=== PATIENT | female | born 1940 | race African-American/Black ===

== ENCOUNTER 2018-03-10 12:41 | Inpatient (IN) | payer MEDICARE, MEDICAID ==
[~2018-03-10] VITALS: Ht 162.6 cm; Wt 131.7 kg
[2018-03-10] VITALS (25 sets, daily range): BP systolic 82–157; BP diastolic 50–119
[~2018-03-10 12:41] MED LIST: ACHD5005 PO; ALBU0.8322 IH; ALBU17AE23; ALBU8.5H2 IH; ALLO300T2 PO; ALLP100T PO; ALPR1T PO; ALPR1TAB72; ALPR1TAB72 PO; AMIT25TA9; AMLO10TA82 PO; AMLO5TAB2 PO; ASP325T PO; ASP81TEC PO; ASPI-983 PO; BACL20TA PO; BISO1TAB41; BUDE6HFA IH; CEPH500C PO; CITA10TA7 PO; CLN.2TD TD; CLN.2TD TOP; CLON1PAT34 TD; CLOP75TA28 PO; CYCL-97 PO; DEXL30CA2 PO; DICY10CA12 PO; DULO30CA PO; DULO60CA6 PO; FAMO20TA13 PO; FERR-57 PO; FLUO20CA25 PO; FRS325T PO; FRSM40T PO; FURO40TA4 PO; GABA-488 PO; HYDR-3583 PO; HYDR-3720 PO; HYDR1TAB86 PO; INDO25CA PO; KCL20TCR PO; LEVO1CAP PO; LEVO1CAP3 PO; LEVO75TA6 PO; LISI20TA PO; LISI40TA PO; LORA0.5T PO; LORA0.5T34 PO; LSNP20T PO; LVT.1T; LVT.1T PO; MAGIC MOUTHWASH PO; MELO7.5T46 PO; METO-387 PO; MTF500T PO; MTL2.5T; MTL2.5T PO; MULT-608 PO; NF-KET2% TOP; Non Medication Item TP; PANT40TA PO; PANT40TA3 PO; PNT40TEC PO; POLY17PO23 PO; POTA2TAB2 PO; PRAV40TA PO; PRAV40TA2 PO; PRD20T PO; RIVA1PAT TD; RIVA6CAP5 PO; SCR1T PO; SPIR25TA5 PO; SULF-222 PO; THYR60TA2 PO; TIOT18CA IH; TRAM50TA2 PO; TRM50T PO; ZIPR20CA24 PO; ZIPR20CA26 PO; [UNRECOGNIZED DRUG - CODE] PO; [UNRECOGNIZED DRUG - REMARK] PO
[2018-03-10] MEDS ORDERED: KETOROLAC 30 MG/ML VIAL IVP ONE (13:00)
[2018-03-10 13:25] LABS: BASOPHILS % (AUTO) 0 % (0-10); EOSINOPHILS # (AUTO) 0.2 10^3/uL (0.0-0.3); EOSINOPHILS % (AUTO) 1 % (0-10); HEMATOCRIT 34 % (35-52); HEMOGLOBIN 10.7 G/DL (11.5-16.0); LYMPHOCYTES # (AUTO) 3.9 X 10^3 (1.0-4.0); LYMPHOCYTES % (AUTO) 29 % (12-44); MEAN CORPUSCULAR HEMOGLOBIN 24 PG (25-34); MEAN CORPUSCULAR HGB CONC 31 G/DL (32-36); MEAN CORPUSCULAR VOLUME 76 FL (80-99); MEAN PLATELET VOLUME 10.1 FL (7.4-10.4); MONOCYTES # (AUTO) 1.1 X 10^3 (0.0-1.0); MONOCYTES % (AUTO) 8 % (0-12); NEUTROPHILS # (AUTO) 8.1 X 10^3 (1.8-7.8); NEUTROPHILS % (AUTO) 61 % (42-75); PLATELET COUNT 321 10^3/uL (130-400); RED BLOOD COUNT 4.49 10^6/uL (4.35-5.85); RED CELL DISTRIBUTION WIDTH 17.7 % (10.0-14.5); WHITE BLOOD COUNT 13.3 10^3/uL (4.3-11.0)
[2018-03-10 13:44] LABS: FIBRIN DEGRADATION PRODUCTS 1.48 UG/ML (0.00-0.49); PROTHROMBIN TIME PATIENT 13.4 SEC (12.2-14.7)
[2018-03-10] MEDS ORDERED: NS IV 1000 ML 1,000 ML IV SCH ×2 (13:44→14:51)
[2018-03-10] MEDS ORDERED: ASPIRIN 81 MG CHEW (CHILDREN'S ASA) PO ONE (13:45)
[2018-03-10] MEDS ORDERED: morphine INJ 10 MG/ML 1ML (SYR OR VIAL) IVP ONE ×2 (13:45→15:00)
[2018-03-10 13:47] LABS: ALANINE AMINOTRANSFERASE 14 U/L (0-55); ALKALINE PHOSPHATASE 89 U/L (40-136); BILIRUBIN,TOTAL 0.5 MG/DL (0.1-1.0); BUN/CREATININE RATIO 21; CALCIUM 10.3 MG/DL (8.5-10.1); CARBON DIOXIDE 25 MMOL/L (21-32); CHLORIDE 102 MMOL/L (98-107); CREATININE SERUM 1.63 MG/DL (0.60-1.30); GFR ESTIMATED 37; GLUCOSE 265 MG/DL (70-105); POTASSIUM 4.4 MMOL/L (3.6-5.0); SODIUM 136 MMOL/L (135-145); TOTAL PROTEIN 6.9 GM/DL (6.4-8.2)
--- NOTE | 2018-03-10 13:47 | Diagnostic Imaging Report ---
Indication: Syncope and slurred speech Portable upright AP view of the chest is obtained with comparison made to study of 09/26/2015. FINDINGS: Heart size and pulmonary vascularity are within normal limits, and the lungs are clear, bilaterally. IMPRESSION: Unremarkable chest. Dictated by: Dictated on workstation # [id number]
--- NOTE | 2018-03-10 13:49 | ED Neurological Problem ---
General Chief Complaint: Neurological Problems Stated Complaint: HAMILTON Nursing Triage Note: pt presents to ED via EMS from [facility]. Pt reports she was getting her hair done and when she was under the dryer she felt like she got too hot and started to feel faint. Staff present reports she started to slurr her words. Upon EMS arrival they reprots pt was fatigued but responding and verbalizing appropriately. Pt is alert and appriopriate upon arrival. PT states her speech is normal for her but still feels dizzy. Nursing Sepsis Screen: No Definite Risk Source: patient, EMS Exam Limitations: no limitations History of Present Illness Date Seen by Provider: Mar 10, 2018 Time Seen by Provider: 12:47 Initial Comments Patient presents to the ER by EMS with chief complaint that she's having a headache and some slurred speech witnessed by nursing staff as well as the patient endorses it for about 2-3 minutes. She says she was feeling okay today although she's had some weakness and tiredness for the past one month. She's not had the weakness or tiredness worked up. She does have a history of hypothyroidism. She was getting her hair done at the assisted living facility where she resides. She said they sat her under the hairdryer when she started to get hot develop a headache in her right frontal forehead that radiated to her left side. He is not having any chest pain nausea shortness of breath. She quit smoking in 2010. She does have a history of stroke without any residual deficits. EMS about time they got there her blood sugar was normal and she had no slurring of speech and a negative [place] stroke scale. Patient does have a history of diet-controlled diabetes. She also has a history of coronary disease managed by Dr. Lu at [place], [place]. She is not on any blood thinners. No falls or head trauma. Allergies and Home Medications Allergies Coded Allergies: carvedilol (Verified Allergy, Unknown, 03/10/18) Home Medications Allopurinol 300 Mg Tablet, 300 MG PO DAILY, (Reported) Aspirin 81 Mg Tablet., 81 MG PO DAILY Prescribed by: NAMRATA HAMILTON on 09/28/15 8364 Citalopram Hydrobromide 10 Mg Tablet, 10 MG PO DAILY, (Reported) Furosemide 40 Mg Tablet, 40 MG PO DAILY, (Reported) Hydrocodone Bit/Acetaminophen 1 Each Tablet, 1 TAB PO TID PRN for PAIN, ( Reported) Lorazepam 0.5 Mg Tablet, 0.5 MG PO HS, (Reported) Meloxicam 7.5 Mg Tablet, 7.5 MG PO DAILY, (Reported) Metoprolol Succinate 25 Mg Tab.er.24h, 25 MG PO DAILY Prescribed by: NAMRATA HAMILTON on 09/28/15 6729 Pantoprazole Sodium 40 Mg Tablet.dr, 40 MG PO DAILY, (Reported) Pravastatin Sodium 40 Mg Tablet, 40 MG PO HS, (Reported) Rivastigmine Tartrate 6 Mg Capsule, 6 MG PO BID, (Reported) Ziprasidone HCl 20 Mg Capsule, 20 MG PO BID, (Reported) Patient Home Medication List Home Medication List Reviewed: Yes Review of Systems Review of Systems Constitutional: No chills, No diaphoresis Eyes: Denies Blindness, Denies Blurred Vision Ears, Nose, Mouth, Throat: denies ear pain, denies ear discharge Respiratory: No cough, No short of breath Cardiovascular: No chest pain, No edema; Hx of Intervention; No palpitations, No syncope; vascular heart diseas Gastrointestinal: No abdominal pain, No constipation, No diarrhea, No nausea Genitourinary: No discharge, No dysuria Musculoskeletal: No back pain, No joint pain Past Xzpzizm-Awntez-Svdkzu Hx Patient Social History Alcohol Use: Rarely Uses Recreational Drug Use: No Smoking Status: Former Smoker Type Used: Cigarettes Former Smoker, Quit: Mar 25, 2011 Recent Foreign Travel: No Contact w/Someone Who Travel: No Recent Infectious Disease Expo: No Recent Hopitalizations: Yes Physical Abuse: No Sexual Abuse: No Mistreated: No Fear: No Immunizations Up To Date Tetanus Booster (TDap): Unknown PED Vaccines UTD: No Date of Pneumonia Vaccine: Jul 02, 2013 Date of Influenza Vaccine: May 21, 2012 Past Medical History Surgeries: Yes (, bilat hip replacements, r caratid, r/l feet, back, stentsx4, ) Coronary Stent, Hysterectomy Respiratory: Yes (COPD) Asthma, Sleep Apnea Currently Using CPAP: Yes Cardiac: Yes (STENTS X 3) Coronary Artery Disease, High Cholesterol, Hypertension Neurological: Yes Dementia Reproductive Disorders: No Sexually Transmitted Disease: No Genitourinary: Yes (chronic kidney disease) Gastrointestinal: Yes (DIVERTICULITIS/COLON POLYPSmultiple hernia surgeries) Gastroesophageal Reflux, Chronic Constipation, Diverticulosis, Ulcer Musculoskeletal: Yes (ARTHRITIS/FIBROMYLAGIA, BACK SURGERIES, NECK SURGERY, bilat total hip repla) Rheumatoid Arthritis, Gout Endocrine: Yes Diabetes, Insulin dep, Hypothyroidsim Cataract Cancer: No Psychosocial: Yes Anxiety, Depression Integumentary: No Blood Disorders: No Family Medical History Cancer 03 FATHER 03 MOTHER Family history: Cardiovascular disease 03 MOTHER Family history: Hypertension 03 FATHER No Pertinent Family Hx Physical Exam Vital Signs Vital Signs - First Documented 03/10/18 03/10/18 12:52 14:00 Temp 97.5 Pulse 64 Resp 14 B/P (MAP) 100/59 (73) Pulse Ox 100 O2 Delivery OxyMask O2 Flow Rate 8.00 Capillary Refill : Less Than 3 Seconds Height, Weight, BMI Height: 5'4.00" Weight: 282lbs. 14.4oz. [id number]; 49.77 BMI Method:Stated General Appearance: WD/WN, no apparent distress HEENT: PERRL/EOMI, pharynx normal Neck: non-tender, normal inspection Respiratory: chest non-tender, normal breath sounds, no respiratory distress, no accessory muscle use, wheezing (slight left-sided wheeze) Cardiovascular: normal peripheral pulses, regular rate, rhythm Gastrointestinal: normal bowel sounds, soft Neurologic/Psychiatric: alert, normal mood/affect, oriented x 3 [place] Nerves: normal hearing, normal speech Coordination/Gait: normal finger to nose Motor/Sensory: no motor deficit, no sensory deficit, no pronator drift Stroke NIH Stroke Scale Assessment Level of Consciousness: 0=Alert (0), Level of Consciousness-Questions: 0= Answers both month/age (0), LOC Commands: 0=Performs both tasks (0), Visual Quick: 0=No visual loss (0), Facial Movement (Facial Paresis): 0=Normal symmetrical mnt (0), Motor Function-Arms Right: 0=No drift (0), Motor Function- Arms Left: 0=No drift (0), Motor Function-Legs Right: 0=No drift (0), Motor Function-Legs Left: 0=No drift (0), Limb Ataxia: 0=Absent (0), Sensory: 0=Normal :no loss (0), Best Language: 0=No aphasia (0), Dysarthria: 0=Normal (0), Extinction & Inattention: 0=No abnormality (0), Total: 0 Stroke Thrombolytic Exclusion Age 18 or Over: Yes Acute intenal hemorrhage: No History of CVA: Yes Uncontrolled Coagulation Defec: No Intracranial Hemorrhage: No Severe Hypertension: No GI or Bleed: No Subarachnoid Hemorrhage: No Intracranial Neoplasm/Aneurysm: No Oral Anticoagulants: No Surgery or Trauma: No Puncture of Non-Compressible V: No Recent CPR: No Diabetic Hemorrhagic Retinopat: No Organ Biopsy: No Recent Obstetric Delivery: No Glucose: No (244) Significant Hepatic Dysfunctio: No NIH Stoke Scale >22: No Bacterial Endocarditis: No Pericarditis: No Improving Symptoms: No Platelets: No TPA Contraindication: No IV - TPa Received IV - TPa Procedure Performed?: No Progress/Results/Core Measures Results/Orders Lab Results Laboratory Tests Test 03/10/18 13:00 03/10/18 13:20 03/10/18 14:25 Range/Units Glucometer 244 H 70-110 MG/DL White Blood Count 13.3 H 4.3-11.0 10^3/uL Red Blood Count 4.49 4.35-5.85 10^6/uL Hemoglobin 10.7 L 11.5-16.0 G/DL Hematocrit 34 L 35-52 % Mean Corpuscular Volume 76 L 80-99 FL Mean Corpuscular Hemoglobin 24 L 25-34 PG Mean Corpuscular Hemoglobin Concent 31 L 32-36 G/DL Red Cell Distribution Width 17.7 H 10.0-14.5 % Platelet Count 321 130-400 10^3/uL Mean Platelet Volume 10.1 7.4-10.4 FL Neutrophils (%) (Auto) 61 42-75 % Lymphocytes (%) (Auto) 29 12-44 % Monocytes (%) (Auto) 8 0-12 % Eosinophils (%) (Auto) 1 0-10 % Basophils (%) (Auto) 0 0-10 % Neutrophils # (Auto) 8.1 H 1.8-7.8 X 10^3 Lymphocytes # (Auto) 3.9 1.0-4.0 X 10^3 Monocytes # (Auto) 1.1 H 0.0-1.0 X 10^3 Eosinophils # (Auto) 0.2 0.0-0.3 10^3/uL Basophils # (Auto) 0.0 0.0-0.1 10^3/uL Prothrombin Time 13.4 12.2-14.7 SEC INR Comment 1.0 0.8-1.4 Activated Partial Thromboplast Time 24 24-35 SEC D-Dimer 1.48 H 0.00-0.49 UG/ML Sodium Level 136 135-145 MMOL/L Potassium Level 4.4 3.6-5.0 MMOL/L Chloride Level 102 98-107 MMOL/L Carbon Dioxide Level 25 21-32 MMOL/L Anion Gap 9 5-14 MMOL/L Blood Urea Nitrogen 34 H 7-18 MG/DL Creatinine 1.63 H 0.60-1.30 MG/DL Estimat Glomerular Filtration Rate 37 BUN/Creatinine Ratio 21 Glucose Level 265 H 70-105 MG/DL Calcium Level 10.3 H 8.5-10.1 MG/DL Corrected Calcium 10.3 H 8.5-10.1 MG/DL Magnesium Level 1.8 1.8-2.4 MG/DL Total Bilirubin 0.5 0.1-1.0 MG/DL Aspartate Amino Transf (AST/SGOT) 18 5-34 U/L Alanine Aminotransferase (ALT/SGPT) 14 0-55 U/L Alkaline Phosphatase 89 40-136 U/L Myoglobin 40.4 10.0-92.0 NG/ML Troponin I < 0.30 <0.30 NG/ML Total Protein 6.9 6.4-8.2 GM/DL Albumin 4.0 3.2-4.5 GM/DL Urine Color YELLOW Urine Clarity CLEAR Urine pH 5 5-9 Urine Specific [place] 1.015 L 1.016-1.022 Urine Protein 2+ H NEGATIVE Urine Glucose (UA) NEGATIVE NEGATIVE Urine Ketones NEGATIVE NEGATIVE Urine Nitrite NEGATIVE NEGATIVE Urine Bilirubin NEGATIVE NEGATIVE Urine Urobilinogen 1 NORMAL MG/DL Urine Leukocyte Esterase 1+ H NEGATIVE Urine RBC (Auto) NEGATIVE NEGATIVE Urine RBC 0-2 /HPF Urine WBC NONE /HPF Urine Squamous Epithelial Cells 5-10 /HPF Urine Crystals NONE /LPF Urine Amorphous Sediment FEW JAZZ URATES H /LPF Urine Bacteria TRACE /HPF Urine Casts PRESENT /LPF Urine Hyaline Casts 10-25 H /LPF Urine Mucus NEGATIVE /LPF Urine Culture Indicated NO My Orders Orders - FATUMA OCAMPO Cbc With Automated Diff (03/10/18 12:58) Protime With Inr (03/10/18 12:58) Partial Thromboplastin Time (03/10/18 12:58) Comprehensive Metabolic Panel (03/10/18 12:58) Fibrin Degradation Products (03/10/18 12:58) Troponin I (03/10/18 12:58) Ua Culture If Indicated (03/10/18 12:58) Chest 1 View, Ap/Pa Only (03/10/18 12:58) Ekg Tracing (03/10/18 12:58) Accucheck Stat ONCE (03/10/18 12:58) Saline Lock/Iv-Start (03/10/18 12:58) Vital Signs Stroke Patient Q15M (03/10/18 12:58) O2 (03/10/18 12:58) Intake & Output 06,14,22 (03/10/18 12:58) Monitor-Rhythm Ecg Trace Only (03/10/18 12:58) Dysphagia Screening Tool (03/10/18 12:58) Ketorolac Injection (Toradol Injection) (03/10/18 13:00) Ekg Tracing (03/10/18 13:31) Ekg Tracing (03/10/18 13:44) Morphine Injection (Morphine Injection (03/10/18 13:45) Saline Lock/Iv-Start (03/10/18 13:44) Ns Iv 1000 Ml (Sodium Chloride 0.9%) (03/10/18 13:44) Aspirin Chewable Tablet (Baby Aspirin Ch (03/10/18 13:45) Magnesium (03/10/18 13:20) Myoglobin Serum (03/10/18 13:20) Midazolam Injection (Versed Injection) (03/10/18 14:08) Dopamine Drip (Dopamine Drip) (03/10/18 14:27) Echo W Doppler/Color Flow (03/10/18 14:38) Lidocaine 1% Inj 20 Ml (Xylocaine 1% Inj (03/10/18 14:43) Midazolam Injection (Versed Injection) (03/10/18 14:43) Fentanyl Injection (Sublimaze Injection (03/10/18 14:43) Diphenhydramine Injection (Benadryl Inje (03/10/18 14:43) Heparin (Bolus Per Protocol) (Heparin (B (03/10/18 14:43) Ns Iv 1000 Ml (Sodium Chloride 0.9%) (03/10/18 14:44) Medications Given in ED Current Medications Medications Dose Ordered Sig/Jonathan Route Start Time Stop Time Status Last Admin Dose Admin Aspirin 324 mg ONCE ONCE PO 03/10/18 13:45 03/10/18 13:46 DC 03/10/18 13:52 324 MG Dopamine HCl/ Dextrose 250 ml @ ud STK-MED ONCE IV 03/10/18 14:27 03/10/18 14:30 DC 03/10/18 14:33 23.8 MLS/HR Ketorolac Tromethamine 15 mg ONCE ONCE IVP 03/10/18 13:00 03/10/18 13:01 DC 03/10/18 13:35 15 MG Midazolam HCl 5 mg STK-MED ONCE .ROUTE 03/10/18 14:08 03/10/18 14:13 DC 03/10/18 14:12 5 MG Morphine Sulfate 4 mg ONCE ONCE IVP 03/10/18 13:45 03/10/18 13:46 DC 03/10/18 13:52 4 MG Vital Signs/I&O 03/10/18 03/10/18 03/10/18 12:52 14:00 14:33 Temp 97.5 97.6 Pulse 64 60 Resp 14 12 B/P (MAP) 100/59 (73) 120/68 Pulse Ox 100 98 100 O2 Delivery OxyMask O2 Flow Rate 8.00 Blood Pressure Mean: 73 FSBG Bedside Testing Finger Stick Blood Glucose: 244 Progress Progress Note : Time: 14:00 Progress Note Shortly after the patient here she had a bradycardic event getting down to below 32. We got another EKG patient does not have any pain or shortness breath at that time however about 10:15 minutes later she started having some left arm pain. The daughters were a dysarthria screening swallow study and gave her aspirin. Consults : Consulting Physician: Gonzalo LINK MD Consults Notes Dr. Link saw the patient and examined her alongside with me. He initiated dopamine. But family saw the patient blood pressure was about 105 systolic with a paced heart rate of 65. The chest pain seemed to be from the demand and EKGs did not demonstrate STEMI but nor her to continue the dopamine we needed a central line and the patient would also benefit from an internal pacemaker overnight so he elected to take the patient to the catheter lab to place an internal pacemaker due to the heart catheter that he needed to do to rule out a coronary blockage to the AV node. Same time to go ahead and leave the line in the femoral vein for dopamine use. He took the patient from the ER directly to the [facility] for that reason. Afterwards he reported the patient did well has an internal pacemaker placed and central line in the right femoral vein. He also recommended we get an echocardiogram in the ER possible if not, then on the hospital. Critical Care Note Critical Care Start Time: 13:15 Stop Time: 15:00 Total Time (minutes) 105 Progress Nursing notified me that the patient was having bradycardia in the 30s when interviewed the patient she was not having any chest pain at that time that she was feeling very faint and short of breath. The patient's heart rate was witnessed on the monitor to be 32 by the time we got a EKG within a minute he was started back up to 50. Patient's symptoms abated. We put the pacer paddles on her and started a second liter fluid as her blood pressure was around 100 and 105 systolic. Reexamined her ordered another EKG and some aspirin. Patient tolerated that okay. Then about 15 minutes later called back in the room when the patient was bradycardia down into the 30s again at this time her blood pressure was in the mid 60s systolic and she was having left shoulder pain. Patient does have a history of 4 stents. She does not have a pacemaker or AICD. We went ahead and initiated lipase mode overnight getting good capture so we repositioned the pacer paddles and then got good passive capture with 40 mA. Because of the discomfort of pacing we also gave her 6 mg of morphine and 3 mg of Versed. She was awake, alert and talking about the procedure and her pain was improving after the injections. Dr. Butler was notified again and he knew Dr. Link to be in house so he asked Dr. Link to come over and see the patient. Dr. Link examine the patient with us we get good capture we reduced the place down to 50 and the milliamps down to 16. We watched the patient's [place] pulse rate stayed around 50-55 and no lower. Her repeat blood pressure was 106 systolic so he ordered dopamine which we started peripherally. Dr. Link wanted a echocardiogram completed as well as he knew the patient would need a heart catheter to rule out an obstruction of the coronaries and went until we could get the metoprolol out of her system we could not justify placement of a permanent pacemaker. He also thought that it would be beneficial for her to have an internal pacer overnight as she was requiring a pacemaker. So he is elected to go ahead and take the patient to [facility] not because of Stemi but because we could then obtain central venous access for the dopamine, place a internal pacemaker and get rid of the external pacemaker which is causing some discomfort as well as complete the cardiac catheterization. He reported afterwards that the cardiac catheterization was clean and internal pacemaker was placed without problems. The patient also had a good central venous access and the dopamine was switched over to and the patient was admitted to the medical service with his consultation. Departure Communication (Admissions) Time/Spoke to Admitting Phy: 15:40 Discussed case lab imaging findings and plan to go to [facility] for internal pacemaker placement with Dr. Holman. She agrees and will see the patient. Time/Spoke to Consulting Phy: 13:10 Discussed the labs, EKG presentation and bradycardia with Dr. Butler. He asked Dr. Link who was in house to come see stabilize, evaluate and manage patient inpatient. Impression Primary Impression: Symptomatic sinus bradycardia Additional Impressions: Chest pain Qualified Codes: R07.9 - Chest pain, unspecified Near syncope Disposition: ADMITTED INPATIENT Condition: Critical Admissions Decision to Admit Reason: Admit from ER (General) Decision to Admit/Date: Mar 10, 2018 Time/Decision to Admit Time: 15:00 Departure-Patient Inst. Referrals: PETE FALCON MD (PCP) Primary Care Physician ELIEL SMITH APRN (Family) Primary Care Physician Copy Copies To 1: FER PALOMINO DO; SISI BUTLER MD, TITUS J Mar 10, 2018 13:49
[2018-03-10 13:59] LABS: MAGNESIUM 1.8 MG/DL (1.8-2.4)
[2018-03-10] MEDS ORDERED: MIDAZOLAM 5 MG/5 ML (VERSED) VIAL ONE ×2 (14:08→14:43)
[2018-03-10 14:12] LABS: MYOGLOBIN SERUM 40.4 NG/ML (10.0-92.0)
[2018-03-10] MEDS ORDERED: DOPamine DRIP 250 ML IV ONE (14:27)
[2018-03-10 14:34] LABS: BILIRUBIN,URINE NEGATIVE (NEGATIVE); CLARITY,URINE CLEAR; COLOR,URINE YELLOW; GLUCOSE, URINE (UA) NEGATIVE (NEGATIVE); KETONES,URINE NEGATIVE (NEGATIVE); LEUKOCYTE ESTERASE ,URINE 1+ (NEGATIVE); NITRITE,URINE NEGATIVE (NEGATIVE); PH,URINE 5 (5-9); PROTEIN,URINE 2+ (NEGATIVE); UROBILINOGEN,URINE 1 MG/DL (NORMAL)
[2018-03-10 14:43] LABS: AMORPHOUS SEDIMENT,UR FEW AMOR URATES /LPF; BACTERIA,URINE TRACE /HPF; RBC,URINE 0-2 /HPF
[2018-03-10] MEDS ORDERED: fentaNYL INJECTION 100 MCG/2 ML AMP ONE (14:43)
[2018-03-10] MEDS ORDERED: HEParin 1000 UNIT/ML (10ML VIAL) FOR BOLUS ONE (14:43)
[2018-03-10] MEDS ORDERED: LIDOCAINE 1% INJ 20 ML 20 ML VIAL ONE (14:43)
[2018-03-10] MEDS ORDERED: diphenhydrAMINE 50 MG/ML INJ (BENADRYL) ONE (14:43)
[2018-03-10] MEDS ORDERED: NS IV 1000 ML 3,000 ML ONE (14:44)
--- NOTE | 2018-03-10 14:54 | Consultation-Cardiology ---
HPI-Cardiology Cardiology Consultation: Date of Consultation 03/10/18 Date of Admission Attending Physician Gonzalo Link MD Admitting Physician Miguel Angel Mcclendon MD Consulting Physician Gonzalo LINK MD HPI: Time Seen by Provider: 14:20 Chief Complaint: Chest pain, bradycardia This is a 77-year-old lady who has history of significant CAD with 4 stents according to the patient by Dr. Anne in [place]. She presented with headache , slurred speech and near syncope. She also developed significant chest pain substernally which responded to 6 mg of IV morphine. She is not having any shortness of breath. In the ER her heart rate dropped in the 20s and 30s with a systolic blood pressure of 60 mmHg. A transcutaneous pacemaker was placed. In the ER her slurred speech improved. She was not having any further headache. When I saw her we reduced the pacing rate on the pacemaker. Her robinson heart rate was 55 bpm with sinus rhythm. Her systolic blood pressure was 106 mmHg. She had already received 2 L of IV bolus fluids. Her chest pain was much better. Review of Systems-Cardiology Review of Systems Constitutional: As described under HPI; No As described under HPI, No no symptoms reported, No chills, No fever; lightheadedness Eyes: No As described under HPI, No no symptoms reported, No blindness, No blurred vision, No contact lenses, No drainage, No decreased acuity, No foreign body sensation, No pain, No vision change Ears/Nose/Throat: No As described under HPI, No no symptoms reported, No chronic hearing loss, No ear discharge, No ear pain, No nasal drainage, No ulcerations Respiratory: No no symptoms reported; As described under HPI; No As described under HPI, No cough, No orthopnea, No shortness of breath, No SOB with excertion Cardiovascular: No no symptoms reported; As described under HPI; No As described under HPI; chest pain; No edema, No irregular heart rate, No lightheadedness, No palpitations; syncope Gastrointestinal: No no symptoms reported, No As described under HPI, No abdomen distended, No abdominal pain, No blood streaked bowels, No constipation , No diarrhea, No nausea, No vomiting, No stool coloration changes Genitourinary: No As described under HPI, No burning, No dysuria, No discharge , No frequency, No flank pain, No hematuria, No urgency : Yes : No Musculoskeletal: No no symptoms reported, No As describe under HPI, No back pain, No gout, No joint pain, No joint swelling, No muscle pain, No muscle stiffness, No neck pain, No other Skin: No no symptoms reported, No As described under HPI, No change in color, No change in hair/nails, No dryness, No lesions, No lumps, No rash, No other, No skin related problems, No ulcerations, No rash on exposed areas, No ulcerations on exposed areas Psychiatric/Neurological: No no symptoms reported, No As described under HPI, No anxiety, No depression, No emotional problems, No headache, No numbness, No pre-existing deficit, No seizure, No tingling, No tremors, No weakness, No other , No focal weakness, No syncope Hematologic: No no symptoms reported, No As described under HPI, No anemia, No blood clots, No easy bleeding, No easy bruising, No swollen glands, No other, No bleeding abnormalities BSF-Bufrrz-Mkpexc Hx Patient Social History Alcohol Use: Rarely Uses Recreational Drug Use: No Smoking Status: Former Smoker Former smoker/When Quit: Mar 24, 2011 Type Used: Cigarettes Recent Foreign Travel: No Recent Infectious Disease Expo: No Immunizations Up To Date Tetanus Booster (TDap): Unknown Date of Pneumonia Vaccine: Jul 02, 2013 Date of Influenza Vaccine: May 21, 2012 Past Medical History PMH As described under Assessment. Family Medical History Family History: Cancer 03 FATHER 03 MOTHER Family history: Cardiovascular disease 03 MOTHER Family history: Hypertension 03 FATHER Allergies and Home Medications Allergies Coded Allergies: No Known Drug Allergies (Verified , 07/04/07) Home Medications Allopurinol 300 Mg Tablet, 300 MG PO DAILY, (Reported) Aspirin 81 Mg Tablet.dr, 81 MG PO DAILY Prescribed by: NAMRATA HAMILTON on 09/28/15 1329 Citalopram Hydrobromide 10 Mg Tablet, 10 MG PO DAILY, (Reported) Furosemide 40 Mg Tablet, 40 MG PO DAILY, (Reported) Hydrocodone Bit/Acetaminophen 1 Each Tablet, 1 TAB PO TID PRN for PAIN, ( Reported) Lorazepam 0.5 Mg Tablet, 0.5 MG PO HS, (Reported) Meloxicam 7.5 Mg Tablet, 7.5 MG PO DAILY, (Reported) Metoprolol Succinate 25 Mg Tab.er.24h, 25 MG PO DAILY Prescribed by: NAMRATA HAMILTON on 09/28/15 9259 Pantoprazole Sodium 40 Mg Tablet.dr, 40 MG PO DAILY, (Reported) Pravastatin Sodium 40 Mg Tablet, 40 MG PO HS, (Reported) Rivastigmine Tartrate 6 Mg Capsule, 6 MG PO BID, (Reported) Ziprasidone HCl 20 Mg Capsule, 20 MG PO BID, (Reported) Patient Home Medication List Home Medication List Reviewed: Yes Physical Exam-Cardiology Physical Exam Vital Signs/I&O 03/10/18 03/10/18 12:52 14:33 Temp 97.5 97.6 Pulse 64 60 Resp 14 12 B/P (MAP) 100/59 (73) 120/68 Pulse Ox 100 100 Capillary Refill : Less Than 3 Seconds Constitutional: appears stated age, AAO x 3, apparent distress, well-developed , well-nourished HEENT: PERRL; No normal ENT inspection, No TMs normal, No pharynx normal, No scleral icterus (R), No scleral icterus (L), No pale conjunctivae (R), No pale conjunctivae (L), No photophobia, No TM abnormal (R), No TM abnormal (L), No pharyngeal erythema, No tonsillar exudate, No other, No discharge, No EOMI; hearing is well preserved; No hard of hearing; oral hygience is good; No ulceration, No xanthelasmas are seen Neck: No non-tender, No full range of motion, No supple, No normal inspection, No carotid bruit, No limited range of motion, No lymphadenopathy (R), No lymphadenopathy (L), No tender lateral, No tender midline, No thyromegaly, No other; carotid pulses are 2 + bilaterally; No with good upstrokes Respiratory: No accessory muscle use, No respiratory distress, No chest tender , No chest expansion is symmetric; chest is bilaterally symmetric; No lungs clear to percussion; lungs clear to auscultation; No crackles, No rhonchi, No rales, No stridor, No wheezing, No pleural rub, No other Cardiovascular: regular rate-rhythm; No irregularly irregular, No extra beats, No parasternal heave is noted, No JVD, No edema, No bradycardia, No tachycardia , No point of maximal impulse, No cardiac thrills are palpable; S1 and S2; No gallop/S3, No gallop/S4, No diastolic murmur, No systolic murmur, No friction rub, No click, No other Gastrointestinal: No tender, No soft, No round, No distended, No pulsatile mass , No organomegaly, No guarding, No rebound, No tenderness, No hernia, No mass, No audible bowel sounds, No abnormal bowel sounds, No abdominal bruits, No spleenomegaly, No other Rectal: deferred Extremities: No normal range of motion, No non-tender, No normal inspection, No pedal edema, No calf tenderness, No normal capillary refill, No pelvis stable , No calf tenderness, No inflammation, No pedal edema, No slow capillary refill , No swelling, No other, No abrasion, No clubbing, No cyanosis, No ecchymosis, No laceration, No no lower extremity edema bilateral, No significant edema, No tenderness, No wound Neurologic/Psychiatric: no motor/sensory deficits, alert, normal mood/affect, oriented x 3, power is 5/5 both on sides Skin: No normal color, No warm/dry, No cyanosis, No cool, No diaphoresis, No damp, No ecchymosis, No jaundice, No mottled, No pallor, No rash, No tattoos/ piercings, No ulcerations, No rash on exposed areas, No ulcerations on exposed areas, No other Data Review Labs Laboratory Tests 03/10/18 13:00: Glucometer 244H 03/10/18 13:20: White Blood Count 13.3H, Red Blood Count 4.49, Hemoglobin 10.7L, Hematocrit 34L , Mean Corpuscular Volume 76L, Mean Corpuscular Hemoglobin 24L, Mean Corpuscular Hemoglobin Concent 31L, Red Cell Distribution Width 17.7H, Platelet Count 321, Mean Platelet Volume 10.1, Neutrophils (%) (Auto) 61, Lymphocytes (% ) (Auto) 29, Monocytes (%) (Auto) 8, Eosinophils (%) (Auto) 1, Basophils (%) ( Auto) 0, Neutrophils # (Auto) 8.1H, Lymphocytes # (Auto) 3.9, Monocytes # (Auto ) 1.1H, Eosinophils # (Auto) 0.2, Basophils # (Auto) 0.0, Prothrombin Time 13.4 , INR Comment 1.0, Activated Partial Thromboplast Time 24, D-Dimer 1.48H, Sodium Level 136, Potassium Level 4.4, Chloride Level 102, Carbon Dioxide Level 25, Anion Gap 9, Blood Urea Nitrogen 34H, Creatinine 1.63H, Estimat Glomerular Filtration Rate 37, BUN/Creatinine Ratio 21, Glucose Level 265H, Calcium Level 10.3H, Corrected Calcium 10.3H, Magnesium Level 1.8, Total Bilirubin 0.5, Aspartate Amino Transf (AST/SGOT) 18, Alanine Aminotransferase (ALT/SGPT) 14, Alkaline Phosphatase 89, Myoglobin 40.4, Troponin I < 0.30, Total Protein 6.9, Albumin 4.0 03/10/18 14:25: Urine Color YELLOW, Urine Clarity CLEAR, Urine pH 5, Urine Specific [place] 1.015L, Urine Protein 2+H, Urine Glucose (UA) NEGATIVE, Urine Ketones NEGATIVE, Urine Nitrite NEGATIVE, Urine Bilirubin NEGATIVE, Urine Urobilinogen 1, Urine Leukocyte Esterase 1+H, Urine RBC (Auto) NEGATIVE, Urine RBC 0-2, Urine WBC NONE , Urine Squamous Epithelial Cells 5-10, Urine Crystals NONE, Urine Amorphous Sediment FEW JAZZ URATESH, Urine Bacteria TRACE, Urine Casts PRESENT, Urine Hyaline Casts 10-25H, Urine Mucus NEGATIVE, Urine Culture Indicated NO ECG Impression ECG Initial ECG Rhythm: Normal Sinus Comment EKG showed sinus rhythm with right bundle-branch block. QRS duration 120 ms. Telemetry in the ER shows severe bradycardia with heart rate between 20 and 30 BPM. No clear P waves were discernible. A/P-Cardiology Assessment/Admission Diagnosis Chest pain, previous history of significant CAD and PCI, Near syncope with severe bradycardia and hypotension, Acute kidney injury Plan Chest pain, previous history of significant CAD and PCI, first set of troponin is negative. EKG does not show any significant ST-T wave abnormalities. The patient is on aspirin, beta gail and statin. Since the patient had severe chest pain and symptomatic severe bradycardia, coronary angiography is recommended to rule out severe RCA stenosis. Near syncope with severe bradycardia and hypotension: transcutaneous pacemaker was placed anterior posterior and capture and pacing confirmed. set at backup pacing 50bpm. robinson artery rate sinus rhythm at 55 BPM. Systolic blood pressure now improved to 106 mm Hg after 2 L of IV fluids. The patient will need a temporary pacemaker through a central line. Patient was also started on low-dose dopamine at 5 g per KG per minute. Temporary pacemaker will be done under fluoroscopy in the catheter lab. Consent was taken both for coronary angiography and temporary pacemaker implantation. All the risks and complication were explained in detail including cardiac damage, vascular damage , bleeding, stroke, HI and even . Patient will be admitted to the ICU and heart rate will be monitored overnight off beta blockers. She may be a candidate for a pacemaker since she does require beta gail for CAD. However we need to first rule out significant CAD. Echocardiogram will be done to measure EF. Acute kidney injury, on IV fluids. Critical patient. 30-35 minutes were spent in taking care of this critical patient. Thank you for your consultation. Please call me if you have any questions. Blanca Link MD, FACP, FACC, FSCAI, FHRS, CCDS Interventional Cardiology Cardiac Electrophysiology Vascular Medicine and Endovascular Interventions Gonzalo LINK MD Mar 10, 2018 14:54
--- OUTSIDE RECORDS SUMMARY | 2018-03-10 15:36 | XMS REPORT | Clinical Summary ---
Author Author [facility] Organization [facility] Address Unknown Phone Unavailable Care Team Providers Care Coat Room Attendant Name Role Phone Lex Greene MD PCP Lex Souza MD Unavailable Unavailable Source Comments Some departments are not documenting in the electronic medical record. If you do not see the information that you expected, contact Release of Information in the Health Information Management department at [phone] for further assistance in locating additional records.[facility] Allergies No Known Allergies Current Medications Prescription Sig. Disp. Refills Start End Date Status Date lisinopril (PRINIVIL, Take 40 mg by mouth Active ZESTRIL) 40 mg tablet daily. metFORMIN (GLUCOPHAGE) Take 500 mg by mouth Active 500 mg tablet twice daily with meals. furosemide (LASIX) 40 mg Take 40 mg by mouth twice Active tablet daily. baclofen (LIORESAL) 20 mg Take 20 mg by mouth three Active tablet times daily. nitroglycerin (NITROSTAT) Place 0.3 mg under tongue Active 0.3 mg tablet every 5 minutes as needed. FLUoxetine (PROZAC) 20 mg Take 20 mg by mouth Active capsule daily. indomethacin (INDOCIN) 25 Take 25 mg by mouth three Active mg capsule times daily. docusate (COLACE) 100 mg Take 200 mg by mouth at Active capsule bedtime as needed. DULoxetine DR (CYMBALTA) Take 60 mg by mouth Active 60 mg capsule daily. budesonide/formoterol(+) Inhale 2 Puffs by mouth Active (SYMBICORT) 160/4.5 mcg twice daily. HFAA inhalation albuterol (VENTOLIN HFA, Inhale 2 Puffs by mouth Active PROAIR HFA) 90 every 6 hours as needed. mcg/Actuation inhaler thyroid (ARMOUR THYROID) Take 60 mg by mouth Active 60 mg tablet daily. aspirin EC (ECOTRIN LOW Take 81 mg by mouth Active STRENGTH) 81 mg tablet daily. Potassium Gluconate 595 Take 1 Tab by mouth Active (99) mg Tab daily. oxyCODONE (ROXICODONE) 5 Take 1-3 Tabs by mouth 60 Tab 0 05/19/20 Active mg tablet every 3 hours as needed 11 for Pain. polyethylene glycol 3350 Take 17 g by mouth daily. 1 Bottle 0 Active (GLYCOLAX; MIRALAX) 17 11 gram/dose powder Active Problems Not on file Immunizations Name Dates Previously Given Next Due FLU VACCINE >3YO 05/15/2011 (Preservative Free) Social History Tobacco Use Types Packs/Day Years Used Date Former Smoker Cigarettes 1 50 Quit: 03/25/2011 Sex Assigned at Date Recorded Not on file Last Filed Vital Signs Vital Sign Reading Time Taken Blood Pressure 124/67 05/19/2011 7:37 AM NEUROCRITICAL CARE PHYSICIAN Pulse 63 05/19/2011 7:37 AM NEUROCRITICAL CARE PHYSICIAN Temperature 36.9 C (98.4 F) 05/19/2011 7:37 AM NEUROCRITICAL CARE PHYSICIAN Respiratory Rate - - Oxygen Saturation 94% 05/19/2011 7:37 AM NEUROCRITICAL CARE PHYSICIAN Inhaled Oxygen - - Concentration Weight 120.7 kg (266 lb 1.5 oz) 05/15/2011 6:00 AM NEUROCRITICAL CARE PHYSICIAN Height 162.6 cm (5' 4") 05/04/2011 2:03 PM CDT Body Mass Index 45.68 05/15/2011 6:00 AM NEUROCRITICAL CARE PHYSICIAN Plan of Treatment Health Maintenance Due Date Last Done Comments PHYSICAL (COMPREHENSIVE) 1948 EXAM PERTUSSIS VACCINE 1952 TETANUS VACCINE 1958 SHINGLES RECOMBINANT 11/27/1991 VACCINE (1 of 2) OSTEOPOROSIS SCREENING 2006 PNEUMONIA (PCV13/PPSV23) 2006 VACCINES (1 of 2 - PCV13) INFLUENZA VACCINE 03/31/2018 05/15/2011 Results Not on filefrom Last 3 Months
--- OUTSIDE RECORDS SUMMARY | 2018-03-10 15:37 | XMS REPORT ---
Author Author ELIEL SMITH Organization [facility] Address [address] [place] [address] Care Team Providers Care Mule Developer Name Role Phone ELIEL SMITH Unavailable PROBLEMS Type Condition ICD9-CM Code OUC58-HE Code Onset Dates Condition Status SNOMED Code Problem Chronic pain G89.29 Active 32116851 Problem Depression F32.9 Active 509316742 Problem Constipation K59.00 Active 51820209 Problem Type 2 diabetes mellitus with diabetic chronic kidney disease E11.22 Active 55962925 Problem Anxiety F41.9 Active 65533832 Problem Chronic kidney disease, stage III (moderate) N18.3 Active 779368439 Problem Hepatitis C B19.20 Active 26911068 Problem History of solitary pulmonary nodule Z87.898 Active 143154374 Problem Chronic kidney disease (CKD) stage G3a/A1, moderately decreased glomerular filtration rate (GFR) between 45-59 mL/min/1.73 square meter and albuminuria creatinine ratio less than 30 mg/g N18.3 Active 245272739 Problem 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 94750100 Problem Chronic fatigue R53.82 Active 66389358 Problem Diverticulitis K57.92 Active 503579159 Problem History of alcoholism F10.21 Active 897313315 Problem History of TIA (transient ischemic attack) Z86.73 Active 439980686 Problem Vitamin D deficiency E55.9 Active 68373230 Problem Hyperlipidemia E78.5 Active 29671146 Problem Coronary artery disease I25.10 Active 67958998 Problem Hypertension I10 Active 68567404 Problem DJD (degenerative joint disease) M19.90 Active 192303631 Problem Cervical stenosis of spinal canal M48.02 Active 62314233 Problem Vascular dementia F01.50 Active 693027318 Problem Abnormal CBC R79.89 Active 247792848 Problem Arthritis M19.90 Active 3398241 Problem Morbid obesity with BMI of 45.0-49.9, adult Z68.42 Active 162431220 ALLERGIES No Information ENCOUNTERS Encounter Location Date Diagnosis [place] [id number] [place] [address] 92601- 5378 Mar, [place] [id number] [place] [address] 60253- 1995 Jan, [place] [address] [address]- 1449 Jan, Type 2 diabetes mellitus with diabetic chronic kidney disease E11.22 ; Chronic kidney disease, stage III (moderate) N18.3 ; Hypertension I10 ; DJD (degenerative joint disease) M19.90 and Anxiety F41.9 [place] [address] [address]- 7200 Dec, Anxiety F41.9 and Chronic pain G89.[address] [address]- 2984 Dec, [place] [address] 58753- 0501 Nov, Anxiety F41.9 and Chronic pain G89.29 [place] [address] 26938- 6849 October, Chronic pain G89.29 and Anxiety F41.[address] 56180- 5201 October, Type 2 diabetes mellitus without complications E11.9 ; Hypertension I10 ; Vascular dementia F01.50 ; Arthritis M19.90 ; Chronic pain G89.29 ; History of TIA (transient ischemic attack) Z86.73 ; Hyperlipidemia E78.5 ; Constipation K59.00 ; Depression F32.9 ; 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 ; Chronic kidney disease (CKD) stage G3a/A1, moderately decreased glomerular filtration rate (GFR) between 45- 59 mL/min/1.73 square meter and albuminuria creatinine ratio less than 30 mg/g N18.3 and Anxiety F41.9 [place] [id number] [place] [address] 37270- 8036 Sep, Chronic pain G89.29 and Anxiety F41.9 [place] [address] 59659- 6645 Aug, Anxiety F41.9 and Chronic pain G89.29 [place] [address] 49767- 3501 Aug, Anxiety F41.9 [place] [address] 37346- 9535 Aug, Chronic pain G89.29 and Anxiety F41.9 [place] [address] 02609- 8943 Aug, Chronic kidney disease (CKD) stage G3a/A1, moderately decreased glomerular filtration rate (GFR) between 45-59 mL/min/1.73 square meter and albuminuria creatinine ratio less than 30 mg/g N18.3 [place] [id number] [place] [address] 35050- 5641 Aug, [facility] [address] [id number] Jul, Dental examination Z01.[address] 94702- 6947 Jul, Chronic pain G89.29 and Anxiety F41.9 [place] [address] 04602- 2202 Jul, Other specified abnormal findings of blood chemistry R79.89 [place] [address] 99918- 6165 Jul, Type 2 diabetes mellitus without complications E11.9 ; Chronic kidney disease (CKD) stage G3a/A1, moderately decreased glomerular filtration rate (GFR) between 45-59 mL/min/1.73 square meter and albuminuria creatinine ratio less than 30 mg/g N18.3 ; BMI 45.0-49.9, adult Z68.42 ; Chronic fatigue R53.82 ; Hair loss L65.9 ; Generalized abdominal pain R10.84 and Diverticulitis K57.92 [facility] [id number] [place] [address] 75414- 5846 Jul, [facility] [id number] [place] [address] [id number] Jul, Dental examination Z01.20 [facility] [id number] [place] [address] 89529- 4526 Jul, Anxiety F41.9 [facility] [id number] [place] [address] 39904- 8540 Jul, Anxiety F41.9 [facility] [address] [id number] Jul, Chronic pain G89.29 [facility] [address] [id number] May, Chronic pain G89.29 [facility] [id number] [place] [address] 81749865- 9299 May, [facility] [id number] [place] [address] [id number] May, Dental examination Z01.20 [facility] [id number] [place] [address] 84309- 1788 May, Anxiety F41.9 [facility] [id number] [place] [address] [id number] May, Chronic pain G89.29 [facility] [address] [place] [address] 81649- 5843 Mar, Depression F32.9 [facility] [id number] [place] [address] [id number]- 6800 Mar, Anxiety F41.9 [facility] [id number] [place] [address] [id number] Mar, Chronic pain G89.29 [facility] [id number] [address]- 2314 19 Mar, 2017 Abnormal CBC R79.89 [facility] [id number] [place] [address] [id number] 18 Mar, 2017 Anxiety F41.9 [facility] [address] [place] [address] 98723- 4841 14 Mar, 2017 Hypertension I10 ; Routine health maintenance Z00.00 ; Type 2 diabetes mellitus without complications E11.9 and Hyperlipidemia E78.5 [facility] [id number] [place] [address] [id number] 13 Mar, 2017 Chronic pain G89.29 and Anxiety F41.9 [facility] [address] [place] [address] [id number] 13 Mar, 2017 Dental examination Z01.20 [facility] [address] [place] [address] 74625- 2317 06 Mar, 2017 Hypertension I10 ; Routine health maintenance Z00.00 ; Type 2 diabetes mellitus without complications E11.9 and Hyperlipidemia E78.5 [facility] [address] [place] [address] 65502- 7830 22 Jan, 2017 Type 2 diabetes mellitus without complications E11.9 ; Hypertension I10 ; Vascular dementia F01.50 ; Morbid obesity with BMI of 45.0- 49.9, adult Z68.42 ; Hyperlipidemia E78.5 ; Chronic pain G89.29 ; Anxiety F41.9 ; Depression F32.9 ; Coronary artery disease I25.10 ; 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 and Constipation K59.00 [facility] [address] [address]- 3502 16 Jan, 2017 Chronic pain G89.29 [facility] [address] [address]- 9057 Jan, [facility] [address] [place] [address] 42603- 8846 Dec, [place] [address] [place] [address] 56050- 6321 Dec, Chronic pain G89.29 [place] [id number] [place] [address] 61591- 9136 Nov, Chronic pain G89.29 [place] [id number] [place] [address] 73366- 7965 October, Chronic pain G89.29 [place] [id number] [place] [address] 19285- 7447 Sep, Chronic pain G89.29 [place] [address] 05043- 6934 Sep, Type 2 diabetes mellitus without complications E11.9 ; Chronic pain G89.29 ; Hypertension I10 ; Coronary artery disease I25.10 ; Morbid obesity with BMI of 45.0-49.9, adult Z68.42 ; Hyperlipidemia E78.5 ; 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 and Depression F32.9 [place] [id number] [place] [address] 57929- 8606 Aug, Chronic pain G89.29 [place] [id number] [place] [address] 76323- 1132 Aug, Chronic pain G89.29 and Constipation K59.00 [place] [id number] [place] [address] 24481- 6315 Aug, Abnormal lung sounds R09.89 [place] [id number] [place] [address] 46328- 2097 Aug, Depression F32.9 [place] [id number] [place] [address] 86664- 0097 Jul, Chronic pain G89.29 [place] [id number] [place] [address] 96816- 2347 May, Chronic pain G89.29 [facility] [address] [address]- 7513 May, Medicare annual wellness visit, subsequent Z00.00 [facility] [id number] [place] [address] 87250- 8300 May, [facility] [id number] [place] [address] 86054- 0664 May, Type 2 diabetes mellitus without complications E11.9 ; Chronic pain G89.29 ; Hypertension I10 ; Coronary artery disease I25.10 ; Vascular dementia F01.50 ; Morbid obesity with BMI of 45.0-49.9, adult Z68.42 ; Chronic renal disease, stage 3, moderately decreased glomerular filtration rate (GFR) between 30-59 mL/min/1.73 square meter N18.3 ; Hyperlipidemia E78.5 ; Anxiety F41.9 ; Constipation K59.00 ; Depression F32.9 and 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 [facility] [id number] [place] [address] 40871- 0474 May, [facility] [id number] [place] [address] 90906- 5939 Mar, [facility] [id number] [place] [address] 27111- 9737 Mar, [facility] [id number] [place] [address] 59331- 1640 Mar, [facility] [id number] [place] [address] 23631- 2576 Mar, [facility] [id number] [place] [address] 20083- 9411 Mar, [facility] [id number] [place] [address] 77972- 8457 Jan, [facility] [id number] [place] [address] 61081- 3566 Jan, [facility] [id number] [place] [address]- 3876 Dec, Type 2 diabetes mellitus without complications E11.9 ; Hypertension I10 ; Coronary artery disease I25.10 and Renal insufficiency N28.9 [facility] [address] [facility] [id number] [place] [address]- 6338 14 Dec, 2015 [facility] [id number] [place] [address]- 8271 Dec, [facility] [address] [facility] [id number] [place] [address]- 2328 Nov, [facility] [id number] [place] [address]- 1232 Nov, [facility] [id number] [place] [address]- 2568 Nov, [facility] [id number] [place] [address]- 7779 Nov, [facility] [id number] [place] [address]- 0993 Nov, [facility] [id number] [place] [address]- 6044 October, [facility] [id number] [address]- 8623 October, [facility] [id number] [address]- 7803 October, [facility] [id number] [address]- 2798 Sep, Type 2 diabetes mellitus without complications E11.9 and Constipation K59.00 [facility] [id number] [place] [address]- 5675 Sep, [facility] [id number] [place] [address]- 3100 Sep, Diabetes E11.9 [facility] [id number] [address]- 9644 Sep, [facility] [id number] [place] [address] 07977- 1916 Sep, Routine health maintenance Z00.00 ; Hypertension I10 ; Type 2 diabetes mellitus without complications E11.9 ; Morbid obesity with BMI of 45.0-49.9, adult Z68.42 ; Chronic pain G89.29 ; H/O carotid endarterectomy Z98.89 ; Vascular dementia F01.50 ; Arthritis M19.90 ; Coronary artery disease I25.10 ; Abnormal lung sounds R09.89 and Diabetes E11.9 [facility] [id number] [place] [address] 58369- 7804 Aug, Anxiety F41.9 [facility] [id number] [place] [address] 94529- 7811 Aug, Arthritis M19.90 [facility] [id number] [place] [address] 21530- 1093 Jul, Arthritis M19.90 [facility] [id number] [place] [address] 21797- 1726 Jul, [facility] [id number] [place] [address] 15369- 2727 May, [facility] [address] [place] [address] 82497- 2889 May, Arthritis M19.90 ; Hypertension I10 ; Depression F32.9 ; Vascular dementia F01.50 and Coronary artery disease I25.10 [facility] [address] [address]- 5729 May, [facility] [id number] [place] [address] 26130- 6070 May, [facility] [address] [place] [address] 76974- 8445 Mar, [facility] [id number] [place] [address] 24865- 6558 Mar, [facility] [address] [id number] [place] [address]- 3579 Mar, [facility] [address] [id number] [address]- 4706 Mar, [facility] [address] [id number] [place] [address]- 9830 Mar, Essential hypertension, benign 401.1 ; Unspecified arthropathy, site unspecified 716.90 and Other and unspecified hyperlipidemia 272.4 [facility] [address] [id number] [place] [address]- 4340 Mar, [facility] [address] [id number] [place] [address]- 6812 Jan, [facility] [address] [facility] [id number] [address]- 7718 Dec, [facility] [address] [id number] [place] [address]- 9049 Dec, [facility] [address] [id number] [place] [address]- 2621 Dec, [facility] [address] [id number] [place] [address]- 6426 Dec, [facility] [address] [id number] [address]- 4063 Dec, [facility] [place] [facility] [address] [id number] [address]- 4600 Dec, [facility] [place] [facility] [address] [id number] [place] [address]- 5129 Dec, [facility] [place] [facility] [address] [id number] [place] [address]- 3424 Dec, [facility] [place] [facility] [address] [id number] [place] [address]- 9045 Nov, [facility] [place] [facility] [address] [id number] [place] [address]- 2421 Nov, [facility] [place] [facility] [address] [id number] [place] [address]- 9441 Nov, [facility] [place] [facility] [address] [id number] [place] [address]- 7848 October, [facility] [place] [facility] [address] [id number] [place] [address]- 6953 October, [facility] [place] [facility] [address] [id number] [place] [address]- 0053 Sep, [facility] [place] [facility] [address] [id number] [place] [address]- 4606 Sep, [facility] [place] [facility] [address] [id number] [place] [address]- 6780 Sep, [facility] [place] [facility] [address] [id number] [place] [address]- 4181 Aug, [facility] [place] [facility] [address] [id number] [place] [address]- 7143 Aug, [facility] [place] [facility] [address] [id number] [place] [address]- 0320 Aug, [facility] [place] [facility] [address] [id number] [place] [address]- 0813 Aug, [facility] [place] [facility] [address] [id number] [place] [address]- 9652 Aug, [facility] [place] [facility] [address] [id number] [place] [address]- 4124 Aug, [facility] [place] [facility] [address] [id number] [place] [address]- 5673 Aug, [facility] [place] [facility] [address] [id number] [place] [address]- 9616 Aug, [facility] [place] [facility] [address] [id number] [place] [address]- 1782 Aug, [facility] [address] [id number] [place] [address]- 1349 May, [facility] [address] [id number] [place] [address]- 5833 May, [facility] [address] [id number] [place] [address]- 9025 May, [facility] [place] [facility] [address] [id number] [place] [address]- 3718 May, [facility] [address] [id number] [place] [address]- 8088 May, [facility] [address] [id number] [place] [address]- 2651 May, [facility] [address] [id number] [place] [address]- 8731 May, [facility] [place] [facility] [address] [id number] [place] [address]- 6714 May, [facility] [address] [id number] [address]- 1740 Mar, [facility] [place] [facility] [address] [facility] [id number] [address]- 5735 Mar, [address] [place] [id number] Mar, [facility] [place] [facility] [address] [id number] [address]- 3650 Mar, [facility] [place] [facility] [address] [id number] [address]- 4136 Mar, [facility] [place] [facility] [address] [id number] [address]- 2866 Mar, [facility] [place] [facility] [address] [id number] [address]- 8842 Mar, [facility] [place] [facility] [address] [id number] [address]- 7275 Mar, [facility] [address] [id number] [place] [address]- 2008 Mar, [facility] [place] [facility] [address] [id number] [place] [address]- 7679 Mar, [facility] [place] [facility] [address] [id number] [place] [address]- 5036 Mar, [facility] [place] [facility] [address] [id number] [place] [address]- 4972 Mar, [facility] [place] [facility] [address] [id number] [place] [address]- 6291 Mar, [facility] [place] [facility] [address] [id number] [place] [address]- 2537 Jan, [facility] [place] [facility] [address] [id number] [place] [address]- 6933 Jan, [facility] [place] [facility] [address] [id number] [place] [address]- 6450 Jan, [facility] [address] [id number] [place] [address]- 2684 Jan, [facility] [address] [place] [id number] Jan, [facility] [place] [facility] [address] [id number] [address]- 3292 Jan, [facility] [place] [facility] [address] [id number] [place] [address]- 5346 Jan, [facility] [place] [facility] [address] [id number] [place] [address]- 8329 Dec, [facility] [place] [facility] [address] [id number] [place] [address]- 0381 Dec, [facility] [place] [facility] [address] [id number] [place] [address]- 3882 Dec, [facility] [place] [facility] [address] [id number] [place] [address]- 8594 Dec, [facility] [address] [facility] [id number] [place] [address]- 9478 Dec, [facility] [address] [facility] [id number] [address]- 3925 Dec, [facility] [address] [facility] [id number] [address] Nov, [facility] [address] [facility] [id number] [address] Nov, IMMUNIZATIONS No Known Immunizations SOCIAL HISTORY Never Assessed REASON FOR VISIT Controlled Med Refill 01/20 PLAN OF CARE VITAL SIGNS MEDICATIONS Medication Instructions Dosage Frequency Start Date End Date Duration Status Hydrocodone-Acetaminophen 5-325 MG Orally 3 times a day-,Assisted living facility 1 tablet Dec, 28 days Active Ativan 0.5 Orally, each fill must last 28 days Once a day 1 tablet 24h 28 days Active RESULTS No Results PROCEDURES No Known procedures INSTRUCTIONS MEDICATIONS ADMINISTERED No Known Medications MEDICAL (GENERAL) HISTORY Type Description Date Medical History Anxiety Medical History Edema Medical History Hyperlipidemia Medical History Dementia Medical History Type 1 Diabetes Medical History Hypertension Medical History Arthritis Medical History Coronary Artery Disease Medical History H/O carotid endarterectomy Medical History H/O fibromyalgia Surgical History Bilateral total hip replacement Surgical History Total hysterectomy Surgical History Right carotid artery repair Surgical History multiple hernia repairs Surgical History Bilateral carpal tunnel release Surgical History Cervical spine surgery performed by Dr Jenni Bunch Surgical History Bilateral foot surgery Surgical History ovarian cyst removal Surgical History Heart Catheterizations- 3 stents- sees Dr. Tosha Bunch Hospitalization History Hyperkalemia, Dehydration, kidney concerns 08/2014 Hospitalization History past surgery
--- OUTSIDE RECORDS SUMMARY | 2018-03-10 15:37 | XMS REPORT ---
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 [employer] Name Role Phone ELIEL SMITH Unavailable PROBLEMS Type Condition ICD9-CM Code PRV07-UQ Code Onset Dates Condition Status SNOMED Code Problem Chronic pain G89.29 Active 56112754 Problem Depression F32.9 Active 876167949 Problem Constipation K59.00 Active 94179520 Problem Type 2 diabetes mellitus with diabetic chronic kidney disease E11.22 Active 78442368 Problem Anxiety F41.9 Active 38396612 Problem Chronic kidney disease, stage III (moderate) N18.3 Active 957020440 Problem Hepatitis C B19.20 Active 90100979 Problem History of solitary pulmonary nodule Z87.898 Active 493963592 Problem Chronic kidney disease (CKD) stage G3a/A1, moderately decreased glomerular filtration rate (GFR) between 45-59 mL/min/1.73 square meter and albuminuria creatinine ratio less than 30 mg/g N18.3 Active 620705208 Problem 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 82428717 Problem Chronic fatigue R53.82 Active 68615178 Problem Diverticulitis K57.92 Active 430107856 Problem History of alcoholism F10.21 Active 132469282 Problem History of TIA (transient ischemic attack) Z86.73 Active 271368781 Problem Vitamin D deficiency E55.9 Active 42693141 Problem Hyperlipidemia E78.5 Active 29063955 Problem Coronary artery disease I25.10 Active 47084723 Problem Hypertension I10 Active 32045889 Problem DJD (degenerative joint disease) M19.90 Active 210897851 Problem Cervical stenosis of spinal canal M48.02 Active 75036152 Problem Vascular dementia F01.50 Active 892619234 Problem Abnormal CBC R79.89 Active 565459661 Problem Arthritis M19.90 Active 5243478 Problem Morbid obesity with BMI of 45.0-49.9, adult Z68.42 Active 887859754 ALLERGIES No Information ENCOUNTERS Encounter Location Date Diagnosis [place] [id number] [place] [address] 23896- 2542 Mar, [place] [id number] [place] [address] 42915- 1875 Jan, [place] [address] [address]- [address]99 Jan, Type 2 diabetes mellitus with diabetic chronic kidney disease E11.22 ; Chronic kidney disease, stage III (moderate) N18.3 ; Hypertension I10 ; DJD (degenerative joint disease) M19.90 and Anxiety F41.9 [place] [address] 84081- 4759 Dec, Anxiety F41.9 and Chronic pain G89.[address] [address]- 6792 Dec, [place] [address] 81085- 9355 Nov, Anxiety F41.9 and Chronic pain G89.29 [place] [address] 90533- 8751 October, Chronic pain G89.29 and Anxiety F41.[address] 38368- 5545 October, Type 2 diabetes mellitus without complications [...] than 30 mg/g N18.3 and Anxiety F41.9 [place] [id number] [place] [address] 72462- 0387 Sep, Chronic pain G89.29 and Anxiety F41.9 [place] [address] 77768- 0546 Aug, Anxiety F41.9 and Chronic pain G89.29 [place] [address] 28798- 7689 Aug, Anxiety F41.9 [place] [address] 11605- 4057 Aug, Chronic pain G89.29 and Anxiety F41.9 [place] [address] 18596- 9811 Aug, Chronic kidney disease (CKD) stage G3a/A1, moderately decreased glomerular filtration rate (GFR) between 45-59 mL/min/1.73 square meter and albuminuria creatinine ratio less than 30 mg/g N18.3 [place] [id number] [place] [address] 76671- 5578 Aug, [facility] [address] [id number] Jul, Dental examination Z01.[address] 67702- 8626 Jul, Chronic pain G89.29 and Anxiety F41.9 [place] [address] 04429- 8381 Jul, Other specified abnormal findings of blood chemistry R79.89 [place] [address] 93467- 0045 Jul, Type 2 diabetes mellitus without complications E11.9 ; Chronic kidney disease (CKD) stage G3a/A1, moderately decreased glomerular filtration rate (GFR) between 45-59 mL/min/1.73 square meter and albuminuria creatinine ratio less than 30 mg/g N18.3 ; BMI 45.0-49.9, adult Z68.42 ; Chronic fatigue R53.82 ; Hair loss L65.9 ; Generalized abdominal pain R10.84 and Diverticulitis K57.92 [facility] [id number] [place] [address] 37864- 4206 Jul, [facility] [id number] [place] [address] [id number] Jul, Dental examination Z01.20 [facility] [id number] [place] [address] 73659- 8266 Jul, Anxiety F41.9 [facility] [id number] [place] [address] 25654- 1001 Jul, Anxiety F41.9 [facility] [address] [id number] Jul, Chronic pain G89.29 [facility] [address] [id number] May, Chronic pain G89.29 [facility] [id number] [place] [address] [phone]- 9930 May, [facility] [id number] [place] [address] [id number] May, Dental examination Z01.20 [facility] [id number] [place] [address] 36530- 4617 May, Anxiety F41.9 [facility] [id number] [place] [address] [id number] May, Chronic pain G89.29 [facility] [address] [place] [address] 63271- 6999 Mar, Depression F32.9 [facility] [id number] [place] [address] [phone]- 4574 Mar, Anxiety F41.9 [facility] [id number] [place] [address] [id number] Mar, Chronic pain G89.29 [facility] [address] [id number] [address] 0450 19 Mar, 2017 Abnormal CBC R79.89 [facility] [place] [id number] [place] [address] [id number] 18 Mar, 2017 Anxiety F41.9 [facility] [address] [place] [address] 42750- 0948 14 Mar, 2017 Hypertension I10 ; Routine health maintenance Z00.00 ; Type 2 diabetes mellitus without complications E11.9 and Hyperlipidemia E78.5 [facility] [place] [id number] [place] [address] [id number] 13 Mar, 2017 Chronic pain G89.29 and Anxiety F41.9 [facility] [address] [place] [address] [id number] 13 Mar, 2017 Dental examination Z01.20 [facility] [address] [place] [address] 42017- 5351 06 Mar, 2017 Hypertension I10 ; Routine health maintenance Z00.00 ; Type 2 diabetes mellitus without complications E11.9 and Hyperlipidemia E78.5 [facility] [address] [place] [address] 28091- 7159 22 Jan, 2017 Type 2 diabetes mellitus without complications E11.9 ; Hypertension I10 ; Vascular dementia F01.50 ; Morbid obesity with BMI of 45.0- 49.9, adult Z68.42 ; Hyperlipidemia E78.5 ; Chronic pain G89.29 ; Anxiety F41.9 ; Depression F32.9 ; Coronary artery disease I25.10 ; 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 and Constipation K59.00 [facility] [address], [place] [address]- 5836 16 Jan, 2017 Chronic pain G89.29 [facility] [address], [place] [address]- 8185 Jan, [facility] [address] [place] [address] 46617- 8966 Dec, [place] [address] [place] [address] 63233- 6600 Dec, Chronic pain G89.29 [place] [id number] [place] [address] 52185- 2092 Nov, Chronic pain G89.29 [place] [id number] [place] [address] 19371- 6198 October, Chronic pain G89.29 [place] [id number] [place] [address] 48056- 8223 Sep, Chronic pain G89.29 [place] [address] 41438- 3085 Sep, Type 2 diabetes mellitus without complications E11.9 ; Chronic pain G89.29 ; Hypertension I10 ; Coronary artery disease I25.10 ; Morbid obesity with BMI of 45.0-49.9, adult Z68.42 ; Hyperlipidemia E78.5 ; 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 and Depression F32.9 [place] [id number] [place] [address] 87425- 3624 Aug, Chronic pain G89.29 [place] [id number] [place] [address] 24545- 6020 Aug, Chronic pain G89.29 and Constipation K59.00 [place] [id number] [place] [address] 11634- 5760 Aug, Abnormal lung sounds R09.89 [place] [id number] [place] [address] 78124- 3186 Aug, Depression F32.9 [place] [id number] [place] [address] 96432- 9013 Jul, Chronic pain G89.29 [place] [id number] [place] [address] 46489- 4852 May, Chronic pain G89.29 [facility] [address], [place] [address]- 3699 May, Medicare annual wellness visit, subsequent Z00.00 [facility] [id number] [place] [address] 64864- 3889 May, [facility] [id number] [place] [address] 34675- 7832 May, Type 2 diabetes mellitus without complications [...] due to renal impairment without tophus M1A.3710 [facility] [id number] [place] [address] 81721- 9110 May, [facility] [id number] [place] [address] 89089- 0841 Mar, [facility] [id number] [place] [address] 49493- 0412 Mar, [facility] [id number] [place] [address] 29660- 9826 Mar, [facility] [id number] [place] [address] 58087- 2459 Mar, [facility] [id number] [place] [address] 12522- 7898 Mar, [facility] [id number] [place] [address] 80324- 7973 Jan, [facility] [id number] [place] [address] 90653- 2195 Jan, [facility] [address] [place] [address]- 0333 Dec, Type 2 diabetes mellitus without complications E11.9 ; Hypertension I10 ; Coronary artery disease I25.10 and Renal insufficiency N28.9 [facility] [address] [facility] [id number] [place] [address]- 5308 14 Dec, 2015 [facility] [address] [place] [address]- 8918 Dec, [facility] [address] [facility] [id number] [place] [address]- 8261 Nov, [facility] [address] [place] [address]- 2089 Nov, [facility] [address] [place] [address]- 6746 Nov, [facility] [address] [place] [address]- 4087 Nov, [facility] [address] [place] [address]- 5603 Nov, [facility] [address] [place] [address]- 8123 October, [facility] [address], [place] [address]- 7743 October, [facility] [address], [place] [address]- 7359 October, [facility] [id number], [place] [address]- 5252 Sep, Type 2 diabetes mellitus without complications E11.9 and Constipation K59.00 [facility] [address] [place] [address]- 4200 Sep, [facility] [address] [place] [address]- 9163 Sep, Diabetes E11.9 [facility] [address], [place] [address]- 8214 Sep, [facility] [id number] [place] [address] 84936- 1722 Sep, Routine health maintenance Z00.00 ; Hypertension I10 ; Type 2 diabetes mellitus without complications E11.9 ; Morbid obesity with BMI of 45.0-49.9, adult Z68.42 ; Chronic pain G89.29 ; H/O carotid endarterectomy Z98.89 ; Vascular dementia F01.50 ; Arthritis M19.90 ; Coronary artery disease I25.10 ; Abnormal lung sounds R09.89 and Diabetes E11.9 [facility] [id number] [place] [address] 41758- 6923 Aug, Anxiety F41.9 [facility] [id number] [place] [address] 20725- 6118 Aug, Arthritis M19.90 [facility] [id number] [place] [address] 12980- 4790 Jul, Arthritis M19.90 [facility] [id number] [place] [address] 79846- 7721 Jul, [facility] [id number] [place] [address] 05404- 0753 May, [facility] [address] [place] [address] 20139- 9112 May, Arthritis M19.90 ; Hypertension I10 ; Depression F32.9 ; Vascular dementia F01.50 and Coronary artery disease I25.10 [facility] [address], [place] [address]- 5376 May, [facility] [id number] [place] [address] 99070- 0096 May, [facility] [address] [place] [address] 39545- 4636 Mar, [facility] [id number] [place] [address] 28618- 1547 Mar, [facility] [address] [id number] [place] [address]- 0575 Mar, [facility] [address] [id number] [address]- 4860 Mar, [facility] [address] [id number] [place] [address]- 2578 Mar, Essential hypertension, benign 401.1 ; Unspecified arthropathy, site unspecified 716.90 and Other and unspecified hyperlipidemia 272.4 [facility] [address] [id number] [place] [address]- 3393 Mar, [facility] [address] [id number] [place] [address]- 8144 Jan, [facility] [address] [facility] [id number], [place] [address]- 5301 Dec, [facility] [address] [id number] [place] [address]- 4387 Dec, [facility] [address] [id number] [place] [address]- 9299 Dec, [facility] [address] [id number] [place] [address]- 4348 Dec, [facility] [address] [id number], [place] [address]- 2766 Dec, [facility] [place] [facility] [address] [id number], [place] [address]- 7226 Dec, [facility] [place] [facility] [address] [id number] [place] [address]- 2319 Dec, [facility] [place] [facility] [address] [id number] [place] [address]- 9147 Dec, [facility] [place] [facility] [address] [id number] [place] [address]- 2019 Nov, [facility] [place] [facility] [address] [id number] [place] [address]- 9860 Nov, [facility] [place] [facility] [address] [id number] [place] [address]- 4783 Nov, [facility] [place] [facility] [address] [id number] [place] [address]- 2568 October, [facility] [place] [facility] [address] [id number] [place] [address]- 1756 October, [facility] [place] [facility] [address] [id number] [place] [address]- 9038 Sep, [facility] [place] [facility] [address] [id number] [place] [address]- 7646 Sep, [facility] [place] [facility] [address] [id number] [place] [address]- 6356 Sep, [facility] [place] [facility] [address] [id number] [place] [address]- 5975 Aug, [facility] [place] [facility] [address] [id number] [place] [address]- 0176 Aug, [facility] [place] [facility] [address] [id number] [place] [address]- 1123 Aug, [facility] [place] [facility] [address] [id number] [place] [address]- 9935 Aug, [facility] [place] [facility] [address] [id number] [place] [address]- 0320 Aug, [facility] [place] [facility] [address] [id number] [place] [address]- 1908 Aug, [facility] [place] [facility] [address] [id number] [place] [address]- 4663 Aug, [facility] [place] [facility] [address] [id number] [place] [address]- 8106 Aug, [facility] [place] [facility] [address] [id number] [place] [address]- 2076 Aug, [facility] [address] [id number] [place] [address]- 6672 May, [facility] [address] [id number] [place] [address]- 4081 May, [facility] [address] [id number] [place] [address]- 7212 May, [facility] [place] [facility] [address] [id number] [place] [address]- 3174 May, [facility] [address] [id number] [place] [address]- 4098 May, [facility] [address] [id number] [place] [address]- 8721 May, [facility] [address] [id number] [place] [address]- 6142 May, [facility] [place] [facility] [address] [id number] [place] [address]- 3539 May, [facility] [address] [id number], [place] [address]- 2540 Mar, [facility] [place] [facility] [address] [facility] [id number], [place] [address]- 9030 Mar, [address] [address] [place] [address] Mar, [facility] [place] [facility] [address] [id number], [place] [address]- 7891 Mar, [facility] [place] [facility] [address] [id number], [place] [address]- 2505 Mar, [facility] [place] [facility] [address] [id number], [place] [address]- 8900 Mar, [facility] [place] [facility] [address] [id number], [place] [address]- 2196 Mar, [facility] [place] [facility] [address] [id number], [place] [address]- 2794 Mar, [facility] [address] [id number] [place] [address]- 7248 Mar, [facility] [place] [facility] [address] [id number] [place] [address]- 1317 Mar, [facility] [place] [facility] [address] [id number] [place] [address]- 7243 Mar, [facility] [place] [facility] [address] [id number] [place] [address]- 3804 Mar, [facility] [place] [facility] [address] [id number] [place] [address]- 4055 Mar, [facility] [place] [facility] [address] [id number] [place] [address]- 1512 Jan, [facility] [place] [facility] [address] [id number] [place] [address]- 8589 Jan, [facility] [place] [facility] [address] [id number] [place] [address]- 2718 Jan, [facility] [address] [id number] [place] [address]- 2187 Jan, [facility] [address] [place] [address] Jan, [facility] [place] [facility] [address] [id number], [place] [address]- 1803 Jan, [facility] [place] [facility] [address] [id number], [place] [address]- 0844 Jan, [facility] [place] [facility] [address] [id number] [place] [address]- 7405 Dec, [facility] [place] [facility] [address] [id number] [place] [address]- 9830 Dec, [facility] [place] [facility] [address] [id number] [place] [address]- 8490 Dec, [facility] [place] [facility] [address] [id number] [place] [address]- 2081 Dec, [facility] [address] [facility] [id number] [place] [address]- 4131 Dec, [facility] [address] [facility] [id number], [place] [address]- 4580 Dec, [facility] [address] [facility] [id number], [place] [address]- 3433 Nov, [facility] [address] [facility] [id number], [place] [address]- 1436 Nov, IMMUNIZATIONS No Known Immunizations SOCIAL HISTORY Never Assessed REASON FOR VISIT Controlled Med Refill PLAN OF CARE VITAL SIGNS MEDICATIONS Unknown Medications RESULTS No Results PROCEDURES No Known procedures [...]
--- OUTSIDE RECORDS SUMMARY | 2018-03-10 15:38 | XMS REPORT ---
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 Name Role Phone ELIEL SMITH Unavailable PROBLEMS Type Condition ICD9-CM Code UDJ23-WD Code Onset Dates Condition Status SNOMED Code Problem Chronic pain G89.29 Active 31063605 Problem Depression F32.9 Active 045419988 Problem Constipation K59.00 Active 69420745 Problem Type 2 diabetes mellitus with diabetic chronic kidney disease E11.22 Active 83017636 Problem Anxiety F41.9 Active 41037268 Problem Chronic kidney disease, stage III (moderate) N18.3 Active 300326096 Problem Hepatitis C B19.20 Active 63549367 Problem History of solitary pulmonary nodule Z87.898 Active 202105552 Problem Chronic kidney disease (CKD) stage G3a/A1, moderately decreased glomerular filtration rate (GFR) between 45-59 mL/min/1.73 square meter and albuminuria creatinine ratio less than 30 mg/g N18.3 Active 157188531 Problem 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 29795169 Problem Chronic fatigue R53.82 Active 36072386 Problem Diverticulitis K57.92 Active 688956816 Problem History of alcoholism F10.21 Active 588967593 Problem History of TIA (transient ischemic attack) Z86.73 Active 158531389 Problem Vitamin D deficiency E55.9 Active 90411030 Problem Hyperlipidemia E78.5 Active 82209753 Problem Coronary artery disease I25.10 Active 30718914 Problem Hypertension I10 Active 57357940 Problem DJD (degenerative joint disease) M19.90 Active 085388179 Problem Cervical stenosis of spinal canal M48.02 Active 44347149 Problem Vascular dementia F01.50 Active 346446589 Problem Abnormal CBC R79.89 Active 058195395 Problem Arthritis M19.90 Active 6857797 Problem Morbid obesity with BMI of 45.0-49.9, adult Z68.42 Active 926663262 ALLERGIES No Information ENCOUNTERS Encounter Location Date Diagnosis [address] [address] Jan, Type 2 diabetes mellitus with diabetic chronic kidney disease E11.22 ; Chronic kidney disease, stage III (moderate) N18.3 ; Hypertension I10 ; DJD (degenerative joint disease) M19.90 and Anxiety F41.[address] [address] Dec, Anxiety F41.9 and Chronic pain G89.[address] [address] Dec, [address] [address] Nov, Anxiety F41.9 and Chronic pain G89.[address] [address] October, Chronic pain G89.29 and Anxiety F41.[address] [address] October, Type 2 diabetes mellitus without complications [...] than 30 mg/g N18.3 and Anxiety F41.9 [place] [id number] [place] [address]- [address] Sep, Chronic pain G89.29 and Anxiety F41.[address] [address] Aug, Anxiety F41.9 and Chronic pain G89.29 [place] [address] [address] Aug, Anxiety F41.9 [place] [address] [address] Aug, Chronic pain G89.29 and Anxiety F41.9 [place] [address] [address] Aug, Chronic kidney disease (CKD) stage G3a/A1, moderately decreased glomerular filtration rate (GFR) between 45-59 mL/min/1.73 square meter and albuminuria creatinine ratio less than 30 mg/g N18.[address] [address] 09 Aug, 2017 [facility] [address] [id number] Jul, Dental examination Z01.[address] [address] Jul, Chronic pain G89.29 and Anxiety F41.9 [place] [id number] [place] [address]22- 7526 Jul, Other specified abnormal findings of blood chemistry R79.[address] [address] Jul, Type 2 diabetes mellitus without complications E11.9 ; Chronic kidney disease (CKD) stage G3a/A1, moderately decreased glomerular filtration rate (GFR) between 45-59 mL/min/1.73 square meter and albuminuria creatinine ratio less than 30 mg/g N18.3 ; BMI 45.0-49.9, adult Z68.42 ; Chronic fatigue R53.82 ; Hair loss L65.9 ; Generalized abdominal pain R10.84 and Diverticulitis K57.[address] [address] Jul, [facility] [address] [id number] Jul, Dental examination Z01.20 [facility] [address] [facility] [id number] [place] [address] 07288- 5016 Jul, Anxiety F41.9 [facility] [id number] [place] [address] 03383- 7996 Jul, Anxiety F41.9 [facility] [address] [place] [id number] [place] [address] [id number] Jul, Chronic pain G89.29 [facility] [address] [id number] May, Chronic pain G89.29 [facility] [address] [place] [id number] [place] [address] 99725- 9356 May, [facility] [address] [place] [id number] [place] [address] [id number] May, Dental examination Z01.20 [facility] [id number] [place] [address] 51311079- 6917 May, Anxiety F41.9 [facility] [address] [place] [address] [id number] [place] [address] [id number] May, Chronic pain G89.29 [facility] [id number] [place] [address] 71762- 2111 Mar, Depression F32.9 [facility] [id number] [place] [address] [id number]- 7601 Mar, Anxiety F41.9 [facility] [address] [place] [address] [id number] [place] [address] [id number] Mar, Chronic pain G89.29 [facility] [address], [place] [address] 19 Mar, [address] [facility] [address] [place] [address] [id number] [place] [address] [id number] 18 Mar, 2017 Anxiety F41.9 [facility] [address] [address] 14 Mar, 2017 Hypertension I10 ; Routine health maintenance Z00.00 ; Type 2 diabetes mellitus without complications E11.9 and Hyperlipidemia E78.5 [facility] [address] [place] [address] [id number] [place] [address] [id number] 13 Mar, 2017 Chronic pain G89.29 and Anxiety F41.9 [facility] [address] [id number] 13 Mar, 2017 Dental examination Z01.20 [place] [address] [place] [id number] [place] [address] 85771- 4150 06 Mar, 2017 Hypertension I10 ; Routine health maintenance Z00.00 ; Type 2 diabetes mellitus without complications E11.9 and Hyperlipidemia E78.5 [facility] [address] [place] [address] 27475- 7933 Jan, Type 2 diabetes mellitus without complications E11.9 ; Hypertension I10 ; Vascular dementia F01.50 ; Morbid obesity with BMI of 45.0- 49.9, adult Z68.42 ; Hyperlipidemia E78.5 ; Chronic pain G89.29 ; Anxiety F41.9 ; Depression F32.9 ; Coronary artery disease I25.10 ; 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 and Constipation K59.00 [facility] [address] [address] Jan, Chronic pain G89.29 [facility] [address], [place] [address] Jan, [facility] [address] [place] [id number] [place] [address] 04564- 5475 Dec, [facility] [address] [place] [address] 11047- 2448 Dec, Chronic pain G89.29 [facility] [address] [place] [id number] [place] [address] 93077- 8742 Nov, Chronic pain G89.29 [facility] [address] [place] [id number] [place] [address] 80318- 0863 October, Chronic pain G89.29 [facility] [address] [place] [id number] [place] [address] 50589- 0007 Sep, Chronic pain G89.29 [facility] [address] [address]- 7190 Sep, Type 2 diabetes mellitus without complications E11.9 ; Chronic pain G89.29 ; Hypertension I10 ; Coronary artery disease I25.10 ; Morbid obesity with BMI of 45.0-49.9, adult Z68.42 ; Hyperlipidemia E78.5 ; 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 and Depression F32.9 [place] [address] 40[address]- 2759 Aug, Chronic pain G89.29 [place] [address] [place] [id number] [place] [address] 46393- 7032 Aug, Chronic pain G89.29 and Constipation K59.00 [place] [address] [address]89- 4144 17 Aug, 2016 Abnormal lung sounds R09.89 [place] [address] [place] [id number] [place] [address] 64059- 8864 Aug, Depression F32.9 [place] [address] 93146- 4406 Jul, Chronic pain G89.29 [place] [address] [place] [id number] [place] [address] 90416- 5568 May, Chronic pain G89.29 [place] [address] [place] [id number] [place] [address] 71983- 0554 May, Medicare annual wellness visit, subsequent Z00.00 [place] [address] 28929- 4671 May, [facility] [address] [place] [id number] [place] [address] 809068- 9161 May, Type 2 diabetes mellitus without complications [...] due to renal impairment without tophus M1A.3710 [facility] [address] [place] [id number] [place] [address] 18379- 8207 May, [facility] [address] [place] [id number] [place] [address] 05104- 1596 Mar, [facility] [address] [place] [id number] [place] [address] 78912- 1126 Mar, [facility] [address] [place] [id number] [place] [address] 37873- 6620 Mar, [facility] [address] [place] [id number] [place] [address] 205133- 5111 Mar, [facility] [address] [place] [id number] [place] [address] 47121- 0184 Mar, [facility] [address] [place] [id number] [place] [address] [id number]- 1497 Jan, [facility] [address] [place] [id number] [place] [address] 789227- 7765 Jan, [facility] [address] [place] [id number] [place] [address] 371429- 9262 Dec, Type 2 diabetes mellitus without complications E11.9 ; Hypertension I10 ; Coronary artery disease I25.10 and Renal insufficiency N28.9 [facility] [address] [place] [address]- 2731 14 Dec, 2015 [facility] [address] [id number] [place] [address]- 5910 Dec, [facility] [address] [id number] [place] [address]- 8307 Nov, [facility] [address] [facility] [id number] [place] [address]- 0170 Nov, [facility] [address] [id number] [place] [address]- 4625 Nov, [facility] [address] [facility] [id number] [place] [address]- 6739 Nov, [facility] [address] [facility] [id number] [place] [address]- 4822 Nov, [facility] [address] [place] [address]- 3592 October, [facility] [address] [facility] [id number] [place] [address]- 7692 October, [facility] [address] [facility] [id number] [place] [address]- 3639 October, [facility] [address] [place] [id number] [address]- 0224 Sep, Type 2 diabetes mellitus without complications E11.9 and Constipation K59.00 [facility] [address] [facility] [id number] [address]- 4725 Sep, [facility] [address] [facility] [id number], [place] [address]- 3218 Sep, Diabetes E11.9 [facility] [address] [facility] [id number], [place] [address]- 7571 Sep, [facility] [address] [facility] [id number], [place] [address]- 5259 Sep, Routine health maintenance Z00.00 ; Hypertension I10 ; Type 2 diabetes mellitus without complications E11.9 ; Morbid obesity with BMI of 45.0-49.9, adult Z68.42 ; Chronic pain G89.29 ; H/O carotid endarterectomy Z98.89 ; Vascular dementia F01.50 ; Arthritis M19.90 ; Coronary artery disease I25.10 ; Abnormal lung sounds R09.89 and Diabetes E11.9 [facility] [address] [place] [id number] [place] [address] 98382- 4731 Aug, Anxiety F41.9 [facility] [address] 13671- 5147 Aug, Arthritis M19.90 [facility] [address] 40228- 7715 Jul, Arthritis M19.90 [facility] [address] [place] [id number] [place] [address] 67575- 1833 Jul, [facility] [address] 29937- 8831 May, [facility] [address] [place] [id number] [place] [address] 47902- 8617 May, Arthritis M19.90 ; Hypertension I10 ; Depression F32.9 ; Vascular dementia F01.50 and Coronary artery disease I25.10 [facility] [address] [place] [id number] [place] [address] 36784- 1952 May, [facility] [address] [place] [id number] [place] [address] 06084- 7805 May, [facility] [address] [place] [id number] [place] [address] 57975- 9541 Mar, [facility] [address] 27613- 4336 Mar, [facility] [address] [place] [id number] [place] [address] 72612- 4770 Mar, [facility] [address] 62857- 2310 Mar, [facility] [address] [id number] [place] [address]- 3751 Mar, Essential hypertension, benign 401.1 ; Unspecified arthropathy, site unspecified 716.90 and Other and unspecified hyperlipidemia 272.4 [facility] [address] [id number] [place] [address]- 0116 Mar, [facility] [address] [id number], [place] [address]- 0074 Jan, [facility] [address] [id number] [place] [address]- 6620 Dec, [facility] [address] [id number] [place] [address]- 9621 Dec, [facility] [address] [id number] [place] [address]- 3487 Dec, [facility] [address] [id number] [place] [address]- 0225 Dec, [facility] [address] [id number] [place] [address]231 Dec, [facility] [address] [id number] [place] [address]- 9022 Dec, [facility] [address] [id number] [place] [address]- 0255 Dec, [facility] [address] [id number] [place] [address]- 6971 Dec, [facility] [address] [id number] [place] [address]- 9443 Nov, [facility] [place] [facility] [address] [id number] [place] [address]- 3796 Nov, [facility] [place] [facility] [address] [id number] [place] [address]- 5246 Nov, [facility] [address] [id number] [place] [address]- 8814 October, [facility] [address] [id number] [place] [address]- 5066 October, [facility] [place] [facility] [address] [id number] [place] [address]- 9038 Sep, [facility] [place] [facility] [address] [id number] [place] [address]- 5212 Sep, [facility] [place] [facility] [address] [id number] [place] [address]- 1241 Sep, [facility] [place] [facility] [address] [id number] [place] [address]- 9740 Aug, [facility] [place] [facility] [address] [facility] [id number] [place] [address]- 6462 Aug, [facility] [place] [facility] [address] [id number] [place] [address]- 4175 Aug, [facility] [place] [facility] [address] [id number] [place] [address]- 3183 Aug, [facility] [place] [facility] [address] [id number] [place] [address]- 5346 Aug, [facility] [place] [facility] [address] [facility] [id number] [place] [address]- 5573 Aug, [facility] [place] [facility] [address] [id number] [place] [address]- 2788 Aug, [facility] [place] [facility] [address] [id number] [place] [address]- 2155 Aug, [facility] [place] [facility] [address] [id number] [place] [address]- 8685 Aug, [facility] [place] [facility] [address] [id number] [place] [address]- 4946 May, [facility] [place] [facility] [address] [id number] [place] [address]- 1331 May, [facility] [address] [id number] [place] [address]- 9323 May, [facility] [place] [facility] [address] [id number] [place]- 2712 May, [facility] [address] [id number] [place] [address]- 4312 May, [facility] [place] [facility] [address] [id number] [place] [address]- 8741 May, [facility] [place] [facility] [address] [id number] [place] 6554 May, [facility] [place] [facility] [address] [id number] [place] [address]- 0200 May, [facility] [place] [facility] [address] [id number], [place] [address]- 0044 Mar, [facility] [place] [facility] [address] [id number], [place] [address]- 7803 Mar, [facility] [address] [place] [id number] Mar, [facility] [place] [facility] [address] [id number], [place] [address]- 0609 Mar, [facility] [place] [facility] [address] [id number], [place] [address]- 0924 Mar, [facility] [place] [facility] [address] [id number], [place] [address]- 0833 Mar, [facility] [place] [facility] [address] [id number], [place] [address]- 7688 Mar, [facility] [place] [facility] [address] [id number], [place] [address]- 1093 Mar, [facility] [place] [facility] [address] [id number], [place] [address]- 5093 Mar, [facility] [place] [facility] [address] [id number], [place] [address]- 6205 Mar, [facility] [place] [facility] [address] [id number] [place] [address]- 3997 Mar, [facility] [place] [facility] [address] [id number] [place] [address]- 2126 Mar, [facility] [place] [facility] [address] [id number] [place] [address]- 6565 Mar, [facility] [place] [facility] [address] [id number] [place] [address]- 9133 Jan, [facility] [place] [facility] [address] [id number] [place] [address]- 8792 Jan, [facility] [place] [facility] [address] [id number] [place] [address]- 3170 Jan, [facility] [place] [facility] [address] [id number] [place] [address]- 7199 Jan, [facility] [address] [id number] Jan, [facility] [place] [facility] [address] [id number] [place] [address]- 2008 Jan, [facility] [place] [facility] [address] [id number] [place] [address]- 9902 Jan, [facility] [place] [facility] [address] [id number], [place] [address]- 5923 Dec, [facility] [place] [facility] [address] [id number] [place] [address]- 3319 Dec, [facility] [place] [facility] [address] [id number] [place] [address]- 3661 Dec, [facility] [place] [facility] [address] [id number] [place] [address]- 3256 Dec, [facility] [place] [facility] [address] [id number] [place] [address]- 4619 Dec, [facility] [place] [facility] [address] [id number] [place] [address]- 4738 Dec, [facility] [address] [facility] [id number] [place] [address]- 9592 Nov, [facility] [address] [facility] [id number] [place] [address]- 5653 Nov, IMMUNIZATIONS No Known Immunizations SOCIAL HISTORY Never Assessed REASON FOR VISIT Controlled Med Refill PLAN OF CARE VITAL SIGNS MEDICATIONS Medication Instructions Dosage Frequency Start Date End Date Duration Status Hydrocodone-Acetaminophen 5-325 MG Orally 3 times a day-,Assisted living facility 1 tablet October, Nov, 28 days Active Ativan 0.5 Orally, each [...]
--- OUTSIDE RECORDS SUMMARY | 2018-03-10 15:38 | XMS REPORT ---
Author Author ELIEL SMITH Organization [facility] Address [address] [place] [address] Care Team Providers Care Fitting Supervisor Name Role Phone ELIEL SMITH Unavailable PROBLEMS Type Condition ICD9-CM Code EUR92-YO Code Onset Dates Condition Status SNOMED Code Problem Chronic pain G89.29 Active 73008499 Problem Depression F32.9 Active 009704468 Problem Constipation K59.00 Active 76866836 Problem Type 2 diabetes mellitus with diabetic chronic kidney disease E11.22 Active 26793521 Problem Anxiety F41.9 Active 23134263 Problem Chronic kidney disease, stage III (moderate) N18.3 Active 076051946 Problem Hepatitis C B19.20 Active 61231804 Problem History of solitary pulmonary nodule Z87.898 Active 574233310 Problem Chronic kidney disease (CKD) stage G3a/A1, moderately decreased glomerular filtration rate (GFR) between 45-59 mL/min/1.73 square meter and albuminuria creatinine ratio less than 30 mg/g N18.3 Active 186438936 Problem 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 52065420 Problem Chronic fatigue R53.82 Active 19383703 Problem Diverticulitis K57.92 Active 416562779 Problem History of alcoholism F10.21 Active 976049379 Problem History of TIA (transient ischemic attack) Z86.73 Active 249825467 Problem Vitamin D deficiency E55.9 Active 00218470 Problem Hyperlipidemia E78.5 Active 11212485 Problem Coronary artery disease I25.10 Active 33158213 Problem Hypertension I10 Active 41833051 Problem DJD (degenerative joint disease) M19.90 Active 265338800 Problem Cervical stenosis of spinal canal M48.02 Active 88694039 Problem Vascular dementia F01.50 Active 672016714 Problem Abnormal CBC R79.89 Active 013018910 Problem Arthritis M19.90 Active 9871974 Problem Morbid obesity with BMI of 45.0-49.9, adult Z68.42 Active 921720464 ALLERGIES Substance Reaction Event Type Date Status Tradsamantha Unknown Drug Allergy October, Active ENCOUNTERS Encounter Location Date Diagnosis [address] [address] Jan, Type 2 diabetes mellitus with diabetic chronic kidney disease E11.22 ; Chronic kidney disease, stage III (moderate) N18.3 ; Hypertension I10 ; DJD (degenerative joint disease) M19.90 and Anxiety F41.[address] [address] Dec, Anxiety F41.9 and Chronic pain G89.[address] [address] Dec, [address] [address] Nov, Anxiety F41.9 and Chronic pain G89.[address] [address] October, Chronic pain G89.29 and Anxiety F41.[address] [address] October, Type 2 diabetes mellitus without complications [...] than 30 mg/g N18.3 and Anxiety F41.9 [place] [id number] [place] [address]- 8443 Sep, Chronic pain G89.29 and Anxiety F41.[id number] [place] [address] 52601- 5391 Aug, Anxiety F41.9 and Chronic pain G89.29 [place] [address] [address] Aug, Anxiety F41.9 [place] [address] [address]- [address] Aug, Chronic pain G89.29 and Anxiety F41.9 [place] [address] [address]- [address] Aug, Chronic kidney disease (CKD) stage G3a/A1, moderately decreased glomerular filtration rate (GFR) between 45-59 mL/min/1.73 square meter and albuminuria creatinine ratio less than 30 mg/g N18.3 [place] [address] [address] Aug, [facility] [address] [id number] Jul, Dental examination Z01.20 [place] [address] [address]- [address] Jul, Chronic pain G89.29 and Anxiety F41.9 [place] [address] [place] [id number] [place] [address] 65866- 2592 Jul, Other specified abnormal findings of blood chemistry R79.89 [place] [address] [address]- [address] Jul, Type 2 diabetes mellitus without complications E11.9 ; Chronic kidney disease (CKD) stage G3a/A1, moderately decreased glomerular filtration rate (GFR) between 45-59 mL/min/1.73 square meter and albuminuria creatinine ratio less than 30 mg/g N18.3 ; BMI 45.0-49.9, adult Z68.42 ; Chronic fatigue R53.82 ; Hair loss L65.9 ; Generalized abdominal pain R10.84 and Diverticulitis K57.92 [place] [address], [place] [address] Jul, [facility] [id number] [place] [address] [id number] Jul, Dental examination Z01.20 [facility] [address] [facility] [id number] [address] Jul, Anxiety F41.9 [facility] [address] [place] [id number] [place] [address] 08123- 6296 Jul, Anxiety F41.9 [facility] [address] [place] [id number] [place] [address] [id number] Jul, Chronic pain G89.29 [facility] [address] [id number] [place] [address] [id number] May, Chronic pain G89.29 [facility] [address] [place] [address] [id number] [place] [address] 05831- 7296 May, [facility] [address] [place] [id number] [place] [address] [id number] May, Dental examination Z01.20 [facility] [address] [place] [id number] [place] [address] 064554- 5586 May, Anxiety F41.9 [facility] [address] [place] [id number] [place] [address] [id number] May, Chronic pain G89.29 [facility] [id number] [place] [address] 21728- 7108 Mar, Depression F32.9 [facility] [address] [address] Mar, Anxiety F41.9 [facility] [address] [place] [address] [id number] [place] [address] [id number] Mar, Chronic pain G89.29 [facility] [address] [address] Mar, Abnormal CBC R79.89 [facility] [id number] [id number] 18 Mar, 2017 Anxiety F41.9 [facility] [id number] [place] [address] 05642- 7402 14 Mar, 2017 Hypertension I10 ; Routine health maintenance Z00.00 ; Type 2 diabetes mellitus without complications E11.9 and Hyperlipidemia E78.5 [facility] [address] [place] [id number] [place] [address] [id number] 13 Mar, 2017 Chronic pain G89.29 and Anxiety F41.9 [facility] [address] [place] [id number] [id number] 13 Mar, 2017 Dental examination Z01.20 [place] [id number] [place] [address] 94019- 2574 06 Mar, 2017 Hypertension I10 ; Routine health maintenance Z00.00 ; Type 2 diabetes mellitus without complications E11.9 and Hyperlipidemia E78.5 [place] [id number] [place] [address]99- 0274 Jan, Type 2 diabetes mellitus without complications E11.9 ; Hypertension I10 ; Vascular dementia F01.50 ; Morbid obesity with BMI of 45.0- 49.9, adult Z68.42 ; Hyperlipidemia E78.5 ; Chronic pain G89.29 ; Anxiety F41.9 ; Depression F32.9 ; Coronary artery disease I25.10 ; 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 and Constipation K59.00 [facility] [address], [place] [address] Jan, Chronic pain G89.29 [facility] [address], [place] [address] Jan, [facility] [id number] [place] [address] 46697- 0017 Dec, [facility] [id number] [place] [address] 07979- 7277 Dec, Chronic pain G89.29 [place] [address] [place] [id number] [place] [address] 63440- 3805 14 Nov, 2016 Chronic pain G89.29 [place] [address] [address]- [address] October, Chronic pain G89.29 [place] [address] [place] [id number] [place] [address] 71203- 2193 Sep, Chronic pain G89.29 [place] [address] [address]- 2446 Sep, Type 2 diabetes mellitus without complications E11.9 ; Chronic pain G89.29 ; Hypertension I10 ; Coronary artery disease I25.10 ; Morbid obesity with BMI of 45.0-49.9, adult Z68.42 ; Hyperlipidemia E78.5 ; 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 and Depression F32.9 [place] [address] [address]- 5[address] Aug, Chronic pain G89.29 [place] [address] [place] [id number] [place] [address] 29528- 1881 22 Aug, 2016 Chronic pain G89.29 and Constipation K59.00 [place] [address] [place] [id number] [place] [address] 85214- 4050 17 Aug, 2016 Abnormal lung sounds R09.89 [place] [address] [place] [id number] [place] [address] 54931- 3298 10 Aug, 2016 Depression F32.9 [place] [address] [place] [id number] [place] [address] 91773- 2792 Jul, Chronic pain G89.29 [place] [address] [place] [id number] [place] [address] 70827- 0925 May, Chronic pain G89.29 [place] [address] [place] [id number] [place] [address] 05306- 0320 May, Medicare annual wellness visit, subsequent Z00.00 [place] [address] [place] [id number] [place] [address] 56148- 0783 May, [facility] [address] [place] [id number] [place] [address] 573832- 3801 May, Type 2 diabetes mellitus without complications [...] due to renal impairment without tophus M1A.3710 [facility] [address] [place] [id number] [place] [address] 10459- 9141 May, [facility] [address] [place] [id number] [place] [address] 73957- 6173 Mar, [facility] [address] [place] [id number] [place] [address] 29098- 9904 Mar, [facility] [address] [place] [id number] [place] [address] 713472- 9420 Mar, [facility] [address] [place] [id number] [place] [address] 71841- 6096 Mar, [facility] [address] [place] [id number] [place] [address] 862779- 3548 Mar, [facility] [address] [place] [id number] [place] [address] 790457- 7341 Jan, [facility] [address] 77[address]- 6296 Jan, [facility] [address] [place] [id number] [place] [address] 25960- 7213 Dec, Type 2 diabetes mellitus without complications E11.9 ; Hypertension I10 ; Coronary artery disease I25.10 and Renal insufficiency N28.9 [facility] [address] [facility] [id number] [place] [address]- 2006 Dec, [facility] [address] [facility] [id number] [place] [address]- 2643 Dec, [facility] [address] [place] [id number] [address]- 1918 Nov, [facility] [address] [facility] [id number] [place] [address]- 4126 Nov, [facility] [address] [facility] [id number] [place] [address]- 7211 Nov, [facility] [address] [address]- 1751 Nov, [facility] [address] [address]- 1839 Nov, [facility] [address] [address]- 9772 October, [facility] [address] [address]- 2161 October, [facility] [address] [address]- 8795 October, [facility] [address], [place] [address]- 7772 Sep, Type 2 diabetes mellitus without complications E11.9 and Constipation K59.00 [facility] [address] [facility] [id number] [place] [address]- 7409 Sep, [facility] [address], [place] [address]- 3604 Sep, Diabetes E11.9 [facility] [address] [place] [id number] [address]- 3088 Sep, [facility] [address], [place] [address]- 8106 Sep, Routine health maintenance Z00.00 ; Hypertension I10 ; Type 2 diabetes mellitus without complications E11.9 ; Morbid obesity with BMI of 45.0-49.9, adult Z68.42 ; Chronic pain G89.29 ; H/O carotid endarterectomy Z98.89 ; Vascular dementia F01.50 ; Arthritis M19.90 ; Coronary artery disease I25.10 ; Abnormal lung sounds R09.89 and Diabetes E11.9 [facility] [address] [place] [id number] [place] [address] 94896- 2399 Aug, Anxiety F41.9 [facility] [address] 38[address]- 9866 Aug, Arthritis M19.90 [facility] [address] 46615- 9424 Jul, Arthritis M19.90 [place] [address] [place] [id number] [place] [address] 06342- 0709 Jul, [facility] [address] [place] [id number] [place] [address] 70148- 9097 May, [facility] [address] [place] [id number] [place] [address] 75029- 4231 May, Arthritis M19.90 ; Hypertension I10 ; Depression F32.9 ; Vascular dementia F01.50 and Coronary artery disease I25.10 [place] [address] [place] [id number] [place] [address] 52353- 0325 May, [facility] [address] [place] [id number] [place] [address] 10977- 3585 May, [facility] [address] [place] [id number] [place] [address] 53329- 6861 Mar, [facility] [address] [place] [id number] [place] [address] 60028250- 8522 Mar, [facility] [address] [place] [id number] [place] [address] 04017- 0182 Mar, [facility] [address] [id number] [place] [address]- 4373 Mar, [facility] [address] [facility] [id number] [place] [address]- 3950 Mar, Essential hypertension, benign 401.1 ; Unspecified arthropathy, site unspecified 716.90 and Other and unspecified hyperlipidemia 272.4 [facility] [address] [id number] [place] [address]- 6516 Mar, [facility] [address] [id number] [place] [address]- 7616 Jan, [facility] [address] [id number] [place] [address]- 1887 Dec, [facility] [address] [facility] [id number] [place] [address]- 8984 Dec, [facility] [address] [facility] [id number] [place] [address]- 7437 Dec, [facility] [address] [facility] [id number] [place] [address]- 4404 Dec, [facility] [address] [facility] [id number] [place] [address]- 6017 Dec, [facility] [address] [facility] [id number] [place] [address]- 5941 Dec, [facility] [address] [facility] [id number] [place] [address]- 6556 Dec, [facility] [address] [id number] [place] [address]- 2546 Dec, [facility] [address] [facility] [id number] [place] [address]- 7386 Nov, [facility] [address] [id number] [place] [address]- 2546 Nov, [facility] [address] [facility] [id number] [place] [address]- 4103 Nov, [facility] [place] [facility] [address] [id number] [place] [address]- 2357 October, [facility] [place] [facility] [address] [id number] [place] [address]- 4193 October, [facility] [place] [facility] [address] [id number] [place] [address]- 0056 Sep, [facility] [place] [facility] [address] [id number] [place] [address]- 1890 Sep, [facility] [place] [facility] [address] [id number] [place] [address]- 5712 Sep, [facility] [place] [facility] [address] [id number] [place] [address]- 5942 Aug, [facility] [place] [facility] [address] [id number] [place] [address]- 4097 Aug, [facility] [place] [facility] [address] [id number] [place] [address]- 2055 Aug, [facility] [place] [facility] [address] [id number] [place] [address]- 7999 Aug, [facility] [place] [facility] [address] [facility] [id number] [place] [address]- 6808 Aug, [facility] [place] [facility] [address] [id number] [place] [address]- 0918 Aug, [facility] [place] [facility] [address] [id number] [place] [address]- 9852 Aug, [facility] [place] [facility] [address] [id number] [place] [address]- 1049 Aug, [facility] [place] [facility] [address] [id number] [place] 9455 Aug, [facility] [place] [facility] [address] [id number] [place] [address]- 8876 May, [facility] [place] [facility] [address] [id number] [place] [address]- 8122 May, [facility] [address] [id number] [place] [address]- 6231 May, [facility] [address] [id number] [place] [address]- 1780 May, [facility] [address] [id number] [place] [address]- 4426 May, [facility] [address] [id number] [place] [address]- 0613 May, [facility] [address] [id number] [place] [address]- 0245 May, [facility] [address] [id number] [place] [address]- 2576 May, [facility] [address] [id number] [place] [address]- 0878 Mar, [facility] [address] [id number] [place] [address]- 8451 Mar, [facility] [address] [place] [id number] Mar, [facility] [address] [id number] [place] [address]- 5741 Mar, [facility] [address] [id number] [place] [address]- 9301 Mar, [facility] [address] [id number], [place] [address]- 9477 Mar, [facility] [address] [id number] [place] [address]- 2407 Mar, [facility] [address] [id number] [place] [address]- 9669 Mar, [facility] [place] [facility] [address] [id number], [place] [address]- 9797 24 Mar, 2014 [facility] [address] [id number] [place] [address]- 0235 Mar, [facility] [place] [facility] [address] [id number] [place] [address]- 2574 Mar, [facility] [place] [facility] [address] [id number] [place] [address]- 9636 Mar, [facility] [place] [facility] [address] [id number] [place] [address]- 3996 Mar, [facility] [place] [facility] [address] [id number] [place] [address]- 7951 Jan, [facility] [place] [facility] [address] [id number] [place] [address]- 9389 Jan, [facility] [address] [id number] [place] [address]- 3275 Jan, [facility] [address] [id number] [place] [address]- 6179 Jan, [facility] [address] [place] [id number] Jan, [facility] [place] [facility] [address] [id number] [place] [address]- 7373 Jan, [facility] [address] [id number] [place] [address]- 6297 Jan, [facility] [place] [facility] [address] [id number] [place] [address]- 9849 Dec, [facility] [place] [facility] [address] [id number] [place] [address]- 7483 Dec, [facility] [place] [facility] [address] [id number] [place] [address]- 0971 Dec, [facility] [place] [facility] [address] [id number] [place] [address]- 9481 Dec, [facility] [place] [facility] [address] [id number] [place] [address]- 9402 Dec, [facility] [address] [facility] [id number] [address]- 0042 Dec, [facility] [address] [facility] [id number], [place] [address]- 9085 Nov, [facility] [address] [facility] [id number], [place] [address]- 5851 Nov, IMMUNIZATIONS No Known Immunizations SOCIAL HISTORY Never Assessed REASON FOR VISIT Social Security f/u paperwork--[place]upp[place]RN, -Elevated blood sugars for past month PLAN OF CARE Activity Details Follow Up 3 Months, prn Reason:CHM/DM VITAL SIGNS Height 64 in 2017-10-31 Weight 283.0 lbs 2017-10-31 Temperature 98.2 degrees Fahrenheit 2017-10-31 Heart Rate 90 bpm 2017-10-31 Respiratory Rate 20 2017-10-31 BMI 48.57 kg/m2 2017-10-31 Blood pressure systolic 126 mmHg 2017-10-31 Blood pressure diastolic 80 mmHg 2017-10-31 MEDICATIONS Medication Instructions Dosage Frequency Start Date End Date Duration Status ProAir HFA 108 (90 Base) MCG/ACT Inhalation every 4 hrs 2 puffs as needed 4h Sep, Active Aspirin 81 MG Orally Once a day 1 tablet 24h Active Exelon 6 TAKE ONE CAPSULE BY MOUTH TWICE A DAY Active Geodon 20 TAKE ONE CAPSULE BY MOUTH TWICE A DAY WITH FOOD Active Allopurinol 300 TAKE ONE TABLET BY MOUTH DAILY Active MiraLax 17 Orally Once a day as needed MIX 17GMS (1 CAPFUL) IN 8OZ WATER AND DRINK DAILY Active Hydrocodone-Acetaminophen 5-325 MG Orally 3 times a day-,Assisted living facility 1 tablet Sep, Active Celexa 10 mg Orally every other day x 2 weeks, then 3x weekly x 2 weeks, then stop 1 tablets Active Furosemide 40 MG Orally Once a day 1 tablet 24h Active Pravastatin Sodium 40 MG Orally Once a day 1 tablet 24h Active Protonix 40 TAKE ONE TABLET BY MOUTH DAILY Active Metoprolol Tartrate 50 mg Orally Once a day 1 tablet with food 24h Active FreeStyle Lite Test 1 subcutaneously Once a day as directed 24h Sep, Active Ativan 0.5 Orally, each fill must last 28 days Once a day 1 tablet 24h Active Losartan Potassium 100 MG Orally Once a day 1 tablet 24h 21 Mar, 2016 Active Ferrous Sulfate 325 (65 Fe) MG Orally Once a day 1 tablet 24h Aug, 30 day(s) Active RESULTS Name Result Date Reference Range A1C (IN HOUSE) 2017-10-31 A1C IN HOUSE 9.2 4.3 - 5.6 % Previous A1c 7.4 Lot [id number] Exp date 08/2019 PROCEDURES Procedure Date Ordered Result Body Site GLYCATED HEMOGLOBIN TEST October 31, 2017 [facility] VISIT ESTABLISHED PATIENT October 31, 2017 INSTRUCTIONS MEDICATIONS ADMINISTERED No Known Medications MEDICAL [...]
--- OUTSIDE RECORDS SUMMARY | 2018-03-10 15:39 | XMS REPORT ---
Author Author ELIEL SMITH Organization [facility] Address [address] [place] [address] Care Team Providers Care Liability Analyst Name Role Phone ELIEL SMITH Unavailable PROBLEMS Type Condition ICD9-CM Code QGV26-ER Code Onset Dates Condition Status SNOMED Code Problem Routine health maintenance Z00.00 Active 978362643 Problem Chronic pain G89.29 Active 62249047 Problem Type 2 diabetes mellitus without complications E11.9 Active 579467025 Problem Diverticulitis K57.92 Active 942129863 Problem Anxiety F41.9 Active 50470810 Problem Chronic fatigue R53.82 Active 94538897 Problem Hepatitis C B19.20 Active 68951571 Problem History of solitary pulmonary nodule Z87.898 Active 190967102 Problem Depression F32.9 Active 672951837 Problem Constipation K59.00 Active 25401571 Problem Chronic kidney disease (CKD) stage G3a/A1, moderately decreased glomerular filtration rate (GFR) between 45-59 mL/min/1.73 square meter and albuminuria creatinine ratio less than 30 mg/g N18.3 Active 728766265 Problem 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 44799604 Problem History of alcoholism F10.21 Active 743341887 Problem History of TIA (transient ischemic attack) Z86.73 Active 765373414 Problem Vitamin D deficiency E55.9 Active 13205182 Problem Hyperlipidemia E78.5 Active 62785702 Problem Arthritis M19.90 Active 2881097 Problem Coronary artery disease I25.10 Active 20707691 Problem DJD (degenerative joint disease) M19.90 Active 961408492 Problem Cervical stenosis of spinal canal M48.02 Active 80562153 Problem Hypertension I10 Active 61444765 Problem Abnormal CBC R79.89 Active 057660384 Problem Vascular dementia F01.50 Active 730566600 Problem Morbid obesity with BMI of 45.0-49.9, adult Z68.42 Active 815778326 ALLERGIES No Information ENCOUNTERS Encounter Location Date Diagnosis [address] [id number] [place] [address] 34084- 4700 Jan, [id number] [place] [address] 13522- 6164 Dec, Anxiety F41.9 and Chronic pain G89.29 [address] [address] 35371- 4196 Dec, [facility] [facility] [address] 14272- 4072 Nov, Anxiety F41.9 and Chronic pain G89.29 [facility] [address] 64092- 4492 October, Chronic pain G89.29 and Anxiety F41.9 [facility] [id number] [place] [address] 90981- 5083 October, Type 2 diabetes mellitus without complications [...] than 30 mg/g N18.3 and Anxiety F41.9 [address] [id number] [place] [address] 02295- 2968 Sep, Chronic pain G89.29 and Anxiety F41.9 [facility] [id number] [place] [address] 56560- 8280 Aug, Anxiety F41.9 and Chronic pain G89.29 [facility] [id number] [place] [address] 16266- 5274 Aug, Anxiety F41.9 [facility] [id number] [place] [address] 11708- 7707 22 Aug, 2017 Chronic pain G89.29 and Anxiety F41.9 [facility] [id number] [place] [address] 53040- 1976 12 Aug, 2017 Chronic kidney disease (CKD) stage G3a/A1, moderately decreased glomerular filtration rate (GFR) between 45-59 mL/min/1.73 square meter and albuminuria creatinine ratio less than 30 mg/g N18.3 [address] [facility] [id number] [place] [address] 52732- 7112 09 Aug, 2017 [facility] [address] [id number] Jul, Dental examination Z01.20 [place] [address] 32961- 0177 Jul, Chronic pain G89.29 and Anxiety F41.9 [place] [id number] [place] [address] 53101- 8663 Jul, Other specified abnormal findings of blood chemistry R79.[address] 21055- 4013 Jul, Type 2 diabetes mellitus without complications E11.9 ; Chronic kidney disease (CKD) stage G3a/A1, moderately decreased glomerular filtration rate (GFR) between 45-59 mL/min/1.73 square meter and albuminuria creatinine ratio less than 30 mg/g N18.3 ; BMI 45.0-49.9, adult Z68.42 ; Chronic fatigue R53.82 ; Hair loss L65.9 ; Generalized abdominal pain R10.84 and Diverticulitis K57.92 [facility] [id number] [place] [address] 49931- 5260 Jul, [facility] [id number] [place] [address] [id number] Jul, Dental examination Z01.20 [facility] [address] [place] [address]- 6116 08 Jul, 2017 Anxiety F41.9 [facility] [id number] [place] [address] 731237- 0783 Jul, Anxiety F41.9 [facility] [id number] [place] [address] [id number] Jul, Chronic pain G89.29 [facility] [id number] [place] [address] [id number] May, Chronic pain G89.29 [facility] [id number] [place] [address] 07229- 3857 May, [facility] [address] [place] [address] [id number] May, Dental examination Z01.20 [facility] [id number] [place] [address] 65718- 5730 May, Anxiety F41.9 [facility] [id number] [place] [address] [id number] May, Chronic pain G89.29 [facility] [id number] [place] [address] 23502- 5414 Mar, Depression F32.9 [facility] [id number] [place] [address] 00909- 2921 Mar, Anxiety F41.9 [facility] [id number] [place] [address] [id number] Mar, Chronic pain G89.29 [facility] [address] [address]- 2473 19 Mar, 2017 Abnormal CBC R79.89 [facility] [id number] [place] [address] [id number] 18 Mar, 2017 Anxiety F41.9 [facility] [address] [address]- 0446 14 Mar, 2017 Hypertension I10 ; Routine health maintenance Z00.00 ; Type 2 diabetes mellitus without complications E11.9 and Hyperlipidemia E78.5 [facility] [id number] [id number] 13 Mar, 2017 Chronic pain G89.29 and Anxiety F41.9 [facility] [address] [facility] [id number] [id number] 13 Mar, 2017 Dental examination Z01.20 [facility] [id number] [place] [address] 15621- 2642 06 Mar, 2017 Hypertension I10 ; Routine health maintenance Z00.00 ; Type 2 diabetes mellitus without complications E11.9 and Hyperlipidemia E78.5 [facility] [id number] [place] [address] [id number]- 9918 22 Jan, 2017 Type 2 diabetes mellitus without complications E11.9 ; Hypertension I10 ; Vascular dementia F01.50 ; Morbid obesity with BMI of 45.0- 49.9, adult Z68.42 ; Hyperlipidemia E78.5 ; Chronic pain G89.29 ; Anxiety F41.9 ; Depression F32.9 ; Coronary artery disease I25.10 ; 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 and Constipation K59.00 [facility] [address] [place] [address] 66421- 1733 16 Jan, 2017 Chronic pain G89.29 [facility] [address] [address]- 1306 Jan, [facility] [id number] [place] [address] 90480- 1941 Dec, [facility] [address] [place] [address] 33799- 0115 Dec, Chronic pain G89.29 [facility] [address] [place] [address] 44884- 6864 Nov, Chronic pain G89.29 [facility] [address] [place] [address] 74154- 4868 October, Chronic pain G89.29 [facility] [id number] [place] [address] 23604- 4372 Sep, Chronic pain G89.29 [facility] [id number] [place] [address] 76223- 9097 Sep, Type 2 diabetes mellitus without complications E11.9 ; Chronic pain G89.29 ; Hypertension I10 ; Coronary artery disease I25.10 ; Morbid obesity with BMI of 45.0-49.9, adult Z68.42 ; Hyperlipidemia E78.5 ; 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 and Depression F32.9 [place] [id number] [place] [address] 28919- 2392 Aug, Chronic pain G89.29 [place] [id number] [place] [address] 47067- 9915 Aug, Chronic pain G89.29 and Constipation K59.00 [place] [id number] [place] [address] 43441- 1395 Aug, Abnormal lung sounds R09.89 [place] [id number] [place] [address] 06218- 8904 Aug, Depression F32.9 [place] [id number] [place] [address] 45298- 0236 Jul, Chronic pain G89.29 [place] [id number] [place] [address] 54174- 9999 May, Chronic pain G89.29 [place] [id number] [place] [address] 95538- 5597 May, Medicare annual wellness visit, subsequent Z00.00 [place] [id number] [place] [address] 87972- 4430 May, [place] [id number] [place] [address] 29832- 7533 May, Type 2 diabetes mellitus without complications [...] due to renal impairment without tophus M1A.3710 [facility] [id number] [place] [address] 23375- 4695 May, [facility] [id number] [place] [address] 64102- 9146 Mar, [facility] [id number] [place] [address] 18654- 8862 Mar, [facility] [id number] [place] [address] 15053- 3603 Mar, [facility] [id number] [place] [address] 33434- 8444 Mar, [facility] [id number] [place] [address] 66129- 1118 Mar, [facility] [id number] [place] [address] 00371- 4825 Jan, [facility] [id number] [place] [address] 81842- 5548 Jan, [facility] [id number] [address]- 9229 Dec, Type 2 diabetes mellitus without complications E11.9 ; Hypertension I10 ; Coronary artery disease I25.10 and Renal insufficiency N28.9 [facility] [id number] [address]- 9208 Dec, [facility] [id number] [place] [address] 28284- 5936 Dec, [facility] [address] [facility] [id number] [address]- 7934 Nov, [facility] [address] [address]- 1621 Nov, [facility] [address] [address]- 3020 Nov, [facility] [address] [address]- 2244 Nov, [facility] [address] [facility] [place] [id number] [place] [address]- 5216 Nov, [facility] [address] [place] [address]- 4368 October, [facility] [id number] [place] [address]- 9036 October, [facility] [address] [address]- 6885 October, [facility] [id number] [address]- 2199 Sep, Type 2 diabetes mellitus without complications E11.9 and Constipation K59.00 [facility] [id number] [address]- 0346 Sep, [facility] [id number] [address]- 0089 Sep, Diabetes E11.9 [facility] [id number] [address]- 0370 Sep, [facility] [id number] [address]- 3285 Sep, Routine health maintenance Z00.00 ; Hypertension I10 ; Type 2 diabetes mellitus without complications E11.9 ; Morbid obesity with BMI of 45.0-49.9, adult Z68.42 ; Chronic pain G89.29 ; H/O carotid endarterectomy Z98.89 ; Vascular dementia F01.50 ; Arthritis M19.90 ; Coronary artery disease I25.10 ; Abnormal lung sounds R09.89 and Diabetes E11.9 [facility] [id number] [place] [address] 33368- 3943 09 Aug, 2015 Anxiety F41.9 [facility] [id number] [place] [address] 33030- 4466 Aug, Arthritis M19.90 [facility] [id number] [place] [address] 77324- 9096 Jul, Arthritis M19.90 [facility] [id number] [place] [address] 45342- 7725 Jul, [facility] [id number] [place] [address] 44322- 5524 May, [facility] [id number] [place] [address] 77811- 4358 May, Arthritis M19.90 ; Hypertension I10 ; Depression F32.9 ; Vascular dementia F01.50 and Coronary artery disease I25.10 [facility] [id number] [place] [address] 25522- 0361 May, [facility] [id number] [place] [address] 51951- 4133 May, [facility] [id number] [place] [address] 43808- 0973 Mar, [facility] [id number] [place] [address] 38823- 2427 Mar, [facility] [id number] [place] [address] 29081- 9276 Mar, [facility] [id number] [place] [address] 47156- 7891 Mar, [facility] [id number] [place] [address] 75429- 9663 Mar, Essential hypertension, benign 401.1 ; Unspecified arthropathy, site unspecified 716.90 and Other and unspecified hyperlipidemia 272.4 [facility] [address] [id number] [place] [address]- 4942 Mar, [facility] [address] [id number] [place] [address]- 6656 Jan, [facility] [address] [id number] [place] [address]- 0906 Dec, [facility] [place] [facility] [address] [id number] [place] [address]- 5334 Dec, [facility] [address] [id number] [place] [address]- 5410 Dec, [facility] [address] [id number] [place] [address]- 2726 Dec, [facility] [address] [facility] [id number] [place] [address]- 7836 Dec, [facility] [address] [id number] [place] [address]- 6217 Dec, [facility] [address] [facility] [place] [id number] [place] [address]- 3695 Dec, [facility] [address] [facility] [id number] [place] [address]- 8878 Dec, [facility] [address] [facility] [id number] [place] [address]- 2232 Nov, [facility] [place] [facility] [address] [id number] [place] [address]- 2147 Nov, [facility] [place] [facility] [address] [id number] [place] [address]- 9879 Nov, [facility] [place] [facility] [address] [facility] [id number] [place] [address]- 1919 October, [facility] [address] [facility] [id number] [place] [address]- 6942 October, [facility] [place] [facility] [address] [id number] [place] [address]- 5955 28 Sep, 2014 [facility] [place] [facility] [address] [id number] [place] [address]- 1689 14 Sep, 2014 [facility] [place] [facility] [address] [id number] [place] [address]- 9563 Sep, [facility] [place] [facility] [address] [id number] [place] [address]- 8166 Aug, [facility] [place] [facility] [address] [id number] [place] [address]- 0310 Aug, [facility] [place] [facility] [address] [id number] [place] [address]- 4729 Aug, [facility] [place] [facility] [address] [id number] [place] [address]- 0534 Aug, [facility] [place] [facility] [address] [id number] [place] [address]- 4182 Aug, [facility] [place] [facility] [address] [id number] [place] [address]- 1453 Aug, [facility] [place] [facility] [address] [id number] [place] [address]- 6122 Aug, [facility] [place] [facility] [address] [id number] [place] [address]- 1428 Aug, [facility] [place] [facility] [address] [id number] [place] [address]- 4303 Aug, [facility] [place] [facility] [address] [id number] [place] 5131 May, [facility] [place] [facility] [address] [id number] [place] [address]- 0136 May, [facility] [place] [facility] [address] [id number] [place] [address]- 5076 May, [facility] [place] [facility] [address] [id number] [place] [address]- 7956 May, [facility] [place] [facility] [address] [id number] [place] [address]- 9543 May, [facility] [place] [facility] [address] [id number] [place] [address]- 0224 May, [facility] [place] [facility] [address] [id number] [place] 6244 May, [facility] [place] [facility] [address] [id number] [place] [address]- 5014 May, [facility] [place] [facility] [address] [id number] [place] [address]- 2210 Mar, [facility] [place] [facility] [address] [id number] [place] [address]- 1665 Mar, [address] [place] [id number] Mar, [facility] [place] [facility] [address] [id number] [address]- 0237 Mar, [facility] [place] [facility] [address] [id number] [address]- 0239 Mar, [facility] [place] [facility] [address] [id number] [place] [address]- 8934 Mar, [facility] [place] [facility] [address] [id number] [place] [address]- 0793 Mar, [facility] [place] [facility] [address] [id number] [place] [address]- 2487 Mar, [facility] [place] [facility] [address] [id number] [place] [address]- 2454 Mar, [facility] [place] [facility] [address] [id number] [place] [address]- 7793 Mar, [facility] [place] [facility] [address] [id number] [place] [address]- 6334 Mar, [facility] [place] [facility] [address] [id number] [place] [address]- 0733 Mar, [facility] [address] [id number] [place] [address]- 1222 Mar, [facility] [place] [facility] [address] [id number] [place] [address]- 4822 Jan, [facility] [address] [id number] [place] [address]- 5217 Jan, [facility] [place] [facility] [address] [id number] [place] [address]- 3887 Jan, [facility] [address] [id number] [place] [address]- 8561 Jan, [facility] [address] [place] [id number] Jan, [facility] [address] [id number] [place] [address]- 7307 Jan, [facility] [place] [facility] [address] [id number] [place] [address]- 7669 Jan, [facility] [place] [facility] [address] [id number] [place] [address]- 3186 Dec, [facility] [place] [facility] [address] [id number] [place] [address]- 7336 Dec, [facility] [place] [facility] [address] [id number] [place] [address]- 0457 Dec, [facility] [place] [facility] [address] [id number] [place] [address] Dec, [facility] [place] [facility] [address] [id number] [place] [address] Dec, [facility] [place] [facility] [address] [id number] [place] [address] Dec, [facility] [place] [facility] [address] [id number] [place] [address] Nov, [facility] [place] [facility] [address] [facility] [id number] [place] [id number] Nov, 2013 IMMUNIZATIONS No Known Immunizations SOCIAL HISTORY Never Assessed REASON FOR VISIT Controlled Med Refill PLAN OF CARE VITAL SIGNS MEDICATIONS Medication Instructions Dosage Frequency Start Date End Date Duration Status Ativan 0.5 Orally, each fill must last 28 days Once a day 1 tablet 24h 28 days Active Hydrocodone-Acetaminophen 5-325 MG Orally 3 times a day-,Assisted living facility 1 tablet Sep, 28 days Active RESULTS No Results PROCEDURES [...]
--- OUTSIDE RECORDS SUMMARY | 2018-03-10 15:39 | XMS REPORT ---
Author Author ELIEL SMITH Organization [facility] Address [address] [place] [address] Care Team Providers Care Bench Inspector Name Role Phone ELIEL SMITH Unavailable PROBLEMS Type Condition ICD9-CM Code EPD07-PI Code Onset Dates Condition Status SNOMED Code Problem Routine health maintenance Z00.00 Active 465670379 Problem Chronic pain G89.29 Active 90208477 Problem Type 2 diabetes mellitus without complications E11.9 Active 745672129 Problem Diverticulitis K57.92 Active 986383261 Problem Anxiety F41.9 Active 34096714 Problem Chronic fatigue R53.82 Active 44398258 Problem Hepatitis C B19.20 Active 40469413 Problem History of solitary pulmonary nodule Z87.898 Active 891939357 Problem Depression F32.9 Active 113876550 Problem Constipation K59.00 Active 68990462 Problem Chronic kidney disease (CKD) stage G3a/A1, moderately decreased glomerular filtration rate (GFR) between 45-59 mL/min/1.73 square meter and albuminuria creatinine ratio less than 30 mg/g N18.3 Active 569358369 Problem 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 05101974 Problem History of alcoholism F10.21 Active 937759913 Problem History of TIA (transient ischemic attack) Z86.73 Active 614615892 Problem Vitamin D deficiency E55.9 Active 04611546 Problem Hyperlipidemia E78.5 Active 63448588 Problem Arthritis M19.90 Active 8828398 Problem Coronary artery disease I25.10 Active 31692145 Problem DJD (degenerative joint disease) M19.90 Active 619963212 Problem Cervical stenosis of spinal canal M48.02 Active 63635244 Problem Hypertension I10 Active 21180585 Problem Abnormal CBC R79.89 Active 209582835 Problem Vascular dementia F01.50 Active 782956484 Problem Morbid obesity with BMI of 45.0-49.9, adult Z68.42 Active 496563854 ALLERGIES No Information ENCOUNTERS Encounter Location Date Diagnosis [facility] [id number] [place] [address] 73804- 0853 Jan, [facility] [id number] [place] [address] 95656- 4526 Dec, Anxiety F41.9 and Chronic pain G89.29 [facility] [address] 73091- 5019 Dec, [facility] [address] 64536- 7194 Nov, Anxiety F41.9 and Chronic pain G89.29 [facility] [address] 62020- 6797 October, Chronic pain G89.29 and Anxiety F41.9 [facility] [id number] [place] [address] 13040- 1753 October, Type 2 diabetes mellitus without complications [...] than 30 mg/g N18.3 and Anxiety F41.9 [facility] [id number] [place] [address] 00129- 8372 Sep, Chronic pain G89.29 and Anxiety F41.9 [facility] [id number] [place] [address] 49459- 1192 Aug, Anxiety F41.9 and Chronic pain G89.29 [facility] [id number] [place] [address] 48366- 5273 Aug, Anxiety F41.9 [facility] [id number] [place] [address] 41927- 0294 22 Aug, 2017 Chronic pain G89.29 and Anxiety F41.9 [facility] [id number] [place] [address] 05022- 5297 12 Aug, 2017 Chronic kidney disease (CKD) stage G3a/A1, moderately decreased glomerular filtration rate (GFR) between 45-59 mL/min/1.73 square meter and albuminuria creatinine ratio less than 30 mg/g N18.3 [facility] [id number] [place] [address] 45761- 5129 09 Aug, 2017 [facility] [address] [id number] Jul, Dental examination Z01.20 [facility] [facility] [address] 49280- 0220 Jul, Chronic pain G89.29 and Anxiety F41.9 [facility] [id number] [place] [address] 62143- 1913 Jul, Other specified abnormal findings of blood chemistry R79.[address] 37230- 4729 Jul, Type 2 diabetes mellitus without complications E11.9 ; Chronic kidney disease (CKD) stage G3a/A1, moderately decreased glomerular filtration rate (GFR) between 45-59 mL/min/1.73 square meter and albuminuria creatinine ratio less than 30 mg/g N18.3 ; BMI 45.0-49.9, adult Z68.42 ; Chronic fatigue R53.82 ; Hair loss L65.9 ; Generalized abdominal pain R10.84 and Diverticulitis K57.92 [facility] [id number] [place] [address] 79470- 4409 Jul, [facility] [id number] [place] [address] [id number] Jul, Dental examination Z01.20 [facility] [address] [place] [address]- 6916 08 Jul, 2017 Anxiety F41.9 [facility] [id number] [place] [address] 216810- 8113 Jul, Anxiety F41.9 [facility] [id number] [place] [address] [id number] Jul, Chronic pain G89.29 [facility] [id number] [place] [address] [id number] May, Chronic pain G89.29 [facility] [id number] [place] [address] 26047- 7577 May, [facility] [id number] [place] [address] [id number] May, Dental examination Z01.20 [facility] [id number] [place] [address] 77749- 5665 May, Anxiety F41.9 [facility] [id number] [place] [address] [id number] May, Chronic pain G89.29 [facility] [id number] [place] [address] 92472- 1278 Mar, Depression F32.9 [facility] [id number] [place] [address] 50805- 4541 Mar, Anxiety F41.9 [facility] [id number] [place] [address] [id number] Mar, Chronic pain G89.29 [facility] [address] [address]- 9544 19 Mar, 2017 Abnormal CBC R79.89 [facility] [id number] [place] [address] [id number] 18 Mar, 2017 Anxiety F41.9 [facility] [address] [address]- 9432 14 Mar, 2017 Hypertension I10 ; Routine health maintenance Z00.00 ; Type 2 diabetes mellitus without complications E11.[address] [facility] [id number] [place] [id number] 13 Mar, 2017 Chronic pain G89.29 and Anxiety F41.9 [facility] [address] [facility] [id number] [id number] 13 Mar, 2017 Dental examination Z01.20 [facility] [id number] [place] [address] 74096- 7082 06 Mar, 2017 Hypertension I10 ; Routine health maintenance Z00.00 ; Type 2 diabetes mellitus without complications E11.9 and Hyperlipidemia E78.5 [facility] [id number] [place] [address] 24538661- 8977 22 Jan, 2017 Type 2 diabetes mellitus without complications E11.9 ; Hypertension I10 ; Vascular dementia F01.50 ; Morbid obesity with BMI of 45.0- 49.9, adult Z68.42 ; Hyperlipidemia E78.5 ; Chronic pain G89.29 ; Anxiety F41.9 ; Depression F32.9 ; Coronary artery disease I25.10 ; 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 and Constipation K59.00 [facility] [address] [place] [address] 18918- 6016 16 Jan, 2017 Chronic pain G89.29 [facility] [address] [address]- 6052 Jan, [facility] [id number] [place] [address] 22309- 2453 Dec, [facility] [id number] [place] [address] 41090- 2402 Dec, Chronic pain G89.29 [facility] [address] [place] [address] 51534- 2150 Nov, Chronic pain G89.29 [facility] [address] [place] [address] 34854- 6079 October, Chronic pain G89.29 [facility] [id number] [place] [address] 32677- 8885 Sep, Chronic pain G89.29 [facility] [id number] [place] [address] 90156- 1310 Sep, Type 2 diabetes mellitus without complications E11.9 ; Chronic pain G89.29 ; Hypertension I10 ; Coronary artery disease I25.10 ; Morbid obesity with BMI of 45.0-49.9, adult Z68.42 ; Hyperlipidemia E78.5 ; 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 and Depression F32.9 [facility] [id number] [place] [address] 86908- 8345 Aug, Chronic pain G89.29 [facility] [id number] [place] [address] 71004- 5595 Aug, Chronic pain G89.29 and Constipation K59.00 [facility] [id number] [place] [address] 69977- 0759 Aug, Abnormal lung sounds R09.89 [facility] [id number] [place] [address] 89307- 1919 Aug, Depression F32.9 [facility] [id number] [place] [address] 42763- 3809 Jul, Chronic pain G89.29 [facility] [id number] [place] [address] 90914- 2424 May, Chronic pain G89.29 [facility] [id number] [place] [address] 56630- 0618 May, Medicare annual wellness visit, subsequent Z00.00 [facility] [facility] [id number] [place] [address] 95722- 4583 May, [facility] [id number] [place] [address] 16925- 9861 May, Type 2 diabetes mellitus without complications [...] due to renal impairment without tophus M1A.3710 [facility] [id number] [place] [address] 45604- 7455 May, [facility] [id number] [place] [address] 42019- 9442 Mar, [facility] [id number] [place] [address] 76708- 2387 Mar, [facility] [id number] [place] [address] 74693- 3639 Mar, [facility] [id number] [place] [address] 87588- 2946 Mar, [facility] [id number] [place] [address] 29633- 3907 Mar, [facility] [id number] [place] [address] 95542- 9626 Jan, [facility] [id number] [place] [address] 62849- 7380 Jan, [facility] [id number] [address]- 9789 Dec, Type 2 diabetes mellitus without complications E11.9 ; Hypertension I10 ; Coronary artery disease I25.10 and Renal insufficiency N28.9 [facility] [id number] [address]- 3099 Dec, [facility] [id number] [place] [address] 48009- 7750 Dec, [facility] [address] [facility] [id number] [address]- 9475 Nov, [facility] [address] [address]- 4000 Nov, [facility] [address] [address]- 5092 Nov, [facility] [address] [address]- 6878 Nov, [facility] [address] [facility] [id number] [place] [address]- 9595 Nov, [facility] [address] [place] [address]- 8105 October, [facility] [address] [place] [address]- 7298 October, [facility] [address] [address]- 0163 October, [facility] [id number] [address]- 8128 Sep, Type 2 diabetes mellitus without complications E11.9 and Constipation K59.00 [facility] [id number] [address]- 7858 Sep, [facility] [id number] [address]- 5848 Sep, Diabetes E11.9 [facility] [id number] [address]- 8889 Sep, [facility] [id number] [address]- 1313 Sep, Routine health maintenance Z00.00 ; Hypertension I10 ; Type 2 diabetes mellitus without complications E11.9 ; Morbid obesity with BMI of 45.0-49.9, adult Z68.42 ; Chronic pain G89.29 ; H/O carotid endarterectomy Z98.89 ; Vascular dementia F01.50 ; Arthritis M19.90 ; Coronary artery disease I25.10 ; Abnormal lung sounds R09.89 and Diabetes E11.9 [facility] [id number] [place] [address] 44782- 1533 09 Aug, 2015 Anxiety F41.9 [facility] [id number] [place] [address] 20024- 1818 Aug, Arthritis M19.90 [facility] [id number] [place] [address] 29340- 6697 Jul, Arthritis M19.90 [facility] [id number] [place] [address] 05856- 2898 Jul, [facility] [id number] [place] [address] 75384- 6179 May, [facility] [id number] [place] [address] 95899- 5071 May, Arthritis M19.90 ; Hypertension I10 ; Depression F32.9 ; Vascular dementia F01.50 and Coronary artery disease I25.10 [facility] [id number] [place] [address] 25066- 4618 May, [facility] [id number] [place] [address] 45561- 6707 May, [facility] [id number] [place] [address] 22992- 6909 Mar, [facility] [id number] [place] [address] 89472- 6225 Mar, [facility] [id number] [place] [address] 66782- 6861 Mar, [facility] [id number] [place] [address] 70068- 6441 Mar, [facility] [id number] [place] [address] 87929- 5938 Mar, Essential hypertension, benign 401.1 ; Unspecified arthropathy, site unspecified 716.90 and Other and unspecified hyperlipidemia 272.4 [facility] [address] [id number] [place] [address]- 0449 Mar, [facility] [address] [id number] [place] [address]- 4656 Jan, [facility] [address] [id number] [place] [address]- 4080 Dec, [facility] [place] [facility] [address] [id number] [place] [address]- 2601 Dec, [facility] [address] [id number] [place] [address]- 1890 Dec, [facility] [address] [id number] [place] [address]- 6759 Dec, [facility] [address] [facility] [id number] [place] [address]- 1335 Dec, [facility] [address] [id number] [place] [address]- 2673 Dec, [facility] [address] [facility] [id number] [place] [address]- 0567 Dec, [facility] [address] [facility] [id number] [place] [address]- 5172 Dec, [facility] [address] [facility] [id number] [place] [address]- 2069 Nov, [facility] [place] [facility] [address] [id number] [place] [address]- 1622 Nov, [facility] [place] [facility] [address] [id number] [place] [address]- 7248 Nov, [facility] [place] [facility] [address] [facility] [id number] [place] [address]- 7720 October, [facility] [address] [facility] [id number] [place] [address]- 8912 October, [facility] [place] [facility] [address] [id number] [place] [address]- 2111 28 Sep, 2014 [facility] [place] [facility] [address] [id number] [place] [address]- 6099 14 Sep, 2014 [facility] [place] [facility] [address] [id number] [place] [address]- 2040 Sep, [facility] [place] [facility] [address] [id number] [place] [address]- 7637 Aug, [facility] [place] [facility] [address] [id number] [place] [address]- 2291 Aug, [facility] [place] [facility] [address] [id number] [place] [address]- 1196 Aug, [facility] [place] [facility] [address] [id number] [place] [address]- 8234 Aug, [facility] [place] [facility] [address] [id number] [place] [address]- 3546 Aug, [facility] [place] [facility] [address] [id number] [place] [address]- 7671 Aug, [facility] [place] [facility] [address] [id number] [place] [address]- 1343 Aug, [facility] [place] [facility] [address] [id number] [place] [address]- 1214 Aug, [facility] [place] [facility] [address] [id number] [place] [address]- 3420 Aug, [facility] [place] [facility] [address] [id number] [place] 8168 May, [facility] [place] [facility] [address] [id number] [place] [address]- 2716 May, [facility] [place] [facility] [address] [id number] [place] [address]- 7096 May, [facility] [place] [facility] [address] [id number] [place] [address]- 2475 May, [facility] [place] [facility] [address] [id number] [place] [address]- 5396 May, [facility] [place] [facility] [address] [id number] [place] [address]- 6963 May, [facility] [place] [facility] [address] [id number] [place]- 2391 May, [facility] [place] [facility] [address] [id number] [place] [address]- 0058 May, [facility] [place] [facility] [address] [id number] [place] [address]- 0856 Mar, [facility] [place] [facility] [address] [id number] [place] [address]- 2975 Mar, [address] [place] [id number] Mar, [facility] [place] [facility] [address] [id number] [place] [address]- 7158 Mar, [facility] [place] [facility] [address] [id number] [place] [address]- 9690 Mar, [facility] [place] [facility] [address] [id number] [place] [address]- 3701 Mar, [facility] [place] [facility] [address] [id number] [place] [address]- 3998 Mar, [facility] [place] [facility] [address] [id number] [place] [address]- 8143 Mar, [facility] [place] [facility] [address] [id number] [place] [address]- 0129 Mar, [facility] [place] [facility] [address] [id number] [place] [address]- 4353 Mar, [facility] [place] [facility] [address] [id number] [place] [address]- 3191 Mar, [facility] [place] [facility] [address] [id number] [place] [address]- 5697 Mar, [facility] [address] [id number] [place] [address]- 8164 Mar, [facility] [place] [facility] [address] [id number] [place] [address]- 1834 Jan, [facility] [address] [id number] [place] [address]- 7192 Jan, [facility] [place] [facility] [address] [id number] [place] [address]- 4046 Jan, [facility] [address] [id number] [place] [address]- 3117 Jan, [facility] [address] [id number] Jan, [facility] [address] [id number] [place] [address]- 8088 Jan, [facility] [place] [facility] [address] [id number] [place] [address]- 5690 Jan, [facility] [place] [facility] [address] [id number] [place] [address]- 4983 Dec, [facility] [place] [facility] [address] [id number] [place] [address]- 8785 Dec, [facility] [place] [facility] [address] [id number] [place] [address]- 1705 Dec, [facility] [place] [facility] [address] [id number] [place] [address]- 6151 Dec, [facility] [place] [facility] [address] [id number] [place] [address]- 3039 Dec, [facility] [place] [facility] [address] [id number] [place] [address]- 6607 Dec, [facility] [place] [facility] [address] [id number] [place] [address]- 9038 Nov, [facility] [place] [facility] [address] [facility] [id number] [place] [address]- 8361 16 Nov, 2013 IMMUNIZATIONS No Known Immunizations SOCIAL HISTORY Never Assessed REASON FOR VISIT Controlled Med Refill PLAN OF CARE VITAL SIGNS MEDICATIONS Medication Instructions Dosage Frequency Start Date End Date Duration Status Hydrocodone-Acetaminophen 5-325 MG Orally 3 times a day-,Assisted living facility 1 tablet Aug, 28 days Active Ativan 0.5 Orally, each [...]
--- OUTSIDE RECORDS SUMMARY | 2018-03-10 15:40 | XMS REPORT ---
Author Author RHONA SCALES [facility] Address Unknown Care Team Providers Care Medical Front Desk Specialist Name Role Phone RHONA SCALES Unavailable PROBLEMS Type Condition ICD9-CM Code AOI20-IB Code Onset Dates Condition Status SNOMED Code Problem Routine health maintenance Z00.00 Active 149042203 Problem Chronic pain G89.29 Active 86887313 Problem Type 2 diabetes mellitus without complications E11.9 Active 568468078 Problem Diverticulitis K57.92 Active 987089940 Problem Anxiety F41.9 Active 72597412 Problem Chronic fatigue R53.82 Active 79893151 Problem Hepatitis C B19.20 Active 16827485 Problem History of solitary pulmonary nodule Z87.898 Active 607713250 Problem Depression F32.9 Active 724160304 Problem Constipation K59.00 Active 80711319 Problem Chronic kidney disease (CKD) stage G3a/A1, moderately decreased glomerular filtration rate (GFR) between 45-59 mL/min/1.73 square meter and albuminuria creatinine ratio less than 30 mg/g N18.3 Active 393207360 Problem 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 46493000 Problem History of alcoholism F10.21 Active 105561759 Problem History of TIA (transient ischemic attack) Z86.73 Active 098364542 Problem Vitamin D deficiency E55.9 Active 41339127 Problem Hyperlipidemia E78.5 Active 55909262 Problem Arthritis M19.90 Active 0097444 Problem Coronary artery disease I25.10 Active 91802510 Problem DJD (degenerative joint disease) M19.90 Active 031346416 Problem Cervical stenosis of spinal canal M48.02 Active 16600122 Problem Hypertension I10 Active 95021729 Problem Abnormal CBC R79.89 Active 653737979 Problem Vascular dementia F01.50 Active 667275805 Problem Morbid obesity with BMI of 45.0-49.9, adult Z68.42 Active 623424012 ALLERGIES No Information ENCOUNTERS Encounter Location Date Diagnosis [place] [id number] [place] [address] 84487- 7835 October, Chronic pain G89.29 and Anxiety F41.9 [place] [id number] [place] [address] 18316- 1396 October, Type 2 diabetes mellitus without complications [...] than 30 mg/g N18.3 and Anxiety F41.9 [place] [id number] [place] [address] 03840- 5516 Sep, Chronic pain G89.29 and Anxiety F41.9 [place] [id number] [place] [address] 28381- 1319 Aug, Anxiety F41.9 and Chronic pain G89.29 [place] [id number] [place] [address] 01481- 8215 Aug, Anxiety F41.9 [place] [id number] [place] [address] 33689- 9476 Aug, Chronic pain G89.29 and Anxiety F41.9 [place] [id number] [place] [address] 97494- 1038 12 Aug, 2017 Chronic kidney disease (CKD) stage G3a/A1, moderately decreased glomerular filtration rate (GFR) between 45-59 mL/min/1.73 square meter and albuminuria creatinine ratio less than 30 mg/g N18.3 [place] [id number] [place] [address] 93871- 9185 09 Aug, 2017 [facility] [address] [place] [address] [id number] Jul, Dental examination Z01.20 [facility] [address] 38722- 6061 Jul, Chronic pain G89.29 and Anxiety F41.9 [place] [id number] [place] [address] 32789- 8369 Jul, Other specified abnormal findings of blood chemistry R79.89 [place] [address] 63105- 8632 Jul, Type 2 diabetes mellitus without complications E11.9 ; Chronic kidney disease (CKD) stage G3a/A1, moderately decreased glomerular filtration rate (GFR) between 45-59 mL/min/1.73 square meter and albuminuria creatinine ratio less than 30 mg/g N18.3 ; BMI 45.0-49.9, adult Z68.42 ; Chronic fatigue R53.82 ; Hair loss L65.9 ; Generalized abdominal pain R10.84 and Diverticulitis K57.92 [place] [id number] [place] [address] 81456- 6808 Jul, [facility] [id number] [place] [address] [id number] Jul, Dental examination Z01.20 [place] [id number] [place] [address] 06160- 3852 Jul, Anxiety F41.9 [facility] [id number] [place] [address] 67137- 4157 Jul, Anxiety F41.9 [place] [address] [id number] Jul, Chronic pain G89.29 [place] [address] [id number] May, Chronic pain G89.29 [place] [id number] [place] [address] 19185- 8032 May, [facility] [id number] [id number] May, Dental examination Z01.20 [facility] [id number] [place] [address] 56620- 0167 May, Anxiety F41.9 [facility] [id number] [place] [address] [id number] May, 2017 Chronic pain G89.29 [facility] [id number] [place] [address] [phone]- 8937 Mar, Depression F32.9 [facility] [id number] [place] [address] 930872- 5439 Mar, Anxiety F41.9 [facility] [id number] [place] [address] [id number] Mar, Chronic pain G89.29 [facility] [id number] [place] [address] 12361- 1456 19 Mar, 2017 Abnormal CBC R79.89 [facility] [id number] [place] [address] [id number] Mar, 2017 Anxiety F41.9 [facility] [address] [place] [address] [id number]- 5080 14 Mar, 2017 Hypertension I10 ; Routine health maintenance Z00.00 ; Type 2 diabetes mellitus without complications E11.9 and Hyperlipidemia E78.5 [facility] [id number] [place] [address] [id number] 13 Mar, 2017 Chronic pain G89.29 and Anxiety F41.9 [facility] [id number] [id number] Mar, Dental examination Z01.20 [facility] [address] [place] [address] 02922- 4606 06 Mar, 2017 Hypertension I10 ; Routine health maintenance Z00.00 ; Type 2 diabetes mellitus without complications E11.9 and Hyperlipidemia E78.5 [facility] [id number] [address]- 6206 Jan, Type 2 diabetes mellitus without complications E11.9 ; Hypertension I10 ; Vascular dementia F01.50 ; Morbid obesity with BMI of 45.0- 49.9, adult Z68.42 ; Hyperlipidemia E78.5 ; Chronic pain G89.29 ; Anxiety F41.9 ; Depression F32.9 ; Coronary artery disease I25.10 ; 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 and Constipation K59.00 [place] [id number] [place] [address] 65074- 2861 Jan, Chronic pain G89.29 [place] [id number] [place] [address] 11148- 0029 Jan, [place] [id number] [place] [address] 31873- 7398 Dec, [place] [id number] [place] [address] 18282- 6552 Dec, Chronic pain G89.29 [place] [id number] [place] [address] 46178- 1748 Nov, Chronic pain G89.29 [place] [id number] [place] [address] 51680- 7207 October, Chronic pain G89.29 [place] [id number] [place] [address] 04229- 4869 Sep, Chronic pain G89.29 [place] [id number] [place] [address] 69761- 5711 Sep, Type 2 diabetes mellitus without complications E11.9 ; Chronic pain G89.29 ; Hypertension I10 ; Coronary artery disease I25.10 ; Morbid obesity with BMI of 45.0-49.9, adult Z68.42 ; Hyperlipidemia E78.5 ; 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 and Depression F32.9 [place] [id number] [place] [address] 96371- 5753 Aug, Chronic pain G89.29 [place] [id number] [place] [address] 31665- 7439 Aug, Chronic pain G89.29 and Constipation K59.00 [place] [address] 68901- 9875 17 Aug, 2016 Abnormal lung sounds R09.89 [place] [address] 69555- 0321 Aug, Depression F32.[address] 33408- 9729 Jul, Chronic pain G89.29 [place] [address] 00947- 6615 May, Chronic pain G89.[address] 24684- 6491 May, Medicare annual wellness visit, subsequent Z00.[address] 70876- 7484 May, [address] 46512- 6531 May, Type 2 diabetes mellitus without complications [...] due to renal impairment without tophus M1A.3710 [place] [id number] [place] [address] 15849- 9045 May, [address] [place] [address]- 1308 Mar, [facility] [address] [place] [address]- 7306 Mar, [facility] [address] [address]- 2867 Mar, [facility] [address] [address]- 1461 Mar, [facility] [address] [address]- 4159 Mar, [facility] [address] [place] [address] 86486- 0460 Jan, [facility] [id number] [address]- 5583 Jan, [facility] [address] [place] [address] 50275- 6315 Dec, Type 2 diabetes mellitus without complications E11.9 ; Hypertension I10 ; Coronary artery disease I25.10 and Renal insufficiency N28.9 [facility] [address] [address]- 7756 Dec, [facility] [address] [address]- 7058 Dec, [facility] [address] [address]- 0112 Nov, [facility] [address] [address]- 1552 Nov, [facility] [address] [address]- 1915 Nov, [facility] [address] [address]- 2705 Nov, [facility] [address] [address]- 3554 Nov, [facility] [address] [address]- 3097 October, [facility] [address] [address]- 5824 October, [facility] [address] [address]- 3285 October, [facility] [address] [place] [address] 61008- 8707 Sep, Type 2 diabetes mellitus without complications E11.9 and Constipation K59.00 [facility] [address] [place] [address] 42344- 8150 Sep, [facility] [id number] [place] [address] 15627- 4402 Sep, Diabetes E11.9 [facility] [id number] [place] [address] 83431- 4565 Sep, [facility] [address] [address]- 8116 Sep, Routine health maintenance Z00.00 ; Hypertension I10 ; Type 2 diabetes mellitus without complications E11.9 ; Morbid obesity with BMI of 45.0-49.9, adult Z68.42 ; Chronic pain G89.29 ; H/O carotid endarterectomy Z98.89 ; Vascular dementia F01.50 ; Arthritis M19.90 ; Coronary artery disease I25.10 ; Abnormal lung sounds R09.89 and Diabetes E11.9 [facility] [address] [address]- 2329 Aug, Anxiety F41.9 [facility] [address] [address]- 8829 Aug, Arthritis M19.90 [facility] [address] [address]- 4989 Jul, Arthritis M19.90 [facility] [address] [place] [address] 21600- 2315 Jul, [facility] [address] [address]- 1122 May, [facility] [id number] [place] [address] 35054- 1776 May, Arthritis M19.90 ; Hypertension I10 ; Depression F32.9 ; Vascular dementia F01.50 and Coronary artery disease I25.10 [facility] [id number] [place] [address] 38035- 9946 May, [facility] [id number] [place] [address] 78765- 1826 May, [facility] [id number] [place] [address] 51856- 6886 Mar, [facility] [id number] [place] [address] 39785- 6646 Mar, [facility] [id number] [place] [address] 64542- 1029 Mar, [facility] [address] [address]- 1244 Mar, [facility] [address] [place] [address] 79729- 8660 Mar, Essential hypertension, benign 401.1 ; Unspecified arthropathy, site unspecified 716.90 and Other and unspecified hyperlipidemia 272.4 [facility] [address] [address]- 7716 Mar, [facility] [address] [address]- 1956 Jan, [facility] [id number] [address]- 1626 Dec, [facility] [address] [address]- 3146 Dec, [facility] [id number] [place] [address] 32197- 1694 Dec, 2014 [facility] [place] [facility] [address] [id number] [place] [address]- 9453 Dec, 2014 [facility] [place] [facility] [address] [id number] [place] [address]- 3486 Dec, 2014 [facility] [place] [facility] [address] [id number] [place] [address]- 5731 Dec, [facility] [place] [facility] [address] [id number] [place] [address]- 7910 Dec, [facility] [place] [facility] [address] [id number] [place] [address]- 4904 Dec, [facility] [place] [facility] [address] [id number] [place] [address]- 1937 Nov, [facility] [place] [facility] [address] [id number] [place] [address]- 4504 Nov, [facility] [place] [facility] [address] [id number] [place] [address]- 4588 Nov, [facility] [place] [facility] [address] [id number] [place] [address]- 3092 October, [facility] [place] [facility] [address] [id number] [place] [address]- 4339 October, [facility] [place] [facility] [address] [id number] [place] [address]- 0906 Sep, [facility] [place] [facility] [address] [id number] [place] [address]- 7268 Sep, [facility] [place] [facility] [address] [id number] [place] [address]- 9458 Sep, [facility] [place] [facility] [address] [id number] [place] 2298 Aug, [facility] [place] [facility] [address] [id number] [place] [address]- 2936 Aug, [facility] [place] [facility] [address] [id number] [place] [address]- 9758 Aug, 2014 [facility] [place] [facility] [address] [id number] [place] [address]- 2904 Aug, 2014 [facility] [place] [facility] [address] [id number] [place] [address]- 5226 13 Aug, 2014 [facility] [place] [facility] [address] [id number] [place] [address]- 5306 13 Aug, 2014 [facility] [place] [facility] [address] [id number] [place] [address]- 1307 Aug, 2014 [facility] [place] [facility] [address] [id number] [place] [address]- 8648 Aug, 2014 [facility] [place] [facility] [address] [id number] [place] [address]- 0630 Aug, 2014 [facility] [place] [facility] [address] [id number] [place] [address]- 0453 May, [facility] [place] [facility] [address] [id number] [place] [address]- 4633 May, [facility] [place] [facility] [address] [id number] [place] [address]- 5878 May, [facility] [place] [facility] [address] [id number] [place] [address]- 3154 May, [facility] [place] [facility] [address] [id number] [place] [address]- 5405 May, [facility] [place] [facility] [address] [id number] [place] [address]- 7156 May, [facility] [place] [facility] [address] [id number] [place] [address]- 9838 May, [facility] [place] [facility] [address] [id number] [place] 9899 May, [facility] [place] [facility] [address] [id number] [place] [address]- 5536 Mar, [facility] [place] [facility] [address] [id number] [place] [address]- 9904 Mar, [facility] [address] [facility] [place] [address] Mar, [facility] [place] [facility] [address] [id number] [place] [address]- 0488 Mar, [facility] [place] [facility] [address] [id number] [place] [address]- 3829 Mar, [facility] [place] [facility] [address] [id number] [place] [address]- 0479 Mar, [facility] [place] [facility] [address] [id number] [place] [address]- 9845 Mar, [facility] [place] [facility] [address] [id number] [place] [address]- 7703 Mar, [facility] [place] [facility] [address] [id number] [place] [address]- 6467 Mar, [facility] [place] [facility] [address] [id number] [place] [address]- 1497 Mar, [facility] [place] [facility] [address] [id number] [place] [address]- 1616 Mar, [facility] [place] [facility] [address] [id number] [place] [address]- 8793 Mar, [facility] [place] [facility] [address] [id number] [place] [address]- 5303 Mar, [facility] [place] [facility] [address] [id number] [place] [address]- 2546 Jan, [facility] [place] [facility] [address] [id number] [place] [address]- 1296 Jan, [facility] [place] [facility] [address] [id number] [place] [address]- 7617 Jan, [facility] [place] [facility] [address] [id number] [address]- 3276 Jan, [facility] [address] [place] [id number] Jan, [facility] [address] [facility] [id number] [address]- 5061 Jan, [facility] [id number] [address]- 3936 Jan, [facility] [address] [facility] [id number] [place] [address]- 9894 Dec, [facility] [id number] [address]- 6559 Dec, [facility] [id number] [address]- 0438 Dec, [facility] [id number] [address]- 5293 Dec, [facility] [id number] [address]- 1033 Dec, [facility] [id number] [address]- 3826 Dec, [facility] [id number] [address]- 7877 Nov, [facility] [id number] [address]- 2498 Nov, IMMUNIZATIONS No Known Immunizations SOCIAL HISTORY Never Assessed REASON FOR VISIT Requests return call PLAN OF CARE VITAL SIGNS MEDICATIONS Unknown [...] History Cervical spine surgery performed by Dr Lu- [place] [facility] Surgical History Bilateral foot surgery Surgical History ovarian cyst removal Surgical History Heart Catheterizations- 3 stents- sees Dr. Tosha B[facility] Hospitalization History Hyperkalemia, Dehydration, kidney concerns 08/2014 Hospitalization History past surgery
--- OUTSIDE RECORDS SUMMARY | 2018-03-10 15:40 | XMS REPORT ---
Author Author [facility] Address Unknown Care Team Providers Care Mass Spectrometry Manager Name Role Phone RHONA SCALES Unavailable PROBLEMS Type Condition ICD9-CM Code XUL22-MB Code Onset Dates Condition Status SNOMED Code Problem Routine health maintenance Z00.00 Active 816386830 Problem Chronic pain G89.29 Active 63992641 Problem Type 2 diabetes mellitus without complications E11.9 Active 037933762 Problem Diverticulitis K57.92 Active 712200877 Problem Anxiety F41.9 Active 97269966 Problem Chronic fatigue R53.82 Active 55278253 Problem Hepatitis C B19.20 Active 05763743 Problem History of solitary pulmonary nodule Z87.898 Active 065097643 Problem Depression F32.9 Active 625905237 Problem Constipation K59.00 Active 72563089 Problem Chronic kidney disease (CKD) stage G3a/A1, moderately decreased glomerular filtration rate (GFR) between 45-59 mL/min/1.73 square meter and albuminuria creatinine ratio less than 30 mg/g N18.3 Active 960797895 Problem 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 38683032 Problem History of alcoholism F10.21 Active 737064570 Problem History of TIA (transient ischemic attack) Z86.73 Active 351714354 Problem Vitamin D deficiency E55.9 Active 90414161 Problem Hyperlipidemia E78.5 Active 71566516 Problem Arthritis M19.90 Active 6843064 Problem Coronary artery disease I25.10 Active 12806305 Problem DJD (degenerative joint disease) M19.90 Active 597959036 Problem Cervical stenosis of spinal canal M48.02 Active 30987541 Problem Hypertension I10 Active 27910631 Problem Abnormal CBC R79.89 Active 650084541 Problem Vascular dementia F01.50 Active 916879397 Problem Morbid obesity with BMI of 45.0-49.9, adult Z68.42 Active 501671877 ALLERGIES Substance Reaction Event Type Date Status Tradjenta Unknown Drug Allergy Jul, Active ENCOUNTERS Encounter Location Date Diagnosis [place] [id number] [place] [address] 20222- 2291 October, Chronic pain G89.29 and Anxiety F41.9 [place] [id number] [place] [address] 01122- 3316 October, Type 2 diabetes mellitus without complications [...] than 30 mg/g N18.3 and Anxiety F41.9 [place] [id number] [place] [address] 91968- 6858 Sep, Chronic pain G89.29 and Anxiety F41.9 [place] [address] [address]- [address] Aug, Anxiety F41.9 and Chronic pain G89.29 [place] [id number] [place] [address] 01864- 9999 Aug, Anxiety F41.9 [place] [id number] [place] [address] 08514- 4744 Aug, Chronic pain G89.29 and Anxiety F41.9 [place] [id number] [place] [address] 96181- 7033 Aug, Chronic kidney disease (CKD) stage G3a/A1, moderately decreased glomerular filtration rate (GFR) between 45-59 mL/min/1.73 square meter and albuminuria creatinine ratio less than 30 mg/g N18.3 [place] [address] [address]- [address]104 Aug, [facility] [id number] [place] [address] [id number] Jul, Dental examination Z01.20 [facility] [id number] [place] [address] 16345- 0427 Jul, Chronic pain G89.29 and Anxiety F41.9 [facility] [address] 64854- 6732 Jul, Other specified abnormal findings of blood chemistry R79.89 [facility] [id number] [place] [address] 58500- 4484 Jul, Type 2 diabetes mellitus without complications E11.9 ; Chronic kidney disease (CKD) stage G3a/A1, moderately decreased glomerular filtration rate (GFR) between 45-59 mL/min/1.73 square meter and albuminuria creatinine ratio less than 30 mg/g N18.3 ; BMI 45.0-49.9, adult Z68.42 ; Chronic fatigue R53.82 ; Hair loss L65.9 ; Generalized abdominal pain R10.84 and Diverticulitis K57.92 [facility] [id number] [place] [address] 77062- 2099 Jul, [facility] [id number] [place] [address] [id number] Jul, Dental examination Z01.20 [facility] [id number] [place] [address] 99412- 5182 Jul, Anxiety F41.9 [facility] [id number] [place] [address] 88387- 1272 Jul, Anxiety F41.9 [facility] [address] [id number] Jul, Chronic pain G89.29 [facility] [address] [id number] May, Chronic pain G89.29 [facility] [address] [place] [address]- 7136 May, [facility] [address] [place] [address] [id number] 30 May, 2017 Dental examination Z01.20 [facility] [id number] [place] [address] [id number]- 3333 13 May, 2017 Anxiety F41.9 [facility] [address] [id number] May, 2017 Chronic pain G89.29 [facility] [address] [place] [address] 09078- 8986 18 Mar, 2017 Depression F32.9 [facility] [id number] [place] [address] 18922- 2066 12 Mar, 2017 Anxiety F41.9 [facility] [id number] [place] [address] [id number] Mar, Chronic pain G89.29 [facility] [id number] [place] [address] 74363- 1471 19 Mar, 2017 Abnormal CBC R79.89 [facility] [address] [id number] 18 Mar, 2017 Anxiety F41.9 [facility] [address] [place] [address] [id number]- 2353 14 Mar, 2017 Hypertension I10 ; Routine health maintenance Z00.00 ; Type 2 diabetes mellitus without complications E11.9 and Hyperlipidemia E78.5 [facility] [id number] [place] [address] [id number] 13 Mar, 2017 Chronic pain G89.29 and Anxiety F41.9 [facility] [address] [place] [address] [id number] 13 Mar, 2017 Dental examination Z01.20 [facility] [address] [place] [address] 58794- 5624 06 Mar, 2017 Hypertension I10 ; Routine health maintenance Z00.00 ; Type 2 diabetes mellitus without complications E11.9 and Hyperlipidemia E78.5 [facility] [address], [place] [address]- 3[address] Jan, Type 2 diabetes mellitus without complications E11.9 ; Hypertension I10 ; Vascular dementia F01.50 ; Morbid obesity with BMI of 45.0- 49.9, adult Z68.42 ; Hyperlipidemia E78.5 ; Chronic pain G89.29 ; Anxiety F41.9 ; Depression F32.9 ; Coronary artery disease I25.10 ; 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 and Constipation K59.00 [place] [id number] [place] [address] 38098- 7525 Jan, Chronic pain G89.29 [place] [id number] [place] [address] 07608- 0765 Jan, [place] [id number] [place] [address] 71722- 4823 Dec, [facility] [id number] [place] [address] 60449- 5923 Dec, Chronic pain G89.29 [place] [id number] [place] [address] [id number]- 2187 Nov, Chronic pain G89.29 [place] [id number] [place] [address] 98030- 8677 October, Chronic pain G89.29 [place] [id number] [place] [address] 49863- 1826 Sep, Chronic pain G89.29 [facility] [address] [place] [address] 39746- 1025 Sep, Type 2 diabetes mellitus without complications E11.9 ; Chronic pain G89.29 ; Hypertension I10 ; Coronary artery disease I25.10 ; Morbid obesity with BMI of 45.0-49.9, adult Z68.42 ; Hyperlipidemia E78.5 ; 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 and Depression F32.9 [place] [id number] [place] [address] 38060- 2619 Aug, Chronic pain G89.29 [place] [address] 16957- 2398 Aug, Chronic pain G89.29 and Constipation K59.[address] 86611- 6230 Aug, Abnormal lung sounds R09.[address] 41920- 2950 Aug, Depression F32.[address] 70294- 7871 Jul, Chronic pain G89.[address] 44041- 0454 May, Chronic pain G89.[address] 40505- 7796 May, Medicare annual wellness visit, subsequent Z00.[address] 23774- 1080 May, [place] [id number] [place] [address] 45142- 6088 May, Type 2 diabetes mellitus without complications [...] due to renal impairment without tophus M1A.3710 [place] [id number] [place] [address] 03525- 9018 May, [facility] [address] [place] [address]- 4066 Mar, [facility] [id number] [place] [address], [place] [address]- 2544 Mar, [facility] [address] [place] [address]- 7670 Mar, [facility] [id number] [place] [address], [place] [address]- 3774 Mar, [facility] [address] [place] [address], [place] [address]- 9602 Mar, [facility] [id number] [place] [address], [place] [address]- 3367 Jan, [facility] [id number] [place] [address], [place] [address]- 4016 Jan, [facility] [address] [place] [address] 89289- 8252 Dec, Type 2 diabetes mellitus without complications E11.9 ; Hypertension I10 ; Coronary artery disease I25.10 and Renal insufficiency N28.9 [facility] [address], [place] [address]- 5756 Dec, [facility] [address], [place] [address]- 0656 Dec, [facility] [address], [place] [address]- 9942 Nov, [facility] [address], [place] [address]- 2836 Nov, [facility] [id number] [place] [address] 02180- 6975 Nov, [facility] [address], [place] [address]- 7384 Nov, [facility] [address] [place] [address] 03860- 5993 Nov, [facility] [address], [place] [address]- 9959 October, [facility] [address] [place] [address] 33638- 2837 October, [facility] [address] [place] [address] 05896- 8858 October, [facility] [id number] [place] [address] 44855- 5076 Sep, Type 2 diabetes mellitus without complications E11.9 and Constipation K59.00 [facility] [id number] [place] [address] 97760- 0423 Sep, [facility] [id number] [place] [address] 35922- 5857 Sep, Diabetes E11.9 [facility] [id number] [place] [address] 05433- 0241 Sep, [facility] [address] [place] [address] 56076- 0026 Sep, Routine health maintenance Z00.00 ; Hypertension I10 ; Type 2 diabetes mellitus without complications E11.9 ; Morbid obesity with BMI of 45.0-49.9, adult Z68.42 ; Chronic pain G89.29 ; H/O carotid endarterectomy Z98.89 ; Vascular dementia F01.50 ; Arthritis M19.90 ; Coronary artery disease I25.10 ; Abnormal lung sounds R09.89 and Diabetes E11.9 [facility] [address], [place] [address]- 3042 Aug, Anxiety F41.9 [facility] [id number] [place] [address] 27618- 8109 Aug, Arthritis M19.90 [facility] [address], [place] [address]- 1637 Jul, Arthritis M19.90 [facility] [address], [place] [address]- 3097 Jul, [facility] [address], [place] [address]- 5425 May, [facility] [address], [place] [address]- 3881 May, Arthritis M19.90 ; Hypertension I10 ; Depression F32.9 ; Vascular dementia F01.50 and Coronary artery disease I25.10 [facility] [address] [address]- 7598 May, [facility] [id number] [place] [address] 34002- 0632 May, [facility] [address] [address]- 2306 Mar, [facility] [id number] [place] [address] 34572- 1707 Mar, [facility] [address]- 3707 Mar, [facility] [address], [place] [address]- 5416 Mar, [facility] [address], [place] [address]- 8370 Mar, Essential hypertension, benign 401.1 ; Unspecified arthropathy, site unspecified 716.90 and Other and unspecified hyperlipidemia 272.4 [facility] [address], [place] [address]- 9961 Mar, [facility] [address], [place] [address]- 6696 Jan, [facility] [address], [place] [address]- 0122 Dec, [facility] [address], [place] [address]- 4867 Dec, [facility] [place] [facility] [address] [id number] [place] [address]- 7345 Dec, 2014 [facility] [place] [facility] [address] [id number] [place] [address]- 2422 Dec, 2014 [facility] [place] [facility] [address] [id number] [place] [address]- 1450 Dec, 2014 [facility] [place] [facility] [address] [id number] [place] [address]- 2885 Dec, [facility] [place] [facility] [address] [id number] [place] [address]- 6536 Dec, [facility] [place] [facility] [address] [id number] [place] [address]- 9669 Dec, [facility] [place] [facility] [address] [id number] [place] [address]- 7406 Nov, [facility] [place] [facility] [address] [id number] [place] [address]- 9986 Nov, [facility] [place] [facility] [address] [id number] [place] [address]- 2194 Nov, [facility] [place] [facility] [address] [id number] [place] [address]- 8711 October, [facility] [place] [facility] [address] [id number] [place] [address]- 3304 October, [facility] [place] [facility] [address] [id number] [place] [address]- 9481 Sep, [facility] [place] [facility] [address] [id number] [place] [address]- 6336 Sep, [facility] [place] [facility] [address] [id number] [place] [address]- 6561 Sep, [facility] [place] [facility] [address] [id number] [place] [address]- 9074 Aug, [facility] [place] [facility] [address] [id number] [place] [address]- 0862 Aug, [facility] [place] [facility] [address] [id number] [place] [address]- 7275 Aug, [facility] [place] [facility] [address] [id number] [place] [address]- 9255 Aug, [facility] [place] [facility] [address] [facility] [id number] [place] [address]- 2468 Aug, 2014 [facility] [place] [facility] [address] [id number] [place] [address]- 2397 Aug, 2014 [facility] [place] [facility] [address] [id number] [place] [address]- 7278 Aug, [facility] [place] [facility] [address] [facility] [id number] [place] [address]- 2462 Aug, [facility] [address] [facility] [id number] [place] [address]- 8832 Aug, [facility] [place] [facility] [address] [facility] [id number] [place] [address]- 7008 May, [facility] [place] [facility] [address] [facility] [id number] [place] [address]- 8267 May, [facility] [place] [facility] [address] [facility] [id number] [place] [address]- 4213 May, [facility] [place] [facility] [address] [facility] [id number] [place] [address]- 5018 May, [facility] [place] [facility] [address] [facility] [id number] [place] [address]- 2265 May, [facility] [place] [facility] [address] [id number] [place] [address]- 9423 May, [facility] [place] [facility] [address] [facility] [id number] [place] [address]- 6384 May, [facility] [place] [facility] [address] [facility] [id number] [place] [address]- 9293 May, [facility] [place] [facility] [address] [id number] [place] [address]- 9630 Mar, [facility] [place] [facility] [address] [id number] [place] [address]- 3455 Mar, [facility] [address] [facility] [id number] Mar, [facility] [place] [facility] [address] [id number] [place] [address]- 3299 Mar, [facility] [place] [facility] [address] [id number] [place] [address]- 9257 Mar, [facility] [place] [facility] [address] [id number] [place] [address]- 2228 Mar, [facility] [place] [facility] [address] [id number] [place] [address]- 4258 Mar, [facility] [place] [facility] [address] [id number] [place] [address]- 9116 Mar, [facility] [place] [facility] [address] [id number] [place] [address]- 9001 Mar, [facility] [place] [facility] [address] [id number] [place] [address]- 9079 Mar, [facility] [place] [facility] [address] [id number] [place] [address]- 2135 Mar, [facility] [place] [facility] [address] [id number] [place] [address]- 0931 Mar, [facility] [place] [facility] [address] [id number] [place] [address]- 2184 Mar, [facility] [place] [facility] [address] [id number] [place] [address]- 2844 Jan, [facility] [place] [facility] [address] [id number] [place] [address]- 7016 Jan, [facility] [place] [facility] [address] [id number] [place] [address]- 3595 Jan, [facility] [address] [facility] [id number], [place] [address]- 6497 Jan, [facility] [address] [id number] Jan, [facility] [address] [facility] [id number], [place] [address]- 4291 Jan, [facility] [address] [facility] [id number], [place] [address]- 4664 Jan, [facility] [address] [facility] [id number], [place] [address]- 4990 Dec, [facility] [address] [facility] [id number], [place] [address]- 8531 Dec, [facility] [address] [facility] [id number], [place] [address]- 2048 Dec, [facility] [address] [facility] [id number], [place] [address]- 4419 Dec, [facility] [address] [facility] [id number], [place] [address]- 9785 Dec, [facility] [address] [facility] [id number], [place] [address]- 1290 Dec, [facility] [id number] [address]- 0840 Nov, [facility] [id number], [place] [address]- 4819 Nov, IMMUNIZATIONS No Known Immunizations SOCIAL HISTORY Never Assessed REASON FOR VISIT CROWN PREP PLAN OF CARE Activity Details Follow Up 3 Weeks Reason:seat crown #10 VITAL SIGNS Blood pressure systolic 116 mmHg 2017-07-09 Blood pressure diastolic 53 mmHg 2017-07-09 MEDICATIONS Medication Instructions Dosage Frequency Start Date End Date Duration Status Metoprolol Tartrate 50 mg Orally Once a day 1 tablet with food 24h Active Aspirin 81 MG Orally Once a day 1 tablet 24h Active Exelon 6 TAKE ONE CAPSULE BY MOUTH TWICE A DAY Active Losartan Potassium 100 MG Orally Once a day 1 tablet 24h Mar, Active Furosemide 40 MG Orally Once a day 1 tablet 24h Active ProAir HFA 108 (90 Base) MCG/ACT Inhalation every 4 hrs 2 puffs as needed 4h Sep, 30 days Active Lasix 40 TAKE ONE TABLET BY MOUTH DAILY 30 Active Celexa 10 mg Orally every other day x 2 weeks, then 3x weekly x 2 weeks, then stop 1 tablets Active Pravastatin Sodium 40 MG Orally Once a day 1 tablet 24h Active MiraLax 17 Orally Once a day as needed MIX 17GMS (1 CAPFUL) IN 8OZ WATER AND DRINK DAILY Active Zyloprim 300 mg take 1 tablet (300 mg) by oral route once daily Mar Active Ativan 0.5 Orally, each fill must last 28 days Once a day 1 tablet 24h 28 days Active Allopurinol 300 TAKE ONE TABLET BY MOUTH DAILY 30 Active Geodon 20 TAKE ONE CAPSULE BY MOUTH TWICE A DAY WITH FOOD Active FreeStyle Lite Test 1 subcutaneously Once a day as directed 24h Sep, 90 days Active Protonix 40 TAKE ONE TABLET BY MOUTH DAILY 30 Active Hydrocodone-Acetaminophen 5-325 MG Orally 3 times a day-,Assisted living facility 1 tablet Jul, 28 days Active Furosemide 40 TAKE ONE TABLET BY MOUTH DAILY 30 Active RESULTS No Results PROCEDURES Procedure Date Ordered Result Body Site CROWN - PORCELAIN/CERAMIC SUBSTRATE Mar 13, 2017 Billing Notes on claim Jul 09, 2017 INSTRUCTIONS MEDICATIONS ADMINISTERED No Known Medications [...]
--- OUTSIDE RECORDS SUMMARY | 2018-03-10 15:41 | XMS REPORT ---
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
--- OUTSIDE RECORDS SUMMARY | 2018-03-10 15:41 | XMS REPORT ---
Author Author ELIEL SMITH Organization [facility] Address [address] [place] [address] Care Team Providers Care Income Tax Manager Name Role Phone ELIEL SMITH Unavailable PROBLEMS Type Condition ICD9-CM Code [id number] Code Onset Dates Condition Status SNOMED Code Problem Routine health maintenance Z00.00 Active 229079784 Problem Chronic pain G89.29 Active 39735944 Problem Type 2 diabetes mellitus without complications E11.9 Active 714550853 Problem Diverticulitis K57.92 Active 236964863 Problem Anxiety F41.9 Active 48708741 Problem Chronic fatigue R53.82 Active 67064353 Problem Hepatitis C B19.20 Active 72784396 Problem History of solitary pulmonary nodule Z87.898 Active 186325479 Problem Depression F32.9 Active 040677938 Problem Constipation K59.00 Active 75228354 Problem Chronic kidney disease (CKD) stage G3a/A1, moderately decreased glomerular filtration rate (GFR) between 45-59 mL/min/1.73 square meter and albuminuria creatinine ratio less than 30 mg/g N18.3 Active 570937877 Problem 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 31237781 Problem History of alcoholism F10.21 Active 127338940 Problem History of TIA (transient ischemic attack) Z86.73 Active 670311043 Problem Vitamin D deficiency E55.9 Active 78133251 Problem Hyperlipidemia E78.5 Active 99126804 Problem Arthritis M19.90 Active 1889988 Problem Coronary artery disease I25.10 Active 56872040 Problem DJD (degenerative joint disease) M19.90 Active 611614306 Problem Cervical stenosis of spinal canal M48.02 Active 60329123 Problem Hypertension I10 Active 20533914 Problem Abnormal CBC R79.89 Active 700465490 Problem Vascular dementia F01.50 Active 887123308 Problem Morbid obesity with BMI of 45.0-49.9, adult Z68.42 Active 790584688 ALLERGIES No Information ENCOUNTERS Encounter Location Date Diagnosis [place] [address] [address] October, Chronic pain G89.29 and Anxiety F41.9 [place] [address] [address] October, Type 2 diabetes mellitus without complications [...] than 30 mg/g N18.3 and Anxiety F41.9 [place] [address] [address]- [address]69 Sep, Chronic pain G89.29 and Anxiety F41.9 [place] [address] [address]- [address] Aug, Anxiety F41.9 and Chronic pain G89.29 [place] [address] [address]- 8[address] Aug, Anxiety F41.9 [place] [address] [address]- 7257 Aug, Chronic pain G89.29 and Anxiety F41.9 [place] [address] [address] Aug, Chronic kidney disease (CKD) stage G3a/A1, moderately decreased glomerular filtration rate (GFR) between 45-59 mL/min/1.73 square meter and albuminuria creatinine ratio less than 30 mg/g N18.3 [place] [address] [address] Aug, [facility] [address] [id number] Jul, Dental examination Z01.20 [facility] [address] [place] [id number] [place] [address]26- 9069 Jul, Chronic pain G89.29 and Anxiety F41.9 [facility] [address] [place] [id number] [place] [address] 68360- 4856 Jul, Other specified abnormal findings of blood chemistry R79.89 [facility] [address] [place] [id number] [place] [address] 52914- 5843 Jul, Type 2 diabetes mellitus without complications E11.9 ; Chronic kidney disease (CKD) stage G3a/A1, moderately decreased glomerular filtration rate (GFR) between 45-59 mL/min/1.73 square meter and albuminuria creatinine ratio less than 30 mg/g N18.3 ; BMI 45.0-49.9, adult Z68.42 ; Chronic fatigue R53.82 ; Hair loss L65.9 ; Generalized abdominal pain R10.84 and Diverticulitis K57.92 [facility] [address] [place] [address] 47797- [address] Jul, [facility] [address] [place] [id number] [place] [address] [id number] Jul, Dental examination Z01.20 [facility] [address] [place] [id number] [place] [address] 92850- 8625 Jul, Anxiety F41.9 [facility] [address] [place] [id number] [place] [address] 33937- 7368 Jul, Anxiety F41.9 [facility] [address] [id number] Jul, Chronic pain G89.29 [facility] [address] [place] [id number] [place] [address] [id number] May, Chronic pain G89.29 [facility] [address] [place] [id number] [place] [address] 52232- 5776 May, [facility] [address] [place] [address] [id number] May, Dental examination Z01.20 [facility] [address] [place] [address] 067903- 1614 May, Anxiety F41.9 [facility] [address] [place] [id number] [place] [address] [id number] 06 May, 2017 Chronic pain G89.29 [facility] [address] [place] [address] 34573- 1893 Mar, Depression F32.9 [facility] [address] 15339- 7882 12 Mar, [address] [facility] [address] [place] [id number] [place] [address] [id number] Mar, Chronic pain G89.29 [facility] [address] [place] [address] 59484- 0229 19 Mar, [address] [facility] [address] [id number] 18 Mar, 2017 Anxiety F41.9 [facility] [address] [place] [id number] [place] [address] 40885- 0978 14 Mar, 2017 Hypertension I10 ; Routine health maintenance Z00.00 ; Type 2 diabetes mellitus without complications E11.[address] [facility] [address] [place] [id number] [place] [address] [id number] 13 Mar, 2017 Chronic pain G89.29 and Anxiety F41.9 [facility] [address] [place] [address] [id number] 13 Mar, 2017 Dental examination Z01.20 [facility] [address] [place] [address] 73043- 3096 06 Mar, 2017 Hypertension I10 ; Routine health maintenance Z00.00 ; Type 2 diabetes mellitus without complications E11.9 and Hyperlipidemia E78.5 [place] [address] [address] Jan, Type 2 diabetes mellitus without complications E11.9 ; Hypertension I10 ; Vascular dementia F01.50 ; Morbid obesity with BMI of 45.0- 49.9, adult Z68.42 ; Hyperlipidemia E78.5 ; Chronic pain G89.29 ; Anxiety F41.9 ; Depression F32.9 ; Coronary artery disease I25.10 ; 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 and Constipation K59.00 [place] [address] [place] [id number] [place] [address] 20934- 3326 Jan, Chronic pain G89.29 [place] [address] [place] [id number] [place] [address] 46118- 3216 Jan, [place] [address] [place] [id number] [place] [address] 72377- 6668 Dec, [place] [address] [place] [id number] [place] [address] 94581- 5480 Dec, Chronic pain G89.29 [place] [address] [place] [id number] [place] [address] 73343- 4536 Nov, Chronic pain G89.29 [facility] [address] [place] [id number] [place] [address] 78156- 3934 October, Chronic pain G89.29 [place] [address] [place] [id number] [place] [address] 33053- 9491 Sep, Chronic pain G89.29 [facility] [address], [place] [address]- 4929 Sep, Type 2 diabetes mellitus without complications E11.9 ; Chronic pain G89.29 ; Hypertension I10 ; Coronary artery disease I25.10 ; Morbid obesity with BMI of 45.0-49.9, adult Z68.42 ; Hyperlipidemia E78.5 ; 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 and Depression F32.9 [place] [address] [place] [id number] [place] [address] 04114- 2448 Aug, Chronic pain G89.29 [place] [address] 86778- 7471 Aug, Chronic pain G89.29 and Constipation K59.[address] [address]- [address] Aug, Abnormal lung sounds R09.89 [place] [address] 30284- 3859 Aug, Depression F32.[address] [address]- 8375 Jul, Chronic pain G89.29 [place] [address] [address]- 1895 May, Chronic pain G89.29 [place] [address] 99936- 3826 May, Medicare annual wellness visit, subsequent Z00.[address] [address]- [address]20 May, [place] [id number] [place] [address] 21556- 5826 02 May, 2016 Type 2 diabetes mellitus without complications E11.9 [...] due to renal impairment without tophus M1A.3710 [place] [id number] [place] [address] 18917- 3127 May, [facility] [address] [id number] [place] [address]- 4699 Mar, [facility] [address] [place] [address]- 2567 Mar, [facility] [address] [facility] [id number] [place] [address]- 6345 Mar, [facility] [address] [place] [id number] [place] [address], [place] [address]- 3001 Mar, [facility] [address] [place] [address]- 5962 Mar, [facility] [address] [place] [id number] [place] [address], [place] [address]- 8907 Jan, [facility] [address] [place] [address]- 3093 Jan, [facility] [address] [place] [address]- 7602 Dec, Type 2 diabetes mellitus without complications E11.9 ; Hypertension I10 ; Coronary artery disease I25.10 and Renal insufficiency N28.9 [facility] [address] [place] [address]- 0784 Dec, [facility] [address] [address]- 5768 Dec, [facility] [address] [address]- 3019 Nov, [facility] [address] [address]- 9017 Nov, [facility] [address] [place] [address]- 4754 Nov, [facility] [address] [address]- 8886 Nov, [facility] [address] [address]- 0691 Nov, [facility] [address], [place] [address]- 5111 October, [facility] [address] [place] [id number] [place] [address] 76447- 5980 October, [facility] [address] [place] [id number] [place] [address] 02505- 9267 October, [facility] [address] [place] [id number] [place] [address] 16967- 5254 Sep, Type 2 diabetes mellitus without complications E11.9 and Constipation K59.00 [facility] [address] [place] [id number] [place] [address] 01179- 0272 Sep, [facility] [address] [place] [id number] [place] [address] 86684- 3412 Sep, Diabetes E11.9 [facility] [address] [place] [id number] [place] [address] 93242- 3705 Sep, [facility] [address] [place] [address] 59382- 2451 Sep, Routine health maintenance Z00.00 ; Hypertension I10 ; Type 2 diabetes mellitus without complications E11.9 ; Morbid obesity with BMI of 45.0-49.9, adult Z68.42 ; Chronic pain G89.29 ; H/O carotid endarterectomy Z98.89 ; Vascular dementia F01.50 ; Arthritis M19.90 ; Coronary artery disease I25.10 ; Abnormal lung sounds R09.89 and Diabetes E11.9 [facility] [address] [address]- 8652 Aug, Anxiety F41.9 [facility] [address] [place] [id number] [address]- 5958 Aug, Arthritis M19.90 [facility] [address], [place] [address]- 9914 Jul, Arthritis M19.90 [facility] [address] [place] [id number] [address]- 0494 Jul, [facility] [address], [place] [address]- 6519 May, [facility] [address], [place] [address]- 6568 May, Arthritis M19.90 ; Hypertension I10 ; Depression F32.9 ; Vascular dementia F01.50 and Coronary artery disease I25.10 [facility] [address] 6134 May, [facility] [address] [address]- 0364 May, [facility] [address] [address]- 9899 Mar, [facility] [address] [place] [address] [address]- 0629 Mar, [facility] [address], [place] [address]- 9505 Mar, [facility] [address], [place] [address]- 0027 Mar, [facility] [address] [place] [id number] [address]- 5401 Mar, Essential hypertension, benign 401.1 ; Unspecified arthropathy, site unspecified 716.90 and Other and unspecified hyperlipidemia 272.4 [facility] [address] [place] [id number] [address]- 4072 Mar, [facility] [address] [address]- 2403 Jan, [facility] [address] [address]- 6528 Dec, [facility] [address] [place] [id number] [address]- 8340 Dec, [facility] [place] [facility] [address] [id number] [place] [address]- 0217 Dec, 2014 [facility] [place] [facility] [address] [id number] [place] [address]- 4868 Dec, [facility] [place] [facility] [address] [id number] [place] [address]- 4016 Dec, 2014 [facility] [place] [facility] [address] [id number] [place] [address]- 7786 Dec, [facility] [place] [facility] [address] [id number] [place] [address]- 8180 Dec, [facility] [place] [facility] [address] [id number] [place] [address]- 0548 Dec, [facility] [place] [facility] [address] [id number] [place] [address]- 7917 Nov, [facility] [place] [facility] [address] [id number] [place] [address]- 8731 Nov, [facility] [place] [facility] [address] [id number] [place] [address]- 4117 Nov, [facility] [place] [facility] [address] [id number] [place] [address]- 2338 October, [facility] [place] [facility] [address] [id number] [place] [address]- 4527 October, [facility] [place] [facility] [address] [id number] [place] [address]- 0999 Sep, [facility] [place] [facility] [address] [id number] [place] [address]- 7825 Sep, [facility] [place] [facility] [address] [id number] [place] [address]- 3267 Sep, [facility] [place] [facility] [address] [id number] [place] [address]- 4470 Aug, [facility] [place] [facility] [address] [id number] [place] [address]- 5874 Aug, [facility] [place] [facility] [address] [id number] [place] [address]- 0866 Aug, [facility] [place] [facility] [address] [id number] [place] [address]- 0202 Aug, [facility] [place] [facility] [address] [id number] [place] [address]- 1175 Aug, [facility] [place] [facility] [address] [id number] [place] [address]- 7185 Aug, 2014 [facility] [place] [facility] [address] [id number] [place] [address]- 2973 Aug, [facility] [place] [facility] [address] [facility] [id number] [place] [address]- 2013 Aug, [facility] [place] [facility] [address] [id number] [place] [address]- 1076 Aug, [facility] [place] [facility] [address] [id number] [place] [address]- 9935 May, [facility] [place] [facility] [address] [id number] [place] [address]- 6618 May, [facility] [place] [facility] [address] [facility] [id number] [place] [address]- 1488 May, [facility] [place] [facility] [address] [id number] [place] [address]- 8084 May, [facility] [place] [facility] [address] [id number] [place] [address]- 7247 May, [facility] [place] [facility] [address] [id number] [place] [address]- 2084 May, [facility] [place] [facility] [address] [facility] [id number] [place] [address]- 1717 May, [facility] [place] [facility] [address] [facility] [id number] [place] [address]- 2267 May, [facility] [place] [facility] [address] [id number] [place] [address]- 9404 Mar, [facility] [address] [id number] [place] [address]- 5887 Mar, [facility] [address] [place] [id number] Mar, [facility] [address] [id number] [place] [address]- 4153 Mar, [facility] [place] [facility] [address] [id number] [place] [address]- 8955 Mar, [facility] [place] [facility] [address] [id number] [place] [address]- 4509 Mar, [facility] [place] [facility] [address] [id number] [place] [address]- 7854 Mar, [facility] [place] [facility] [address] [id number] [place] [address]- 9073 Mar, [facility] [place] [facility] [address] [id number] [place] [address]- 2813 Mar, [facility] [place] [facility] [address] [id number] [place] [address]- 5544 Mar, [facility] [place] [facility] [address] [id number] [place] [address]- 7241 Mar, [facility] [place] [facility] [address] [id number] [place] [address]- 6871 Mar, [facility] [place] [facility] [address] [id number] [place] [address]- 7982 Mar, [facility] [place] [facility] [address] [id number] [place] [address]- 3881 Jan, [facility] [place] [facility] [address] [id number] [place] [address]- 4218 Jan, [facility] [place] [facility] [address] [id number] [place] [address]- 2020 Jan, [facility] [address] [facility] [id number] [address]- 6826 Jan, [facility] [address] [place] [id number] Jan, [facility] [address] [facility] [id number], [place] [address]- 4195 Jan, [facility] [address] [facility] [id number], [place] [address]- 6585 Jan, [facility] [address] [facility] [id number] [address]- 7896 Dec, [facility] [address] [facility] [id number] [address]- 0864 Dec, [facility] [address] [facility] [id number] [address]- 5342 Dec, [facility] [address], [place] [address]- 7157 Dec, [facility] [address] [place] [id number] [address]- 3481 Dec, [facility] [id number] [address]- 3873 Dec, [facility] [id number] [address]- 9282 Nov, [facility] [id number], [place] [address]- 6498 Nov, IMMUNIZATIONS No Known Immunizations SOCIAL HISTORY Never Assessed REASON FOR VISIT Controlled Med Refill PLAN OF CARE VITAL SIGNS MEDICATIONS Medication Instructions Dosage Frequency Start Date End Date Duration Status Hydrocodone-Acetaminophen 5-325 MG Orally 3 times a day-,Assisted living facility 1 tablet Jul, 28 days Active RESULTS No Results PROCEDURES [...]
--- OUTSIDE RECORDS SUMMARY | 2018-03-10 15:42 | XMS REPORT ---
Author Author ELIEL SMITH Organization [facility] Address [address] [place] [address] Care Team Providers Care Oil Developer Name Role Phone ELIEL SMITH Unavailable PROBLEMS Type Condition ICD9-CM Code PAH05-SU Code Onset Dates Condition Status SNOMED Code Problem Routine health maintenance Z00.00 Active 042905418 Problem Chronic pain G89.29 Active 06779382 Problem Type 2 diabetes mellitus without complications E11.9 Active 353953162 Problem Diverticulitis K57.92 Active 637961043 Problem Anxiety F41.9 Active 49564369 Problem Chronic fatigue R53.82 Active 48205997 Problem Hepatitis C B19.20 Active 61326046 Problem History of solitary pulmonary nodule Z87.898 Active 423998028 Problem Depression F32.9 Active 865472902 Problem Constipation K59.00 Active 01793269 Problem Chronic kidney disease (CKD) stage G3a/A1, moderately decreased glomerular filtration rate (GFR) between 45-59 mL/min/1.73 square meter and albuminuria creatinine ratio less than 30 mg/g N18.3 Active 730372407 Problem 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 87808553 Problem History of alcoholism F10.21 Active 649700628 Problem History of TIA (transient ischemic attack) Z86.73 Active 865027645 Problem Vitamin D deficiency E55.9 Active 90712022 Problem Hyperlipidemia E78.5 Active 52507761 Problem Arthritis M19.90 Active 1982138 Problem Coronary artery disease I25.10 Active 11943301 Problem DJD (degenerative joint disease) M19.90 Active 153116584 Problem Cervical stenosis of spinal canal M48.02 Active 40842660 Problem Hypertension I10 Active 23010497 Problem Abnormal CBC R79.89 Active 836619070 Problem Vascular dementia F01.50 Active 211412237 Problem Morbid obesity with BMI of 45.0-49.9, adult Z68.42 Active 512612790 ALLERGIES No Information ENCOUNTERS Encounter Location Date Diagnosis [place] [address] [address] October, Chronic pain G89.29 and Anxiety F41.9 [place] [address] [address] October, Type 2 diabetes mellitus without complications [...] than 30 mg/g N18.3 and Anxiety F41.9 [place] [address] [address] Sep, Chronic pain G89.29 and Anxiety F41.9 [place] [address] [address] Aug, Anxiety F41.9 and Chronic pain G89.29 [place] [address] [address]- [address] Aug, Anxiety F41.9 [place] [address] [address] Aug, Chronic pain G89.29 and Anxiety F41.9 [place] [address] [address] Aug, Chronic kidney disease (CKD) stage G3a/A1, moderately decreased glomerular filtration rate (GFR) between 45-59 mL/min/1.73 square meter and albuminuria creatinine ratio less than 30 mg/g N18.3 [place] [address] [address] Aug, [facility] [address] [id number] Jul, Dental examination Z01.20 [facility] [address] [place] [id number] [place] [address]- 2918 Jul, Chronic pain G89.29 and Anxiety F41.9 [facility] [address] [place] [id number] [place] [address]45- 0868 Jul, Other specified abnormal findings of blood chemistry R79.89 [facility] [address] [place] [id number] [place] [address] 19769- 9818 Jul, Type 2 diabetes mellitus without complications E11.9 ; Chronic kidney disease (CKD) stage G3a/A1, moderately decreased glomerular filtration rate (GFR) between 45-59 mL/min/1.73 square meter and albuminuria creatinine ratio less than 30 mg/g N18.3 ; BMI 45.0-49.9, adult Z68.42 ; Chronic fatigue R53.82 ; Hair loss L65.9 ; Generalized abdominal pain R10.84 and Diverticulitis K57.92 [facility] [address] [place] [address]- 4498 Jul, [facility] [address] [place] [id number] [place] [address] [id number] Jul, Dental examination Z01.20 [facility] [address] [place] [id number] [place] [address] 29940- 1456 Jul, Anxiety F41.9 [facility] [address] [place] [id number] [place] [address] 36191- 1715 Jul, Anxiety F41.9 [facility] [address] [id number] Jul, Chronic pain G89.29 [facility] [address] [place] [id number] [place] [address] [id number] May, Chronic pain G89.29 [facility] [address] [place] [id number] [place] [address] 49856- 4096 May, [facility] [address] [place] [address] [id number] May, Dental examination Z01.20 [facility] [address] [place] [address] 903715- 0295 May, Anxiety F41.9 [facility] [address] [place] [id number] [place] [address] [id number] 06 May, 2017 Chronic pain G89.29 [facility] [address] [place] [address] 82516- 7051 Mar, Depression F32.9 [facility] [address] [address]- 0078 12 Mar, 2017 Anxiety F41.9 [facility] [address] [place] [id number] [place] [address] [id number] Mar, Chronic pain G89.29 [facility] [address] [place] [address] 26399- 7221 19 Mar, 2017 Abnormal CBC R79.89 [facility] [address] [id number] 18 Mar, 2017 Anxiety F41.9 [facility] [address] [place] [id number] [place] [address] 68027- 7333 14 Mar, 2017 Hypertension I10 ; Routine health maintenance Z00.00 ; Type 2 diabetes mellitus without complications E11.9 and Hyperlipidemia E78.5 [facility] [address] [place] [id number] [place] [address] [id number] 13 Mar, 2017 Chronic pain G89.29 and Anxiety F41.9 [facility] [address] [place] [address] [id number] 13 Mar, 2017 Dental examination Z01.20 [facility] [address] [place] [address] 66582- 5236 06 Mar, 2017 Hypertension I10 ; Routine health maintenance Z00.00 ; Type 2 diabetes mellitus without complications E11.9 and Hyperlipidemia E78.5 [place] [address] [address] Jan, Type 2 diabetes mellitus without complications E11.9 ; Hypertension I10 ; Vascular dementia F01.50 ; Morbid obesity with BMI of 45.0- 49.9, adult Z68.42 ; Hyperlipidemia E78.5 ; Chronic pain G89.29 ; Anxiety F41.9 ; Depression F32.9 ; Coronary artery disease I25.10 ; 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 and Constipation K59.00 [place] [address] [place] [id number] [place] [address] 57716- 8053 Jan, Chronic pain G89.29 [place] [address] [place] [id number] [place] [address] 90051- 7112 Jan, [place] [address] [place] [id number] [place] [address] 48549- 2850 Dec, [place] [address] [place] [id number] [place] [address] 40200- 6023 Dec, Chronic pain G89.29 [place] [address] [place] [id number] [place] [address] 09927- 6426 Nov, Chronic pain G89.29 [facility] [address] [place] [id number] [place] [address] 62011- 5114 October, Chronic pain G89.29 [place] [address] [place] [id number] [place] [address] 37168- 8677 Sep, Chronic pain G89.29 [facility] [address], [place] [address]- 8361 Sep, Type 2 diabetes mellitus without complications E11.9 ; Chronic pain G89.29 ; Hypertension I10 ; Coronary artery disease I25.10 ; Morbid obesity with BMI of 45.0-49.9, adult Z68.42 ; Hyperlipidemia E78.5 ; 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 and Depression F32.9 [place] [address] [place] [id number] [place] [address] 41219- 4286 Aug, Chronic pain G89.29 [place] [address] 0[address]- 9984 Aug, Chronic pain G89.29 and Constipation K59.[address] [address]- 4909 Aug, Abnormal lung sounds R09.89 [place] [address] 49674- 2648 Aug, Depression F32.[address] [address]- 8100 Jul, Chronic pain G89.29 [place] [address] 21983- 3565 May, Chronic pain G89.29 [place] [address] 29988- 9801 May, Medicare annual wellness visit, subsequent Z00.[address] [address]- 8[address] May, [place] [id number] [place] [address] 97204- 6688 02 May, 2016 Type 2 diabetes mellitus [...] due to renal impairment without tophus M1A.3710 [place] [id number] [place] [address] 09847- 3890 May, [facility] [address] [id number] [place] [address]- 5110 Mar, [facility] [address] [place] [address]- 2217 Mar, [facility] [address] [facility] [id number] [place] [address]- 0857 Mar, [facility] [address] [place] [id number] [place] [address], [place] [address]- 9321 Mar, [facility] [address] [place] [address]- 5262 Mar, [facility] [address] [place] [id number] [place] [address], [place] [address]- 0041 Jan, [facility] [address] [place] [address]- 4050 Jan, [facility] [address] [place] [address]- 6121 Dec, Type 2 diabetes mellitus without complications E11.9 ; Hypertension I10 ; Coronary artery disease I25.10 and Renal insufficiency N28.9 [facility] [address] [place] [address]- 3331 Dec, [facility] [address] [address]- 2399 Dec, [facility] [address], [place] [address]- 8618 Nov, [facility] [address], [place] [address]- 6620 Nov, [facility] [address] [place] [address]- 3495 Nov, [facility] [address] [address]- 3856 Nov, [facility] [address], [place] [address]- 9486 Nov, [facility] [address], [place] [address]- 0495 October, [facility] [address] [place] [id number] [place] [address] 85081- 6783 October, [facility] [address] [place] [id number] [place] [address] 55763- 5325 October, [facility] [address] [place] [id number] [place] [address] 10280- 1731 Sep, Type 2 diabetes mellitus without complications E11.9 and Constipation K59.00 [facility] [address] [place] [id number] [place] [address] 50018- 5094 Sep, [facility] [address] [place] [id number] [place] [address] 99153- 4010 Sep, Diabetes E11.9 [facility] [address] [place] [id number] [place] [address] 68455- 6048 Sep, [facility] [address] [place] [address] 11199- 0706 Sep, Routine health maintenance Z00.00 ; Hypertension I10 ; Type 2 diabetes mellitus without complications E11.9 ; Morbid obesity with BMI of 45.0-49.9, adult Z68.42 ; Chronic pain G89.29 ; H/O carotid endarterectomy Z98.89 ; Vascular dementia F01.50 ; Arthritis M19.90 ; Coronary artery disease I25.10 ; Abnormal lung sounds R09.89 and Diabetes E11.9 [facility] [address], [place] [address]- 9156 Aug, Anxiety F41.9 [facility] [address] [place] [address] [address]- 1167 Aug, Arthritis M19.90 [facility] [address], [place] [address]- 4538 Jul, Arthritis M19.90 [facility] [address] [place] [id number] [address]- 8975 Jul, [facility] [address], [place] [address]- 2821 May, [facility] [address], [place] [address]- 9263 May, Arthritis M19.90 ; Hypertension I10 ; Depression F32.9 ; Vascular dementia F01.50 and Coronary artery disease I25.10 [facility] [address] [address] May, [facility] [address], [place] [address]- 6082 May, [facility] [address], [place] [address]- 6886 Mar, [facility] [address] [place] [address] [address]- 3770 Mar, [facility] [address], [place] [address]- 6568 Mar, [facility] [address], [place] [address]- 6115 Mar, [facility] [address] [place] [id number] [address]- 3556 Mar, Essential hypertension, benign 401.1 ; Unspecified arthropathy, site unspecified 716.90 and Other and unspecified hyperlipidemia 272.4 [facility] [address] [place] [id number] [address]- 2727 Mar, [facility] [address], [place] [address]- 3953 Jan, [facility] [address], [place] [address]- 6078 Dec, [facility] [address] [place] [id number] [address]- 6309 Dec, [facility] [place] [facility] [address] [id number] [place] [address]- 6198 Dec, 2014 [facility] [place] [facility] [address] [id number] [place] [address]- 5241 Dec, [facility] [place] [facility] [address] [id number] [place] [address]- 3066 Dec, 2014 [facility] [place] [facility] [address] [id number] [place] [address]- 4589 Dec, [facility] [place] [facility] [address] [id number] [place] [address]- 5626 Dec, [facility] [place] [facility] [address] [id number] [place] [address]- 1187 Dec, [facility] [place] [facility] [address] [id number] [place] [address]- 7009 Nov, [facility] [place] [facility] [address] [id number] [place] [address]- 2355 Nov, [facility] [place] [facility] [address] [id number] [place] [address]- 2805 Nov, [facility] [place] [facility] [address] [id number] [place] [address]- 7593 October, [facility] [place] [facility] [address] [id number] [place] [address]- 1392 October, [facility] [place] [facility] [address] [id number] [place] [address]- 8129 Sep, [facility] [place] [facility] [address] [id number] [place] [address]- 8882 Sep, [facility] [place] [facility] [address] [id number] [place] [address]- 2388 Sep, [facility] [place] [facility] [address] [id number] [place] [address]- 4786 Aug, [facility] [place] [facility] [address] [id number] [place] [address]- 2415 Aug, [facility] [place] [facility] [address] [id number] [place] [address]- 2102 Aug, [facility] [place] [facility] [address] [id number] [place] [address]- 4256 Aug, [facility] [place] [facility] [address] [id number] [place] [address]- 5580 Aug, [facility] [place] [facility] [address] [id number] [place] [address]- 4261 Aug, 2014 [facility] [place] [facility] [address] [id number] [place] [address]- 7434 Aug, [facility] [place] [facility] [address] [facility] [id number] [place] [address]- 5282 Aug, [facility] [place] [facility] [address] [id number] [place] [address]- 9634 Aug, [facility] [place] [facility] [address] [id number] [place] [address]- 0665 May, [facility] [place] [facility] [address] [id number] [place] [address]- 6678 May, [facility] [place] [facility] [address] [facility] [id number] [place] [address]- 2864 May, [facility] [place] [facility] [address] [id number] [place] [address]- 7957 May, [facility] [place] [facility] [address] [id number] [place] [address]- 6926 May, [facility] [place] [facility] [address] [id number] [place] [address]- 9092 May, [facility] [place] [facility] [address] [facility] [id number] [place] [address]- 6838 May, [facility] [place] [facility] [address] [facility] [id number] [place] [address]- 0354 May, [facility] [place] [facility] [address] [id number] [place] [address]- 9950 Mar, [facility] [address] [id number] [place] [address]- 8765 Mar, [facility] [address] [place] [id number] Mar, [facility] [address] [id number] [place] [address]- 0041 Mar, [facility] [place] [facility] [address] [id number] [place] [address]- 4626 Mar, [facility] [place] [facility] [address] [id number] [place] [address]- 2805 Mar, [facility] [place] [facility] [address] [id number] [place] [address]- 3843 Mar, [facility] [place] [facility] [address] [id number] [place] [address]- 8490 Mar, [facility] [place] [facility] [address] [id number] [place] [address]- 6754 Mar, [facility] [place] [facility] [address] [id number] [place] [address]- 3157 Mar, [facility] [place] [facility] [address] [id number] [place] [address]- 8758 Mar, [facility] [place] [facility] [address] [id number] [place] [address]- 4505 Mar, [facility] [place] [facility] [address] [id number] [place] [address]- 4151 Mar, [facility] [place] [facility] [address] [id number] [place] [address]- 8546 Jan, [facility] [place] [facility] [address] [id number] [place] [address]- 0522 Jan, [facility] [place] [facility] [address] [id number] [place] [address]- 1278 Jan, [facility] [address] [facility] [id number], [place] [address]- 3543 Jan, [facility] [address] [place] [id number] Jan, [facility] [address] [facility] [id number], [place] [address]- 0625 Jan, [facility] [address] [facility] [id number], [place] [address]- 0083 Jan, [facility] [address] [facility] [id number], [place] [address]- 7340 Dec, [facility] [address] [facility] [id number], [place] [address]- 2971 Dec, [facility] [address] [facility] [id number], [place] [address]- 7325 Dec, [facility] [address], [place] [address]- 1155 Dec, [facility] [address] [id number] [address]- 8707 Dec, [facility] [id number], [place] [address]- 3885 Dec, [facility] [address] [id number], [place] [address]- 5570 Nov, [facility] [address] [address] [id number] [address]- 5483 Nov, IMMUNIZATIONS No Known Immunizations SOCIAL HISTORY [...]
--- OUTSIDE RECORDS SUMMARY | 2018-03-10 15:42 | XMS REPORT ---
Author Author [facility]ES [facility] Address Unknown Care Team Providers Care Product Development Worker Name Role Phone RHONA SCALES Unavailable PROBLEMS Type Condition ICD9-CM Code UNB19-SG Code Onset Dates Condition Status SNOMED Code Problem Routine health maintenance Z00.00 Active 038552894 Problem Chronic pain G89.29 Active 73791972 Problem Type 2 diabetes mellitus without complications E11.9 Active 118053473 Problem Diverticulitis K57.92 Active 293264603 Problem Anxiety F41.9 Active 70695024 Problem Chronic fatigue R53.82 Active 29185343 Problem Hepatitis C B19.20 Active 59792232 Problem History of solitary pulmonary nodule Z87.898 Active 329607712 Problem Depression F32.9 Active 417882650 Problem Constipation K59.00 Active 52605490 Problem Chronic kidney disease (CKD) stage G3a/A1, moderately decreased glomerular filtration rate (GFR) between 45-59 mL/min/1.73 square meter and albuminuria creatinine ratio less than 30 mg/g N18.3 Active 570920458 Problem 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 46190131 Problem History of alcoholism F10.21 Active 411737888 Problem History of TIA (transient ischemic attack) Z86.73 Active 895472757 Problem Vitamin D deficiency E55.9 Active 43264346 Problem Hyperlipidemia E78.5 Active 42935937 Problem Arthritis M19.90 Active 1178362 Problem Coronary artery disease I25.10 Active 45746607 Problem DJD (degenerative joint disease) M19.90 Active 837025262 Problem Cervical stenosis of spinal canal M48.02 Active 99298152 Problem Hypertension I10 Active 75182042 Problem Abnormal CBC R79.89 Active 465832843 Problem Vascular dementia F01.50 Active 984061109 Problem Morbid obesity with BMI of 45.0-49.9, adult Z68.42 Active 519289113 ALLERGIES Substance Reaction Event Type Date Status Tradjenta Unknown Drug Allergy May, Active ENCOUNTERS Encounter Location Date Diagnosis [place] [id number] [place] [address] 28927- 9068 October, Chronic pain G89.29 and Anxiety F41.9 [facility] [facility] [id number] [place] [address] 13652- 7455 October, Type 2 diabetes mellitus without complications [...] than 30 mg/g N18.3 and Anxiety F41.9 [facility] [id number] [place] [address] 04630- 0813 Sep, Chronic pain G89.29 and Anxiety F41.9 [place] [address] 617[address]- 6069 Aug, Anxiety F41.9 and Chronic pain G89.29 [place] [id number] [place] [address] 27448- 3477 Aug, Anxiety F41.9 [place] [id number] [place] [address] 80077- 3958 Aug, Chronic pain G89.29 and Anxiety F41.9 [place] [id number] [place] [address] 07912- 6212 Aug, Chronic kidney disease (CKD) stage G3a/A1, moderately decreased glomerular filtration rate (GFR) between 45-59 mL/min/1.73 square meter and albuminuria creatinine ratio less than 30 mg/g N18.3 [place] [address] 267[address]- 1741 Aug, [facility] [address] [place] [address] [id number] Jul, Dental examination Z01.20 [facility] [id number] [place] [address] 37672- 5078 Jul, Chronic pain G89.29 and Anxiety F41.9 [facility] [address] 16032- 0834 Jul, Other specified abnormal findings of blood chemistry R79.89 [facility] [id number] [place] [address] 40742- 6359 Jul, Type 2 diabetes mellitus without complications E11.9 ; Chronic kidney disease (CKD) stage G3a/A1, moderately decreased glomerular filtration rate (GFR) between 45-59 mL/min/1.73 square meter and albuminuria creatinine ratio less than 30 mg/g N18.3 ; BMI 45.0-49.9, adult Z68.42 ; Chronic fatigue R53.82 ; Hair loss L65.9 ; Generalized abdominal pain R10.84 and Diverticulitis K57.92 [facility] [id number] [place] [address] 23999- 6420 Jul, [facility] [id number] [place] [address] [id number] Jul, Dental examination Z01.20 [facility] [id number] [place] [address] 74796- 1811 Jul, Anxiety F41.9 [facility] [id number] [place] [address] 23470- 9692 Jul, Anxiety F41.9 [facility] [address] [id number] Jul, Chronic pain G89.29 [facility] [address] [id number] May, Chronic pain G89.29 [facility] [address] [place] [address]- 6186 May, [facility] [address] [place] [address] [id number] 30 May, 2017 Dental examination Z01.20 [facility] [id number] [place] [address] [id number]- 9095 13 May, 2017 Anxiety F41.9 [facility] [address] [id number] 06 May, 2017 Chronic pain G89.29 [facility] [address] [place] [address] 99296- 1792 18 Mar, 2017 Depression F32.9 [facility] [id number] [place] [address] 92598- 5422 12 Mar, 2017 Anxiety F41.9 [facility] [id number] [place] [address] [id number] Mar, Chronic pain G89.29 [facility] [id number] [place] [address] 39840- 0372 19 Mar, 2017 Abnormal CBC R79.89 [facility] [address] [id number] 18 Mar, 2017 Anxiety F41.9 [facility] [address] [place] [address] [id number]- 2522 14 Mar, 2017 Hypertension I10 ; Routine health maintenance Z00.00 ; Type 2 diabetes mellitus without complications E11.9 and Hyperlipidemia E78.5 [facility] [id number] [place] [address] [id number] 13 Mar, 2017 Chronic pain G89.29 and Anxiety F41.9 [facility] [address] [place] [address] [id number] 13 Mar, 2017 Dental examination Z01.20 [facility] [address] [place] [address] 96039- 3445 06 Mar, 2017 Hypertension I10 ; Routine health maintenance Z00.00 ; Type 2 diabetes mellitus without complications E11.9 and Hyperlipidemia E78.5 [facility] [address] [address]- 8[address] Jan, Type 2 diabetes mellitus without complications E11.9 ; Hypertension I10 ; Vascular dementia F01.50 ; Morbid obesity with BMI of 45.0- 49.9, adult Z68.42 ; Hyperlipidemia E78.5 ; Chronic pain G89.29 ; Anxiety F41.9 ; Depression F32.9 ; Coronary artery disease I25.10 ; 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 and Constipation K59.00 [place] [id number] [place] [address] 22474- 5069 Jan, Chronic pain G89.29 [place] [id number] [place] [address] 59048- 4079 Jan, [place] [id number] [place] [address] 74501- 0044 Dec, [facility] [id number] [place] [address] 32848- 1524 Dec, Chronic pain G89.29 [place] [id number] [place] [address] [id number]- 5653 Nov, Chronic pain G89.29 [place] [id number] [place] [address] 00796- 6658 October, Chronic pain G89.29 [place] [id number] [place] [address] 03715- 9301 Sep, Chronic pain G89.29 [facility] [address] [place] [address] 97413- 4175 Sep, Type 2 diabetes mellitus without complications E11.9 ; Chronic pain G89.29 ; Hypertension I10 ; Coronary artery disease I25.10 ; Morbid obesity with BMI of 45.0-49.9, adult Z68.42 ; Hyperlipidemia E78.5 ; 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 and Depression F32.9 [place] [id number] [place] [address] 15150- 9048 Aug, Chronic pain G89.29 [place] [address] 08561- 3089 Aug, Chronic pain G89.29 and Constipation K59.[address] 22707- 5894 Aug, Abnormal lung sounds R09.[address] 77300- 3983 Aug, Depression F32.[address] 53261- 9092 Jul, Chronic pain G89.[address] 49539- 2969 May, Chronic pain G89.[address] 93454- 4889 May, Medicare annual wellness visit, subsequent Z00.[address] 85882- 5220 May, [place] [id number] [place] [address] 33078- 0085 May, Type 2 diabetes mellitus without complications [...] due to renal impairment without tophus M1A.3710 [place] [id number] [place] [address] 61754- 5086 May, [facility] [address] [place] [address]- 6290 Mar, [facility] [id number] [place] [address], [place] [address]- 9050 Mar, [facility] [address] [place] [address]- 6308 Mar, [facility] [id number] [place] [address], [place] [address]- 1517 Mar, [facility] [address] [place] [address], [place] [address]- 5049 Mar, [facility] [id number] [place] [address], [place] [address]- 4444 Jan, [facility] [id number] [place] [address], [place] [address]- 5117 Jan, [facility] [address] [place] [address] 66737- 0340 Dec, Type 2 diabetes mellitus without complications E11.9 ; Hypertension I10 ; Coronary artery disease I25.10 and Renal insufficiency N28.9 [facility] [address], [place] [address]- 1445 Dec, [facility] [address], [place] [address]- 1554 Dec, [facility] [address], [place] [address]- 4274 Nov, [facility] [address], [place] [address]- 7218 Nov, [facility] [id number] [place] [address] 38973- 7016 Nov, [facility] [address], [place] [address]- 6561 Nov, [facility] [address] [place] [address] 67270- 6166 Nov, [facility] [address], [place] [address]- 6238 October, [facility] [address] [place] [address] 24881- 9373 October, [facility] [address] [place] [address] 11372- 6497 October, [facility] [id number] [place] [address] 32584- 9128 Sep, Type 2 diabetes mellitus without complications E11.9 and Constipation K59.00 [facility] [id number] [place] [address] 95480- 5924 Sep, [facility] [id number] [place] [address] 87964- 3437 Sep, Diabetes E11.9 [facility] [id number] [place] [address] 43928- 1037 Sep, [facility] [address] [place] [address] 72453- 0967 Sep, Routine health maintenance Z00.00 ; Hypertension I10 ; Type 2 diabetes mellitus without complications E11.9 ; Morbid obesity with BMI of 45.0-49.9, adult Z68.42 ; Chronic pain G89.29 ; H/O carotid endarterectomy Z98.89 ; Vascular dementia F01.50 ; Arthritis M19.90 ; Coronary artery disease I25.10 ; Abnormal lung sounds R09.89 and Diabetes E11.9 [facility] [address], [place] [address]- 3488 Aug, Anxiety F41.9 [facility] [id number] [place] [address] 08548- 1858 Aug, Arthritis M19.90 [facility] [address], [place] [address]- 9898 Jul, Arthritis M19.90 [facility] [address], [place] [address]- 2593 Jul, [facility] [address], [place] [address]- 9459 May, [facility] [address], [place] [address]- 3040 May, Arthritis M19.90 ; Hypertension I10 ; Depression F32.9 ; Vascular dementia F01.50 and Coronary artery disease I25.10 [facility] [address], [place] [address]- 8143 May, [facility] [id number] [place] [address] 15747- 8147 May, [facility] [id number] [address]- 9716 Mar, [facility] [id number] [place] [address] 60144- 2098 Mar, [facility] [address] 5969 Mar, [facility] [address], [place] [address]- 9490 Mar, [facility] [address], [place] [address]- 8171 Mar, Essential hypertension, benign 401.1 ; Unspecified arthropathy, site unspecified 716.90 and Other and unspecified hyperlipidemia 272.4 [facility] [address], [place] [address]- 5411 Mar, [facility] [address], [place] [address]- 4546 Jan, [facility] [address], [place] [address]- 4770 Dec, [facility] [address], [place] [address]- 9735 Dec, [facility] [place] [facility] [address] [id number] [place] [address]- 4199 Dec, 2014 [facility] [place] [facility] [address] [id number] [place] [address]- 5046 Dec, 2014 [facility] [place] [facility] [address] [id number] [place] [address]- 3807 Dec, 2014 [facility] [place] [facility] [address] [id number] [place] [address]- 3540 Dec, [facility] [place] [facility] [address] [id number] [place] [address]- 0762 Dec, [facility] [place] [facility] [address] [id number] [place] [address]- 8803 Dec, [facility] [place] [facility] [address] [id number] [place] [address]- 1322 Nov, [facility] [place] [facility] [address] [id number] [place] [address]- 3551 Nov, [facility] [place] [facility] [address] [id number] [place] [address]- 4292 Nov, [facility] [place] [facility] [address] [id number] [place] [address]- 2166 October, [facility] [place] [facility] [address] [id number] [place] [address]- 2655 October, [facility] [place] [facility] [address] [id number] [place] [address]- 3618 Sep, [facility] [place] [facility] [address] [id number] [place] [address]- 3661 Sep, [facility] [place] [facility] [address] [id number] [place] [address]- 5094 Sep, [facility] [place] [facility] [address] [id number] [place] [address]- 4484 Aug, [facility] [place] [facility] [address] [id number] [place] [address]- 7479 Aug, [facility] [place] [facility] [address] [id number] [place] [address]- 0794 Aug, [facility] [place] [facility] [address] [id number] [place] [address]- 6984 Aug, [facility] [place] [facility] [address] [facility] [id number] [place] [address]- 6487 Aug, 2014 [facility] [place] [facility] [address] [id number] [place] [address]- 3693 Aug, 2014 [facility] [place] [facility] [address] [id number] [place] [address]- 1115 Aug, [facility] [place] [facility] [address] [facility] [id number] [place] [address]- 7211 Aug, [facility] [address] [facility] [id number] [place] [address]- 6459 Aug, [facility] [place] [facility] [address] [facility] [id number] [place] [address]- 7480 May, [facility] [place] [facility] [address] [facility] [id number] [place] [address]- 3131 May, [facility] [place] [facility] [address] [facility] [id number] [place] [address]- 1056 May, [facility] [place] [facility] [address] [facility] [id number] [place] [address]- 9728 May, [facility] [place] [facility] [address] [facility] [id number] [place] [address]- 2113 May, [facility] [place] [facility] [address] [id number] [place] [address]- 1466 May, [facility] [place] [facility] [address] [facility] [id number] [place] [address]- 0967 May, [facility] [place] [facility] [address] [facility] [id number] [place] [address]- 7474 May, [facility] [place] [facility] [address] [id number] [place] [address]- 1984 Mar, [facility] [place] [facility] [address] [id number] [place] [address]- 0824 Mar, [facility] [address] [facility] [id number] Mar, [facility] [place] [facility] [address] [id number] [place] [address]- 7654 Mar, [facility] [place] [facility] [address] [id number] [place] [address]- 8002 Mar, [facility] [place] [facility] [address] [id number] [place] [address]- 0982 Mar, [facility] [place] [facility] [address] [id number] [place] [address]- 5150 Mar, [facility] [place] [facility] [address] [id number] [place] [address]- 2768 Mar, [facility] [place] [facility] [address] [id number] [place] [address]- 1251 Mar, [facility] [place] [facility] [address] [id number] [place] [address]- 8822 Mar, [facility] [place] [facility] [address] [id number] [place] [address]- 3697 Mar, [facility] [place] [facility] [address] [id number] [place] [address]- 5898 Mar, [facility] [place] [facility] [address] [id number] [place] [address]- 3441 Mar, [facility] [place] [facility] [address] [id number] [place] [address]- 2981 Jan, [facility] [place] [facility] [address] [id number] [place] [address]- 3585 Jan, [facility] [place] [facility] [address] [id number] [place] [address]- 7608 Jan, [facility] [address] [facility] [id number], [place] [address]- 0524 Jan, [facility] [address] [place] [address] Jan, [facility] [address] [facility] [id number], [place] [address]- 4788 Jan, [facility] [address] [facility] [id number], [place] [address]- 4459 Jan, [facility] [address] [facility] [id number], [place] [address]- 7363 Dec, [facility] [address] [facility] [id number], [place] [address]- 9749 Dec, [facility] [address] [facility] [id number], [place] [address]- 0320 Dec, [facility] [address] [facility] [id number], [place] [address]- 8265 Dec, [facility] [id number] [address]- 4748 Dec, [facility] [address] [facility] [id number], [place] [address]- 7359 Dec, [facility] [id number], [place] [address]- 4029 Nov, [facility] [id number] [address]- 3806 Nov, IMMUNIZATIONS No Known Immunizations SOCIAL HISTORY Never Assessed REASON FOR VISIT BU/CROWN PREP PLAN OF CARE VITAL SIGNS Blood pressure systolic 154 mmHg 2017-05-30 Blood pressure diastolic 101-wrist, 144 mmHg 2017-05-30 MEDICATIONS Medication Instructions Dosage Frequency Start Date End Date Duration Status Allopurinol 300 TAKE ONE TABLET BY MOUTH DAILY 30 Active Hydrocodone-Acetaminophen 5-325 MG Orally 3 times a day-,Assisted living facility 1 tablet May, 28 days Active Protonix 40 TAKE ONE TABLET BY MOUTH DAILY 30 Active Furosemide 40 TAKE ONE TABLET BY MOUTH DAILY 30 Active ProAir HFA 108 (90 Base) MCG/ACT Inhalation every 4 hrs 2 puffs as needed 4h Sep, 30 days Active Aspirin 81 MG Orally Once a day 1 tablet 24h Active Exelon 6 TAKE ONE CAPSULE BY MOUTH TWICE A DAY Active Geodon 20 TAKE ONE CAPSULE BY MOUTH TWICE A DAY WITH FOOD Active FreeStyle Lite Test 1 subcutaneously Once a day as directed 24h 11 Sep, 2016 90 days Active Lasix 40 TAKE ONE TABLET BY MOUTH DAILY 30 Active Ativan 0.5 Orally, each fill must last 28 days Once a day 1 tablet 24h 28 days Active Zyloprim 300 mg take 1 tablet (300 mg) by oral route once daily Mar Active Metoprolol Tartrate 50 mg Orally Once a day 1 tablet with food 24h Active Celexa 10 mg Orally every other day x 2 weeks, then 3x weekly x 2 weeks, then stop 1 tablets Active MiraLax 17 Orally Once a day as needed MIX 17GMS (1 CAPFUL) IN 8OZ WATER AND DRINK DAILY Active Pravastatin Sodium 40 MG Orally Once a day 1 tablet 24h Active Furosemide 40 MG Orally Once a day 1 tablet 24h Active Losartan Potassium 100 MG Orally Once a day 1 tablet 24h Mar, Active RESULTS No Results PROCEDURES Procedure Date Ordered Result Body Site PREFABR POST May 30, 2017 INSTRUCTIONS MEDICATIONS ADMINISTERED No Known Medications [...]
--- OUTSIDE RECORDS SUMMARY | 2018-03-10 15:42 | XMS REPORT ---
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 58477348 Problem Morbid obesity with BMI of 45.0-49.9, adult Z68.42 Active 292526692 Problem Chronic pain G89.29 Active 52659375 Problem Constipation K59.00 Active 85805484 Problem Routine health maintenance Z00.00 Active 900253675 Problem History of alcoholism F10.21 Active 750377466 Problem Hepatitis C B19.20 Active 66685075 Problem History of TIA (transient ischemic attack) Z86.73 Active 894650684 Problem Cervical stenosis of spinal canal M48.02 Active 64663148 Problem History of solitary pulmonary nodule Z87.898 Active 811906217 Problem Hyperlipidemia E78.5 Active 37739672 Problem Anxiety F41.9 Active 01426636 Problem Vascular dementia F01.50 Active 213942087 Problem DJD (degenerative joint disease) M19.90 Active 047396273 Problem Arthritis M19.90 Active 3982663 ALLERGIES Unknown Allergies SOCIAL HISTORY No smoking Hx information available PLAN OF CARE VITAL SIGNS MEDICATIONS Medication Instructions Dosage Frequency Start Date End Date Duration Status Ativan 0.5 Orally, each fill must last 28 days Once a day 1 tablet 24h 28 days Active Hydrocodone-Acetaminophen 5-325 MG Orally 3 times a day-,Assisted living facility 1 tablet Mar, 28 Active RESULTS No Results PROCEDURES No Known procedures IMMUNIZATIONS No Known Immunizations
--- OUTSIDE RECORDS SUMMARY | 2018-03-10 15:43 | XMS REPORT ---
Author Author ELIEL SMITH Organization [facility] Address [address] [place] [address] Care Team Providers Care Light Out Examiner Name Role Phone ELIEL SMITH Unavailable PROBLEMS Type Condition ICD9-CM Code [id number] Code Onset Dates Condition Status SNOMED Code Problem Routine health maintenance Z00.00 Active 553580181 Problem Chronic pain G89.29 Active 70946121 Problem Type 2 diabetes mellitus without complications E11.9 Active 950502101 Problem Diverticulitis K57.92 Active 170355832 Problem Anxiety F41.9 Active 26829152 Problem Chronic fatigue R53.82 Active 07467698 Problem Hepatitis C B19.20 Active 76859934 Problem History of solitary pulmonary nodule Z87.898 Active 356884912 Problem Depression F32.9 Active 208758370 Problem Constipation K59.00 Active 47785007 Problem Chronic kidney disease (CKD) stage G3a/A1, moderately decreased glomerular filtration rate (GFR) between 45-59 mL/min/1.73 square meter and albuminuria creatinine ratio less than 30 mg/g N18.3 Active 789060719 Problem 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 76643732 Problem History of alcoholism F10.21 Active 830647849 Problem History of TIA (transient ischemic attack) Z86.73 Active 876930128 Problem Vitamin D deficiency E55.9 Active 24535656 Problem Hyperlipidemia E78.5 Active 14935956 Problem Arthritis M19.90 Active 9485222 Problem Coronary artery disease I25.10 Active 66986969 Problem DJD (degenerative joint disease) M19.90 Active 389525569 Problem Cervical stenosis of spinal canal M48.02 Active 19396044 Problem Hypertension I10 Active 08737193 Problem Abnormal CBC R79.89 Active 171968096 Problem Vascular dementia F01.50 Active 247459024 Problem Morbid obesity with BMI of 45.0-49.9, adult Z68.42 Active 364104022 ALLERGIES No Information ENCOUNTERS Encounter Location Date Diagnosis [place] [id number] [place] [address] 26936- 6212 Jan, [place] [address] 24438- 2330 Nov, Anxiety F41.9 and Chronic pain G89.29 [place] [address] 18125- 9670 October, Chronic pain G89.29 and Anxiety F41.9 [place] [address] 22433- 5145 October, Type 2 diabetes mellitus without complications [...] than 30 mg/g N18.3 and Anxiety F41.9 [place] [id number] [place] [address] 89561- 4600 Sep, Chronic pain G89.29 and Anxiety F41.9 [place] [id number] [place] [address] 53450- 0339 Aug, Anxiety F41.9 and Chronic pain G89.29 [place] [id number] [place] [address] 55178- 8935 Aug, Anxiety F41.9 [place] [id number] [place] [address] 04032- 5867 Aug, Chronic pain G89.29 and Anxiety F41.9 [place] [address] 92724- 5885 Aug, Chronic kidney disease (CKD) stage G3a/A1, moderately decreased glomerular filtration rate (GFR) between 45-59 mL/min/1.73 square meter and albuminuria creatinine ratio less than 30 mg/g N18.3 [place] [id number] [place] [address] 48100- 8139 09 Aug, 2017 [facility] [address] [id number] Jul, Dental examination Z01.20 [place] [address] 54057- 6819 Jul, Chronic pain G89.29 and Anxiety F41.9 [place] [address] 46164- 1082 Jul, Other specified abnormal findings of blood chemistry R79.[address] 02490- 2737 Jul, Type 2 diabetes mellitus without complications E11.9 ; Chronic kidney disease (CKD) stage G3a/A1, moderately decreased glomerular filtration rate (GFR) between 45-59 mL/min/1.73 square meter and albuminuria creatinine ratio less than 30 mg/g N18.3 ; BMI 45.0-49.9, adult Z68.42 ; Chronic fatigue R53.82 ; Hair loss L65.9 ; Generalized abdominal pain R10.84 and Diverticulitis K57.92 [place] [id number] [place] [address] 01908- 0823 Jul, [facility] [id number] [place] [address] [id number] Jul, Dental examination Z01.20 [place] [address] 64284- 6741 Jul, Anxiety F41.9 [place] [address] 09204- 2797 Jul, Anxiety F41.9 [place] [address] [place] [id number] Jul, Chronic pain G89.29 [facility] [id number] [place] [address] [id number] May, Chronic pain G89.29 [facility] [id number] [place] [address] 77437- 2546 May, [facility] [id number] [place] [address] [id number] May, Dental examination Z01.20 [facility] [id number] [place] [address] [id number]- 3478 May, Anxiety F41.9 [facility] [address] [id number] May, Chronic pain G89.29 [facility] [id number] [place] [address] 69975- 4673 Mar, Depression F32.9 [facility] [id number] [place] [address] 56125- 9172 12 Mar, 2017 Anxiety F41.9 [facility] [id number] [place] [address] [id number] 11 Mar, 2017 Chronic pain G89.29 [facility] [id number] [place] [address] [id number]- 4921 19 Mar, 2017 Abnormal CBC R79.89 [facility] [id number] [place] [address] [id number] 18 Mar, 2017 Anxiety F41.9 [facility] [address] [place] [address] 53890- 2427 14 Mar, 2017 Hypertension I10 ; Routine health maintenance Z00.00 ; Type 2 diabetes mellitus without complications E11.9 and Hyperlipidemia E78.5 [facility] [id number] [place] [address] [id number] 13 Mar, 2017 Chronic pain G89.29 and Anxiety F41.9 [facility] [address] [place] [address] [id number] 13 Mar, 2017 Dental examination Z01.20 [facility] [address] [place] [address] 08528- 5466 06 Mar, 2017 Hypertension I10 ; Routine health maintenance Z00.00 ; Type 2 diabetes mellitus without complications E11.9 and Hyperlipidemia E78.5 [facility] [address] [address]- 7846 Jan, Type 2 diabetes mellitus without complications E11.9 ; Hypertension I10 ; Vascular dementia F01.50 ; Morbid obesity with BMI of 45.0- 49.9, adult Z68.42 ; Hyperlipidemia E78.5 ; Chronic pain G89.29 ; Anxiety F41.9 ; Depression F32.9 ; Coronary artery disease I25.10 ; 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 and Constipation K59.00 [place] [address] [place] [address] 22473- 2846 Jan, Chronic pain G89.29 [facility] [address] [place] [address] 78238- 6249 Jan, [facility] [id number] [place] [address] 87108- 7093 Dec, [facility] [address] [place] [address] 18814- 5932 Dec, Chronic pain G89.29 [facility] [id number] [place] [address] 65564- 9461 Nov, Chronic pain G89.29 [facility] [address] [address]- 9519 October, Chronic pain G89.29 [facility] [id number] [place] [address] [id number]- 9556 Sep, Chronic pain G89.29 [facility] [address] [address] 7596 Sep, Type 2 diabetes mellitus without complications E11.9 ; Chronic pain G89.29 ; Hypertension I10 ; Coronary artery disease I25.10 ; Morbid obesity with BMI of 45.0-49.9, adult Z68.42 ; Hyperlipidemia E78.5 ; 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 and Depression F32.9 [place] [id number] [place] [address] 74864- 5838 Aug, Chronic pain G89.29 [place] [id number] [place] [address] 46818- 1556 Aug, Chronic pain G89.29 and Constipation K59.00 [place] [address] 39600- 3326 Aug, Abnormal lung sounds R09.89 [place] [id number] [place] [address] 58595- 2720 Aug, Depression F32.9 [place] [id number] [place] [address] 70648- 8734 Jul, Chronic pain G89.29 [place] [id number] [place] [address] 50466- 6740 May, Chronic pain G89.29 [place] [id number] [place] [address] 16427- 9626 May, Medicare annual wellness visit, subsequent Z00.00 [place] [id number] [place] [address] 42082- 9506 May, [place] [id number] [place] [address] 54249- 5951 02 May, 2016 Type 2 diabetes mellitus [...] due to renal impairment without tophus M1A.3710 [facility] [id number] [place] [address] 46866- 7920 May, [facility] [id number] [place] [address] 74922- 9796 Mar, [facility] [id number] [place] [address] 18075- 3957 Mar, [facility] [id number] [place] [address] 85337- 0254 Mar, [facility] [id number] [place] [address] 19649- 5842 Mar, [facility] [id number] [place] [address] 37592- 6489 Mar, [facility] [id number] [place] [address] 63017- 5014 Jan, [facility] [id number] [place] [address] 92216- 7707 Jan, [facility] [id number] [place] [address] 15348- 9559 Dec, Type 2 diabetes mellitus without complications E11.9 ; Hypertension I10 ; Coronary artery disease I25.10 and Renal insufficiency N28.9 [facility] [address] [address]- 8371 Dec, [facility] [id number] [address]- 3228 Dec, [facility] [id number] [place] [address] 94945- 7098 Nov, [facility] [id number] [place] [address] 29433- 0321 Nov, [facility] [id number] [address]- 2101 Nov, [facility] [address] [address]- 3590 Nov, [facility] [address] [address]- 0780 Nov, [facility] [id number] [place] [address] 74600- 3405 October, [facility] [id number] [place] [address] 52093- 5481 October, [facility] [id number] [place] [address] 78339- 3595 October, [facility] [id number] [place] [address] 47448- 2403 Sep, Type 2 diabetes mellitus without complications E11.9 and Constipation K59.00 [facility] [id number] [place] [address] 30187- 3886 Sep, [facility] [id number] [place] [address] 47902- 7977 Sep, Diabetes E11.9 [facility] [address] [address]- 5343 Sep, [facility] [address] [address]- 0286 Sep, Routine health maintenance Z00.00 ; Hypertension I10 ; Type 2 diabetes mellitus without complications E11.9 ; Morbid obesity with BMI of 45.0-49.9, adult Z68.42 ; Chronic pain G89.29 ; H/O carotid endarterectomy Z98.89 ; Vascular dementia F01.50 ; Arthritis M19.90 ; Coronary artery disease I25.10 ; Abnormal lung sounds R09.89 and Diabetes E11.9 [facility] [address] [address]- 0310 Aug, Anxiety F41.9 [facility] [id number] [address]- 1616 Aug, Arthritis M19.90 [facility] [id number] [place] [address] 05531- 7946 Jul, Arthritis M19.90 [facility] [id number] [place] [address] 89995- 2376 Jul, [facility] [id number] [place] [address] 653462- 2970 May, [facility] [id number] [place] [address] 29167- 6734 May, Arthritis M19.90 ; Hypertension I10 ; Depression F32.9 ; Vascular dementia F01.50 and Coronary artery disease I25.10 [facility] [id number] [place] [address] 25332- 7446 May, [facility] [id number] [place] [address] 98246- 6186 May, [facility] [id number] [place] [address] 76371- 4619 Mar, [facility] [id number] [place] [address] 21771- 7156 Mar, [facility] [id number] [place] [address] 46283- 9706 Mar, [facility] [id number] [place] [address] 87988- 2236 Mar, [facility] [id number] [place] [address] 45313- 1444 Mar, Essential hypertension, benign 401.1 ; Unspecified arthropathy, site unspecified 716.90 and Other and unspecified hyperlipidemia 272.4 [facility] [address] [place] [address] 25890- 0866 08 Mar, 2015 [facility] [id number] [place] [address] 79744- 6923 Jan, [facility] [place] [facility] [address] [id number] [place] [address]- 1771 Dec, [facility] [place] [facility] [address] [id number] [place] [address]- 6227 Dec, [facility] [place] [facility] [address] [id number] [place] [address]- 9929 Dec, [facility] [place] [facility] [address] [id number] [place] [address]- 0478 Dec, [facility] [place] [facility] [address] [id number] [place] [address]- 6109 Dec, [facility] [place] [facility] [address] [id number] [place] [address]- 4460 Dec, [facility] [place] [facility] [address] [id number] [place] [address]- 2774 Dec, [facility] [place] [facility] [address] [id number] [place] [address]- 3437 Dec, [facility] [place] [facility] [address] [id number] [place] [address]- 4691 Nov, [facility] [place] [facility] [address] [id number] [place] [address]- 9597 Nov, [facility] [place] [facility] [address] [id number] [place] [address]- 6969 Nov, [facility] [place] [facility] [address] [id number] [place] [address]- 8320 October, [facility] [place] [facility] [address] [id number] [place] [address]- 2011 October, [facility] [place] [facility] [address] [id number] [place] [address]- 9483 Sep, [facility] [place] [facility] [address] [id number] [place] [address]- 3593 Sep, [facility] [place] [facility] [address] [id number] [place] [address]- 8234 13 Sep, 2014 [facility] [place] [facility] [address] [id number] [place] [address]- 3682 19 Aug, 2014 [facility] [place] [facility] [address] [id number] [place]- 0926 19 Aug, 2014 [facility] [place] [facility] [address] [id number] [place] [address]- 9295 12 Aug, 2014 [facility] [place] [facility] [address] [id number] [place] [address]- 2719 12 Aug, 2014 [facility] [place] [facility] [address] [id number] [place] [address]- 0053 13 Aug, 2014 [facility] [place] [facility] [address] [id number] [place] [address]- 5905 13 Aug, 2014 [facility] [place] [facility] [address] [facility] [id number] [place] [address]- 1652 11 Aug, 2014 [facility] [place] [facility] [address] [facility] [id number] [place] [address]- 6545 11 Aug, 2014 [facility] [place] [facility] [address] [facility] [id number] [place] [address]- 6282 10 Aug, 2014 [facility] [place] [facility] [address] [facility] [id number] [place] [address]- 3135 29 May, 2014 [facility] [place] [facility] [address] [id number] [place] [address]- 2542 29 May, 2014 [facility] [place] [facility] [address] [id number] [place] [address]- 2540 18 May, 2014 [facility] [place] [facility] [address] [id number] [place] 7485 18 May, 2014 [facility] [place] [facility] [address] [facility] [id number] [place] [address]- 2546 15 May, 2014 [facility] [place] [facility] [address] [facility] [id number] [place] 6827 May, [facility] [place] [facility] [address] [id number] [place] [address]- 2462 May, [facility] [place] [facility] [address] [id number] [place] [address]- 5454 May, [facility] [place] [facility] [address] [id number] [place] [address]- 4267 Mar, [facility] [place] [facility] [address] [id number] [place] [address]- 5449 Mar, [facility] [address] [facility] [place] [id number] Mar, [facility] [place] [facility] [address] [id number] [place] [address]- 7489 Mar, [facility] [place] [facility] [address] [id number] [place] [address]- 7796 Mar, [facility] [place] [facility] [address] [id number] [place] [address]- 9402 Mar, [facility] [place] [facility] [address] [id number] [place] [address]- 8162 Mar, [facility] [place] [facility] [address] [id number] [place] [address]- 3001 Mar, [facility] [place] [facility] [address] [id number] [place] [address]- 1557 Mar, [facility] [place] [facility] [address] [id number] [place] [address]- 3134 Mar, [facility] [place] [facility] [address] [id number] [place] [address]- 8484 Mar, [facility] [place] [facility] [address] [id number] [place] [address]- 7066 Mar, [facility] [place] [facility] [address] [id number] [place] [address]- 8788 Mar, [facility] [place] [facility] [address] [id number], [place] [address]- 2703 Jan, [facility] [address] [facility] [id number], [place] [address]- 7782 Jan, [facility] [address] [facility] [id number], [place] [address]- 5486 Jan, [facility] [address] [facility] [id number], [place] [address]- 8392 Jan, [facility] [address] [id number] Jan, [facility] [address] [facility] [id number], [place] [address]- 5574 Jan, [facility] [address] [facility] [id number], [place] [address]- 0559 Jan, [facility] [address] [facility] [id number], [place] [address]- 3335 Dec, [facility] [address] [facility] [id number], [place] [address]- 1473 Dec, [facility] [address] [facility] [id number], [place] [address]- 2763 Dec, [facility] [address] [facility] [id number] [address]- 0903 Dec, [facility] [address] [facility] [id number] [address]- 4512 Dec, [facility] [address] [facility] [id number], [place] [address]- 8832 Dec, [facility] [address] [facility] [id number], [place] [address]- 8987 Nov, [facility] [address] [facility] [id number], [place] [address]- 7961 Nov, IMMUNIZATIONS No Known Immunizations SOCIAL HISTORY [...]
--- OUTSIDE RECORDS SUMMARY | 2018-03-10 15:43 | XMS REPORT ---
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 Name Role Phone ELIEL SMITH Unavailable PROBLEMS Type Condition ICD9-CM Code CMT67-TL Code Onset Dates Condition Status SNOMED Code Problem Routine health maintenance Z00.00 Active 801593069 Problem Chronic pain G89.29 Active 45988828 Problem Type 2 diabetes mellitus without complications E11.9 Active 831505520 Problem Diverticulitis K57.92 Active 252440026 Problem Anxiety F41.9 Active 38311622 Problem Chronic fatigue R53.82 Active 34332469 Problem Hepatitis C B19.20 Active 10764461 Problem History of solitary pulmonary nodule Z87.898 Active 621248288 Problem Depression F32.9 Active 623807833 Problem Constipation K59.00 Active 56851671 Problem Chronic kidney disease (CKD) stage G3a/A1, moderately decreased glomerular filtration rate (GFR) between 45-59 mL/min/1.73 square meter and albuminuria creatinine ratio less than 30 mg/g N18.3 Active 327033348 Problem 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 88937846 Problem History of alcoholism F10.21 Active 759615399 Problem History of TIA (transient ischemic attack) Z86.73 Active 157134326 Problem Vitamin D deficiency E55.9 Active 96956547 Problem Hyperlipidemia E78.5 Active 30271312 Problem Arthritis M19.90 Active 6340475 Problem Coronary artery disease I25.10 Active 47403417 Problem DJD (degenerative joint disease) M19.90 Active 226667344 Problem Cervical stenosis of spinal canal M48.02 Active 45773180 Problem Hypertension I10 Active 94103287 Problem Abnormal CBC R79.89 Active 946321091 Problem Vascular dementia F01.50 Active 605663914 Problem Morbid obesity with BMI of 45.0-49.9, adult Z68.42 Active 869498705 ALLERGIES No Information ENCOUNTERS Encounter Location Date Diagnosis [place] [id number] [place] [address] 01006- 2197 Jan, [place] [address] [address]- 265[address] Nov, Anxiety F41.9 and Chronic pain G89.29 [place] [address] 00093- 5166 October, Chronic pain G89.29 and Anxiety F41.9 [place] [address] 02957- 0725 October, Type 2 diabetes mellitus without complications [...] than 30 mg/g N18.3 and Anxiety F41.9 [place] [id number] [place] [address] 26013- 6287 Sep, Chronic pain G89.29 and Anxiety F41.9 [place] [id number] [place] [address] 48147- 0705 Aug, Anxiety F41.9 and Chronic pain G89.29 [place] [id number] [place] [address] 69022- 0531 Aug, Anxiety F41.9 [place] [id number] [place] [address] 75855- 4257 Aug, Chronic pain G89.29 and Anxiety F41.9 [place] [address] 27061- 4653 Aug, Chronic kidney disease (CKD) stage G3a/A1, moderately decreased glomerular filtration rate (GFR) between 45-59 mL/min/1.73 square meter and albuminuria creatinine ratio less than 30 mg/g N18.3 [place] [id number] [place] [address] 78832- 1185 09 Aug, 2017 [facility] [address] [id number] Jul, Dental examination Z01.20 [place] [address] 02449- 7088 Jul, Chronic pain G89.29 and Anxiety F41.9 [place] [address] 78929- 4916 Jul, Other specified abnormal findings of blood chemistry R79.[address] [address]- 3903 Jul, Type 2 diabetes mellitus without complications E11.9 ; Chronic kidney disease (CKD) stage G3a/A1, moderately decreased glomerular filtration rate (GFR) between 45-59 mL/min/1.73 square meter and albuminuria creatinine ratio less than 30 mg/g N18.3 ; BMI 45.0-49.9, adult Z68.42 ; Chronic fatigue R53.82 ; Hair loss L65.9 ; Generalized abdominal pain R10.84 and Diverticulitis K57.92 [place] [id number] [place] [address] 69931- 2966 Jul, [facility] [id number] [place] [address] [id number] Jul, Dental examination Z01.20 [place] [address] 08644- 5648 Jul, Anxiety F41.9 [place] [address] 18645- 7188 Jul, Anxiety F41.9 [place] [address] [place] [id number] Jul, Chronic pain G89.29 [facility] [id number] [place] [address] [id number] May, Chronic pain G89.29 [facility] [id number] [place] [address] 58544- 2546 May, [facility] [address] [place] [address] [id number] May, Dental examination Z01.20 [facility] [id number] [place] [address] [id number]- 1549 May, Anxiety F41.9 [facility] [address] [id number] May, Chronic pain G89.29 [facility] [id number] [place] [address] 87410- 1858 Mar, Depression F32.9 [facility] [id number] [place] [address] 84898- 9234 12 Mar, 2017 Anxiety F41.9 [facility] [id number] [place] [address] [id number] 11 Mar, 2017 Chronic pain G89.29 [facility] [address] [place] [address] [id number]- 9566 19 Mar, 2017 Abnormal CBC R79.89 [facility] [id number] [place] [address] [id number] 18 Mar, 2017 Anxiety F41.9 [facility] [address] [place] [address] 33596- 9456 14 Mar, 2017 Hypertension I10 ; Routine health maintenance Z00.00 ; Type 2 diabetes mellitus without complications E11.9 and Hyperlipidemia E78.5 [facility] [id number] [place] [address] [id number] 13 Mar, 2017 Chronic pain G89.29 and Anxiety F41.9 [facility] [address] [place] [address] [id number] 13 Mar, 2017 Dental examination Z01.20 [facility] [address] [place] [address] 95628- 6506 06 Mar, 2017 Hypertension I10 ; Routine health maintenance Z00.00 ; Type 2 diabetes mellitus without complications E11.9 and Hyperlipidemia E78.5 [facility] [address] [address]- 9646 Jan, Type 2 diabetes mellitus without complications E11.9 ; Hypertension I10 ; Vascular dementia F01.50 ; Morbid obesity with BMI of 45.0- 49.9, adult Z68.42 ; Hyperlipidemia E78.5 ; Chronic pain G89.29 ; Anxiety F41.9 ; Depression F32.9 ; Coronary artery disease I25.10 ; 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 and Constipation K59.00 [place] [address] [place] [address] 27333- 4446 Jan, Chronic pain G89.29 [facility] [address] [place] [address] 54032- 6276 Jan, [facility] [id number] [place] [address] 67457- 8457 Dec, [facility] [address] [place] [address] 11880- 1505 Dec, Chronic pain G89.29 [facility] [id number] [place] [address] 73480- 3944 Nov, Chronic pain G89.29 [facility] [address] [address]- 8166 October, Chronic pain G89.29 [facility] [id number] [place] [address] [id number]- 9426 Sep, Chronic pain G89.29 [facility] [address] [address] 9336 Sep, Type 2 diabetes mellitus without complications E11.9 ; Chronic pain G89.29 ; Hypertension I10 ; Coronary artery disease I25.10 ; Morbid obesity with BMI of 45.0-49.9, adult Z68.42 ; Hyperlipidemia E78.5 ; 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 and Depression F32.9 [place] [id number] [place] [address] 03435- 0494 Aug, Chronic pain G89.29 [place] [id number] [place] [address] 35810- 7326 Aug, Chronic pain G89.29 and Constipation K59.00 [place] [address] 19212- 8936 Aug, Abnormal lung sounds R09.89 [place] [id number] [place] [address] 01270- 3140 Aug, Depression F32.9 [place] [id number] [place] [address] 44273- 0103 Jul, Chronic pain G89.29 [place] [id number] [place] [address] 39693- 0660 May, Chronic pain G89.29 [place] [id number] [place] [address] 34818- 1358 May, Medicare annual wellness visit, subsequent Z00.00 [place] [id number] [place] [address] 70490- 9062 May, [place] [id number] [place] [address] 12127- 1192 02 May, 2016 Type 2 diabetes mellitus [...] due to renal impairment without tophus M1A.3710 [facility] [id number] [place] [address] 38129- 1307 May, [facility] [id number] [place] [address] 23760- 7929 Mar, [facility] [id number] [place] [address] 28537- 9529 Mar, [facility] [id number] [place] [address] 27128- 7077 Mar, [facility] [id number] [place] [address] 65976- 1745 Mar, [facility] [id number] [place] [address] 46062- 8697 Mar, [facility] [id number] [place] [address] 61399- 2243 Jan, [facility] [id number] [place] [address] 87024- 0510 Jan, [facility] [id number] [place] [address] 98979- 7376 Dec, Type 2 diabetes mellitus without complications E11.9 ; Hypertension I10 ; Coronary artery disease I25.10 and Renal insufficiency N28.9 [facility] [address] [address]- 8907 Dec, [facility] [id number] [address]- 8076 Dec, [facility] [id number] [place] [address] 87311- 6241 Nov, [facility] [id number] [place] [address] 84497- 6898 Nov, [facility] [id number] [address]- 3220 Nov, [facility] [address] [address]- 6609 Nov, [facility] [address] [address]- 1299 Nov, [facility] [address] [place] [address] 93209- 2540 October, [facility] [id number] [place] [address] 70421- 4427 October, [facility] [id number] [place] [address] 36456- 5454 October, [facility] [id number] [place] [address] 34042- 4406 Sep, Type 2 diabetes mellitus without complications E11.9 and Constipation K59.00 [facility] [id number] [place] [address] 50572- 3814 Sep, [facility] [address] [place] [address] 23648- 8581 Sep, Diabetes E11.9 [facility] [address] [address]- 5473 Sep, [facility] [address] [address]- 0101 Sep, Routine health maintenance Z00.00 ; Hypertension I10 ; Type 2 diabetes mellitus without complications E11.9 ; Morbid obesity with BMI of 45.0-49.9, adult Z68.42 ; Chronic pain G89.29 ; H/O carotid endarterectomy Z98.89 ; Vascular dementia F01.50 ; Arthritis M19.90 ; Coronary artery disease I25.10 ; Abnormal lung sounds R09.89 and Diabetes E11.9 [facility] [address] [address]- 5488 Aug, Anxiety F41.9 [facility] [id number] [address]- 2576 Aug, Arthritis M19.90 [facility] [id number] [place] [address] 22252- 0256 Jul, Arthritis M19.90 [facility] [id number] [place] [address] 45223- 7746 Jul, [facility] [id number] [place] [address] 638823- 6656 May, [facility] [id number] [place] [address] 00411- 6852 May, Arthritis M19.90 ; Hypertension I10 ; Depression F32.9 ; Vascular dementia F01.50 and Coronary artery disease I25.10 [facility] [id number] [place] [address] 13604- 8266 May, [facility] [id number] [place] [address] 39203- 1236 May, [facility] [id number] [place] [address] 88716- 7743 Mar, [facility] [id number] [place] [address] 55902- 1846 Mar, [facility] [address] [place] [address] 36261- 5426 Mar, [facility] [address] [place] [address] 91092- 9076 Mar, [facility] [address] [place] [address] 03436- 2279 Mar, Essential hypertension, benign 401.1 ; Unspecified arthropathy, site unspecified 716.90 and Other and unspecified hyperlipidemia 272.4 [facility] [address] [place] [address] 78473- 0616 08 Mar, 2015 [facility] [id number] [place] [address] 31010- 8762 Jan, [facility] [place] [facility] [address] [id number] [place] [address]- 9114 Dec, [facility] [place] [facility] [address] [id number] [place] [address]- 7613 Dec, [facility] [place] [facility] [address] [id number] [place] [address]- 6040 Dec, [facility] [place] [facility] [address] [id number] [place] [address]- 1959 Dec, [facility] [place] [facility] [address] [id number] [place] [address]- 5955 Dec, [facility] [place] [facility] [address] [id number] [place] [address]- 1833 Dec, [facility] [place] [facility] [address] [id number] [place] [address]- 3978 Dec, [facility] [place] [facility] [address] [id number] [place] [address]- 0557 Dec, [facility] [place] [facility] [address] [id number] [place] [address]- 9444 Nov, [facility] [place] [facility] [address] [id number] [place] [address]- 6864 Nov, [facility] [place] [facility] [address] [id number] [place] [address]- 2500 Nov, [facility] [place] [facility] [address] [id number] [place] [address]- 5853 October, [facility] [place] [facility] [address] [id number] [place] [address]- 8657 October, [facility] [place] [facility] [address] [id number] [place] [address]- 8690 Sep, [facility] [place] [facility] [address] [id number] [place] [address]- 6752 Sep, [facility] [place] [facility] [address] [id number] [place] [address]- 4158 13 Sep, 2014 [facility] [place] [facility] [address] [id number] [place] [address]- 4022 19 Aug, 2014 [facility] [place] [facility] [address] [id number] [place] 8656 19 Aug, 2014 [facility] [place] [facility] [address] [id number] [place] [address]- 7558 12 Aug, 2014 [facility] [place] [facility] [address] [id number] [place] [address]- 1783 12 Aug, 2014 [facility] [place] [facility] [address] [id number] [place] [address]- 3098 13 Aug, 2014 [facility] [place] [facility] [address] [id number] [place] [address]- 2058 13 Aug, 2014 [facility] [place] [facility] [address] [facility] [id number] [place] [address]- 1469 11 Aug, 2014 [facility] [place] [facility] [address] [facility] [id number] [place] [address]- 8447 11 Aug, 2014 [facility] [place] [facility] [address] [facility] [id number] [place] [address]- 1310 10 Aug, 2014 [facility] [place] [facility] [address] [facility] [id number] [place] [address]- 4573 29 May, 2014 [facility] [place] [facility] [address] [id number] [place] [address]- 2541 29 May, 2014 [facility] [place] [facility] [address] [id number] [place] [address]- 2543 18 May, 2014 [facility] [place] [facility] [address] [id number] [place] 4500 18 May, 2014 [facility] [place] [facility] [address] [facility] [id number] [place] [address]- 2546 15 May, 2014 [facility] [place] [facility] [address] [facility] [id number] [place] 8956 May, [facility] [place] [facility] [address] [id number] [place] [address]- 2434 May, [facility] [place] [facility] [address] [id number] [place] [address]- 8581 May, [facility] [place] [facility] [address] [id number] [place] [address]- 3468 Mar, [facility] [place] [facility] [address] [id number] [place] [address]- 8929 Mar, [facility] [address] [facility] [place] [id number] Mar, [facility] [place] [facility] [address] [id number] [place] [address]- 1419 Mar, [facility] [place] [facility] [address] [id number] [place] [address]- 9477 Mar, [facility] [place] [facility] [address] [id number] [place] [address]- 0695 Mar, [facility] [place] [facility] [address] [id number] [place] [address]- 6399 Mar, [facility] [place] [facility] [address] [id number] [place] [address]- 2990 Mar, [facility] [place] [facility] [address] [id number] [place] [address]- 6157 Mar, [facility] [place] [facility] [address] [id number] [place] [address]- 8610 Mar, [facility] [place] [facility] [address] [id number] [place] [address]- 9002 Mar, [facility] [place] [facility] [address] [id number] [place] [address]- 3286 Mar, [facility] [place] [facility] [address] [id number] [place] [address]- 6859 Mar, [facility] [place] [facility] [address] [id number], [place] [address]- 6863 Jan, [facility] [address] [facility] [id number], [place] [address]- 2849 Jan, [facility] [address] [facility] [id number][place] [address]- 3473 Jan, [facility] [address] [facility] [id number], [place] [address]- 9374 Jan, [facility] [address] [place] [id number] Jan, [facility] [address] [facility] [id number], [place] [address]- 3793 Jan, [facility] [address] [facility] [id number], [place] [address]- 2752 Jan, [facility] [address] [facility] [id number], [place] [address]- 7316 Dec, [facility] [address] [facility] [id number], [place] [address]- 6024 Dec, [facility] [address] [facility] [id number], [place] [address]- 7872 Dec, [facility] [address] [facility] [id number][place] [address]- 6064 Dec, [facility] [address] [facility] [id number][place] [address]- 2052 Dec, [facility] [address] [facility] [id number], [place] [address]- 7211 Dec, [facility] [address] [facility] [id number], [place] [address]- 3963 Nov, [facility] [address] [facility] [id number], [place] [address]- 7996 Nov, IMMUNIZATIONS No Known Immunizations SOCIAL HISTORY [...]
--- OUTSIDE RECORDS SUMMARY | 2018-03-10 15:44 | XMS REPORT ---
Author Author RHONA SCALES [facility] Address Unknown Care Team Providers Care Delicatessen Manager Name Role Phone RHONA SCALES Unavailable PROBLEMS Type Condition ICD9-CM Code SNA97-QI Code Onset Dates Condition Status SNOMED Code Problem Routine health maintenance Z00.00 Active 947166895 Problem Chronic pain G89.29 Active 25871454 Problem Type 2 diabetes mellitus without complications E11.9 Active 774713050 Problem Diverticulitis K57.92 Active 335980404 Problem Anxiety F41.9 Active 14476335 Problem Chronic fatigue R53.82 Active 15636941 Problem Hepatitis C B19.20 Active 45604602 Problem History of solitary pulmonary nodule Z87.898 Active 917484777 Problem Depression F32.9 Active 671015753 Problem Constipation K59.00 Active 64781149 Problem Chronic kidney disease (CKD) stage G3a/A1, moderately decreased glomerular filtration rate (GFR) between 45-59 mL/min/1.73 square meter and albuminuria creatinine ratio less than 30 mg/g N18.3 Active 995373374 Problem 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 39412184 Problem History of alcoholism F10.21 Active 008538132 Problem History of TIA (transient ischemic attack) Z86.73 Active 077308192 Problem Vitamin D deficiency E55.9 Active 82196248 Problem Hyperlipidemia E78.5 Active 20885653 Problem Arthritis M19.90 Active 8089675 Problem Coronary artery disease I25.10 Active 50219915 Problem DJD (degenerative joint disease) M19.90 Active 798553898 Problem Cervical stenosis of spinal canal M48.02 Active 01695066 Problem Hypertension I10 Active 94988523 Problem Abnormal CBC R79.89 Active 016283554 Problem Vascular dementia F01.50 Active 797820889 Problem Morbid obesity with BMI of 45.0-49.9, adult Z68.42 Active 804800997 ALLERGIES Substance Reaction Event Type Date Status Tradjenta Unknown Drug Allergy Mar, Active ENCOUNTERS Encounter Location Date Diagnosis [place] [address] [address] October, [place] [address] [address] Sep, Chronic pain G89.29 and Anxiety F41.9 [place] [address] [address] Aug, Anxiety F41.9 and Chronic pain G89.29 [place] [address] [address]- [address] Aug, Anxiety F41.9 [place] [address] [address]13- 4991 Aug, Chronic pain G89.29 and Anxiety F41.9 [place] [address] [address]- [address] Aug, Chronic kidney disease (CKD) stage G3a/A1, moderately decreased glomerular filtration rate (GFR) between 45-59 mL/min/1.73 square meter and albuminuria creatinine ratio less than 30 mg/g N18.3 [place] [address] [place] [id number] [place] [address]28- 5494 Aug, [facility] [address] [id number] Jul, Dental examination Z01.20 [place] [address] [place] [id number] [place] [address] 75479- 3018 Jul, Chronic pain G89.29 and Anxiety F41.9 [place] [address] [address]- 4[address] Jul, Other specified abnormal findings of blood chemistry R79.89 [place] [address] [address]- 50[address] Jul, Type 2 diabetes mellitus without complications E11.9 ; Chronic kidney disease (CKD) stage G3a/A1, moderately decreased glomerular filtration rate (GFR) between 45-59 mL/min/1.73 square meter and albuminuria creatinine ratio less than 30 mg/g N18.3 ; BMI 45.0-49.9, adult Z68.42 ; Chronic fatigue R53.82 ; Hair loss L65.9 ; Generalized abdominal pain R10.84 and Diverticulitis K57.92 [facility] [address] [address]01- [address] Jul, [facility] [address] [id number] Jul, Dental examination Z01.20 [place] [address] [id number]- 5418 Jul, Anxiety F41.9 [facility] [address] [address]- [address] Jul, Anxiety F41.9 [facility] [address] [id number] Jul, Chronic pain G89.29 [facility] [address] [id number] May, Chronic pain G89.29 [facility] [address] 535021- 4666 May, [facility] [address] [id number] May, Dental examination Z01.20 [facility] [address] 42987- 44[address] May, Anxiety F41.9 [facility] [address] [id number] May, Chronic pain G89.29 [facility] [address] 518870- 0703 Mar, Depression F32.9 [facility] [address] [address]35- 3421 Mar, Anxiety F41.9 [facility] [id number] [place] [address] [id number] 11 Mar, 2017 Chronic pain G89.29 [facility] [address] [address] 19 Mar, 2017 Abnormal CBC R79.89 [facility] [address] [place] [id number] [place] [address] [id number] 18 Mar, 2017 Anxiety F41.9 [place] [address] [place] [address] 57582- 0806 14 Mar, 2017 Hypertension I10 ; Routine health maintenance Z00.00 ; Type 2 diabetes mellitus without complications E11.9 and Hyperlipidemia E78.5 [place] [id number] [place] [id number] 13 Mar, 2017 Chronic pain G89.29 and Anxiety F41.9 [facility] [address] [place] [address] [id number] 13 Mar, 2017 Dental examination Z01.20 [place] [address] [place] [id number] [place] [address] 03758- 2097 06 Mar, 2017 Hypertension I10 ; Routine health maintenance Z00.00 ; Type 2 diabetes mellitus without complications E11.9 and Hyperlipidemia E78.5 [place] [address] [place] [id number] [address]- 7[address] Jan, Type 2 diabetes mellitus without complications E11.9 ; Hypertension I10 ; Vascular dementia F01.50 ; Morbid obesity with BMI of 45.0- 49.9, adult Z68.42 ; Hyperlipidemia E78.5 ; Chronic pain G89.29 ; Anxiety F41.9 ; Depression F32.9 ; Coronary artery disease I25.10 ; 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 and Constipation K59.00 [facility] [address] [place] [id number] [address] 16 Jan, 2017 Chronic pain G89.29 [facility] [address] [place] [address] 07545- 2631 14 Jan, 2017 [facility] [address] [place] [id number] [place] [address] 38912- 9358 Dec, [facility] [address] [place] [id number] [place] [address] 82803- 4996 Dec, Chronic pain G89.29 [facility] [address] 93048- 0765 Nov, Chronic pain G89.29 [place] [address] [place] [id number] [place] [address] 30952- 0450 October, Chronic pain G89.29 [place] [address] [place] [id number] [place] [address] 28164- 9813 Sep, Chronic pain G89.29 [place] [address] [place] [id number] [place] [address] 97587- 9216 Sep, Type 2 diabetes mellitus without complications E11.9 ; Chronic pain G89.29 ; Hypertension I10 ; Coronary artery disease I25.10 ; Morbid obesity with BMI of 45.0-49.9, adult Z68.42 ; Hyperlipidemia E78.5 ; 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 and Depression F32.9 [place] [address] [place] [id number] [place] [address] 53910- 3730 Aug, Chronic pain G89.29 [place] [address] [place] [id number] [place] [address] 05648- 2620 Aug, Chronic pain G89.29 and Constipation K59.00 [place] [address] [place] [id number] [place] [address] 48741- 4366 Aug, Abnormal lung sounds R09.89 [place] [address] [place] [id number] [place] [address] 08465- 9921 10 Aug, 2016 Depression F32.9 [place] [address] 67473- 0961 Jul, Chronic pain G89.29 [facility] [address] [place] [address] 72796- 7133 May, Chronic pain G89.29 [facility] [address] [place] [id number] [place] [address] 58389- 0366 May, Medicare annual wellness visit, subsequent Z00.00 [facility] [address] [place] [id number] [place] [address] 85813- 3017 May, [facility] [address] [place] [id number] [place] [address] 41344- 5739 May, Type 2 diabetes mellitus without complications [...] due to renal impairment without tophus M1A.3710 [facility] [address] [place] [address] 42614- 3621 May, [facility] [address] [place] [id number] [place] [address] 39703- 1470 Mar, [facility] [address] [place] [id number] [place] [address] 95758- 1543 Mar, [facility] [address] [place] [id number] [place] [address] 75082- 7884 Mar, [facility] [address] [place] [id number] [place] [address] 56569- 4223 Mar, [facility] [address] [place] [address] 31138- 5279 Mar, [facility] [address] [place] [id number] [place] [address] 55151- 6585 Jan, [facility] [address] [address]- 0722 Jan, [facility] [address] [address]- 7886 Dec, Type 2 diabetes mellitus without complications E11.9 ; Hypertension I10 ; Coronary artery disease I25.10 and Renal insufficiency N28.9 [facility] [address] [address]- 8185 Dec, [facility] [address] [address]- 8233 Dec, [facility] [address] [address]- 4144 Nov, [facility] [address] [address]- 4761 Nov, [facility] [address] [address]- 5249 Nov, [facility] [address] [address]- 0301 Nov, [facility] [address] [address]- 1866 Nov, [facility] [address] [address]- 1255 October, [facility] [address] [address]- 5080 October, [facility] [address] [address]- 6364 October, [facility] [address] [address]- 2467 Sep, Type 2 diabetes mellitus without complications E11.9 and Constipation K59.00 [facility] [address] [address]- 9070 Sep, [facility] [address] [address]- 5679 Sep, Diabetes E11.9 [facility] [address] [place] [id number] [place] [address] 30966- 0250 Sep, [facility] [address] [place] [id number] [place] [address] 80463- 3740 Sep, Routine health maintenance Z00.00 ; Hypertension I10 ; Type 2 diabetes mellitus without complications E11.9 ; Morbid obesity with BMI of 45.0-49.9, adult Z68.42 ; Chronic pain G89.29 ; H/O carotid endarterectomy Z98.89 ; Vascular dementia F01.50 ; Arthritis M19.90 ; Coronary artery disease I25.10 ; Abnormal lung sounds R09.89 and Diabetes E11.9 [place] [address] [place] [id number] [place] [address] 90741- 4783 Aug, Anxiety F41.9 [place] [address] [place] [id number] [place] [address] 32363- 0554 Aug, Arthritis M19.90 [place] [address] [place] [id number] [place] [address] 29256- 9491 Jul, Arthritis M19.90 [facility] [address] [place] [id number] [place] [address] 26895- 0909 Jul, [place] [address] [place] [id number] [place] [address] 06973- 6507 May, [facility] [address] [place] [id number] [place] [address] 10857- 9687 May, Arthritis M19.90 ; Hypertension I10 ; Depression F32.9 ; Vascular dementia F01.50 and Coronary artery disease I25.10 [facility] [address] [place] [address] 15060- 6230 May, [facility] [address] [place] [id number] [place] [address] 27060- 6062 May, [facility] [address] [id number] [place] [address]- 5286 Mar, [facility] [address] [facility] [id number] [place] [address]- 2546 Mar, [facility] [address] [facility] [id number] [place] [address]- 2546 Mar, [facility] [address] [place] [id number] [place] [address], [place] [address]- 2546 Mar, [facility] [address] [place] [id number] [address]- 1426 Mar, Essential hypertension, benign 401.1 ; Unspecified arthropathy, site unspecified 716.90 and Other and unspecified hyperlipidemia 272.4 [facility] [address] [place] [address]- 2666 Mar, [facility] [address] [address]- 1076 Jan, [facility] [address] [place] [address]- 9233 Dec, [facility] [address] [place] [address]- 5946 Dec, [facility] [address] [place] [address]- 5391 Dec, [facility] [address] [place] [id number] [address]- 7436 Dec, [facility] [address] [place] [id number] [place] [address]- 2546 Dec, [facility] [address] [place] [id number] [place] [address]- 2546 Dec, [facility] [address] [facility] [id number] [place] [address]- 2546 Dec, [facility] [address] [address]- 8251 Dec, [facility] [place] [facility] [address] [id number] [place] [address]- 1033 Nov, [facility] [place] [facility] [address] [id number] [place] [address]- 6654 Nov, [facility] [place] [facility] [address] [id number] [place] [address]- 7888 Nov, [facility] [place] [facility] [address] [id number] [place] [address]- 8292 October, [facility] [place] [facility] [address] [id number] [place] [address]- 1067 October, [facility] [place] [facility] [address] [id number] [place] [address]- 7216 Sep, [facility] [place] [facility] [address] [id number] [place] [address]- 2342 Sep, [facility] [place] [facility] [address] [id number] [place] [address]- 7728 Sep, [facility] [place] [facility] [address] [id number] [place] [address]- 8342 Aug, [facility] [place] [facility] [address] [id number] [place] [address]- 0249 Aug, [facility] [place] [facility] [address] [id number] [place] [address]- 8693 Aug, [facility] [place] [facility] [address] [id number] [place] [address]- 4543 Aug, [facility] [place] [facility] [address] [id number] [place] [address]- 3482 Aug, [facility] [place] [facility] [address] [id number] [place] [address]- 7346 Aug, [facility] [place] [facility] [address] [id number] [place] [address]- 2639 Aug, [facility] [place] [facility] [address] [id number] [place] [address]- 1643 11 Aug, 2014 [facility] [address] [id number] [place] [address]- 6572 Aug, [facility] [address] [id number] [place] [address]- 2593 May, [facility] [address] [id number] [place] [address]- 7702 May, [facility] [address] [id number] [place] [address]- 7869 May, [facility] [address] [id number] [place] [address]- 2671 May, [facility] [address] [id number] [place] [address]- 6517 May, [facility] [address] [id number] [place] [address]- 0648 May, [facility] [address] [id number] [place] [address]- 3019 May, [facility] [address] [id number] [place] [address]- 0566 May, [facility] [address] [id number] [place] [address]- 6885 Mar, [facility] [address] [id number] [place] [address]- 3242 Mar, [facility] [address] [place] [id number] Mar, [facility] [address] [id number] [place] [address]- 2663 Mar, [facility] [place] [facility] [address] [id number] [place] [address]- 7893 Mar, [facility] [address] [id number] [place] [address]- 9974 Mar, [facility] [place] [facility] [address] [id number] [place] [address]- 1406 Mar, [facility] [place] [facility] [address] [id number] [place] [address]- 9504 Mar, [facility] [place] [facility] [address] [id number] [place] [address]- 8569 Mar, [facility] [place] [facility] [address] [id number] [place] [address]- 8572 Mar, [facility] [place] [facility] [address] [id number] [place] [address]- 2070 Mar, [facility] [place] [facility] [address] [id number] [place] [address]- 6720 Mar, [facility] [place] [facility] [address] [id number] [place] [address]- 0122 Mar, [facility] [place] [facility] [address] [id number] [place] [address]- 2518 Jan, [facility] [place] [facility] [address] [id number] [place] [address]- 6628 Jan, [facility] [place] [facility] [address] [id number] [place] [address]- 4743 Jan, [facility] [place] [facility] [address] [id number] [place] [address]- 6622 Jan, [facility] [address] [place] [id number] Jan, [facility] [place] [facility] [address] [id number] [place] [address]- 6614 Jan, [facility] [place] [facility] [address] [id number] [place] [address]- 8922 Jan, [facility] [place] [facility] [address] [id number] [place] [address]- 6506 Dec, [facility] [place] [facility] [address] [id number] [place] [address]- 3251 Dec, [facility] [address] [facility] [id number] [address]- 0269 Dec, [facility] [address] [place] [id number] [address]- 4991 Dec, [facility] [address] [place] [address] [id number] [address]- 0613 Dec, [facility] [address] [address]- 9170 Dec, [facility] [address] [facility] [id number] [place] [address]- 6888 Nov, [facility] [address] [address]- 5215 Nov, IMMUNIZATIONS No Known Immunizations SOCIAL HISTORY Never Assessed REASON FOR VISIT mariah PLAN OF CARE Activity Details Follow Up prn Reason:post/crown #10 VITAL SIGNS Blood pressure systolic 146 mmHg 2017-03-13 Blood pressure diastolic 77 mmHg 2017-03-13 MEDICATIONS Medication Instructions Dosage Frequency Start Date End Date Duration Status Geodon 20 TAKE ONE CAPSULE BY MOUTH TWICE A DAY WITH FOOD Active Furosemide 40 TAKE ONE TABLET BY MOUTH DAILY 30 Active Furosemide 40 MG Orally Once a day 1 tablet 24h Active Exelon 6 TAKE ONE CAPSULE BY MOUTH TWICE A DAY Active Aspirin 81 MG Orally Once a day 1 tablet 24h Active ProAir HFA 108 (90 Base) MCG/ACT Inhalation every 4 hrs 2 puffs as needed 4h Sep, 30 days Active Losartan Potassium 100 MG Orally Once a day 1 tablet 24h Mar, Active Zyloprim 300 mg take 1 tablet (300 mg) by oral route once daily Mar Active Celexa 10 mg Orally Once a day 1 tablets 24h Active MiraLax 17 Orally Once a day as needed MIX 17GMS (1 CAPFUL) IN 8OZ WATER AND DRINK DAILY Active Hydrocodone-Acetaminophen 5-325 MG Orally 3 times a day-,Assisted living facility 1 tablet Jan, Active Protonix 40 TAKE ONE TABLET BY MOUTH DAILY 30 Active Pravastatin Sodium 40 MG Orally Once a day 1 tablet 24h Active Ativan 0.5 Orally, each fill must last 28 days Once a day 1 tablet 24h Active FreeStyle Lite Test 1 subcutaneously Once a day as directed 24h Sep, 90 days Active Metoprolol Tartrate 50 mg Orally Once a day 1 tablet with food 24h Active Allopurinol 300 TAKE ONE TABLET BY MOUTH DAILY 30 Active RESULTS No Results PROCEDURES Procedure Date Ordered Result Body Site LTD ORAL EVALUATION - PROBLEM FOCUS Mar 13, 2017 INTRAORL-PERIAPICAL 1 FILM 55614 Mar 13, 2017 INSTRUCTIONS MEDICATIONS ADMINISTERED No Known Medications [...]
--- OUTSIDE RECORDS SUMMARY | 2018-03-10 15:44 | XMS REPORT ---
Author Author ELIEL SMITH Organization [facility] Address [address] [place] [address] Care Team Providers Care Motorcycle Service Technician Name Role Phone ELIEL SMITH Unavailable PROBLEMS Type Condition ICD9-CM Code WSY77-QL Code Onset Dates Condition Status SNOMED Code Problem Routine health maintenance Z00.00 Active 774781268 Problem Chronic pain G89.29 Active 21609787 Problem Type 2 diabetes mellitus without complications E11.9 Active 171002657 Problem Diverticulitis K57.92 Active 433231530 Problem Anxiety F41.9 Active 74510883 Problem Chronic fatigue R53.82 Active 92090099 Problem Hepatitis C B19.20 Active 58516983 Problem History of solitary pulmonary nodule Z87.898 Active 709057706 Problem Depression F32.9 Active 076307238 Problem Constipation K59.00 Active 69244691 Problem Chronic kidney disease (CKD) stage G3a/A1, moderately decreased glomerular filtration rate (GFR) between 45-59 mL/min/1.73 square meter and albuminuria creatinine ratio less than 30 mg/g N18.3 Active 827623923 Problem 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 33576570 Problem History of alcoholism F10.21 Active 494369578 Problem History of TIA (transient ischemic attack) Z86.73 Active 444497984 Problem Vitamin D deficiency E55.9 Active 83973285 Problem Hyperlipidemia E78.5 Active 99066423 Problem Arthritis M19.90 Active 2208015 Problem Coronary artery disease I25.10 Active 28957183 Problem DJD (degenerative joint disease) M19.90 Active 481918435 Problem Cervical stenosis of spinal canal M48.02 Active 27980870 Problem Hypertension I10 Active 26653848 Problem Abnormal CBC R79.89 Active 485854132 Problem Vascular dementia F01.50 Active 287649688 Problem Morbid obesity with BMI of 45.0-49.9, adult Z68.42 Active 091223594 ALLERGIES Substance Reaction Event Type Date Status Tradjenta Unknown Drug Allergy Jan, Active ENCOUNTERS Encounter Location Date Diagnosis [facility] [address] [address] October, [facility] [address] [address] Aug, Anxiety F41.9 and Chronic pain G89.29 [facility] [address] [address] Aug, Anxiety F41.9 [place] [address] [address] Aug, Chronic pain G89.29 and Anxiety F41.9 [place] [address] [address] Aug, Chronic kidney disease (CKD) stage G3a/A1, moderately decreased glomerular filtration rate (GFR) between 45-59 mL/min/1.73 square meter and albuminuria creatinine ratio less than 30 mg/g N18.3 [place] [address] [address] Aug, [facility] [address] [id number] Jul, Dental examination Z01.20 [place] [address] [address] Jul, Chronic pain G89.29 and Anxiety F41.9 [facility] [id number] [place] [address]368- 0832 Jul, Other specified abnormal findings of blood chemistry R79.89 [place] [address] [address] Jul, Type 2 diabetes mellitus without complications E11.9 ; Chronic kidney disease (CKD) stage G3a/A1, moderately decreased glomerular filtration rate (GFR) between 45-59 mL/min/1.73 square meter and albuminuria creatinine ratio less than 30 mg/g N18.3 ; BMI 45.0-49.9, adult Z68.42 ; Chronic fatigue R53.82 ; Hair loss L65.9 ; Generalized abdominal pain R10.84 and Diverticulitis K57.92 [facility] [id number] [place] [address] 92352- 9846 Jul, [facility] [id number] [place] [address] [id number] Jul, Dental examination Z01.20 [facility] [address] 2473[address]- [address] Jul, Anxiety F41.9 [facility] [address] [address]- [address] Jul, Anxiety F41.9 [facility] [id number] [place] [address] [id number] Jul, Chronic pain G89.29 [facility] [address] [id number] May, Chronic pain G89.29 [facility] [id number] [place] [address] 57712030- 2056 May, [facility] [id number] [place] [address] [id number] May, Dental examination Z01.20 [facility] [id number] [place] [address] 88968- 6586 May, Anxiety F41.9 [facility] [id number] [place] [address] [id number] May, Chronic pain G89.29 [facility] [id number] [place] [address] 19619- 1534 Mar, Depression F32.9 [facility] [id number] [place] [address] 719645- 5108 Mar, Anxiety F41.9 [facility] [address] [id number] Mar, Chronic pain G89.29 [facility] [id number] [place] [address] 29954- 3702 19 Mar, 2017 Abnormal CBC R79.89 [facility] [id number] [place] [address] [id number] 18 Mar, 2017 Anxiety F41.9 [facility] [id number] [place] [address] 72943- 5267 14 Mar, 2017 Hypertension I10 ; Routine health maintenance Z00.00 ; Type 2 diabetes mellitus without complications E11.9 and Hyperlipidemia E78.5 [place] [id number] [place] [address] [id number] 13 Mar, 2017 Chronic pain G89.29 and Anxiety F41.9 [facility] [address] [place] [address] [id number] 13 Mar, 2017 Dental examination Z01.20 [place] [address] [place] [address] 55760- 3288 06 Mar, 2017 Hypertension I10 ; Routine health maintenance Z00.00 ; Type 2 diabetes mellitus without complications E11.9 and Hyperlipidemia E78.5 [place] [id number] [place] [address] 83341- 0005 22 Jan, 2017 Type 2 diabetes mellitus without complications E11.9 ; Hypertension I10 ; Vascular dementia F01.50 ; Morbid obesity with BMI of 45.0- 49.9, adult Z68.42 ; Hyperlipidemia E78.5 ; Chronic pain G89.29 ; Anxiety F41.9 ; Depression F32.9 ; Coronary artery disease I25.10 ; 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 and Constipation K59.00 [facility] [address] [place] [address] 74168- 6508 16 Jan, 2017 Chronic pain G89.29 [facility] [id number] [place] [address] 48687- 6073 Jan, [facility] [id number] [place] [address] 93652- 7803 Dec, [facility] [id number] [place] [address] 72046- 2832 Dec, Chronic pain G89.29 [place] [id number] [place] [address] 96433- 6155 Nov, Chronic pain G89.29 [place] [address] [address]- [address] October, Chronic pain G89.29 [place] [id number] [place] [address] 29838- 4480 Sep, Chronic pain G89.29 [place] [id number] [place] [address] 17013- 0761 Sep, Type 2 diabetes mellitus without complications E11.9 ; Chronic pain G89.29 ; Hypertension I10 ; Coronary artery disease I25.10 ; Morbid obesity with BMI of 45.0-49.9, adult Z68.42 ; Hyperlipidemia E78.5 ; 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 and Depression F32.9 [place] [id number] [place] [address] 94553- 3515 Aug, Chronic pain G89.29 [place] [id number] [place] [address] 01416- 8783 Aug, Chronic pain G89.29 and Constipation K59.00 [place] [id number] [place] [address] 04086- 2118 Aug, Abnormal lung sounds R09.89 [place] [id number] [place] [address] 09736- 0265 Aug, Depression F32.9 [place] [id number] [place] [address] 92635- 0532 Jul, Chronic pain G89.29 [place] [address] [place] [address]- 12[address] May, Chronic pain G89.29 [facility] [id number] [place] [address] 56324- 2551 May, Medicare annual wellness visit, subsequent Z00.00 [facility] [id number] [place] [address] 33383- 6307 May, [facility] [id number] [place] [address] 52944- 7953 May, Type 2 diabetes mellitus without complications [...] due to renal impairment without tophus M1A.3710 [facility] [id number] [place] [address] 87124- 6542 May, [facility] [id number] [place] [address] 81223- 3820 Mar, [facility] [id number] [address]- [address] Mar, [facility] [id number] [place] [address] 11173- 2703 Mar, [facility] [id number] [place] [address] 09896- 9093 Mar, [facility] [id number] [place] [address] 94831- 7306 Mar, [facility] [id number] [place] [address] 79598- 0485 Jan, [facility] [id number] [place] [address] 22234- 9886 Jan, [facility] [address] [place] [address]- [address] Dec, Type 2 diabetes mellitus without complications E11.9 ; Hypertension I10 ; Coronary artery disease I25.10 and Renal insufficiency N28.9 [facility] [address] [facility] [id number] [place] [address]- 1636 Dec, [facility] [address] [facility] [id number], [place] [address]- 8182 Dec, [facility] [address] [facility] [id number] [place] [address]- 7190 Nov, [facility] [address] [place] [address]- 3999 Nov, [facility] [address] [place] [address]- 2233 Nov, [facility] [address] [place] [address]- 4025 Nov, [facility] [address] [place] [address]- 9044 Nov, [facility] [id number] [place] [address]- 2837 October, [facility] [id number] [address]- 0724 October, [facility] [id number], [place] [address]- 3148 October, [facility] [id number] [address]- 7128 Sep, Type 2 diabetes mellitus without complications E11.9 and Constipation K59.00 [facility] [id number] [place] [address]- 0756 Sep, [facility] [id number] [address]- 3656 Sep, Diabetes E11.9 [facility] [address] [address]- 978[address] Sep, [facility] [address] 47[address]- 3661 Sep, Routine health maintenance Z00.00 ; Hypertension I10 ; Type 2 diabetes mellitus without complications E11.9 ; Morbid obesity with BMI of 45.0-49.9, adult Z68.42 ; Chronic pain G89.29 ; H/O carotid endarterectomy Z98.89 ; Vascular dementia F01.50 ; Arthritis M19.90 ; Coronary artery disease I25.10 ; Abnormal lung sounds R09.89 and Diabetes E11.9 [facility] [address] [address]- 1831 Aug, Anxiety F41.9 [facility] [address] 25678- 9809 Aug, Arthritis M19.90 [facility] [address] 33062- 1006 Jul, Arthritis M19.90 [facility] [address] 49432- 5091 Jul, [facility] [address] 96284- 5198 May, [facility] [address] 72221- 6719 May, Arthritis M19.90 ; Hypertension I10 ; Depression F32.9 ; Vascular dementia F01.50 and Coronary artery disease I25.10 [facility] [address] 04221- 4594 May, [facility] [address] 83902- 1227 May, [facility] [address] 99815- 9790 Mar, [facility] [address] [id number] [place] [address]- 7684 Mar, [facility] [address] [place] [address]- 9676 Mar, [facility] [address] [facility] [id number] [place] [address]- 2177 Mar, [facility] [id number] [place] [address] 68398- 8612 Mar, Essential hypertension, benign 401.1 ; Unspecified arthropathy, site unspecified 716.90 and Other and unspecified hyperlipidemia 272.4 [facility] [address] [place] [address]- 6744 Mar, [facility] [address], [place] [address]- 3097 Jan, [facility] [address], [place] [address]- 2897 Dec, [facility] [id number] [place] [address]- 0050 Dec, [facility] [address], [place] [address]- 6243 Dec, [facility] [address], [place] [address]- 8474 Dec, [facility] [address] [id number], [place] [address]- 4153 Dec, [facility] [address] [facility] [id number] [place] [address]- 7938 Dec, [facility] [address] [facility] [id number] [place] [address]- 7451 Dec, [facility] [address] [facility] [id number], [place] [address]- 2546 Dec, [facility] [address], [place] [address]- 8946 Nov, [facility] [place] [facility] [address] [id number] [place] [address]- 0694 Nov, [facility] [place] [facility] [address] [id number] [place] [address]- 3590 Nov, [facility] [place] [facility] [address] [facility] [id number] [place] [address]- 1499 October, [facility] [place] [facility] [address] [id number] [place] [address]- 7735 October, [facility] [place] [facility] [address] [id number] [place] [address]- 1282 Sep, [facility] [place] [facility] [address] [facility] [id number] [place] [address]- 9273 Sep, [facility] [place] [facility] [address] [facility] [id number] [place] [address]- 4704 Sep, [facility] [place] [facility] [address] [id number] [place] [address]- 4856 Aug, [facility] [place] [facility] [address] [id number] [place] [address]- 1592 Aug, [facility] [place] [facility] [address] [facility] [id number] [place] [address]- 7753 Aug, [facility] [place] [facility] [address] [facility] [id number] [place] [address]- 4477 Aug, [facility] [place] [facility] [address] [id number] [place] [address]- 2350 Aug, [facility] [place] [facility] [address] [id number] [place] [address]- 1050 Aug, [facility] [place] [facility] [address] [id number] [place] 1773 Aug, [facility] [place] [facility] [address] [facility] [id number] [place] [address]- 4736 Aug, [facility] [place] [facility] [address] [id number] [place] [address]- 7820 Aug, [facility] [address] [id number] [place] [address]- 2136 May, [facility] [place] [facility] [address] [id number] [place] [address]- 9521 May, [facility] [place] [facility] [address] [id number] [place] [address]- 5680 May, [facility] [place] [facility] [address] [id number] [place] [address]- 8677 May, [facility] [place] [facility] [address] [id number] [place] [address]- 8838 May, [facility] [place] [facility] [address] [id number] [place] [address]- 5680 May, [facility] [place] [facility] [address] [id number] [place] [address]- 8795 May, [facility] [address] [id number] [place] [address]- 6937 May, [facility] [address] [id number] [place] [address]- 3451 Mar, [facility] [address] [id number] [place] [address]- 0418 Mar, [place] [address] [place] [id number] Mar, [facility] [place] [facility] [address] [id number] [place] [address]- 8328 Mar, [facility] [place] [facility] [address] [id number] [place] [address]- 5956 Mar, [facility] [place] [facility] [address] [id number] [place] [address]- 9372 Mar, [facility] [place] [facility] [address] [id number] [place] [address]- 1474 Mar, [facility] [place] [facility] [address] [id number] [place] [address]- 4214 Mar, [facility] [place] [facility] [address] [id number] [place] [address]- 9614 Mar, [facility] [place] [facility] [address] [id number] [place] [address]- 4801 Mar, [facility] [place] [facility] [address] [id number] [place] [address]- 5959 Mar, [facility] [place] [facility] [address] [id number] [place] [address]- 2497 Mar, [facility] [place] [facility] [address] [id number] [place] [address]- 8518 Mar, [facility] [place] [facility] [address] [id number] [place] [address]- 9295 Jan, [facility] [place] [facility] [address] [id number] [place] [address]- 2800 Jan, [facility] [place] [facility] [address] [id number] [place] [address]- 8181 Jan, [facility] [place] [facility] [address] [id number] [place] [address]- 3358 Jan, [facility] [address] [id number] Jan, [facility] [place] [facility] [address] [id number] [place] [address]- 1169 Jan, [facility] [place] [facility] [address] [id number] [place] [address]- 9867 Jan, [facility] [place] [facility] [address] [id number] [place] [address]- 0475 Dec, [facility] [place] [facility] [address] [id number] [place] [address]- 5459 Dec, [facility] [place] [facility] [address] [id number] [place] [address]- 8677 Dec, [facility] [address] [facility] [id number], [place] [address]- 3162 Dec, [facility] [address] [facility] [id number], [place] [address]- 3990 Dec, [facility] [address] [facility] [id number], [place] [address]- 4457 Dec, [facility] [address] [facility] [id number], [place] [address]- 9929 Nov, [facility] [address] [facility] [id number], [place] [address]- 4003 Nov, IMMUNIZATIONS No Known Immunizations SOCIAL HISTORY Never Assessed REASON FOR VISIT Pain management (chronic)---AdriannattQUANG PLAN OF CARE Activity Details Follow Up 3 Months Reason:CHM/DM/pain VITAL SIGNS Height 64 in 2017-02-19 Weight 280 lbs 2017-02-19 Temperature 98.6 degrees Fahrenheit 2017-02-19 Heart Rate 70 bpm 2017-02-19 Respiratory Rate 20 2017-02-19 BMI 48.06 kg/m2 2017-02-19 Blood pressure systolic 128 mmHg 2017-02-19 Blood pressure diastolic 70 mmHg 2017-02-19 MEDICATIONS Medication Instructions Dosage Frequency Start Date End Date Duration Status Metoprolol Tartrate 50 mg Orally Once a day 1 tablet with food 24h Active Geodon 20 TAKE ONE CAPSULE BY MOUTH TWICE A DAY WITH FOOD Active FreeStyle Lite Test 1 subcutaneously Once a day as directed 24h Sep, 90 days Active Losartan Potassium 100 MG Orally Once a day 1 tablet 24h Mar, Active Ativan 0.5 Orally, each fill must last 28 days Once a day 1 tablet 24h Active Aspirin 81 MG Orally Once a day 1 tablet 24h Active MiraLax 17 Orally Once a day as needed MIX 17GMS (1 CAPFUL) IN 8OZ WATER AND DRINK DAILY Active Protonix 40 TAKE ONE TABLET BY MOUTH DAILY 30 Active Pravastatin Sodium 40 MG Orally Once a day 1 tablet 24h Active Exelon 6 TAKE ONE CAPSULE BY MOUTH TWICE A DAY Active Furosemide 40 MG Orally Once a day 1 tablet 24h Active Hydrocodone-Acetaminophen 5-325 MG Orally 3 times a day-,Assisted living facility 1 tablet Jan, Active ProAir HFA 108 (90 Base) MCG/ACT Inhalation every 4 hrs 2 puffs as needed 4h Sep, 30 days Active Zyloprim 300 mg take 1 tablet (300 mg) by oral route once daily Mar Active Celexa 10 mg Orally Once a day 1 tablets 24h Active RESULTS Name Result Date Reference Range A1C (IN HOUSE) 2017-02-19 A1C IN HOUSE 7.4 4.3 - 5.6 % Previous A1c 7.3 Lot 0732 Exp date 11/16 PROCEDURES Procedure Date Ordered Result Body Site GLYCATED HEMOGLOBIN TEST Feb 19, 2017 [facility] VISIT ESTABLISHED PATIENT Feb 19, 2017 INSTRUCTIONS MEDICATIONS ADMINISTERED No Known Medications [...]
--- OUTSIDE RECORDS SUMMARY | 2018-03-10 15:45 | XMS REPORT ---
Author Author PETE FALCON Organization [employer] Address Unknown Phone Unavailable Care Team Providers Care Apple Thinner Name Role Phone PETE FALCON CP Unavailable Allergies No Known Allergies Problems Problem Type Condition Code Onset Dates Condition Status Problem Hypertension I10 Active Problem Depression F32.9 Active Problem Arthritis M19.90 Active Problem Coronary artery disease I25.10 Active Problem Dementia F03.90 Active Problem Vascular dementia F01.50 Active Medications No Known Medications Results No Known Results Summary Purpose [employer] Submission
--- OUTSIDE RECORDS SUMMARY | 2018-03-10 15:45 | XMS REPORT ---
Author Author PETE FALCON [facility] [employer] Address Unknown Phone Unavailable Care Team Providers Care [employer] Hemmer Name Role Phone PETE FALCON CP Unavailable [...] Date End Date Status Dosage Hydrocodone-Acetaminophen [facility] [place] 2] [address]-37 5-325 MG Orally 3 times a day-, Assisted living facility Mar 23, 2014 1 tablet as needed Ativan [facility] [place] 2] [id number] 0.5 Orally Once a day 1 tablet Results No Known Results Summary Purpose [employer] Submission
--- OUTSIDE RECORDS SUMMARY | 2018-03-10 15:45 | XMS REPORT ---
Author Author ELIEL SMITH Organization [employer] Address Unknown Phone Unavailable Care Team Providers Care Network Consultant Name Role Phone ELIEL SMITH CP Unavailable Allergies No Known Allergies Problems Problem Type Condition Code Onset Dates Condition Status Problem Hepatitis C B19.20 Active Problem Vascular dementia F01.50 Active Problem Coronary artery disease I25.10 Active Problem Type 2 diabetes mellitus without complications E11.9 Active Problem Morbid obesity with BMI of 45.0-49.9, adult Z68.42 Active Problem Routine health maintenance Z00.00 Active Problem Arthritis M19.90 Active Problem Hypertension I10 Active Problem Chronic pain G89.29 Active Problem H/O carotid endarterectomy Z98.89 Active Problem History of alcoholism F10.21 Active Problem Hyperlipidemia E78.5 Active Problem H/O fibromyalgia Z87.39 Active Problem Anxiety F41.9 Active Problem Chronic renal disease, stage 3, moderately decreased glomerular filtration rate (GFR) between 30-59 mL/min/1.73 square meter N18.3 Active Problem DJD (degenerative joint disease) M19.90 Active Problem Cervical stenosis of spinal canal M48.02 Active Problem History of TIA (transient ischemic attack) Z86.73 Active Problem H/O thyroid nodule Z86.39 Active Problem History of solitary pulmonary nodule Z87.898 Active Medications No Known Medications Results No Known Results Summary Purpose [employer] Submission
--- OUTSIDE RECORDS SUMMARY | 2018-03-10 15:45 | XMS REPORT ---
Author Author PETE FALCON [facility] [employer] Address Unknown Phone Unavailable Care Team Providers Care Livestock Nutritionist Name Role Phone PETE FALCON CP Unavailable Allergies No Known Allergies Problems Problem Type Condition Code Onset Dates Condition Status Assessment Vascular dementia F01.50 Active Assessment Hypertension I10 Active Assessment Depression F32.9 Active Assessment Coronary artery disease I25.10 Active Problem Hypertension I10 Active Problem Depression F32.9 Active Problem Arthritis M19.90 Active Problem Coronary artery disease I25.10 Active Assessment Arthritis M19.90 Active Problem Dementia F03.90 Active Problem Vascular dementia F01.50 Active Medications No Known Medications Procedures Procedure Coding System Code Date DOMICIL/R-HOME VISIT EST PAT CPT-4 15902 Jun 16, 2015 [facility] VISIT ESTABLISHED PATIENT CPT-4 G0467 Jun 16, 2015 Results No Known Results Summary Purpose [employer] Submission
--- OUTSIDE RECORDS SUMMARY | 2018-03-10 15:45 | XMS REPORT ---
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 82160250 Problem Chronic pain G89.29 Active 00024085 Problem Type 2 diabetes mellitus without complications E11.9 Active 163700281 Problem Constipation K59.00 Active 97841157 Problem Routine health maintenance Z00.00 Active 335855043 Problem Hepatitis C B19.20 Active 17834252 Problem Anxiety F41.9 Active 72578189 Problem Cervical stenosis of spinal canal M48.02 Active 69481317 Problem History of alcoholism F10.21 Active 185931671 Problem History of solitary pulmonary nodule Z87.898 Active 797784695 Problem Hyperlipidemia E78.5 Active 14276586 Problem DJD (degenerative joint disease) M19.90 Active 482247778 Problem Vascular dementia F01.50 Active 318589725 Problem Abnormal CBC R79.89 Active 981928266 Problem Arthritis M19.90 Active 2467573 ALLERGIES No Information SOCIAL HISTORY Never Assessed PLAN OF CARE VITAL SIGNS MEDICATIONS Medication Instructions Dosage Frequency Start Date End Date Duration Status Ativan 0.5 Orally, each fill must last 28 days Once a day 1 tablet 24h 28 days Active Hydrocodone-Acetaminophen 5-325 MG Orally 3 times a day-,Assisted living facility 1 tablet Mar, Active MiraLax 17 Orally Once a day as needed MIX 17GMS (1 CAPFUL) IN 8OZ WATER AND DRINK DAILY Active RESULTS No Results PROCEDURES No Known procedures IMMUNIZATIONS No Known Immunizations MEDICAL (GENERAL) HISTORY Type Description Date Medical [...]
--- OUTSIDE RECORDS SUMMARY | 2018-03-10 15:45 | XMS REPORT ---
Author Author ELIEL SMITH Organization [facility] Address [address] [place] [address] Care Team Providers Care Paint Laboratory Technician Name Role Phone ELIEL SMITH Unavailable PROBLEMS Type Condition ICD9-CM Code [id number] Code Onset Dates Condition Status SNOMED Code Problem Hypertension I10 Active 85971419 Problem Chronic pain G89.29 Active 43766334 Problem Arthritis M19.90 Active 9469280 Problem Constipation K59.00 Active 74594157 Problem Depression F32.9 Active 974871213 Problem Type 2 diabetes mellitus without complications E11.9 Active 486548702 Problem Morbid obesity with BMI of 45.0-49.9, adult Z68.42 Active 872193646 Problem 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 73302217 Problem Routine health maintenance Z00.00 Active 184916773 Problem Hyperlipidemia E78.5 Active 65580391 Problem Cervical stenosis of spinal canal M48.02 Active 54695483 Problem Anxiety F41.9 Active 61708729 Problem History of alcoholism F10.21 Active 362973559 Problem History of solitary pulmonary nodule Z87.898 Active 822413386 Problem Hepatitis C B19.20 Active 93593727 Problem DJD (degenerative joint disease) M19.90 Active 655764706 Problem Coronary artery disease I25.10 Active 91953812 Problem History of TIA (transient ischemic attack) Z86.73 Active 177201445 Problem Vascular dementia F01.50 Active 701461584 ALLERGIES Unknown Allergies SOCIAL HISTORY No smoking Hx information available PLAN OF CARE VITAL SIGNS MEDICATIONS Medication Instructions Dosage Frequency Start Date End Date Duration Status Hydrocodone-Acetaminophen 5-325 MG Orally 3 times a day-,Assisted living facility 1 tablet Mar, 28 Active RESULTS No Results PROCEDURES No Known procedures IMMUNIZATIONS No Known Immunizations
--- OUTSIDE RECORDS SUMMARY | 2018-03-10 15:45 | XMS REPORT ---
Author Author ELIEL SMITH Organization [facility] Address [address] [place] [address] Care Team Providers Care Pediatric Dentist Name Role Phone ELIEL SMITH Unavailable PROBLEMS Type Condition ICD9-CM Code VTJ28-UD Code Onset Dates Condition Status SNOMED Code Problem Routine health maintenance Z00.00 Active 941434048 Problem Chronic pain G89.29 Active 21213440 Problem Type 2 diabetes mellitus without complications E11.9 Active 447736167 Problem Diverticulitis K57.92 Active 662746228 Problem Anxiety F41.9 Active 62423125 Problem Chronic fatigue R53.82 Active 56299245 Problem Hepatitis C B19.20 Active 26601710 Problem History of solitary pulmonary nodule Z87.898 Active 990279972 Problem Depression F32.9 Active 044617849 Problem Constipation K59.00 Active 36018858 Problem Chronic kidney disease (CKD) stage G3a/A1, moderately decreased glomerular filtration rate (GFR) between 45-59 mL/min/1.73 square meter and albuminuria creatinine ratio less than 30 mg/g N18.3 Active 879617745 Problem 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 42715340 Problem History of alcoholism F10.21 Active 202418327 Problem History of TIA (transient ischemic attack) Z86.73 Active 779451981 Problem Vitamin D deficiency E55.9 Active 57154214 Problem Hyperlipidemia E78.5 Active 08589398 Problem Arthritis M19.90 Active 5940615 Problem Coronary artery disease I25.10 Active 52302314 Problem DJD (degenerative joint disease) M19.90 Active 402920869 Problem Cervical stenosis of spinal canal M48.02 Active 91375399 Problem Hypertension I10 Active 88119954 Problem Abnormal CBC R79.89 Active 795290087 Problem Vascular dementia F01.50 Active 015363681 Problem Morbid obesity with BMI of 45.0-49.9, adult Z68.42 Active 844556877 ALLERGIES No Information ENCOUNTERS Encounter Location Date Diagnosis [place] [id number] [place] [address] 07322- 6544 Nov, Anxiety F41.9 and Chronic pain G89.29 [place] [address] 58685- 1647 October, Chronic pain G89.29 and Anxiety F41.9 [place] [address] 55828- 5427 October, Type 2 diabetes mellitus without complications [...] mg/g N18.3 and Anxiety F41.9 [place] [id number] [place] [address] 99885- 1597 Sep, Chronic pain G89.29 and Anxiety F41.9 [place] [id number] [place] [address] 61635- 8618 Aug, Anxiety F41.9 and Chronic pain G89.29 [place] [id number] [place] [address] 49077- 5917 Aug, Anxiety F41.9 [place] [id number] [place] [address] 05992- 9897 Aug, Chronic pain G89.29 and Anxiety F41.9 [place] [id number] [place] [address] 50263- 0769 Aug, Chronic kidney disease (CKD) stage G3a/A1, moderately decreased glomerular filtration rate (GFR) between 45-59 mL/min/1.73 square meter and albuminuria creatinine ratio less than 30 mg/g N18.3 [facility] [id number] [place] [address] 78725- 9986 Aug, [facility] [id number] [place] [address] [id number] Jul, Dental examination Z01.20 [facility] [place] [id number] [place] [address] 05864- 6263 Jul, Chronic pain G89.29 and Anxiety F41.9 [place] [address] 56306- 5523 Jul, Other specified abnormal findings of blood chemistry R79.89 [place] [id number] [place] [address] 42861- 5634 Jul, Type 2 diabetes mellitus without complications E11.9 ; Chronic kidney disease (CKD) stage G3a/A1, moderately decreased glomerular filtration rate (GFR) between 45-59 mL/min/1.73 square meter and albuminuria creatinine ratio less than 30 mg/g N18.3 ; BMI 45.0-49.9, adult Z68.42 ; Chronic fatigue R53.82 ; Hair loss L65.9 ; Generalized abdominal pain R10.84 and Diverticulitis K57.92 [place] [id number] [place] [address] 17931- 5285 Jul, [facility] [id number] [place] [address] [id number] Jul, Dental examination Z01.20 [facility] [place] [id number] [place] [address] 70703- 7550 Jul, Anxiety F41.9 [place] [id number] [place] [address] 05818- 0786 Jul, Anxiety F41.9 [place] [id number] [place] [address] [id number] Jul, Chronic pain G89.29 [place] [address] [id number] [place] [id number] 07 May, 2017 Chronic pain G89.29 [facility] [place] [id number] [place] [address] 97806- 1916 May, [facility] [id number] [place] [address] [id number] 30 May, 2017 Dental examination Z01.20 [facility] [address] [id number]- 4460 13 May, 2017 Anxiety F41.9 [facility] [address] [id number] 06 May, 2017 Chronic pain G89.29 [facility] [id number] [place] [address] 614186- 7935 18 Mar, 2017 Depression F32.9 [facility] [place] [id number] [place] [address] 85142- 6552 12 Mar, 2017 Anxiety F41.9 [facility] [address] [id number] 11 Mar, 2017 Chronic pain G89.29 [facility] [place] [id number] [place] [address] [id number]- 4315 19 Mar, 2017 Abnormal CBC R79.89 [facility] [address] [id number] 18 Mar, 2017 Anxiety F41.9 [facility] [id number] [place] [address] [id number]- 4865 14 Mar, 2017 Hypertension I10 ; Routine health maintenance Z00.00 ; Type 2 diabetes mellitus without complications E11.9 and Hyperlipidemia E78.5 [facility] [address] [id number] 13 Mar, 2017 Chronic pain G89.29 and Anxiety F41.9 [facility] [address] [place] [address] [id number] 13 Mar, 2017 Dental examination Z01.20 [facility] [id number] [address]- 5626 Mar, Hypertension I10 ; Routine health maintenance Z00.00 ; Type 2 diabetes mellitus without complications E11.9 and Hyperlipidemia E78.5 [place] [id number] [place] [address] 91434- 1157 Jan, Type 2 diabetes mellitus without complications E11.9 ; Hypertension I10 ; Vascular dementia F01.50 ; Morbid obesity with BMI of 45.0- 49.9, adult Z68.42 ; Hyperlipidemia E78.5 ; Chronic pain G89.29 ; Anxiety F41.9 ; Depression F32.9 ; Coronary artery disease I25.10 ; 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 and Constipation K59.00 [place] [id number] [place] [address] 67498- 4804 Jan, Chronic pain G89.29 [place] [id number] [place] [address] 72869- 5500 Jan, [place] [id number] [place] [address] 17168- 3479 Dec, [place] [id number] [place] [address] 05777- 3661 Dec, Chronic pain G89.29 [place] [id number] [place] [address] 22239- 6431 Nov, Chronic pain G89.29 [place] [id number] [place] [address] 85625- 8830 October, Chronic pain G89.29 [place] [id number] [place] [address] 20755- 9941 Sep, Chronic pain G89.29 [place] [id number] [place] [address] 06104- 9501 Sep, Type 2 diabetes mellitus without complications E11.9 ; Chronic pain G89.29 ; Hypertension I10 ; Coronary artery disease I25.10 ; Morbid obesity with BMI of 45.0-49.9, adult Z68.42 ; Hyperlipidemia E78.5 ; 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 and Depression F32.9 [place] [id number] [place] [address] 66609- 6524 Aug, Chronic pain G89.29 [place] [id number] [place] [address] 90842- 7826 Aug, Chronic pain G89.29 and Constipation K59.00 [place] [address] 83102- 0526 Aug, Abnormal lung sounds R09.89 [place] [address] 80734- 1610 Aug, Depression F32.9 [place] [id number] [place] [address] 83491- 6392 Jul, Chronic pain G89.29 [place] [id number] [place] [address] 43887- 7824 May, Chronic pain G89.29 [place] [id number] [place] [address] 89908- 4080 May, Medicare annual wellness visit, subsequent Z00.00 [place] [id number] [place] [address] 11918- 5466 May, [place] [id number] [place] [address] 53064- 8664 May, Type 2 diabetes mellitus without complications [...] due to renal impairment without tophus M1A.3710 [facility] [id number] [place] [address]- 7756 May, [facility] [id number] [address]- 2553 Mar, [facility] [address], [place] [address]- 8498 Mar, [facility] [id number], [place] [address]- 2864 Mar, [facility] [id number] [place] [address]- 4079 Mar, [facility] [id number], [place] [address]- 2560 Mar, [facility] [address], [place] [address]- 2753 Jan, [facility] [place] [id number], [place] [address]- 3893 Jan, [facility] [place] [address], [place] [address]- 1959 Dec, Type 2 diabetes mellitus without complications E11.9 ; Hypertension I10 ; Coronary artery disease I25.10 and Renal insufficiency N28.9 [facility] [address], [place] [address]- 1206 Dec, [facility] [id number], [place] [address]- 5002 Dec, [facility] [id number], [place] [address]- 5589 Nov, [facility] [place] [id number], [place] [address]- 1866 Nov, [facility] [id number], [place] [address]- 6872 Nov, [facility] [place] [id number] [place] [address]- 9122 Nov, [facility] [address], [place] [address]- 9744 Nov, [facility] [address] [place] [address] 61690- 3762 October, [facility] [address] [place] [address] 16118- 6152 October, [facility] [id number] [place] [address] 83151- 7736 October, [facility] [id number] [place] [address] 36850- 4844 Sep, Type 2 diabetes mellitus without complications E11.9 and Constipation K59.00 [facility] [id number] [place] [address] 85801- 2837 Sep, [facility] [place] [id number] [place] [address] 97288- 9428 Sep, Diabetes E11.9 [facility] [address] [place] [address] 78170- 4724 Sep, [facility] [address] [place] [address] 86084- 2642 Sep, Routine health maintenance Z00.00 ; Hypertension I10 ; Type 2 diabetes mellitus without complications E11.9 ; Morbid obesity with BMI of 45.0-49.9, adult Z68.42 ; Chronic pain G89.29 ; H/O carotid endarterectomy Z98.89 ; Vascular dementia F01.50 ; Arthritis M19.90 ; Coronary artery disease I25.10 ; Abnormal lung sounds R09.89 and Diabetes E11.9 [facility] [address] [place] [address] 86162- 2755 Aug, Anxiety F41.9 [facility] [place] [address], [place] [address]- 0623 Aug, Arthritis M19.90 [place] [address], [place] [address]- 7764 Jul, Arthritis M19.90 [facility] [id number] [place] [address] 577439- 5346 Jul, [facility] [id number] 5156 May, [facility] [id number] [place] [address] 409722- 6256 May, Arthritis M19.90 ; Hypertension I10 ; Depression F32.9 ; Vascular dementia F01.50 and Coronary artery disease I25.10 [facility] [id number] [place] [address] 79051- 1846 May, [facility] [id number] [place] [address] 46969- 6899 May, [facility] [id number] [place] [address] 07610- 0030 Mar, [facility] [id number] [place] [address] 994666- 9135 Mar, [facility] [id number] [place] [address] 82269- 3717 Mar, [facility] [address] [place] [address] 72585- 0502 Mar, [facility] [address] [place] [address] 355789- 3826 Mar, Essential hypertension, benign 401.1 ; Unspecified arthropathy, site unspecified 716.90 and Other and unspecified hyperlipidemia 272.4 [facility] [id number] [place] [address] 94151- 4796 Mar, [facility] [address] [place] [address] 67722- 2266 Jan, [facility] [id number] [place] [address] 18560- 4096 Dec, [facility] [place] [facility] [address] [id number] [place] [address]- 6399 Dec, [facility] [place] [facility] [address] [id number] [place] [address]- 2024 Dec, [facility] [place] [facility] [address] [id number] [place] [address]- 1086 Dec, [facility] [place] [facility] [address] [id number] [place] [address]- 9333 Dec, [facility] [place] [facility] [address] [id number] [place] [address]- 6641 Dec, [facility] [place] [facility] [address] [id number] [place] [address]- 2716 Dec, [facility] [place] [facility] [address] [id number] [place] [address]- 2020 Dec, [facility] [place] [facility] [address] [id number] [place] [address]- 9594 Nov, [facility] [place] [facility] [address] [id number] [place] [address]- 4372 Nov, [facility] [place] [facility] [address] [id number] [place] [address]- 4306 Nov, [facility] [place] [facility] [address] [id number] [place] [address]- 3620 October, [facility] [place] [facility] [address] [id number] [place] [address]- 8761 October, [facility] [place] [facility] [address] [id number] [place] [address]- 2201 Sep, [facility] [place] [facility] [address] [id number] [place] [address]- 7374 Sep, [facility] [place] [facility] [address] [id number] [place] [address]- 5226 Sep, [facility] [place] [facility] [address] [id number] [place] [address]- 1571 19 Aug, 2014 [facility] [place] [facility] [address] [id number] [place] [address]- 6755 19 Aug, 2014 [facility] [place] [facility] [address] [id number] [place] [address]- 1365 12 Aug, 2014 [facility] [place] [facility] [address] [id number] [place] [address]- 5276 12 Aug, 2014 [facility] [place] [facility] [address] [id number] [place] [address]- 0400 13 Aug, 2014 [facility] [place] [facility] [address] [id number] [place] [address]- 6067 13 Aug, 2014 [facility] [place] [facility] [address] [facility] [id number] [place] [address]- 2890 11 Aug, 2014 [facility] [place] [facility] [address] [facility] [id number] [place] [address]- 1285 11 Aug, 2014 [facility] [place] [facility] [address] [id number] [place] [address]- 1316 10 Aug, 2014 [facility] [place] [facility] [address] [facility] [id number] [place] [address]- 3492 May, [facility] [place] [facility] [address] [facility] [id number] [place] [address]- 7971 29 May, 2014 [facility] [place] [facility] [address] [id number] [place] [address]- 8816 18 May, 2014 [facility] [place] [facility] [address] [id number] [place] [address]- 2547 18 May, 2014 [facility] [place] [facility] [address] [id number] [place] 2632 15 May, 2014 [facility] [place] [facility] [address] [id number] [place] 5224 15 May, 2014 [facility] [place] [facility] [address] [facility] [id number] [place] 1151 May, [facility] [place] [facility] [address] [id number] [place] [address]- 8105 May, [facility] [place] [facility] [address] [id number] [place] [address]- 0939 Mar, [facility] [place] [facility] [address] [id number] [place] [address]- 6703 Mar, [facility] [address] [facility] [place] [id number] Mar, [facility] [place] [facility] [address] [id number] [place] [address]- 3284 Mar, [facility] [place] [facility] [address] [id number] [place] [address]- 1028 Mar, [facility] [place] [facility] [address] [id number] [place] [address]- 9731 Mar, [facility] [place] [facility] [address] [id number] [place] [address]- 6392 Mar, [facility] [place] [facility] [address] [id number] [place] [address]- 3147 Mar, [facility] [place] [facility] [address] [id number] [place] [address]- 5676 Mar, [facility] [place] [facility] [address] [id number] [place] [address]- 2349 Mar, [facility] [place] [facility] [address] [id number] [place] [address]- 7906 Mar, [facility] [place] [facility] [address] [id number] [place] [address]- 7854 Mar, [facility] [place] [facility] [address] [id number] [place] [address]- 3806 Mar, [facility] [place] [facility] [address] [id number] [place] [address]- 0200 Jan, [facility] [place] [facility] [address] [id number], [place] [address]- 4762 Jan, [facility] [address] [facility] [id number], [place] [address]- 4652 Jan, [facility] [address] [facility] [id number], [place] [address]- 0981 Jan, [facility] [address] [place] [id number] Jan, [facility] [address] [facility] [id number], [place] [address]- 3118 Jan, [facility] [address] [facility] [id number], [place] [address]- 3981 Jan, [facility] [address] [facility] [id number], [place] [address]- 0476 Dec, [facility] [address] [facility] [id number], [place] [address]- 0426 Dec, [facility] [address] [facility] [id number], [place] [address]- 7050 Dec, [facility] [address] [facility] [id number], [place] [address]- 7834 Dec, [facility] [address] [facility] [id number], [place] [address]- 1189 Dec, [facility] [address] [facility] [id number], [place] [address] Dec, [facility] [place] [address] [facility] [id number], [place] [address] Nov, [facility] [place] [address] [facility] [id number], [place] [address] Nov, IMMUNIZATIONS No Known Immunizations SOCIAL HISTORY Never Assessed REASON FOR VISIT Referral PLAN OF CARE VITAL SIGNS MEDICATIONS Unknown [...]
--- OUTSIDE RECORDS SUMMARY | 2018-03-10 15:46 | XMS REPORT ---
Author Author ELIEL SMITH Organization [facility] Address [address] [place] [address] Care Team Providers Care President & Ceo Name Role Phone ELIEL SMITH Unavailable PROBLEMS Type Condition ICD9-CM Code EDK12-XM Code Onset Dates Condition Status SNOMED Code Problem Routine health maintenance Z00.00 Active 804136801 Problem Chronic pain G89.29 Active 49311909 Problem Type 2 diabetes mellitus without complications E11.9 Active 958917294 Problem Diverticulitis K57.92 Active 479628970 Problem Anxiety F41.9 Active 26529757 Problem Chronic fatigue R53.82 Active 01556269 Problem Hepatitis C B19.20 Active 56113896 Problem History of solitary pulmonary nodule Z87.898 Active 407582246 Problem Depression F32.9 Active 685336954 Problem Constipation K59.00 Active 62579687 Problem Chronic kidney disease (CKD) stage G3a/A1, moderately decreased glomerular filtration rate (GFR) between 45-59 mL/min/1.73 square meter and albuminuria creatinine ratio less than 30 mg/g N18.3 Active 353386602 Problem 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 86152097 Problem History of alcoholism F10.21 Active 148518202 Problem History of TIA (transient ischemic attack) Z86.73 Active 460067961 Problem Vitamin D deficiency E55.9 Active 12963111 Problem Hyperlipidemia E78.5 Active 96113305 Problem Arthritis M19.90 Active 3873286 Problem Coronary artery disease I25.10 Active 02315263 Problem DJD (degenerative joint disease) M19.90 Active 417581918 Problem Cervical stenosis of spinal canal M48.02 Active 78006124 Problem Hypertension I10 Active 35301949 Problem Abnormal CBC R79.89 Active 313596283 Problem Vascular dementia F01.50 Active 600812801 Problem Morbid obesity with BMI of 45.0-49.9, adult Z68.42 Active 259244697 ALLERGIES No Information ENCOUNTERS Encounter Location Date Diagnosis [place] [id number] [place] [address]51- 1394 October, [place] [address] [address]- [address] Aug, Anxiety F41.9 and Chronic pain G89.29 [place] [address] 24797- 8170 Aug, Anxiety F41.9 [place] [address] 04575- 0180 Aug, Chronic pain G89.29 and Anxiety F41.9 [place] [address] 58099- 4152 Aug, Chronic kidney disease (CKD) stage G3a/A1, moderately decreased glomerular filtration rate (GFR) between 45-59 mL/min/1.73 square meter and albuminuria creatinine ratio less than 30 mg/g N18.3 [place] [address] 28848- 8692 Aug, [facility] [address] [id number] Jul, Dental examination Z01.20 [place] [address] 42869- 3712 Jul, Chronic pain G89.29 and Anxiety F41.9 [place] [id number] [place] [address] 50101- 8472 Jul, Other specified abnormal findings of blood chemistry R79.89 [place] [address] 32214- 0865 Jul, Type 2 diabetes mellitus without complications E11.9 ; Chronic kidney disease (CKD) stage G3a/A1, moderately decreased glomerular filtration rate (GFR) between 45-59 mL/min/1.73 square meter and albuminuria creatinine ratio less than 30 mg/g N18.3 ; BMI 45.0-49.9, adult Z68.42 ; Chronic fatigue R53.82 ; Hair loss L65.9 ; Generalized abdominal pain R10.84 and Diverticulitis K57.92 [facility] [id number] [place] [address] 20795- 5286 Jul, [facility] [id number] [place] [address] [id number] Jul, Dental examination Z01.20 [facility] [address] 08642- 1876 Jul, Anxiety F41.9 [facility] [address] 91502- 3753 Jul, Anxiety F41.9 [facility] [address] [id number] Jul, Chronic pain G89.29 [facility] [address] [id number] May, Chronic pain G89.29 [facility] [id number] [place] [address] 95495- 1366 May, [facility] [id number] [place] [address] [id number] May, Dental examination Z01.20 [facility] [id number] [place] [address] 07475- 6266 May, [facility]xiety F41.9 [facility] [id number] [place] [address] [id number] May, Chronic pain G89.29 [facility] [id number] [place] [address] 04860- 3846 Mar, Depression F32.9 [facility] [id number] [place] [address] 77702- 0646 Mar, Anxiety F41.9 [facility] [id number] [place] [address] [id number] Mar, Chronic pain G89.29 [facility] [id number] [address] 6069 19 Mar, 2017 Abnormal CBC R79.89 [facility] [id number] [place] [address] [id number] 18 Mar, 2017 Anxiety F41.9 [facility] [id number] [place] [address] 39590- 7634 14 Mar, 2017 Hypertension I10 ; Routine health maintenance Z00.00 ; Type 2 diabetes mellitus without complications E11.9 and Hyperlipidemia E78.5 [facility] [id number] [place] [address] [id number] 13 Mar, 2017 Chronic pain G89.29 and Anxiety F41.9 [facility] [address] [place] [address] [id number] 13 Mar, 2017 Dental examination Z01.20 [facility] [address] [place] [address] 17166- 1021 06 Mar, 2017 Hypertension I10 ; Routine health maintenance Z00.00 ; Type 2 diabetes mellitus without complications E11.9 and Hyperlipidemia E78.5 [facility] [address] [place] [address] 68300- 9612 22 Jan, 2017 Type 2 diabetes mellitus without complications E11.9 ; Hypertension I10 ; Vascular dementia F01.50 ; Morbid obesity with BMI of 45.0- 49.9, adult Z68.42 ; Hyperlipidemia E78.5 ; Chronic pain G89.29 ; Anxiety F41.9 ; Depression F32.9 ; Coronary artery disease I25.10 ; 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 and Constipation K59.00 [facility] [id number] [place] [address] 73480- 3396 16 Jan, 2017 Chronic pain G89.29 [facility] [id number] [place] [address] 56139- 4515 Jan, [facility] [id number] [place] [address] 56387- 3748 Dec, [place] [id number] [place] [address] 50925- 1406 Dec, Chronic pain G89.29 [place] [id number] [place] [address] 79803- 0822 Nov, Chronic pain G89.29 [place] [id number] [place] [address] 17506- 2386 October, Chronic pain G89.29 [place] [address] 95229- 3622 Sep, Chronic pain G89.29 [place] [address] 36188- 5095 Sep, Type 2 diabetes mellitus without complications E11.9 ; Chronic pain G89.29 ; Hypertension I10 ; Coronary artery disease I25.10 ; Morbid obesity with BMI of 45.0-49.9, adult Z68.42 ; Hyperlipidemia E78.5 ; 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 and Depression F32.9 [place] [id number] [place] [address] 67000- 2232 Aug, Chronic pain G89.29 [place] [id number] [place] [address] 26263- 3721 Aug, Chronic pain G89.29 and Constipation K59.00 [place] [id number] [place] [address] 80734- 6896 Aug, Abnormal lung sounds R09.89 [place] [id number] [place] [address] 78747- 6205 Aug, Depression F32.9 [place] [id number] [place] [address] 06578- 2465 Jul, Chronic pain G89.29 [place] [id number] [place] [address] 74779- 7438 May, Chronic pain G89.29 [facility] [address] [address]- 4669 May, Medicare annual wellness visit, subsequent Z00.00 [facility] [id number] [place] [address] 44338- 1436 May, [facility] [id number] [place] [address] 17112- 2943 May, Type 2 diabetes mellitus without complications [...] renal impairment without tophus M1A.3710 [facility] [id number] [place] [address] 71272- 9516 May, [facility] [id number] [place] [address] 21294- 2317 Mar, [facility] [id number] [place] [address] 50680- 1607 Mar, [facility] [id number] [place] [address] 98277- 4622 Mar, [facility] [id number] [place] [address] 14499- 8764 Mar, [facility] [id number] [place] [address] 46357- 7920 Mar, [facility] [id number] [place] [address] 58339- 9426 Jan, [facility] [id number] [place] [address] 33302- 1231 Jan, [facility] [address] [facility] [id number] [place] [address]- 0830 Dec, Type 2 diabetes mellitus without complications E11.9 ; Hypertension I10 ; Coronary artery disease I25.10 and Renal insufficiency N28.9 [facility] [address] [facility] [id number] [place] [address]- 7019 Dec, [facility] [address] [facility] [id number] [place] [address]- 4861 Dec, [facility] [address] [facility] [id number] [place] [address]- 6244 Nov, [facility] [address] [facility] [id number] [place] [address]- 0217 Nov, [facility] [address] [address]- 2935 Nov, [facility] [address] [address]- 9664 Nov, [facility] [id number] [address]- 9643 Nov, [facility] [address] [address]- 5825 October, [facility] [address] [address]- 3713 October, [facility] [address] [address]- 1137 October, [facility] [id number] [address]- 4284 Sep, Type 2 diabetes mellitus without complications E11.9 and Constipation K59.00 [facility] [id number] [address]- 3197 Sep, [facility] [id number] [address]- 1526 Sep, Diabetes E11.9 [facility] [id number] [place] [address] 79552- 2563 Sep, [facility] [address] 09985- 5985 Sep, Routine health maintenance Z00.00 ; Hypertension I10 ; Type 2 diabetes mellitus without complications E11.9 ; Morbid obesity with BMI of 45.0-49.9, adult Z68.42 ; Chronic pain G89.29 ; H/O carotid endarterectomy Z98.89 ; Vascular dementia F01.50 ; Arthritis M19.90 ; Coronary artery disease I25.10 ; Abnormal lung sounds R09.89 and Diabetes E11.9 [facility] [address] 32945- 7750 Aug, Anxiety F41.9 [facility] [address] 21482- 0630 Aug, Arthritis M19.90 [facility] [address] 18365- 5118 Jul, Arthritis M19.90 [facility] [address] 86131- 2333 Jul, [facility] [id number] [place] [address] 40536- 4219 May, [facility] [id number] [place] [address] 66604- 2794 May, Arthritis M19.90 ; Hypertension I10 ; Depression F32.9 ; Vascular dementia F01.50 and Coronary artery disease I25.10 [facility] [id number] [place] [address] 47629- 0184 May, [facility] [address] 43181- 9904 May, [facility] [id number] [place] [address] 12727- 3085 Mar, [facility] [address] [place] [address]- 3128 Mar, [facility] [address] [facility] [id number] [place] [address]- 2034 Mar, [facility] [id number] [address]- 4907 Mar, [facility] [address] [address]- 1686 Mar, Essential hypertension, benign 401.1 ; Unspecified arthropathy, site unspecified 716.90 and Other and unspecified hyperlipidemia 272.4 [facility] [address] [address]- 1813 Mar, [facility] [id number] [address]- 1804 Jan, [facility] [address]65[address] [address]- 9954 Dec, [facility] [address]65[address] [address]- 2987 Dec, [facility] [address]65[address] [address]- 2779 Dec, [facility] [address] [address]- 0634 Dec, [facility] [address]65[address] [address]- 8321 Dec, [facility] [id number] [address]- 9242 Dec, [facility] [id number] [address]- 9464 Dec, [facility] [place] [facility] [address] [facility] [id number] [place] [address]- 9296 Dec, [facility] [id number] [address]- 7733 Nov, [facility] [place] [facility] [address] [id number] [place] [address]- 4630 Nov, [facility] [place] [facility] [address] [id number] [place] [address]- 0202 Nov, [facility] [place] [facility] [address] [id number] [place] [address]- 8919 October, [facility] [place] [facility] [address] [id number] [place] [address]- 5608 October, [facility] [place] [facility] [address] [id number] [place] [address]- 9296 Sep, [facility] [place] [facility] [address] [id number] [place] [address]- 0905 Sep, [facility] [place] [facility] [address] [id number] [place] [address]- 3880 Sep, [facility] [place] [facility] [address] [id number] [place] [address]- 2395 Aug, [facility] [place] [facility] [address] [id number] [place] [address]- 2665 Aug, [facility] [place] [facility] [address] [id number] [place] [address]- 1298 Aug, [facility] [place] [facility] [address] [facility] [id number] [place] [address]- 3048 Aug, [facility] [place] [facility] [address] [id number] [place] [address]- 5895 Aug, [facility] [place] [facility] [address] [id number] [place] [address]- 5049 Aug, [facility] [place] [facility] [address] [id number] [place] [address]- 0355 Aug, [facility] [place] [facility] [address] [id number] [place] [address]- 7632 Aug, [facility] [place] [facility] [address] [id number] [address]- 0129 Aug, [facility] [address] [id number] [place] [address]- 7130 May, [facility] [address] [id number] [place] [address]- 7227 May, [facility] [address] [id number] [place] [address]- 3456 May, [facility] [address] [id number] [place] [address]- 2512 May, [facility] [address] [id number] [place] [address]- 8904 May, [facility] [address] [id number] [place] [address]- 4284 May, [facility] [address] [id number] [place] [address]- 2042 May, [facility] [address] [id number] [place] [address]- 9869 May, [facility] [address] [id number] [address]- 0160 Mar, [facility] [address] [id number] [place] [address]- 5994 Mar, [facility] [address] [place] [id number] Mar, [facility] [address] [id number] [place] [address]- 3297 Mar, [facility] [place] [facility] [address] [id number] [place] [address]- 9627 Mar, [facility] [place] [facility] [address] [id number] [place] [address]- 9177 Mar, [facility] [place] [facility] [address] [id number] [address]- 7764 Mar, [facility] [place] [facility] [address] [id number] [place] [address]- 0220 24 Mar, 2014 [facility] [place] [facility] [address] [id number] [place] [address]- 9760 24 Mar, 2014 [facility] [place] [facility] [address] [id number] [place] [address]- 5291 Mar, [facility] [place] [facility] [address] [id number] [place] [address]- 8060 Mar, [facility] [place] [facility] [address] [id number] [place] [address]- 2622 Mar, [facility] [place] [facility] [address] [id number] [place] [address]- 9295 Mar, [facility] [place] [facility] [address] [id number] [place] [address]- 1643 Jan, [facility] [place] [facility] [address] [id number] [place] [address]- 0698 Jan, [facility] [place] [facility] [address] [id number] [place] [address]- 7820 Jan, [facility] [place] [facility] [address] [id number] [place] [address]- 2765 Jan, [facility] [address] [id number] Jan, [facility] [place] [facility] [address] [id number] [place] [address]- 3901 Jan, [facility] [place] [facility] [address] [id number] [place] [address]- 8110 Jan, [facility] [place] [facility] [address] [id number] [place] [address]- 7684 Dec, [facility] [place] [facility] [address] [id number] [place] [address]- 7408 Dec, [facility] [place] [facility] [address] [id number] [place] [address]- 1372 Dec, [facility] [place] [facility] [address] [id number] [place] [address]- 4066 Dec, [facility] [address] [facility] [id number] [place] [address]- 1529 Dec, [facility] [address] [facility] [id number] [place] [address]- 3260 Dec, [facility] [address] [facility] [id number] [place] [address]- 8359 Nov, [facility] [address] [facility] [id number] [place] [address]- 6324 Nov, IMMUNIZATIONS No Known Immunizations SOCIAL HISTORY [...]
--- OUTSIDE RECORDS SUMMARY | 2018-03-10 15:46 | XMS REPORT ---
Author Author ELIEL SMITH Organization [employer] Address Unknown Phone Unavailable Care Team Providers Care Automobile Body Worker Name Role Phone ELIEL SMITH CP Unavailable Allergies, Adverse Reactions, Alerts Substance Reaction Event Type N.K.D.A. Info Not Available Non Drug Allergy Problems Problem Type Condition Code Onset Dates Condition Status Problem Hepatitis C B19.20 Active Problem Vascular dementia F01.50 Active Problem Coronary artery disease I25.10 Active Problem Type 2 diabetes mellitus without complications E11.9 Active Assessment Type 2 diabetes mellitus without complications E11.9 Active Problem Morbid obesity with BMI of 45.0-49.9, adult Z68.42 Active Assessment Hypertension I10 Active Assessment Coronary artery disease I25.10 Active Problem Routine health maintenance Z00.00 Active [...] of TIA (transient ischemic attack) Z86.73 Active Assessment Renal insufficiency N28.9 Active Problem H/O thyroid nodule Z86.39 Active Problem History of solitary pulmonary nodule Z87.898 Active Medications Medication Code System Code Instructions Start Date End Date Status Dosage Exelon [facility] [address]-32 6 Orally 2 times a day 1 capsule Aspirin EC Low Dose [facility] 32998277860 81 TAKE ONE TABLET BY MOUTH DAILY Pravastatin Sodium [facility] [address]-66 40 MG Orally Once a day 1 tablet Ativan [facility] 43037779019 0.5 Orally, each fill must last 30 days Once a day 1 tablet Protonix [facility] 66317801083 40 TAKE ONE TABLET BY MOUTH DAILY Geodon [facility] 33937048372 20 TAKE ONE CAPSULE BY MOUTH TWICE A DAY WITH FOOD Metoprolol Succinate ER [facility] [address]-23 25 MG Orally Once a day 1 tablet Furosemide [facility] [address]-16 40 MG Orally Once a day 1 tablet Aspirin [facility] [address]-47 81 MG Orally Once a day 1 tablet MiraLax [facility] [id number] 17 Orally every other day MIX 17GMS (1 CAPFUL) IN 8OZ WATER AND DRINK DAILY Hydrocodone-Acetaminophen [facility] [address]-67 5-325 MG Orally 3 times a day-, Assisted living facility Mar 23, 2014 1 tablet ProAir HFA [facility] [address]-04 108 (90 Base) MCG/ACT Inhalation every 4 hrs October 04, 2015 2 puffs as needed Celexa [facility] [address]-34 10 mg Orally Once a day 1 tablets Zyloprim [facility] [address]-97 300 mg Mar 23, 2014 take 1 tablet ( 300 mg) by oral route once daily Procedures Procedure Coding System Code Date [facility] C[facility]-4 NOBLL January 24, 2016 [facility] VISIT ESTABLISHED PATIENT CPT-4 G0467 January 24, 2016 GLYCATED HEMOGLOBIN TEST CPT-4 95861 January 24, 2016 VENIPUNCT, ROUTINE* CPT-4 16372 January 24, 2016 Office Visit, Est Pt., Level 3 CPT-4 25463 January 24, 2016 Vital Signs Date/Time: January 24, 2016 Cardiac Monitoring Heart Rate 89 bpm Weight 284.9 lbs Height 64 in BMI 48.90 Index Blood Pressure Diastolic 82 mmHg Blood Pressure Systolic 162 mmHg Results No Known Results Summary Purpose [employer] Submission
--- OUTSIDE RECORDS SUMMARY | 2018-03-10 15:46 | XMS REPORT ---
Author PETE Kelly Organization [employer] Address Unknown Phone Unavailable Care Team Providers [employer] Sales Consultant Name Role Phone PETE FALCON CP Unavailable Allergies No Known Allergies Problems Problem Type Condition Code Onset Dates Condition Status Problem Hypertension I10 Active Problem Depression F32.9 Active Problem Arthritis M19.90 Active Problem Coronary artery disease I25.10 Active Problem Dementia F03.90 Active Problem Vascular dementia F01.50 Active Medications Medication Code System Code Instructions Start Date End Date Status Dosage Hydrocodone-Acetaminophen [facility] [address]-61 5-325 MG Orally 3 times a day-, Assisted living facility Mar 23, 2014 1 tablet as needed Results No Known Results Summary Purpose [employer] Submission
--- OUTSIDE RECORDS SUMMARY | 2018-03-10 15:46 | XMS REPORT ---
Author Author ELIEL SMITH Organization [employer] Address Unknown Phone Unavailable Care Team Providers Care Financial Service Professional Name Role Phone ELIEL SMITH CP Unavailable [...] BMI of 45.0-49.9, adult Z68.42 Active Assessment Constipation K59.00 Active Problem Routine health maintenance Z00.00 Active [...] Instructions Start Date End Date Status Dosage Zyloprim [facility] [address]-89 300 mg Mar 23, 2014 take 1 tablet ( 300 mg) by oral route once daily Pravastatin Sodium [facility] [address]-92 40 MG Orally Once a day 1 tablet Protonix [facility] 90973957399 40 TAKE ONE TABLET BY MOUTH DAILY Geodon [facility] 92262078590 20 TAKE ONE CAPSULE BY MOUTH TWICE A DAY WITH FOOD Celexa [facility] [address]-87 10 mg Orally Once a day 1 tablets Metoprolol Succinate ER [facility] [address]-93 25 MG Orally Once a day 1 tablet Ativan [facility] 57161966937 0.5 Orally, each fill must last 30 days Once a day 1 tablet Exelon [facility] [address]-54 6 Orally 2 times a day 1 capsule ProAir HFA [facility] [address]-24 108 (90 Base) MCG/ACT Inhalation every 4 hrs October 04, 2015 2 puffs as needed MiraLax [facility] 50611253572 17 Orally every other day MIX 17GMS (1 CAPFUL) IN 8OZ WATER AND DRINK DAILY Furosemide [facility] [address]-27 40 MG Orally Once a day 1 tablet Aspirin [facility] [address]-80 81 MG Orally Once a day 1 tablet Tradjenta [facility] [address]-38 5 MG Orally Once a day October 04, 2015 1 tablet Mobic [facility] 56196453614 7.5 TAKE ONE TABLET BY MOUTH DAILY Hydrocodone-Acetaminophen [facility] [address]-11 5-325 MG Orally 3 times a day-, Assisted living facility Mar 23, 2014 1 tablet Procedures Procedure Coding System Code Date Office Visit, Est Pt., Level 3 CPT-4 04676 October 18, 2015 LAB NOT BILLED BY [facility] CPT-4 NOBLL October 18, 2015 [facility] VISIT ESTABLISHED PATIENT CPT-4 G0467 October 18, 2015 VENIPUNCT, ROUTINE* CPT-4 93444 October 18, 2015 Vital Signs Date/Time: October 18, 2015 Temperature 97.3 F Weight 284.0 lbs Height 64 in BMI 48.74 Index Blood Pressure Diastolic 84 mmHg Blood Pressure Systolic 113 mmHg Cardiac Monitoring Heart Rate 71 bpm Results Name Result Date Reference Range Unit Abnormality Flag ROUTINE VENIPUNCTURE CMP ----Sodium, Serum 138 20151018 134-144 mmol/L ----BUN/Creatinine Ratio 20151018- ----Chloride, Serum 97 20151018 97-108 mmol/L ----Potassium, Serum 4.5 20151018 3.5-5.2 mmol/L ----Calcium, Serum 10.3 20151018 8.7-10.3 mg/dL ----Protein, Total, Serum 7.1 21486526 6.0-8.5 g/dL ----Carbon Dioxide, Total 22 20151018 18-29 mmol/L ----A/G Ratio 1.4 04536983 1.1-2.5 ----eGFR If NonAfricn Am 42 61992151 >59 mL/min/1.73 L ----Bilirubin, Total 0.2 00296989 0.0-1.2 mg/dL ----eGFR If Africn Am 48 65454190 >59 mL/min/1.73 L ----BUN 28 20151018 8-27 mg/dL H ----Albumin, Serum 4.2 32553082 3.5-4.8 g/dL ----Globulin, Total 2.9 42216093 1.5-4.5 g/dL ----Creatinine, Serum 1.27 32524975 0.57-1.00 mg/dL H ----ALT (SGPT) 12 20151018 0-32 IU/L ----Glucose, Serum 95 87488967 65-99 mg/dL ----Alkaline Phosphatase, S 87 18353383 39-117 IU/L ----AST (SGOT) 19 [id number] 0-40 IU/L Summary Purpose [employer] Submission
--- OUTSIDE RECORDS SUMMARY | 2018-03-10 15:47 | XMS REPORT ---
Author Author ELIEL SMITH Organization [facility] Address [address] [place] [address] Care Team Providers Care Bushel Girl Name Role Phone ELIEL SMITH Unavailable PROBLEMS Type Condition ICD9-CM Code KTN48-BR Code Onset Dates Condition Status SNOMED Code Problem Routine health maintenance Z00.00 Active 749175306 Problem Chronic pain G89.29 Active 82645717 Problem Type 2 diabetes mellitus without complications E11.9 Active 617835452 Problem Diverticulitis K57.92 Active 358549480 Problem Anxiety F41.9 Active 74421661 Problem Chronic fatigue R53.82 Active 81004072 Problem Hepatitis C B19.20 Active 80146459 Problem History of solitary pulmonary nodule Z87.898 Active 525854919 Problem Depression F32.9 Active 455425714 Problem Constipation K59.00 Active 20166091 Problem Chronic kidney disease (CKD) stage G3a/A1, moderately decreased glomerular filtration rate (GFR) between 45-59 mL/min/1.73 square meter and albuminuria creatinine ratio less than 30 mg/g N18.3 Active 446428815 Problem 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 34030455 Problem History of alcoholism F10.21 Active 588722787 Problem History of TIA (transient ischemic attack) Z86.73 Active 221026213 Problem Vitamin D deficiency E55.9 Active 83683584 Problem Hyperlipidemia E78.5 Active 16237692 Problem Arthritis M19.90 Active 9900457 Problem Coronary artery disease I25.10 Active 27080685 Problem DJD (degenerative joint disease) M19.90 Active 656645970 Problem Cervical stenosis of spinal canal M48.02 Active 16048493 Problem Hypertension I10 Active 90287234 Problem Abnormal CBC R79.89 Active 541734778 Problem Vascular dementia F01.50 Active 568918198 Problem Morbid obesity with BMI of 45.0-49.9, adult Z68.42 Active 190934773 ALLERGIES No Information ENCOUNTERS Encounter Location Date Diagnosis [place] [id number] [place] [address] 96622- 8864 Nov, Anxiety F41.9 and Chronic pain G89.29 [place] [address] [address]- [address] October, Chronic pain G89.29 and Anxiety F41.9 [place] [address] 47274- 3988 October, Type 2 diabetes mellitus without complications [...] than 30 mg/g N18.3 and Anxiety F41.9 [place] [id number] [place] [address] 80183- 8262 Sep, Chronic pain G89.29 and Anxiety F41.9 [facility] [id number] [place] [address] 80495- 0677 Aug, Anxiety F41.9 and Chronic pain G89.29 [place] [id number] [place] [address] 91290- 7738 Aug, Anxiety F41.9 [place] [id number] [place] [address] 98523- 3522 Aug, Chronic pain G89.29 and Anxiety F41.9 [place] [id number] [place] [address] 93981- 4582 Aug, Chronic kidney disease (CKD) stage G3a/A1, moderately decreased glomerular filtration rate (GFR) between 45-59 mL/min/1.73 square meter and albuminuria creatinine ratio less than 30 mg/g N18.3 [facility] [id number] [place] [address] 13996- 2974 Aug, [facility] [id number] [place] [address] [id number] Jul, Dental examination Z01.20 [facility] [id number] [place] [address] 47399- 0919 Jul, Chronic pain G89.29 and Anxiety F41.9 [place] [address] 78171- 6057 Jul, Other specified abnormal findings of blood chemistry R79.89 [place] [id number] [place] [address] 13716- 9378 Jul, Type 2 diabetes mellitus without complications E11.9 ; Chronic kidney disease (CKD) stage G3a/A1, moderately decreased glomerular filtration rate (GFR) between 45-59 mL/min/1.73 square meter and albuminuria creatinine ratio less than 30 mg/g N18.3 ; BMI 45.0-49.9, adult Z68.42 ; Chronic fatigue R53.82 ; Hair loss L65.9 ; Generalized abdominal pain R10.84 and Diverticulitis K57.92 [place] [id number] [place] [address] 02795- 7904 Jul, [facility] [id number] [place] [address] [id number] Jul, Dental examination Z01.20 [facility] [id number] [place] [address] 90978- 1036 Jul, Anxiety F41.9 [place] [id number] [place] [address] 51316- 5007 Jul, Anxiety F41.9 [place] [id number] [place] [address] [id number] Jul, Chronic pain G89.29 [place] [address] [place] [id number] [place] [id number] 07 May, [address] [facility] [id number] [place] [address] 27249- 7006 May, [facility] [id number] [place] [address] [id number] 30 May, [address] [facility] [address] [id number]- 3978 13 May, 2017 Anxiety F41.9 [facility] [address] [id number] 06 May, [address] [facility] [id number] [place] [address] 211054- 7650 18 Mar, [address] [facility] [id number] [place] [address] 24132- 8502 12 Mar, 2017 Anxiety F41.9 [facility] [address] [id number] 11 Mar, [address] [facility] [id number] [place] [address] [phone]- 7126 19 Mar, 2017 Abnormal CBC R79.89 [facility] [address] [id number] 18 Mar, [address] [facility] [id number] [place] [address] 55636745- 8812 14 Mar, 2017 Hypertension I10 ; Routine health maintenance Z00.00 ; Type 2 diabetes mellitus without complications E11.9 and Hyperlipidemia E78.5 [facility] [address] [id number] 13 Mar, 2017 Chronic pain G89.29 and Anxiety F41.9 [facility] [id number] [place] [address] [id number] 13 Mar, [address] 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 and Constipation K59.00 [place] [id number] [place] [address] 43212- 0032 Jan, Chronic pain G89.29 [place] [id number] [place] [address] 30161- 4028 Jan, [place] [id number] [place] [address] 82680- 6383 Dec, [place] [id number] [place] [address] 18822- 4985 Dec, Chronic pain G89.29 [place] [id number] [place] [address] 72561- 1017 Nov, Chronic pain G89.29 [place] [id number] [place] [address] 67328- 9586 October, Chronic pain G89.29 [place] [id number] [place] [address] 89992- 5219 Sep, Chronic pain G89.29 [place] [id number] [place] [address] 58171- 9268 Sep, Type 2 diabetes mellitus without complications E11.9 ; Chronic pain G89.29 ; Hypertension I10 ; Coronary artery disease I25.10 ; Morbid obesity with BMI of 45.0-49.9, adult Z68.42 ; Hyperlipidemia E78.5 ; 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 and Depression F32.9 [place] [id number] [place] [address] 52000- 6259 Aug, Chronic pain G89.29 [place] [id number] [place] [address] 03259- 0056 Aug, Chronic pain G89.29 and Constipation K59.00 [place] [address] 12449- 8706 Aug, Abnormal lung sounds R09.89 [place] [address] 45007- 9403 Aug, Depression F32.9 [place] [id number] [place] [address] 66557- 9395 Jul, Chronic pain G89.29 [place] [id number] [place] [address] 67402- 3081 May, Chronic pain G89.29 [place] [id number] [place] [address] 10359- 5172 May, Medicare annual wellness visit, subsequent Z00.00 [place] [id number] [place] [address] 40039- 3655 May, [place] [id number] [place] [address] 14359- 0170 May, Type 2 diabetes mellitus without complications [...] due to renal impairment without tophus M1A.3710 [facility] [id number] [place] [address]- 1660 May, [facility] [id number] [address]- 4734 Mar, [facility] [id number] [address]- 9067 Mar, [facility] [id number] [address]- 3247 Mar, [facility] [id number] [place] [address]- 4748 Mar, [facility] [id number] [address]- 8941 Mar, [facility] [id number] [address] 6367 Jan, [facility] [address], [place] [address]- 0316 Jan, [facility] [address] [address]- 0158 Dec, Type 2 diabetes mellitus without complications E11.9 ; Hypertension I10 ; Coronary artery disease I25.10 [address] insufficiency N28.9 [facility] [address] [address]- 0974 Dec, [facility] [id number] [address]- 3278 Dec, [facility] [id number] [address]- 4732 Nov, [facility] [id number] [address]- 2498 Nov, [facility] [address] [address]- 5856 Nov, [facility] [id number] [address]- 1807 Nov, [facility] [address] [address]- 4524 Nov, [facility] [id number] [place] [address] 93010- 5818 October, [facility] [id number] [place] [address] 50140- 4152 October, [facility] [id number] [place] [address] 91867- 7692 October, [facility] [id number] [place] [address] 50661- 9121 Sep, Type 2 diabetes mellitus without complications E11.[address] [facility] [id number] [place] [address] 37578- 2192 Sep, [facility] [id number] [place] [address] 47925- 5310 Sep, Diabetes E11.9 [facility] [id number] [place] [address] 15931- 0880 Sep, [facility] [address] [place] [address] 53057- 8049 Sep, Routine health maintenance Z00.00 ; Hypertension I10 ; Type 2 diabetes mellitus without complications E11.9 ; Morbid obesity with BMI of 45.0-49.9, adult Z68.42 ; Chronic pain G89.29 ; H/O carotid endarterectomy Z98.89 ; Vascular dementia F01.50 ; Arthritis M19.90 ; Coronary artery disease I25.10 ; Abnormal lung sounds R09.[address] [facility] [address] [place] [address] 45460- 5104 Aug, Anxiety F41.9 [facility] [id number] [address]- 2011 Aug, Arthritis M19.90 [place] [address] [address]- 0760 Jul, Arthritis M19.90 [facility] [id number] [place] [address] 933299- 3771 Jul, [facility] [id number]- 8199 May, [facility] [id number] [place] [address] 020230- 1445 May, Arthritis M19.90 ; Hypertension I10 ; Depression F32.9 ; Vascular dementia F01.50 and Coronary artery disease I25.10 [facility] [id number] [place] [address] 62545- 7106 May, [facility] [id number] [place] [address] 87878- 9198 May, [facility] [id number] [place] [address] 66217- 9780 Mar, [facility] [id number] [place] [address] 249392- 5053 Mar, [facility] [id number] [place] [address] 61290- 4272 Mar, [facility] [address] [place] [address] 63771- 0099 Mar, [facility] [address] [place] [address] 963968- 0827 Mar, Essential hypertension, benign 401.1 ; Unspecified arthropathy, site unspecified 716.90 and Other and unspecified hyperlipidemia 272.4 [facility] [id number] [place] [address] 26450- 3796 Mar, [facility] [address] [place] [address] 95856- 6936 Jan, [facility] [id number] [place] [address] 10836- 1927 Dec, [facility] [place] [facility] [address] [id number] [place] [address]- 2184 Dec, [facility] [place] [facility] [address] [id number] [place] [address]- 5559 Dec, [facility] [place] [facility] [address] [id number] [place] [address]- 9819 Dec, [facility] [place] [facility] [address] [id number] [place] [address]- 1920 Dec, [facility] [place] [facility] [address] [id number] [place] [address]- 3488 Dec, [facility] [place] [facility] [address] [id number] [place] [address]- 8871 Dec, [facility] [place] [facility] [address] [id number] [place] [address]- 7812 Dec, [facility] [place] [facility] [address] [id number] [place] [address]- 8825 Nov, [facility] [place] [facility] [address] [id number] [place] [address]- 9999 Nov, [facility] [place] [facility] [address] [id number] [place] [address]- 9280 Nov, [facility] [place] [facility] [address] [id number] [place] [address]- 5794 October, [facility] [place] [facility] [address] [id number] [place] [address]- 2254 October, [facility] [place] [facility] [address] [id number] [place] [address]- 8767 Sep, [facility] [place] [facility] [address] [id number] [place] [address]- 1940 Sep, [facility] [place] [facility] [address] [id number] [place] [address]- 1324 Sep, [facility] [place] [facility] [address] [id number] [place] [address]- 5266 19 Aug, 2014 [facility] [place] [facility] [address] [id number] [place] [address]- 9145 19 Aug, 2014 [facility] [place] [facility] [address] [id number] [place] [address]- 5704 12 Aug, 2014 [facility] [place] [facility] [address] [id number] [place] [address]- 9379 12 Aug, 2014 [facility] [place] [facility] [address] [id number] [place] [address]- 3916 13 Aug, 2014 [facility] [place] [facility] [address] [id number] [place] [address]- 4310 13 Aug, 2014 [facility] [place] [facility] [address] [facility] [id number] [place] [address]- 9926 11 Aug, 2014 [facility] [place] [facility] [address] [facility] [id number] [place] [address]- 6433 11 Aug, 2014 [facility] [place] [facility] [address] [id number] [place] [address]- 0593 10 Aug, 2014 [facility] [place] [facility] [address] [facility] [id number] [place] [address]- 2772 May, [facility] [place] [facility] [address] [facility] [id number] [place] [address]- 2017 29 May, 2014 [facility] [place] [facility] [address] [id number] [place] [address]- 5854 18 May, 2014 [facility] [place] [facility] [address] [id number] [place] [address]- 2543 18 May, 2014 [facility] [place] [facility] [address] [id number] [place]- 6763 15 May, 2014 [facility] [place] [facility] [address] [id number] [place]- 3046 15 May, 2014 [facility] [place] [facility] [address] [facility] [id number] [place]- 5140 May, [facility] [place] [facility] [address] [id number] [place] [address]- 1315 May, [facility] [place] [facility] [address] [id number] [place] [address]- 4407 Mar, [facility] [place] [facility] [address] [id number] [place] [address]- 5281 Mar, [facility] [address] [facility] [place] [id number] Mar, [facility] [place] [facility] [address] [id number] [place] [address]- 3910 Mar, [facility] [place] [facility] [address] [id number] [place] [address]- 5518 Mar, [facility] [place] [facility] [address] [id number] [place] [address]- 4616 Mar, [facility] [place] [facility] [address] [id number] [place] [address]- 8053 Mar, [facility] [place] [facility] [address] [id number] [place] [address] Mar, [facility] [place] [facility] [address] [id number] [place] [address] Mar, [facility] [place] [facility] [address] [id number] [place] [address] Mar, [facility] [place] [facility] [address] [id number] [place] [address] Mar, [facility] [place] [facility] [address] [id number] [place] [address] Mar, [facility] [place] [facility] [address] [id number] [place] [address] Mar, [facility] [place] [facility] [address] [id number] [place] [address] Jan, [facility] [place] [facility] [address] [id number], [place] [address] Jan, [facility] [address] [facility] [id number] [address] Jan, [facility] [address] [facility] [id number] [address] Jan, [facility] [address] [place] [id number] Jan, [facility] [address] [facility] [id number] [address] Jan, [facility] [address] [facility] [id number] [address] Jan, [facility] [address] [facility] [id number] [address] Dec, [facility] [id number] [address] Dec, [facility] [address] [id number] [address] Dec, [facility] [address] [facility] [id number] [address] Dec, [facility] [address] [id number] [address] Dec, [facility] [address] [id number] [address] Dec, [facility] [address] [id number], [place] [address] Nov, [facility] [address] [id number], [place] [address] Nov, IMMUNIZATIONS No Known Immunizations SOCIAL HISTORY Never Assessed REASON FOR VISIT Lab results PLAN OF CARE VITAL SIGNS MEDICATIONS Medication Instructions Dosage Frequency Start Date End Date Duration Status Ferrous Sulfate 325 (65 Fe) MG Orally Once a day 1 tablet 24h Aug, 30 day(s) Active RESULTS No Results PROCEDURES No Known [...]
--- OUTSIDE RECORDS SUMMARY | 2018-03-10 15:47 | XMS REPORT ---
Author Author ELIEL SMITH Organization [facility] Address [address] [place] [address] Care Team Providers [facility] Name Role Phone ELIEL SMITH Unavailable PROBLEMS Type Condition ICD9-CM Code EIK13-CG Code Onset Dates Condition Status SNOMED Code Problem Arthritis M19.90 Active 4308935 Problem Chronic pain G89.29 Active 38395913 Problem H/O carotid endarterectomy Z98.89 Active 367060627 Problem Constipation K59.00 Active 41377067 Problem Hyperlipidemia E78.5 Active 94090923 Problem Depression F32.9 Active 272717384 Problem History of alcoholism F10.21 Active 701176728 Problem Anxiety F41.9 Active 52342319 Problem Type 2 diabetes mellitus without complications E11.9 Active 537046759 Problem Morbid obesity with BMI of 45.0-49.9, adult Z68.42 Active 835820503 Problem 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 71727785 Problem Routine health maintenance Z00.00 Active 550764122 Problem Chronic renal disease, stage 3, moderately decreased glomerular filtration rate (GFR) between 30-59 mL/min/1.73 square meter N18.3 Active 653933528 Problem DJD (degenerative joint disease) M19.90 Active 013778247 Problem Cervical stenosis of spinal canal M48.02 Active 29008388 Problem H/O thyroid nodule Z86.39 Active 768865555 Problem Hepatitis C B19.20 Active 57432230 Problem Coronary artery disease I25.10 Active 22059551 Problem History of TIA (transient ischemic attack) Z86.73 Active 290040745 Problem Vascular dementia F01.50 Active 419566468 Problem H/O fibromyalgia Z87.39 Active 768058519 Problem History of solitary pulmonary nodule Z87.898 Active 951313362 Problem Hypertension I10 Active 38057731 ALLERGIES Unknown Allergies SOCIAL HISTORY No smoking Hx information available PLAN OF CARE VITAL SIGNS MEDICATIONS Medication Instructions Dosage Frequency Start Date End Date Duration Status Ativan 0.5 Orally, each fill must last 28 days Once a day 1 tablet 24h Active RESULTS No Results PROCEDURES No Known procedures IMMUNIZATIONS No Known Immunizations
--- OUTSIDE RECORDS SUMMARY | 2018-03-10 15:47 | XMS REPORT ---
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 Name Role Phone ELIEL SMITH Unavailable PROBLEMS Type Condition ICD9-CM Code IAO13-SC Code Onset Dates Condition Status SNOMED Code Problem Routine health maintenance Z00.00 Active 370908208 Problem Chronic pain G89.29 Active 21542007 Problem Type 2 diabetes mellitus without complications E11.9 Active 391877977 Problem Diverticulitis K57.92 Active 582664033 Problem Anxiety F41.9 Active 80716275 Problem Chronic fatigue R53.82 Active 31963768 Problem Hepatitis C B19.20 Active 04504102 Problem History of solitary pulmonary nodule Z87.898 Active 029041946 Problem Depression F32.9 Active 488836905 Problem Constipation K59.00 Active 87215254 Problem Chronic kidney disease (CKD) stage G3a/A1, moderately decreased glomerular filtration rate (GFR) between 45-59 mL/min/1.73 square meter and albuminuria creatinine ratio less than 30 mg/g N18.3 Active 527793573 Problem 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 43247767 Problem History of alcoholism F10.21 Active 245999692 Problem History of TIA (transient ischemic attack) Z86.73 Active 523603536 Problem Vitamin D deficiency E55.9 Active 57358947 Problem Hyperlipidemia E78.5 Active 20085664 Problem Arthritis M19.90 Active 0527671 Problem Coronary artery disease I25.10 Active 46475634 Problem DJD (degenerative joint disease) M19.90 Active 611871150 Problem Cervical stenosis of spinal canal M48.02 Active 28666085 Problem Hypertension I10 Active 87170224 Problem Abnormal CBC R79.89 Active 245372321 Problem Vascular dementia F01.50 Active 865508244 Problem Morbid obesity with BMI of 45.0-49.9, adult Z68.42 Active 232042697 ALLERGIES No Information ENCOUNTERS Encounter Location Date Diagnosis [place] [address] [address] October, Chronic pain G89.29 and Anxiety F41.9 [place] [address] [address] October, Type 2 diabetes mellitus without complications [...] than 30 mg/g N18.3 and Anxiety F41.9 [place] [address] [address] Sep, Chronic pain G89.29 and Anxiety F41.9 [place] [address] [address] Aug, Anxiety F41.9 and Chronic pain G89.29 [place] [address] [address]- [address] Aug, Anxiety F41.9 [place] [address] [address]- 8380 Aug, Chronic pain G89.29 and Anxiety F41.9 [place] [address] [address] Aug, Chronic kidney disease (CKD) stage G3a/A1, moderately decreased glomerular filtration rate (GFR) between 45-59 mL/min/1.73 square meter and albuminuria creatinine ratio less than 30 mg/g N18.3 [place] [address] [address] Aug, [facility] [address] [id number] Jul, Dental examination Z01.20 [facility] [address] [place] [id number] [place] [address]63- 4257 Jul, Chronic pain G89.29 and Anxiety F41.9 [facility] [address] [place] [address] [id number] [place] [address]998- 9370 Jul, Other specified abnormal findings of blood chemistry R79.89 [facility] [address] [place] [id number] [place] [address] 112[address]- 5964 Jul, Type 2 diabetes mellitus without complications E11.9 ; Chronic kidney disease (CKD) stage G3a/A1, moderately decreased glomerular filtration rate (GFR) between 45-59 mL/min/1.73 square meter and albuminuria creatinine ratio less than 30 mg/g N18.3 ; BMI 45.0-49.9, adult Z68.42 ; Chronic fatigue R53.82 ; Hair loss L65.9 ; Generalized abdominal pain R10.84 and Diverticulitis K57.92 [facility] [id number] [place] [address]99- 8936 Jul, [facility] [address] [place] [id number] [place] [address] [id number] Jul, Dental examination Z01.20 [facility] [place] [address] [place] [id number] [place] [address] 03829- 2383 Jul, Anxiety F41.9 [facility] [place] [address] [place] [id number] [place] [address] 77680- 2652 Jul, Anxiety F41.9 [facility] [address] [id number] Jul, Chronic pain G89.29 [facility] [address] [place] [id number] [place] [address] [id number] May, Chronic pain G89.29 [facility] [address] [place] [id number] [place] [address] 13984- 9376 May, [facility] [id number] [place] [address] [id number] May, Dental examination Z01.20 [facility] [id number] [place] [address] 366081- 3319 May, Anxiety F41.9 [facility] [address] [place] [id number] [place] [address] [id number] 06 May, 2017 Chronic pain G89.29 [facility] [id number] [place] [address] 91859- 0841 Mar, Depression F32.9 [facility] [address] [address]- [address] 12 Mar, 2017 Anxiety F41.9 [facility] [address] [place] [id number] [place] [address] [id number] Mar, Chronic pain G89.29 [facility] [place] [address] [place] [address] 34861- 3485 19 Mar, 2017 Abnormal CBC R79.89 [facility] [address] [id number] 18 Mar, 2017 Anxiety F41.9 [facility] [address] [place] [id number] [place] [address] 37867- 3775 14 Mar, 2017 Hypertension I10 ; Routine health maintenance Z00.00 ; Type 2 diabetes mellitus without complications E11.9 and Hyperlipidemia E78.5 [facility] [address] [place] [id number] [place] [address] [id number] 13 Mar, 2017 Chronic pain G89.29 and Anxiety F41.9 [facility] [address] [place] [address] [id number] 13 Mar, 2017 Dental examination Z01.20 [facility] [address] [place] [address] 48613- 8306 06 Mar, 2017 Hypertension I10 ; Routine health maintenance Z00.00 ; Type 2 diabetes mellitus without complications E11.9 and Hyperlipidemia E78.5 [place] [address] [address] Jan, Type 2 diabetes mellitus without complications E11.9 ; Hypertension I10 ; Vascular dementia F01.50 ; Morbid obesity with BMI of 45.0- 49.9, adult Z68.42 ; Hyperlipidemia E78.5 ; Chronic pain G89.29 ; Anxiety F41.9 ; Depression F32.9 ; Coronary artery disease I25.10 ; 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 and Constipation K59.00 [place] [address] [place] [id number] [place] [address] 41782- 0052 Jan, Chronic pain G89.29 [place] [address] [place] [id number] [place] [address] 99950- 5559 Jan, [place] [address] [place] [id number] [place] [address] 90413- 2261 Dec, [place] [address] [place] [id number] [place] [address] 28614- 2034 Dec, Chronic pain G89.29 [place] [address] [place] [id number] [place] [address] 91986- 4493 Nov, Chronic pain G89.29 [facility] [address] [place] [id number] [place] [address] 03024- 6311 October, Chronic pain G89.29 [place] [address] [place] [id number] [place] [address] 99185- 9467 Sep, Chronic pain G89.29 [facility] [address] [address]- 95[address] Sep, Type 2 diabetes mellitus without complications E11.9 ; Chronic pain G89.29 ; Hypertension I10 ; Coronary artery disease I25.10 ; Morbid obesity with BMI of 45.0-49.9, adult Z68.42 ; Hyperlipidemia E78.5 ; 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 and Depression F32.9 [place] [address] [place] [id number] [place] [address] 82309- 7032 Aug, Chronic pain G89.29 [place] [address] [address]- [address]10 Aug, Chronic pain G89.29 and Constipation K59.[address] [address]- [address] Aug, Abnormal lung sounds R09.89 [place] [address] 08344- 3898 Aug, Depression F32.[address] 8[address]- 1108 Jul, Chronic pain G89.29 [place] [address] 30570- 2531 May, Chronic pain G89.29 [place] [address] 63303- 0026 May, Medicare annual wellness visit, subsequent Z00.[address] 0[address]- 6446 May, [place] [id number] [place] [address] 15633- 0503 02 May, 2016 Type 2 diabetes mellitus [...] due to renal impairment without tophus M1A.3710 [place] [id number] [place] [address] 93588- 2844 May, [facility] [address] [id number] [place] [address]- 1867 Mar, [facility] [address] [place] [address]- 7044 Mar, [facility] [address] [facility] [id number] [place] [address]- 8342 Mar, [facility] [place] [address] [place] [id number] [place] [address], [place] [address]- 2560 Mar, [facility] [place] [id number] [place] [address]- 9795 Mar, [facility] [address] [place] [id number] [place] [address], [place] [address]- 7659 Jan, [facility] [place] [id number] [place] [address]- 9111 Jan, [facility] [address] [place] [address]- 8769 Dec, Type 2 diabetes mellitus without complications E11.9 ; Hypertension I10 ; Coronary artery disease I25.10 and Renal insufficiency N28.9 [facility] [id number] [place] [address]- 5093 Dec, [facility] [address] [address]- 9600 Dec, [facility] [address] [address]- 6209 Nov, [facility] [address] [address]- 4162 Nov, [facility] [id number] [place] [address]- 6722 Nov, [facility] [address] [address]- 5486 Nov, [facility] [address] [address]- 2404 Nov, [facility] [address] [address]- 7811 October, [facility] [address] [place] [id number] [place] [address] 12456- 6482 October, [facility] [address] [place] [id number] [place] [address] 29387- 7352 October, [facility] [address] [place] [id number] [place] [address] 12103- 4122 Sep, Type 2 diabetes mellitus without complications E11.9 and Constipation K59.00 [facility] [address] [place] [id number] [place] [address] 56871- 8053 Sep, [facility] [place] [address] [place] [id number] [place] [address] 50589- 6649 Sep, Diabetes E11.9 [facility] [place] [address] [place] [id number] [place] [address] 03502- 5656 Sep, [facility] [id number] [place] [address] 94180- 3001 Sep, Routine health maintenance Z00.00 ; Hypertension I10 ; Type 2 diabetes mellitus without complications E11.9 ; Morbid obesity with BMI of 45.0-49.9, adult Z68.42 ; Chronic pain G89.29 ; H/O carotid endarterectomy Z98.89 ; Vascular dementia F01.50 ; Arthritis M19.90 ; Coronary artery disease I25.10 ; Abnormal lung sounds R09.89 and Diabetes E11.9 [facility] [address] [address]- 8667 Aug, Anxiety F41.9 [facility] [address] [place] [id number] [address]- 0664 Aug, Arthritis M19.90 [facility] [place] [address] [address]- 0140 Jul, Arthritis M19.90 [facility] [place] [address] [place] [address] [id number] [address]- 5929 Jul, [facility] [address] [address]- 5856 May, [facility] [address] [address]- 0622 May, Arthritis M19.90 ; Hypertension I10 ; Depression F32.9 ; Vascular dementia F01.50 and Coronary artery disease I25.10 [facility] [address] [address] May, [facility] [place] [address], [place] [address]- 3222 May, [facility] [address] [address]- 5259 Mar, [facility] [address] [place] [id number] [address]- 1429 Mar, [facility] [address], [place] [address]- 5243 Mar, [facility] [address], [place] [address]- 5441 Mar, [facility] [address] [place] [id number] [address]- 1491 Mar, Essential hypertension, benign 401.1 ; Unspecified arthropathy, site unspecified 716.90 and Other and unspecified hyperlipidemia 272.4 [facility] [address] [place] [id number] [address]- 3761 Mar, [facility] [place] [address], [place] [address]- 0171 Jan, [facility] [address], [place] [address]- 8481 Dec, [facility] [address] [place] [id number], [place] [address]- 4001 Dec, [facility] [place] [facility] [address] [id number] [place] [address]- 9374 Dec, 2014 [facility] [place] [facility] [address] [id number] [place] [address]- 9567 Dec, [facility] [place] [facility] [address] [id number] [place] [address]- 6846 Dec, 2014 [facility] [place] [facility] [address] [id number] [place] [address]- 5898 Dec, [facility] [place] [facility] [address] [id number] [place] [address]- 3034 Dec, [facility] [place] [facility] [address] [id number] [place] [address]- 0766 Dec, [facility] [place] [facility] [address] [id number] [place] [address]- 0280 Nov, [facility] [place] [facility] [address] [id number] [place] [address]- 9019 Nov, [facility] [place] [facility] [address] [id number] [place] [address]- 6678 Nov, [facility] [place] [facility] [address] [id number] [place] [address]- 3736 October, [facility] [place] [facility] [address] [id number] [place] [address]- 0922 October, [facility] [place] [facility] [address] [id number] [place] [address]- 2522 Sep, [facility] [place] [facility] [address] [id number] [place] [address]- 7501 Sep, [facility] [place] [facility] [address] [id number] [place] [address]- 9045 Sep, [facility] [place] [facility] [address] [id number] [place] [address]- 0606 Aug, [facility] [place] [facility] [address] [id number] [place] [address]- 7666 Aug, [facility] [place] [facility] [address] [id number] [place] [address]- 3488 Aug, [facility] [place] [facility] [address] [id number] [place] [address]- 7623 Aug, [facility] [place] [facility] [address] [id number] [place] [address]- 1610 Aug, [facility] [place] [facility] [address] [id number] [place] [address]- 2656 Aug, 2014 [facility] [place] [facility] [address] [id number] [place] [address]- 1018 Aug, [facility] [place] [facility] [address] [facility] [id number] [place] [address]- 3648 Aug, [facility] [place] [facility] [address] [id number] [place] [address]- 5479 Aug, [facility] [place] [facility] [address] [id number] [place] [address]- 9333 May, [facility] [place] [facility] [address] [id number] [place] [address]- 9374 May, [facility] [place] [facility] [address] [facility] [id number] [place] [address]- 6221 May, [facility] [place] [facility] [address] [id number] [place] [address]- 2293 May, [facility] [place] [facility] [address] [id number] [place] [address]- 8117 May, [facility] [place] [facility] [address] [id number] [place] [address]- 7195 May, [facility] [place] [facility] [address] [facility] [id number] [place] [address]- 5509 May, [facility] [place] [facility] [address] [facility] [id number] [place] [address]- 0230 May, [facility] [place] [facility] [address] [id number] [place] [address]- 2557 Mar, [facility] [address] [id number] [place] [address]- 7766 Mar, [facility] [address] [place] [id number] Mar, [facility] [address] [id number] [place] [address]- 6393 Mar, [facility] [place] [facility] [address] [id number] [place] [address]- 2410 Mar, [facility] [place] [facility] [address] [id number] [place] [address]- 7225 Mar, [facility] [place] [facility] [address] [id number] [place] [address]- 4299 Mar, [facility] [place] [facility] [address] [id number] [place] [address]- 8802 Mar, [facility] [place] [facility] [address] [id number] [place] [address]- 0229 Mar, [facility] [place] [facility] [address] [id number] [place] [address]- 2822 Mar, [facility] [place] [facility] [address] [id number] [place] [address]- 1142 Mar, [facility] [place] [facility] [address] [id number] [place] [address]- 5979 Mar, [facility] [place] [facility] [address] [id number] [place] [address]- 7544 Mar, [facility] [place] [facility] [address] [id number] [place] [address]- 6013 Jan, [facility] [place] [facility] [address] [id number] [place] [address]- 4343 Jan, [facility] [place] [facility] [address] [id number] [place] [address]- 7811 Jan, [facility] [address] [facility] [id number] [address]- 7139 Jan, [facility] [address] [place] [id number] Jan, [facility] [address] [facility] [id number], [place] [address] Jan, [facility] [place] [address] [facility] [id number], [place] [address] Jan, [facility] [place] [address] [facility] [id number] [address] Dec, [facility] [place] [address] [facility] [id number][place] [address] Dec, [facility], [place] [address] [facility] [id number], [place] [address] Dec, [facility] [place] [address] [facility] [id number][place] [address] Dec, [facility] [place] [address] [facility] [id number], [place] [address] Dec, [facility] [place] [address] [id number], [place] [address] Dec, [facility] [place] [address] [id number], [place] [address] Nov, [facility] [place] [address] [id number], [place] [address] Nov, IMMUNIZATIONS No Known Immunizations SOCIAL HISTORY Never Assessed REASON FOR VISIT triage - CBowmanRN PLAN OF CARE VITAL SIGNS MEDICATIONS Unknown [...]
--- OUTSIDE RECORDS SUMMARY | 2018-03-10 15:48 | XMS REPORT ---
Author Author ELIEL SMITH Organization [facility] Address [address] [place] [address] Care Team Providers Care Horticultural Technical Officer Name Role Phone ELIEL SMITH Unavailable PROBLEMS Type Condition ICD9-CM Code LVZ29-OP Code Onset Dates Condition Status SNOMED Code Problem Routine health maintenance Z00.00 Active 588460968 Problem Chronic pain G89.29 Active 59885870 Problem Type 2 diabetes mellitus without complications E11.9 Active 349038851 Problem Diverticulitis K57.92 Active 033953574 Problem Anxiety F41.9 Active 94106568 Problem Chronic fatigue R53.82 Active 36078119 Problem Hepatitis C B19.20 Active 30035244 Problem History of solitary pulmonary nodule Z87.898 Active 982111600 Problem Depression F32.9 Active 409967728 Problem Constipation K59.00 Active 35845866 Problem Chronic kidney disease (CKD) stage G3a/A1, moderately decreased glomerular filtration rate (GFR) between 45-59 mL/min/1.73 square meter and albuminuria creatinine ratio less than 30 mg/g N18.3 Active 344721666 Problem 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 40759235 Problem History of alcoholism F10.21 Active 305855916 Problem History of TIA (transient ischemic attack) Z86.73 Active 938934476 Problem Vitamin D deficiency E55.9 Active 12533399 Problem Hyperlipidemia E78.5 Active 57098632 Problem Arthritis M19.90 Active 6370335 Problem Coronary artery disease I25.10 Active 84986104 Problem DJD (degenerative joint disease) M19.90 Active 729612535 Problem Cervical stenosis of spinal canal M48.02 Active 55211501 Problem Hypertension I10 Active 24787725 Problem Abnormal CBC R79.89 Active 728484315 Problem Vascular dementia F01.50 Active 657925556 Problem Morbid obesity with BMI of 45.0-49.9, adult Z68.42 Active 709564836 ALLERGIES No Information ENCOUNTERS Encounter Location Date Diagnosis [place] [id number] [place] [address] 83206- 1535 October, [place] [address] [address]- [address] Aug, Anxiety F41.9 and Chronic pain G89.29 [place] [address] 31957- 6703 Aug, Anxiety F41.9 [place] [address] 20599- 2843 Aug, Chronic pain G89.29 and Anxiety F41.9 [place] [address] 34972- 2468 Aug, Chronic kidney disease (CKD) stage G3a/A1, moderately decreased glomerular filtration rate (GFR) between 45-59 mL/min/1.73 square meter and albuminuria creatinine ratio less than 30 mg/g N18.3 [place] [address] 18027- 3426 Aug, [facility] [address] [id number] Jul, Dental examination Z01.20 [place] [address] 27897- 3960 Jul, Chronic pain G89.29 and Anxiety F41.9 [place] [id number] [place] [address] 98959- 6712 Jul, Other specified abnormal findings of blood chemistry R79.89 [place] [address] 38750- 5921 Jul, Type 2 diabetes mellitus without complications E11.9 ; Chronic kidney disease (CKD) stage G3a/A1, moderately decreased glomerular filtration rate (GFR) between 45-59 mL/min/1.73 square meter and albuminuria creatinine ratio less than 30 mg/g N18.3 ; BMI 45.0-49.9, adult Z68.42 ; Chronic fatigue R53.82 ; Hair loss L65.9 ; Generalized abdominal pain R10.[address] [facility] [id number] [place] [address] 24671- 9826 Jul, [facility] [address] [place] [address] [id number] Jul, Dental examination Z01.20 [facility] [address] 52794- 1676 Jul, Anxiety F41.9 [facility] [address] 83122- 7482 Jul, Anxiety F41.9 [facility] [address] [id number] Jul, Chronic pain G89.29 [facility] [address] [id number] May, Chronic pain G89.29 [facility] [id number] [place] [address] 15993- 8336 May, [facility] [id number] [place] [address] [id number] May, Dental examination Z01.20 [facility] [id number] [place] [address] 06969- 2406 May, Anxiety F41.9 [facility] [id number] [place] [address] [id number] May, Chronic pain G89.29 [facility] [id number] [place] [address] 45200- 5546 Mar, Depression F32.9 [facility] [id number] [place] [address] 43282- 9856 Mar, Anxiety F41.9 [facility] [id number] [place] [address] [id number] Mar, Chronic pain G89.29 [facility] [id number] [address] 19 Mar, 2017 Abnormal CBC R79.89 [facility] [place] [facility] [id number] [place] [address] [id number] 18 Mar, [address] [facility] [id number] [place] [address] 20248- 1845 14 Mar, 2017 Hypertension I10 ; Routine health maintenance Z00.00 ; Type 2 diabetes mellitus without complications E11.9 and Hyperlipidemia E78.5 [facility] [place] [facility] [id number] [place] [address] [id number] 13 Mar, 2017 Chronic pain G89.29 and Anxiety F41.9 [facility] [address] [place] [address] [id number] 13 Mar, [address] [facility] [address] [place] [address] 23181- 3865 06 Mar, 2017 Hypertension I10 ; Routine health maintenance Z00.00 ; Type 2 diabetes mellitus without complications E11.[address] 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 [address] [place] [address] 34032- 4704 16 Jan, [address] [facility] [address] [place] [address] 66263- 1211 Jan, [facility] [address] [place] [address] 24304- 5646 Dec, [place] [id number] [place] [address] 53425- 3944 Dec, Chronic pain G89.29 [place] [id number] [place] [address] 30854- 7384 Nov, Chronic pain G89.29 [place] [id number] [place] [address] 99208- 6460 October, Chronic pain G89.29 [place] [address] 66299- 7752 Sep, Chronic pain G89.29 [place] [address] 63841- 9801 Sep, Type 2 diabetes mellitus without complications E11.9 ; Chronic pain G89.29 ; Hypertension I10 ; Coronary artery disease I25.10 ; Morbid obesity with BMI of 45.0-49.9, adult Z68.42 ; Hyperlipidemia E78.5 ; 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 and Depression F32.9 [place] [id number] [place] [address] 28034- 3336 Aug, Chronic pain G89.29 [place] [id number] [place] [address] 61338- 9176 Aug, Chronic pain G89.29 and Constipation K59.00 [place] [id number] [place] [address] 64646- 9414 Aug, Abnormal lung sounds R09.89 [place] [id number] [place] [address] 24368- 4758 Aug, Depression F32.9 [place] [id number] [place] [address] 92587- 0748 Jul, Chronic pain G89.29 [place] [id number] [place] [address] 82659- 8242 May, Chronic pain G89.29 [facility] [address] [address]- 8[address] May, Medicare annual wellness visit, subsequent Z00.00 [facility] [id number] [place] [address] 01731- 3384 May, [facility] [id number] [place] [address] 93324- 0015 May, Type 2 diabetes mellitus without complications [...] due to renal impairment without tophus M1A.3710 [facility] [id number] [place] [address] 29867- 9666 May, [facility] [id number] [place] [address] 43475- 0098 Mar, [facility] [id number] [place] [address] 68809- 2659 Mar, [facility] [id number] [place] [address] 89215- 2706 Mar, [facility] [id number] [place] [address] 31212- 5894 Mar, [facility] [id number] [place] [address] 48688- 7547 Mar, [facility] [id number] [place] [address] 56211- 8639 Jan, [facility] [id number] [place] [address] 22254- 0371 Jan, [facility] [address] [facility] [id number] [place] [address]- 0600 Dec, Type 2 diabetes mellitus without complications E11.9 ; Hypertension I10 ; Coronary artery disease I25.[address] [facility] [address] [facility] [place] [id number] [place] [address]- 4361 Dec, [facility] [address] [facility] [place] [id number] [place] [address]- 1518 Dec, [facility] [address] [facility] [id number] [place] [address]- 8514 Nov, [facility] [address] [facility] [id number] [place] [address]- 1078 Nov, [facility] [address] [place] [address]- 9174 Nov, [facility] [address] [address]- 4645 Nov, [facility] [id number] [address]- 0535 Nov, [facility] [address] [address]- 3696 October, [facility] [address] [address]- 7245 October, [facility] [address] [address]- 5862 October, [facility] [id number] [address]- 9666 Sep, Type 2 diabetes mellitus without complications E11.[address] [facility] [id number] [address]- 3421 Sep, [facility] [id number] [address]- 2664 Sep, Diabetes E11.9 [facility] [id number] [place] [address] 34216- 1453 Sep, [facility] [address] 19594- 0866 Sep, Routine health maintenance Z00.00 ; Hypertension I10 ; Type 2 diabetes mellitus without complications E11.9 ; Morbid obesity with BMI of 45.0-49.9, adult Z68.42 ; Chronic pain G89.29 ; H/O carotid endarterectomy Z98.89 ; Vascular dementia F01.50 ; Arthritis M19.90 ; Coronary artery disease I25.10 ; Abnormal lung sounds R09.[address] [facility] [address] 79627- 5766 Aug, Anxiety F41.9 [facility] [address] 12891- 6864 Aug, Arthritis M19.90 [facility] [address] 47785- 0905 Jul, Arthritis M19.90 [facility] [address] 78106- 2638 Jul, [facility] [id number] [place] [address] 45267- 2769 May, [facility] [id number] [place] [address] 68884- 6011 May, Arthritis M19.90 ; Hypertension I10 ; Depression F32.9 ; Vascular dementia F01.50 and Coronary artery disease I25.10 [facility] [id number] [place] [address] 75787- 3312 May, [facility] [address] 70103- 2840 May, [facility] [id number] [place] [address] 92827- 3448 Mar, [facility] [address] [place] [address]- 3546 Mar, [facility] [address] [facility] [id number] [place] [address]- 6811 Mar, [facility] [id number] [address]- 6572 Mar, [facility] [address] [address]- 7745 Mar, Essential hypertension, benign 401.1 ; Unspecified arthropathy, site unspecified 716.90 and Other and unspecified hyperlipidemia 272.4 [facility] [address] [place] [address]- 0262 Mar, [facility] [id number] [address]- 3292 Jan, [facility] [address], [place] [address]- 5299 Dec, [facility] [address], [place] [address]- 7135 Dec, [facility] [address] [address]- 5109 Dec, [facility] [address] [place] [address]- 3636 Dec, [facility] [address], [place] [address]- 0609 Dec, [facility] [id number] [address]- 3969 Dec, [facility] [id number] [address]- 4976 Dec, [facility] [place] [facility] [address] [facility] [id number] [place] [address]- 8756 Dec, [facility] [id number] [address]- 1319 Nov, [facility] [place] [facility] [address] [id number] [place] [address]- 5214 Nov, [facility] [place] [facility] [address] [id number] [place] [address]- 3619 Nov, [facility] [place] [facility] [address] [id number] [place] [address]- 7776 October, [facility] [place] [facility] [address] [id number] [place] [address]- 6056 October, [facility] [place] [facility] [address] [id number] [place] [address]- 2476 Sep, [facility] [place] [facility] [address] [id number] [place] [address]- 4953 Sep, [facility] [place] [facility] [address] [id number] [place] [address]- 9863 Sep, [facility] [place] [facility] [address] [id number] [place] [address]- 5539 Aug, [facility] [place] [facility] [address] [id number] [place] [address]- 0178 Aug, [facility] [place] [facility] [address] [id number] [place] [address]- 8214 Aug, [facility] [place] [facility] [address] [facility] [id number] [place] [address]- 2712 Aug, [facility] [place] [facility] [address] [id number] [place] [address]- 0999 Aug, [facility] [place] [facility] [address] [id number] [place] [address]- 9159 Aug, [facility] [place] [facility] [address] [id number] [place] [address]- 6775 Aug, [facility] [place] [facility] [address] [id number] [place] [address]- 5102 Aug, [facility] [place] [facility] [address] [id number] [address]- 1834 Aug, [facility] [address] [id number] [place] [address]- 4106 May, [facility] [address] [id number] [place] [address]- 0011 May, [facility] [address] [id number] [place] [address]- 9360 May, [facility] [address] [id number] [place] [address]- 4257 May, [facility] [address] [id number] [place] [address]- 7069 May, [facility] [address] [id number] [place] [address]- 8847 May, [facility] [address] [id number] [place] [address]- 5176 May, [facility] [address] [id number] [place] [address]- 3097 May, [facility] [address] [id number] [address]- 2166 Mar, [facility] [address] [id number], [place] [address]- 8855 Mar, [facility] [address] [place] [id number] Mar, [facility] [address] [id number] [address]- 1693 Mar, [facility] [place] [facility] [address] [id number] [place] [address]- 2936 Mar, [facility] [place] [facility] [address] [id number], [place] [address]- 4785 Mar, [facility] [place] [facility] [address] [id number][place] [address]- 8901 Mar, [facility] [place] [facility] [address] [id number] [place] [address]- 3650 24 Mar, 2014 [facility] [place] [facility] [address] [id number] [place] [address]- 3255 24 Mar, 2014 [facility] [place] [facility] [address] [id number] [place] [address]- 5463 Mar, [facility] [place] [facility] [address] [id number] [place] [address]- 6076 Mar, [facility] [place] [facility] [address] [id number] [place] [address]- 0506 Mar, [facility] [place] [facility] [address] [id number] [place] [address]- 2732 Mar, [facility] [place] [facility] [address] [id number] [place] [address]- 4245 Jan, [facility] [place] [facility] [address] [id number] [place] [address]- 6405 Jan, [facility] [place] [facility] [address] [id number] [place] [address]- 0426 Jan, [facility] [place] [facility] [address] [id number] [place] [address]- 5097 Jan, [facility] [address] [place] [id number] Jan, [facility] [place] [facility] [address] [id number] [place] [address]- 4093 Jan, [facility] [place] [facility] [address] [id number] [place] [address]- 4985 Jan, [facility] [place] [facility] [address] [id number] [place] [address]- 3879 Dec, [facility] [place] [facility] [address] [id number] [place] [address]- 9784 Dec, [facility] [place] [facility] [address] [id number] [place] [address]- 0124 Dec, [facility] [place] [facility] [address] [id number] [place] [address]- 0297 Dec, [facility] [address] [facility] [place] [id number] [place] [address]- 8545 Dec, [facility] [address] [facility] [place] [id number] [place] [address]- 8722 Dec, [facility] [address] [facility] [place] [id number] [address]- 3911 Nov, [facility] [address] [facility] [id number] [place] [address]- 0953 Nov, IMMUNIZATIONS No Known Immunizations SOCIAL HISTORY Never Assessed REASON FOR VISIT Refill request PLAN OF CARE VITAL SIGNS MEDICATIONS Medication Instructions Dosage Frequency Start Date End Date Duration Status Hydrocodone-Acetaminophen 5-325 MG Orally 3 times a day-,Assisted living facility 1 tablet Dec, 28 Active RESULTS No Results PROCEDURES No [...]
--- OUTSIDE RECORDS SUMMARY | 2018-03-10 15:49 | XMS REPORT ---
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 05596794 Problem Chronic pain G89.29 Active 67328307 Problem Type 2 diabetes mellitus without complications E11.9 Active 139278468 Problem Constipation K59.00 Active 07723052 Problem Routine health maintenance Z00.00 Active 452615447 Problem Hepatitis C B19.20 Active 64988287 Problem Anxiety F41.9 Active 73506188 Problem Cervical stenosis of spinal canal M48.02 Active 45379957 Problem History of alcoholism F10.21 Active 894402281 Problem History of solitary pulmonary nodule Z87.898 Active 829289244 Problem Hyperlipidemia E78.5 Active 31804904 Problem DJD (degenerative joint disease) M19.90 Active 589969021 Problem Vascular dementia F01.50 Active 134927137 Problem Abnormal CBC R79.89 Active 901541746 Problem Arthritis M19.90 Active 4463061 ALLERGIES No Information SOCIAL HISTORY Never Assessed PLAN OF CARE VITAL SIGNS MEDICATIONS Medication Instructions Dosage Frequency Start Date End Date Duration Status Celexa 10 mg Orally Once a day 1 tablets 24h 30 days Active RESULTS No Results PROCEDURES No [...]
--- OUTSIDE RECORDS SUMMARY | 2018-03-10 15:49 | XMS REPORT ---
Author Author ELIEL SMITH Organization [facility] Address [address] [place] [address] Care Team Providers Care Corrective Therapy Aide Teacher Name Role Phone ELIEL SMITH Unavailable PROBLEMS Type Condition ICD9-CM Code WTS69-OJ Code Onset Dates Condition Status SNOMED Code Problem Routine health maintenance Z00.00 Active 022374685 Problem Chronic pain G89.29 Active 42883957 Problem Type 2 diabetes mellitus without complications E11.9 Active 161253378 Problem Diverticulitis K57.92 Active 912747649 Problem Anxiety F41.9 Active 79286955 Problem Chronic fatigue R53.82 Active 97634754 Problem Hepatitis C B19.20 Active 90740800 Problem History of solitary pulmonary nodule Z87.898 Active 431422360 Problem Depression F32.9 Active 947870640 Problem Constipation K59.00 Active 96149649 Problem Chronic kidney disease (CKD) stage G3a/A1, moderately decreased glomerular filtration rate (GFR) between 45-59 mL/min/1.73 square meter and albuminuria creatinine ratio less than 30 mg/g N18.3 Active 044352932 Problem 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 74030553 Problem History of alcoholism F10.21 Active 160096556 Problem History of TIA (transient ischemic attack) Z86.73 Active 568359079 Problem Vitamin D deficiency E55.9 Active 02291304 Problem Hyperlipidemia E78.5 Active 36693549 Problem Arthritis M19.90 Active 2532748 Problem Coronary artery disease I25.10 Active 90997661 Problem DJD (degenerative joint disease) M19.90 Active 073238836 Problem Cervical stenosis of spinal canal M48.02 Active 63138418 Problem Hypertension I10 Active 98894167 Problem Abnormal CBC R79.89 Active 920585184 Problem Vascular dementia F01.50 Active 178541696 Problem Morbid obesity with BMI of 45.0-49.9, adult Z68.42 Active 685720736 ALLERGIES Substance Reaction Event Type Date Status Tradjenta Unknown Drug Allergy Jul, Active ENCOUNTERS Encounter Location Date Diagnosis [place] [address] [address] Nov, Anxiety F41.9 and Chronic pain G89.29 [place] [address] [address] October, Chronic pain G89.29 and Anxiety F41.9 [place] [address] [address] October, Type 2 diabetes mellitus without complications [...] than 30 mg/g N18.3 and Anxiety F41.9 [place] [address] [place] [id number] [place] [address] 37517- 9778 Sep, Chronic pain G89.29 and Anxiety F41.9 [place] [address] [place] [id number] [place] [address] 62830- 7530 Aug, Anxiety F41.9 and Chronic pain G89.29 [place] [address] [place] [id number] [place] [address] 98738- 7690 Aug, Anxiety F41.9 [place] [address] [address]- [address] Aug, Chronic pain G89.29 and Anxiety F41.9 [place] [address] [place] [id number] [place] [address] 26382- 5445 Aug, Chronic kidney disease (CKD) stage G3a/A1, moderately decreased glomerular filtration rate (GFR) between 45-59 mL/min/1.73 square meter and albuminuria creatinine ratio less than 30 mg/g N18.3 [place] [address] [address] 09 Aug, 2017 [facility] [id number] [place] [address] [id number] Jul, Dental examination Z01.20 [place] [address] 336[address]- [address] Jul, Chronic pain G89.29 and Anxiety F41.9 [place] [address] [address]- 3[address] Jul, Other specified abnormal findings of blood chemistry R79.89 [place] [address] [address]- [address] Jul, Type 2 diabetes mellitus without complications E11.9 ; Chronic kidney disease (CKD) stage G3a/A1, moderately decreased glomerular filtration rate (GFR) between 45-59 mL/min/1.73 square meter and albuminuria creatinine ratio less than 30 mg/g N18.3 ; BMI 45.0-49.9, adult Z68.42 ; Chronic fatigue R53.82 ; Hair loss L65.9 ; Generalized abdominal pain R10.84 and Diverticulitis K57.92 [place] [address] [id number] [place] [address] 98545- 0722 Jul, [facility] [id number] [place] [address] [id number] Jul, Dental examination Z01.20 [place] [address] [place] [id number] [place] [address] 50781- 6592 Jul, Anxiety F41.9 [place] [address] [address]- 44[address] Jul, Anxiety F41.9 [place] [address] [id number] Jul, Chronic pain G89.29 [facility] [id number] [place] [address] [id number] May, Chronic pain G89.29 [facility] [address] [place] [id number] [place] [address] 18534 2546 May, [facility] [address] [place] [address] [id number] May, Dental examination Z01.20 [facility] [address] [place] [id number] [place] [address] 47501- 1436 May, Anxiety F41.9 [facility] [address] [id number] 06 May, 2017 Chronic pain G89.29 [facility] [address] [id number] [place] [address] 177322- 5644 Mar, Depression F32.9 [facility] [address] 74832652- 3450 12 Mar, 2017 Anxiety F41.9 [facility] [address] [id number] [place] [address] [id number] 11 Mar, 2017 Chronic pain G89.29 [facility] [address] [place] [address] 65457- 6010 19 Mar, 2017 Abnormal CBC R79.89 [facility] [address] [place] [id number] [place] [address] [id number] 18 Mar, 2017 Anxiety F41.9 [facility] [address] [place] [id number] [place] [address] [id number]- 2313 14 Mar, 2017 Hypertension I10 ; Routine health maintenance Z00.00 ; Type 2 diabetes mellitus without complications E11.9 and Hyperlipidemia E78.5 [facility] [address] [place] [id number] [place] [address] [id number] 13 Mar, 2017 Chronic pain G89.29 and Anxiety F41.9 [facility] [address] [place] [address] [id number] 13 Sep, 2017 Dental examination Z01.20 [facility] [address] [address] 06 Mar, 2017 Hypertension I10 ; Routine health maintenance Z00.00 ; Type 2 diabetes mellitus without complications E11.9 and Hyperlipidemia E78.5 [facility] [address] [address]- 0[address] 22 Jan, 2017 Type 2 diabetes mellitus without complications E11.9 ; Hypertension I10 ; Vascular dementia F01.50 ; Morbid obesity with BMI of 45.0- 49.9, adult Z68.42 ; Hyperlipidemia E78.5 ; Chronic pain G89.29 ; Anxiety F41.9 ; Depression F32.9 ; Coronary artery disease I25.10 ; 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 and Constipation K59.00 [facility] [address] [place] [id number] [address]- 0[address] Jan, Chronic pain G89.29 [place] [address] [place] [id number] [place] [address] 20304- 5874 Jan, [facility] [address] [place] [id number] [place] [address] 92024- 9362 Dec, [facility] [address] [place] [id number] [place] [address] 29323- 5224 Dec, Chronic pain G89.29 [facility] [address] [place] [address] 59190- 0527 Nov, Chronic pain G89.29 [facility] [address] [place] [id number] [place] [address] 66655- 2270 October, Chronic pain G89.29 [facility] [address] [place] [id number] [place] [address] 15903- 9990 Sep, Chronic pain G89.29 [facility] [address] [place] [address] 61836- 2015 Sep, Type 2 diabetes mellitus without complications E11.9 ; Chronic pain G89.29 ; Hypertension I10 ; Coronary artery disease I25.10 ; Morbid obesity with BMI of 45.0-49.9, adult Z68.42 ; Hyperlipidemia E78.5 ; 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 and Depression F32.9 [place] [address] [place] [id number] [place] [address] 53984- 5095 Aug, Chronic pain G89.29 [place] [address] [place] [id number] [place] [address] 16254- 2787 Aug, Chronic pain G89.29 and Constipation K59.[address] [address]- 6794 Aug, Abnormal lung sounds R09.89 [place] [address] [place] [id number] [place] [address] 18535- 8725 Aug, Depression F32.9 [place] [address] [place] [id number] [place] [address] 54681- 6625 Jul, Chronic pain G89.29 [place] [address] [place] [id number] [place] [address] 91931- 8781 May, Chronic pain G89.29 [place] [address] [place] [id number] [place] [address] 43270- 2422 May, Medicare annual wellness visit, subsequent Z00.00 [place] [id number] [place] [address] 71511- 2159 May, [place] [id number] [place] [address] 00319- 6605 02 May, 2016 Type 2 diabetes mellitus [...] due to renal impairment without tophus M1A.3710 [facility] [address] [id number] [address]- 39[address] May, [facility] [address] [place] [id number] [place] [address]- 0376 Mar, [facility] [address] [place] [id number] [place] [address] 32602- 2656 Mar, [facility] [address] [place] [id number] [place] [address] 78825- 0989 Mar, [facility] [address] [place] [id number] [place] [address], [place] [address]- 8595 Mar, [facility] [address] [place] [id number] [place] [address] 01509- 7618 Mar, [facility] [address] [place] [id number] [place] [address] 92503- 8172 Jan, [facility] [address] [place] [id number] [place] [address] 81428- 8966 Jan, [facility] [address] [place] [id number] [place] [address] 37826- 0892 Dec, Type 2 diabetes mellitus without complications E11.9 ; Hypertension I10 ; Coronary artery disease I25.10 and Renal insufficiency N28.9 [facility] [address] [address]- 2141 Dec, [facility] [address] [address]- 7104 Dec, [facility] [address] [place] [id number] [place] [address] 77098- 3646 Nov, [facility] [address] [id number] [address]- 2189 Nov, [facility] [address] [place] [id number] [place] [address] 56645- 7663 Nov, [facility] [address] [address]- 7157 Nov, [facility] [address] [address]- 5362 Nov, [facility] [address] [address]- 1352 October, [facility] [address] [place] [id number] [place] [address] 54519- 6674 October, [facility] [address] [place] [address] 51700- 8000 October, [facility] [address] [place] [id number] [place] [address] 22985- 4607 Sep, Type 2 diabetes mellitus without complications E11.9 and Constipation K59.00 [facility] [address] [place] [id number] [place] [address] 15683- 7177 Sep, [facility] [address] [address]- 6674 Sep, Diabetes E11.9 [facility] [address] [place] [address] 07177- 3149 Sep, [facility] [address] [address]- 1318 Sep, Routine health maintenance Z00.00 ; Hypertension I10 ; Type 2 diabetes mellitus without complications E11.9 ; Morbid obesity with BMI of 45.0-49.9, adult Z68.42 ; Chronic pain G89.29 ; H/O carotid endarterectomy Z98.89 ; Vascular dementia F01.50 ; Arthritis M19.90 ; Coronary artery disease I25.10 ; Abnormal lung sounds R09.89 and Diabetes E11.9 [facility] [address] [address]- 3184 Aug, Anxiety F41.9 [facility] [address] [address]- 5277 Aug, Arthritis M19.90 [facility] [address] [address]- 5826 Jul, Arthritis M19.90 [facility] [address] [place] [address] 188475- 2409 Jul, [facility] [address] [place] [id number] [place] [address] 56567- 0724 May, [facility] [address] [place] [id number] [place] [address] 332163- 3320 May, Arthritis M19.90 ; Hypertension I10 ; Depression F32.9 ; Vascular dementia F01.50 and Coronary artery disease I25.10 [facility] [address] [place] [id number] [address]- 0091 May, [facility] [address] [place] [id number] [place] [address] 23661- 3791 May, [facility] [address] [place] [id number] [place] [address] 42261- 0639 Mar, [facility] [address] [place] [id number] [place] [address] 982866- 4551 Mar, [facility] [address] [place] [address] 14189- 4633 Mar, [facility] [address] [place] [address] 74017- 9477 Mar, [facility] [address] [place] [address] 21936- 8914 Mar, Essential hypertension, benign 401.1 ; Unspecified arthropathy, site unspecified 716.90 and Other and unspecified hyperlipidemia 272.4 [facility] [address] [address]- 4449 Mar, [facility] [address] [place] [address] 071448- 1697 Jan, [facility] [place] [facility] [address] [id number] [place] [address]- 5799 Dec, [facility] [place] [facility] [address] [id number] [place] [address]- 1289 Dec, 2014 [facility] [place] [facility] [address] [id number] [place] [address]- 6887 Dec, 2014 [facility] [place] [facility] [address] [id number] [place] [address]- 5324 Dec, 2014 [facility] [place] [facility] [address] [id number] [place] [address]- 6466 Dec, 2014 [facility] [place] [facility] [address] [id number] [place] [address]- 9926 Dec, [facility] [place] [facility] [address] [id number] [place] [address]- 4911 Dec, [facility] [place] [facility] [address] [id number] [place] [address]- 1747 Dec, [facility] [place] [facility] [address] [id number] [place] [address]- 8469 Nov, [facility] [place] [facility] [address] [id number] [place] [address]- 5298 Nov, [facility] [place] [facility] [address] [id number] [place] [address]- 8893 Nov, [facility] [place] [facility] [address] [id number] [place] [address]- 4152 October, [facility] [place] [facility] [address] [id number] [place] [address]- 5811 October, [facility] [place] [facility] [address] [id number] [place] [address]- 9591 Sep, [facility] [place] [facility] [address] [id number] [place] [address]- 9467 Sep, [facility] [place] [facility] [address] [id number] [place] [address]- 7230 Sep, [facility] [place] [facility] [address] [id number] [place] [address]- 7366 Aug, [facility] [place] [facility] [address] [id number] [place] [address]- 7806 19 Aug, 2014 [facility] [place] [facility] [address] [id number] [place] [address]- 7824 Aug, [facility] [place] [facility] [address] [id number] [place] [address]- 7461 Aug, [facility] [place] [facility] [address] [id number] [place] [address]- 1811 Aug, [facility] [place] [facility] [address] [id number] [place] [address]- 5506 Aug, [facility] [place] [facility] [address] [id number] [place] [address]- 5521 Aug, [facility] [place] [facility] [address] [id number] [place] [address]- 3852 Aug, [facility] [place] [facility] [address] [id number] [place] [address]- 0313 10 Aug, 2014 [facility] [place] [facility] [address] [id number] [place] [address]- 8646 29 May, 2014 [facility] [place] [facility] [address] [id number] [place] [address]- 5731 29 May, 2014 [facility] [place] [facility] [address] [id number] [place] [address]- 6742 18 May, 2014 [facility] [place] [facility] [address] [id number] [place] [address]- 0128 18 May, 2014 [facility] [place] [facility] [address] [id number] [place] 0469 15 May, 2014 [facility] [place] [facility] [address] [id number] [place] [address]- 0364 15 May, 2014 [facility] [place] [facility] [address] [id number] [place] [address]- 5166 May, [facility] [place] [facility] [address] [id number] [place] [address]- 1283 May, [facility] [place] [facility] [address] [id number] [place] [address]- 9069 Mar, [facility] [place] [facility] [address] [id number] [place] [address]- 2444 Mar, [facility] [address] [place] [id number] Mar, [facility] [place] [facility] [address] [id number] [place] [address]- 8160 Mar, [facility] [place] [facility] [address] [id number] [place] [address]- 3448 Mar, [facility] [place] [facility] [address] [id number] [place] [address]- 3756 Mar, [facility] [place] [facility] [address] [id number] [place] [address]- 9203 Mar, [facility] [place] [facility] [address] [id number] [place] [address]- 2738 Mar, [facility] [place] [facility] [address] [id number] [place] [address]- 6869 Mar, [facility] [place] [facility] [address] [id number] [place] [address]- 0714 Mar, [facility] [place] [facility] [address] [id number] [place] [address]- 8840 Mar, [facility] [place] [facility] [address] [id number] [place] [address]- 0499 Mar, [facility] [place] [facility] [address] [id number] [place] [address]- 5041 Mar, [facility] [place] [facility] [address] [id number] [place] [address]- 8444 Jan, [facility] [place] [facility] [address] [facility] [id number] [address]- 9556 Jan, [facility] [address] [facility] [id number] [address]- 2577 Jan, [facility] [address] [id number] [address]- 4893 Jan, [facility] [address] [id number] Jan, [facility] [address] [facility] [id number] [place] [address]- 5793 Jan, [facility] [address] [facility] [id number] [place] [address]- 3049 Jan, [facility] [id number] [address]- 2928 Dec, [facility] [address] [address]- 7735 Dec, [facility] [id number] [address]- 7666 Dec, [facility] [id number] [address]- 0965 Dec, [facility] [id number] [address]- 9193 Dec, [facility] [address] [address]- 8718 Dec, [facility] [id number] [address]- 9753 Nov, [facility] [id number] [address]- 6636 Nov, IMMUNIZATIONS No Known Immunizations SOCIAL HISTORY Never Assessed REASON FOR VISIT Pain management (chronic) and DM II follow up jarett lobato, States is not sleeping well due to increased back pain, would like to discuss something to help sleep PLAN OF CARE Activity Details Follow Up 4 Weeks/, 3 Months Reason:abd pain/ CHM/DM VITAL SIGNS Height 64 in 2017-07-25 Weight 275 lbs 2017-07-25 Temperature 97.9 degrees Fahrenheit 2017-07-25 Heart Rate 84 bpm 2017-07-25 Respiratory Rate 22 2017-07-25 BMI 47.20 kg/m2 2017-07-25 Blood pressure systolic 118 mmHg 2017-07-25 Blood pressure diastolic 68 mmHg 2017-07-25 MEDICATIONS Medication Instructions Dosage Frequency Start Date End Date Duration Status Geopablo 20 TAKE ONE CAPSULE BY MOUTH TWICE A DAY WITH FOOD Active ProAir HFA 108 (90 Base) MCG/ACT Inhalation every 4 hrs 2 puffs as needed 4h Sep, 30 days Active Furosemide 40 TAKE ONE TABLET BY MOUTH DAILY 30 Active Furosemide 40 MG Orally Once a day 1 tablet 24h Active Pravastatin Sodium 40 MG Orally Once a day 1 tablet 24h Active MiraLax 17 Orally Once a day as needed MIX 17GMS (1 CAPFUL) IN 8OZ WATER AND DRINK DAILY Active FreeStyle Lite Test 1 subcutaneously Once a day as directed 24h Sep, 90 days Active Ativan 0.5 Orally, each fill must last 28 days Once a day 1 tablet 24h 28 days Active Lasix 40 TAKE ONE TABLET BY MOUTH DAILY 30 Active Zyloprim 300 mg take 1 tablet (300 mg) by oral route once daily Mar Active Celexa 10 mg Orally every other day x 2 weeks, then 3x weekly x 2 weeks, then stop 1 tablets Active Allopurinol 300 TAKE ONE TABLET BY MOUTH DAILY 30 Active Losartan Potassium 100 MG Orally Once a day 1 tablet 24h Mar, Active Augmentin 875-125 MG Orally every 12 hrs 1 tablet 12h 25 Jul, 2017 Aug, 07 days Active Aspirin 81 MG Orally Once a day 1 tablet 24h Active Exelon 6 TAKE ONE CAPSULE BY MOUTH TWICE A DAY Active Hydrocodone-Acetaminophen 5-325 MG Orally 3 times a day-,Assisted living facility 1 tablet Jul, 28 days Active Metoprolol Tartrate 50 mg Orally Once a day 1 tablet with food 24h Active Protonix 40 TAKE ONE TABLET BY MOUTH DAILY 30 Active RESULTS No Results PROCEDURES Procedure Date Ordered Result Body Site GLYCATED HEMOGLOBIN TEST Jul 25, 2017 LAB NOT BILLED BY [facility] Jul 25, 2017 [facility] VISIT ESTABLISHED PATIENT Jul 25, 2017 URINALYSIS, AUTO, W/O SCOPE Jul 25, 2017 X-RAY EXAM ABDOMEN 2 VIEWS Jul 25, 2017 VENIPUNCT, ROUTINE* Jul 25, 2017 MICROALBUMIN, SEMIQUANT Jul 25, 2017 INSTRUCTIONS MEDICATIONS ADMINISTERED No Known Medications [...]
--- OUTSIDE RECORDS SUMMARY | 2018-03-10 15:49 | XMS REPORT ---
Author Author PETE FALCON [facility] [employer] Address Unknown Phone Unavailable Care Team Providers Care Manager Nc Name Role Phone PETE FALCON CP Unavailable [...] Start Date End Date Status Dosage Hydrocodone-Acetaminophen [facility] [address]-45 5-325 MG Orally 3 times a day-, Assisted living facility Mar 23, 2014 1 tablet as needed Ativan [facility] [id number] 0.5 Orally Once a day 1 tablet Results No Known Results Summary Purpose [employer] Submission
--- OUTSIDE RECORDS SUMMARY | 2018-03-10 15:49 | XMS REPORT ---
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 Name Role Phone ELIEL SMITH Unavailable PROBLEMS Type Condition ICD9-CM Code [id number] Code Onset Dates Condition Status SNOMED Code Problem Routine health maintenance Z00.00 Active 015386844 Problem Chronic pain G89.29 Active 52800965 Problem Type 2 diabetes mellitus without complications E11.9 Active 062989537 Problem Diverticulitis K57.92 Active 951245544 Problem Anxiety F41.9 Active 18399685 Problem Chronic fatigue R53.82 Active 73934357 Problem Hepatitis C B19.20 Active 01736006 Problem History of solitary pulmonary nodule Z87.898 Active 368612367 Problem Depression F32.9 Active 845644836 Problem Constipation K59.00 Active 03305465 Problem Chronic kidney disease (CKD) stage G3a/A1, moderately decreased glomerular filtration rate (GFR) between 45-59 mL/min/1.73 square meter and albuminuria creatinine ratio less than 30 mg/g N18.3 Active 498816776 Problem 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 86559131 Problem History of alcoholism F10.21 Active 015951485 Problem History of TIA (transient ischemic attack) Z86.73 Active 878620939 Problem Vitamin D deficiency E55.9 Active 88605720 Problem Hyperlipidemia E78.5 Active 24717492 Problem Arthritis M19.90 Active 5818229 Problem Coronary artery disease I25.10 Active 91629509 Problem DJD (degenerative joint disease) M19.90 Active 601248251 Problem Cervical stenosis of spinal canal M48.02 Active 07988217 Problem Hypertension I10 Active 68303803 Problem Abnormal CBC R79.89 Active 808045175 Problem Vascular dementia F01.50 Active 760046470 Problem Morbid obesity with BMI of 45.0-49.9, adult Z68.42 Active 820826229 ALLERGIES No Information ENCOUNTERS Encounter Location Date Diagnosis [place] [id number] [place] [id number] [place] [address] 33183- 8618 October, [place] [address] [address]- [address] Sep, Chronic pain G89.29 and Anxiety F41.9 [place] [address] 59454- 9949 Aug, Anxiety F41.9 and Chronic pain G89.29 [place] [address] 50804- 5583 Aug, Anxiety F41.9 [place] [address] 96041- 0147 Aug, Chronic pain G89.29 and Anxiety F41.9 [place] [address] 89716- 9509 Aug, Chronic kidney disease (CKD) stage G3a/A1, moderately decreased glomerular filtration rate (GFR) between 45-59 mL/min/1.73 square meter and albuminuria creatinine ratio less than 30 mg/g N18.3 [place] [address] [place] [id number] [place] [address] 73817- 7251 09 Aug, 2017 [facility] [address] [id number] Jul, Dental examination Z01.20 [place] [address] [place] [id number] [place] [address] 32880- 2246 Jul, Chronic pain G89.29 and Anxiety F41.9 [place] [address] 54066- 9425 Jul, Other specified abnormal findings of blood chemistry R79.89 [place] [address] [place] [id number] [place] [address] 29639- 9567 Jul, Type 2 diabetes mellitus without complications E11.9 ; Chronic kidney disease (CKD) stage G3a/A1, moderately decreased glomerular filtration rate (GFR) between 45-59 mL/min/1.73 square meter and albuminuria creatinine ratio less than 30 mg/g N18.3 ; BMI 45.0-49.9, adult Z68.42 ; Chronic fatigue R53.82 ; Hair loss L65.9 ; Generalized abdominal pain R10.84 and Diverticulitis K57.92 [facility] [place] [address] 92628- 0817 Jul, [facility] [address] [id number] Jul, Dental examination Z01.20 [facility] [place] [address] [id number]- 5316 Jul, Anxiety F41.9 [facility] [place] [address] 97830- 7516 Jul, Anxiety F41.9 [facility] [address] [id number] Jul, Chronic pain G89.29 [facility] [address] [id number] May, Chronic pain G89.29 [facility] [place] [address] [id number]- 0706 May, [facility] [address] [place] [id number] [place] [address] [id number] May, Dental examination Z01.20 [facility] [place] [address] 37351- 1663 May, Anxiety F41.9 [facility] [address] [id number] May, Chronic pain G89.29 [facility] [place] [address] 56153- 3164 Mar, Depression F32.9 [facility] [place] [address] 75529- 2675 Mar, Anxiety F41.9 [facility] [id number] [id number] 11 Mar, 2017 Chronic pain G89.29 [facility] [place] [address] [address] 19 Mar, 2017 Abnormal CBC R79.89 [place] [address] [place] [id number] [place] [address] [id number] 18 Mar, 2017 Anxiety F41.9 [place] [id number] [place] [address] 77005- 8820 14 Mar, 2017 Hypertension I10 ; Routine health maintenance Z00.00 ; Type 2 diabetes mellitus without complications E11.9 and Hyperlipidemia E78.5 [place] [address] [place] [id number] [place] [address] [id number] 13 Mar, 2017 Chronic pain G89.29 and Anxiety F41.9 [facility] [id number] [place] [address] [id number] 13 Mar, 2017 Dental examination Z01.20 [place] [id number] [place] [address] 73218- 0061 06 Mar, 2017 Hypertension I10 ; Routine health maintenance Z00.00 ; Type 2 diabetes mellitus without complications E11.9 and Hyperlipidemia E78.5 [place] [address] [place] [id number] [address] 22 Jan, 2017 Type 2 diabetes mellitus without complications E11.9 ; Hypertension I10 ; Vascular dementia F01.50 ; Morbid obesity with BMI of 45.0- 49.9, adult Z68.42 ; Hyperlipidemia E78.5 ; Chronic pain G89.29 ; Anxiety F41.9 ; Depression F32.9 ; Coronary artery disease I25.10 ; 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 and Constipation K59.00 [facility] [place] [address] [place] [id number] [address] 16 Jan, 2017 Chronic pain G89.29 [place] [address] [place] [id number] [place] [address] 48334- 1580 14 Jan, 2017 [facility] [place] [address] [place] [id number] [place] [address] 98950- 0533 Dec, [facility] [place] [address] [place] [id number] [place] [address] 36999- 6824 Dec, Chronic pain G89.29 [facility] [place] [address] [place] [id number] [place] [address] 26777- 8986 Nov, Chronic pain G89.29 [place] [address] 49442- 3290 October, Chronic pain G89.29 [place] [address] 48044- 7949 Sep, Chronic pain G89.29 [place] [address] [place] [id number] [place] [address] 76127- 0236 Sep, Type 2 diabetes mellitus without complications E11.9 ; Chronic pain G89.29 ; Hypertension I10 ; Coronary artery disease I25.10 ; Morbid obesity with BMI of 45.0-49.9, adult Z68.42 ; Hyperlipidemia E78.5 ; 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 and Depression F32.9 [place] [address] [place] [id number] [place] [address] 06374- 1814 Aug, Chronic pain G89.29 [place] [address] [place] [id number] [place] [address] 69477- 0468 Aug, Chronic pain G89.29 and Constipation K59.00 [place] [address] [place] [id number] [place] [address] 69115- 0058 Aug, Abnormal lung sounds R09.89 [facility] [place] [address] [place] [id number] [place] [address] 33051- 0541 Aug, Depression F32.9 [place] [address] [place] [id number] [place] [address] 42257- 8331 Jul, Chronic pain G89.29 [facility] [place] [address] [place] [id number] [place] [address] 26058- 8784 May, Chronic pain G89.29 [facility] [place] [address] [place] [id number] [place] [address] 93312- 2992 May, Medicare annual wellness visit, subsequent Z00.00 [facility] [place] [address] 99764- 3123 May, [facility] [place] [address] [place] [id number] [place] [address] 67622- 7363 May, Type 2 diabetes mellitus without complications [...] due to renal impairment without tophus M1A.3710 [facility] [place] [address] [place] [id number] [place] [address] 98559- 1405 May, [facility] [place] [address] [place] [id number] [place] [address] 50146- 9790 Mar, [facility] [place] [address] [place] [id number] [place] [address] 57387- 0255 Mar, [facility] [place] [address] [place] [id number] [place] [address] 42509- 9081 Mar, [facility] [place] [address] [place] [id number] [place] [address] 69550- 6714 Mar, [facility] [place] [address] [place] [id number] [place] [address] 85949- 6692 Mar, [facility] [place] [address] [place] [id number] [place] [address] 99782- 1855 Jan, [facility] [place] [address] [address]- 1998 Jan, [facility] [place] [address] [place] [id number] [place] [address] 63115- 7083 Dec, Type 2 diabetes mellitus without complications E11.9 ; Hypertension I10 ; Coronary artery disease I25.10 and Renal insufficiency N28.9 [facility] [place] [address] [place] [id number] [place] [address] 03333- 1775 Dec, [facility] [place] [address] [place] [id number] [place] [address] 73052- 4077 Dec, [facility] [place] [address] [place] [id number] [place] [address] 68846- 4396 Nov, [facility] [place] [address] [place] [id number] [place] [address] 94519- 8587 Nov, [facility] [place] [address] [place] [id number] [place] [address] 70851- 8322 Nov, [facility] [place] [id number] [place] [address] 73193- 8478 Nov, [facility] [place] [address] [place] [id number] [place] [address] 45435- 0228 Nov, [facility] [place] [id number] [place] [address] 36216- 6549 October, [facility] [place] [id number] [place] [address] 45365- 6906 October, [facility] [place] [address], [place] [address]- 7732 October, [facility] [place] [address] [place] [id number] [place] [address] 07796- 9038 Sep, Type 2 diabetes mellitus without complications E11.9 and Constipation K59.00 [facility] [place] [address], [place] [address]- 1901 Sep, [facility] [place] [id number] [place] [address] 77702- 2607 Sep, Diabetes E11.9 [facility] [place] [address] [place] [id number] [place] [address] 86102- 3697 Sep, [facility] [place] [address] [place] [id number] [place] [address] 88961- 6337 Sep, Routine health maintenance Z00.00 ; Hypertension I10 ; Type 2 diabetes mellitus without complications E11.9 ; Morbid obesity with BMI of 45.0-49.9, adult Z68.42 ; Chronic pain G89.29 ; H/O carotid endarterectomy Z98.89 ; Vascular dementia F01.50 ; Arthritis M19.90 ; Coronary artery disease I25.10 ; Abnormal lung sounds R09.89 and Diabetes E11.9 [facility] [place] [address] [id number] [place] [address] 60099- 7681 Aug, Anxiety F41.9 [facility] [place] [address] [place] [address] [id number] [place] [address] 95379- 5405 Aug, Arthritis M19.90 [facility] [place] [address] [id number] [place] [address] 95006- 7545 Jul, Arthritis M19.90 [facility] [place] [address] [place] [address] [id number] [place] [address] 29274- 5248 Jul, [facility] [place] [address] [place] [id number] [place] [address] 70034- 7280 May, [facility] [place] [address] [place] [id number] [place] [address] 28385- 3680 May, Arthritis M19.90 ; Hypertension I10 ; Depression F32.9 ; Vascular dementia F01.50 and Coronary artery disease I25.10 [facility] [place] [address] [place] [address] 84046- 9122 May, [facility] [place] [address] [place] [id number] [place] [address] 63671- 4502 May, [place] [address] [facility] [id number] [place] [address]- 2546 Mar, [facility] [address] [facility] [id number] [place] [address]- 2546 Mar, [facility] [address] [facility] [id number] [place] [address]- 2546 Mar, [facility] [address] [facility] [id number] [place] [address]- 2546 Mar, [facility] [address] [facility] [id number] [place] [address]- 2546 Mar, Essential hypertension, benign 401.1 ; Unspecified arthropathy, site unspecified 716.90 and Other and unspecified hyperlipidemia 272.4 [facility] [place] [address] [place] [id number] [place] [address]- 2546 Mar, [facility] [address] [place] [id number] [place] [address]- 4496 Jan, [facility] [address] [place] [id number] [place] [address]- 4146 Dec, [facility] [address] [place] [id number] [place] [address]- 8366 Dec, [facility] [address] [place] [id number] [place] [address]- 2546 Dec, [facility] [address] [place] [id number] [place] [address]- 2546 Dec, [facility] [address] [facility] [id number] [place] [address]- 2546 Dec, [facility] [address] [place] [id number] [place] [address]- 2546 Dec, [facility] [address] [facility] [id number] [place] [address]- 2546 Dec, [facility] [address] [place] [id number] [place] [address]- 7842 Dec, [facility] [place] [facility] [address] [id number] [place] [address]- 9052 Nov, [facility] [place] [facility] [address] [id number] [place] [address]- 1167 Nov, [facility] [place] [facility] [address] [id number] [place] [address]- 7124 Nov, [facility] [place] [facility] [address] [id number] [place] [address]- 1230 October, [facility] [place] [facility] [address] [id number] [place] [address]- 4655 October, [facility] [place] [facility] [address] [id number] [place] [address]- 9992 Sep, [facility] [place] [facility] [address] [id number] [place] [address]- 6823 Sep, [facility] [place] [facility] [address] [id number] [place] [address]- 9052 Sep, [facility] [place] [facility] [address] [id number] [place] [address]- 5611 Aug, [facility] [place] [facility] [address] [id number] [place] [address]- 9302 Aug, [facility] [place] [facility] [address] [id number] [place] [address]- 1879 Aug, [facility] [place] [facility] [address] [id number], [place] [address]- 1236 Aug, [facility] [place] [facility] [address] [id number] [place] [address]- 9865 Aug, [facility] [place] [facility] [address] [id number] [place] [address]- 1385 Aug, [facility] [place] [facility] [address] [id number] [place] [address]- 7147 Aug, [facility] [place] [facility] [address] [id number] [place] [address]- 9742 11 Aug, 2014 [facility] [address] [id number] [place] [address]- 4998 Aug, [facility] [address] [id number] [place] [address]- 6814 May, [facility] [address] [id number] [place] [address]- 8207 May, [facility] [address] [id number] [place] [address]- 9032 May, [facility] [address] [id number] [place] [address]- 2721 May, [facility] [address] [id number] [place] [address]- 2687 May, [facility] [address] [id number] [place] [address]- 8510 May, [facility] [address] [id number] [place] [address]- 3792 May, [facility] [address] [id number] [place] [address]- 2889 May, [facility] [address] [id number] [place] [address]- 2298 Mar, [facility] [address] [id number] [place] [address]- 9174 Mar, [facility] [address] [id number] Mar, [facility] [address] [id number] [place] [address]- 4447 Mar, [facility] [address] [id number] [place] [address]- 5118 Mar, [facility] [address] [id number] [place] [address]- 0789 Mar, [facility] [address] [id number] [place] [address]- 7791 Mar, [facility] [place] [facility] [address] [id number] [place] [address]- 0647 Mar, [facility] [place] [facility] [address] [id number] [place] [address]- 4766 Mar, [facility] [place] [facility] [address] [id number] [place] [address]- 7387 Mar, [facility] [place] [facility] [address] [id number] [place] [address]- 2338 Mar, [facility] [place] [facility] [address] [id number] [place] [address]- 6564 Mar, [facility] [place] [facility] [address] [id number] [place] [address]- 7593 Mar, [facility] [place] [facility] [address] [id number] [place] [address] Jan, [facility] [place] [facility] [address] [id number] [place] [address] Jan, [facility] [place] [facility] [address] [id number] [place] [address] Jan, [facility] [place] [facility] [address] [id number] [place] [address] Jan, [facility] [id number] [id number] Jan, [facility] [place] [facility] [address] [id number] [place] [address] Jan, [facility] [place] [facility] [address] [id number] [place] [address] Jan, [facility] [place] [facility] [address] [id number] [place] [address] Dec, [facility] [place] [facility] [address] [id number] [place] [address] Dec, [facility] [place] [address] [facility] [id number], [place] [address] Dec, [facility] [place] [address] [facility] [id number], [place] [address] Dec, [facility] [place] [address] [facility] [id number], [place] [address] Dec, [facility] [place] [address] [id number], [place] [address] Dec, [facility] [place] [address] [facility] [id number], [place] [address] Nov, [facility] [place] [address] [facility] [id number], [place] [address] Nov, IMMUNIZATIONS No Known Immunizations SOCIAL HISTORY Never Assessed REASON FOR VISIT Deferred Lab--ADaviedRN PLAN OF CARE VITAL SIGNS MEDICATIONS Unknown [...]
--- OUTSIDE RECORDS SUMMARY | 2018-03-10 15:50 | XMS REPORT ---
Author Author ELIEL SMITH Organization [facility] Address [address] [place] [address] Care Team Providers Care Corporate Health Consultant Name Role Phone ELIEL SMITH Unavailable PROBLEMS Type Condition ICD9-CM Code FGB01-JA Code Onset Dates Condition Status SNOMED Code Problem Routine health maintenance Z00.00 Active 174758835 Problem Chronic pain G89.29 Active 45465871 Problem Type 2 diabetes mellitus without complications E11.9 Active 863941733 Problem Diverticulitis K57.92 Active 737515758 Problem Anxiety F41.9 Active 61487699 Problem Chronic fatigue R53.82 Active 74666449 Problem Hepatitis C B19.20 Active 40279258 Problem History of solitary pulmonary nodule Z87.898 Active 380062219 Problem Depression F32.9 Active 962005623 Problem Constipation K59.00 Active 43635919 Problem Chronic kidney disease (CKD) stage G3a/A1, moderately decreased glomerular filtration rate (GFR) between 45-59 mL/min/1.73 square meter and albuminuria creatinine ratio less than 30 mg/g N18.3 Active 187680628 Problem 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 64514993 Problem History of alcoholism F10.21 Active 908250104 Problem History of TIA (transient ischemic attack) Z86.73 Active 907675004 Problem Vitamin D deficiency E55.9 Active 80287172 Problem Hyperlipidemia E78.5 Active 98799698 Problem Arthritis M19.90 Active 5657237 Problem Coronary artery disease I25.10 Active 23988298 Problem DJD (degenerative joint disease) M19.90 Active 018345366 Problem Cervical stenosis of spinal canal M48.02 Active 06414314 Problem Hypertension I10 Active 62381756 Problem Abnormal CBC R79.89 Active 682528829 Problem Vascular dementia F01.50 Active 240476736 Problem Morbid obesity with BMI of 45.0-49.9, adult Z68.42 Active 158575892 ALLERGIES No Information ENCOUNTERS Encounter Location Date Diagnosis [place] [id number] [place] [address] 22627- 4385 Nov, Anxiety F41.9 and Chronic pain G89.29 [place] [address] [address]- 4484 October, Chronic pain G89.29 and Anxiety F41.9 [place] [address] 66650- 5194 October, Type 2 diabetes mellitus without complications [...] mg/g N18.3 and Anxiety F41.9 [place] [id number] [place] [address] 16181- 3020 Sep, Chronic pain G89.29 and Anxiety F41.9 [place] [id number] [place] [address] 58165- 2456 Aug, Anxiety F41.9 and Chronic pain G89.29 [place] [id number] [place] [address] 02616- 3459 Aug, Anxiety F41.9 [place] [id number] [place] [address] 67795- 0087 Aug, Chronic pain G89.29 and Anxiety F41.9 [place] [id number] [place] [address] 17378- 4294 Aug, Chronic kidney disease (CKD) stage G3a/A1, moderately decreased glomerular filtration rate (GFR) between 45-59 mL/min/1.73 square meter and albuminuria creatinine ratio less than 30 mg/g N18.3 [facility] [id number] [place] [address] 46496- 7379 Aug, [facility] [id number] [place] [address] [id number] Jul, Dental examination Z01.20 [facility] [id number] [place] [address] 78301- 1481 Jul, Chronic pain G89.29 and Anxiety F41.9 [place] [address] 31907- 3955 Jul, Other specified abnormal findings of blood chemistry R79.89 [place] [id number] [place] [address] 76360- 4975 Jul, Type 2 diabetes mellitus without complications E11.9 ; Chronic kidney disease (CKD) stage G3a/A1, moderately decreased glomerular filtration rate (GFR) between 45-59 mL/min/1.73 square meter and albuminuria creatinine ratio less than 30 mg/g N18.3 ; BMI 45.0-49.9, adult Z68.42 ; Chronic fatigue R53.82 ; Hair loss L65.9 ; Generalized abdominal pain R10.84 and Diverticulitis K57.92 [place] [id number] [place] [address] 52858- 9219 Jul, [facility] [id number] [place] [address] [id number] Jul, Dental examination Z01.20 [facility] [id number] [place] [address] 98721- 8183 Jul, Anxiety F41.9 [place] [id number] [place] [address] 44082- 2705 Jul, Anxiety F41.9 [place] [id number] [place] [address] [id number] Jul, Chronic pain G89.29 [place] [id number] [place] [id number] 07 May, 2017 Chronic pain G89.29 [facility] [id number] [place] [address] 99635- 0416 May, [facility] [id number] [place] [address] [id number] 30 May, 2017 Dental examination Z01.20 [facility] [address] [id number]- 3294 13 May, 2017 Anxiety F41.9 [facility] [address] [id number] 06 May, 2017 Chronic pain G89.29 [facility] [id number] [place] [address] 558704- 7943 18 Mar, 2017 Depression F32.9 [facility] [id number] [place] [address] 57126- 9336 12 Mar, 2017 Anxiety F41.9 [facility] [address] [id number] 11 Mar, 2017 Chronic pain G89.29 [facility] [id number] [place] [address] [id number]- 6247 19 Mar, 2017 Abnormal CBC R79.89 [facility] [address] [id number] 18 Mar, 2017 Anxiety F41.9 [facility] [id number] [place] [address] 91145211- 2579 14 Mar, 2017 Hypertension I10 ; Routine health maintenance Z00.00 ; Type 2 diabetes mellitus without complications E11.9 and Hyperlipidemia E78.5 [facility] [address] [id number] 13 Mar, 2017 Chronic pain G89.29 and Anxiety F41.9 [facility] [address] [place] [address] [id number] 13 Mar, 2017 Dental examination Z01.20 [facility] [id number] [address]- 2649 Mar, Hypertension I10 ; Routine health maintenance Z00.00 ; Type 2 diabetes mellitus without complications E11.9 and Hyperlipidemia E78.5 [place] [id number] [place] [address] 37259- 6472 Jan, Type 2 diabetes mellitus without complications E11.9 ; Hypertension I10 ; Vascular dementia F01.50 ; Morbid obesity with BMI of 45.0- 49.9, adult Z68.42 ; Hyperlipidemia E78.5 ; Chronic pain G89.29 ; Anxiety F41.9 ; Depression F32.9 ; Coronary artery disease I25.10 ; 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 and Constipation K59.00 [place] [id number] [place] [address] 95723- 0383 Jan, Chronic pain G89.29 [place] [id number] [place] [address] 72375- 6317 Jan, [place] [id number] [place] [address] 73643- 4906 Dec, [place] [id number] [place] [address] 90598- 5408 Dec, Chronic pain G89.29 [place] [id number] [place] [address] 35824- 7155 Nov, Chronic pain G89.29 [place] [id number] [place] [address] 59532- 3375 October, Chronic pain G89.29 [place] [id number] [place] [address] 24467- 3216 Sep, Chronic pain G89.29 [place] [id number] [place] [address] 63413- 9447 Sep, Type 2 diabetes mellitus without complications E11.9 ; Chronic pain G89.29 ; Hypertension I10 ; Coronary artery disease I25.10 ; Morbid obesity with BMI of 45.0-49.9, adult Z68.42 ; Hyperlipidemia E78.5 ; 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 and Depression F32.9 [place] [id number] [place] [address] 05506- 3891 Aug, Chronic pain G89.29 [place] [id number] [place] [address] 32802- 4036 Aug, Chronic pain G89.29 and Constipation K59.00 [place] [address] 54016- 6806 Aug, Abnormal lung sounds R09.89 [place] [address] 84571- 0650 Aug, Depression F32.9 [place] [id number] [place] [address] 19299- 3180 Jul, Chronic pain G89.29 [place] [id number] [place] [address] 77352- 2449 May, Chronic pain G89.29 [place] [id number] [place] [address] 23691- 4701 May, Medicare annual wellness visit, subsequent Z00.00 [place] [id number] [place] [address] 40584- 3043 May, [place] [id number] [place] [address] 34228- 3288 May, Type 2 diabetes mellitus without complications [...] due to renal impairment without tophus M1A.3710 [facility] [id number] [place] [address]- 5085 May, [facility] [id number] [address]- 7443 Mar, [facility] [address] [address]- 1455 Mar, [facility] [id number] [address]- 1291 Mar, [facility] [id number] [place] [address]- 5133 Mar, [facility] [address] [address]- 5422 Mar, [facility] [address] [address]- 4688 Jan, [facility] [address] [address]- 6853 Jan, [facility] [address] [address]- 5652 Dec, Type 2 diabetes mellitus without complications E11.9 ; Hypertension I10 ; Coronary artery disease I25.10 and Renal insufficiency N28.9 [facility] [address] [address]- 7578 Dec, [facility] [address] [address]- 6224 Dec, [facility] [id number] [address]- 9217 Nov, [facility] [address] [address]- 6148 Nov, [facility] [address] [address]- 8063 Nov, [facility] [id number] [address]- 8376 Nov, [facility] [address] [address]- 5813 Nov, [facility] [address] [place] [address] 46961- 9070 October, [facility] [address] [place] [address] 38158- 3789 October, [facility] [id number] [place] [address] 52389- 2703 October, [facility] [id number] [place] [address] 27409- 5794 Sep, Type 2 diabetes mellitus without complications E11.9 and Constipation K59.00 [facility] [id number] [place] [address] 12029- 9347 Sep, [facility] [id number] [place] [address] 12603- 8527 Sep, Diabetes E11.9 [facility] [address] [place] [address] 21042- 7901 Sep, [facility] [address] [place] [address] 89367- 1843 Sep, Routine health maintenance Z00.00 ; Hypertension I10 ; Type 2 diabetes mellitus without complications E11.9 ; Morbid obesity with BMI of 45.0-49.9, adult Z68.42 ; Chronic pain G89.29 ; H/O carotid endarterectomy Z98.89 ; Vascular dementia F01.50 ; Arthritis M19.90 ; Coronary artery disease I25.10 ; Abnormal lung sounds R09.89 and Diabetes E11.9 [facility] [address] [place] [address] 45392- 4607 Aug, Anxiety F41.9 [facility] [address] [address]- 8201 Aug, Arthritis M19.90 [place] [address] [address]- 8856 Jul, Arthritis M19.90 [facility] [id number] [place] [address] 407813- 5177 Jul, [facility] [id number] 8472 May, [facility] [id number] [place] [address] 551555- 8620 May, Arthritis M19.90 ; Hypertension I10 ; Depression F32.9 ; Vascular dementia F01.50 and Coronary artery disease I25.10 [facility] [id number] [place] [address] 26152- 5966 May, [facility] [id number] [place] [address] 92450- 1876 May, [facility] [id number] [place] [address] 28002- 1636 Mar, [facility] [id number] [place] [address] 808762- 0030 Mar, [facility] [id number] [place] [address] 45167- 3252 Mar, [facility] [address] [place] [address] 58963- 4430 Mar, [facility] [address] [place] [address] 048668- 7232 Mar, Essential hypertension, benign 401.1 ; Unspecified arthropathy, site unspecified 716.90 and Other and unspecified hyperlipidemia 272.4 [facility] [id number] [place] [address] 87028- 4276 Mar, [facility] [address] [place] [address] 69565- 9216 Jan, [facility] [id number] [place] [address] 16144- 1876 Dec, [facility] [place] [facility] [address] [id number] [place] [address]- 5131 Dec, [facility] [place] [facility] [address] [id number] [place] [address]- 5246 Dec, [facility] [place] [facility] [address] [id number] [place] [address]- 5418 Dec, [facility] [place] [facility] [address] [id number] [place] [address]- 4665 Dec, [facility] [place] [facility] [address] [id number] [place] [address]- 8004 Dec, [facility] [place] [facility] [address] [id number] [place] [address]- 9190 Dec, [facility] [place] [facility] [address] [id number] [place] [address]- 3534 Dec, [facility] [place] [facility] [address] [id number] [place] [address]- 9832 Nov, [facility] [place] [facility] [address] [id number] [place] [address]- 5707 Nov, [facility] [place] [facility] [address] [id number] [place] [address]- 9962 Nov, [facility] [place] [facility] [address] [id number] [place] [address]- 9518 October, [facility] [place] [facility] [address] [id number] [place] [address]- 6258 October, [facility] [place] [facility] [address] [id number] [place] [address]- 8903 Sep, [facility] [place] [facility] [address] [id number] [place] [address]- 4913 Sep, [facility] [place] [facility] [address] [id number] [place] [address]- 5152 Sep, [facility] [place] [facility] [address] [id number] [place] [address]- 8231 19 Aug, 2014 [facility] [place] [facility] [address] [id number] [place] [address]- 5884 19 Aug, 2014 [facility] [place] [facility] [address] [id number] [place] [address]- 8720 12 Aug, 2014 [facility] [place] [facility] [address] [id number] [place] [address]- 3924 12 Aug, 2014 [facility] [place] [facility] [address] [id number] [place] [address]- 8870 13 Aug, 2014 [facility] [place] [facility] [address] [id number] [place] [address]- 1342 13 Aug, 2014 [facility] [place] [facility] [address] [facility] [id number] [place] [address]- 9877 11 Aug, 2014 [facility] [place] [facility] [address] [facility] [id number] [place] [address]- 0113 11 Aug, 2014 [facility] [place] [facility] [address] [id number] [place] [address]- 6126 10 Aug, 2014 [facility] [place] [facility] [address] [facility] [id number] [place] [address]- 6041 May, [facility] [place] [facility] [address] [facility] [id number] [place] [address]- 0658 29 May, 2014 [facility] [place] [facility] [address] [id number] [place] [address]- 3153 18 May, 2014 [facility] [place] [facility] [address] [id number] [place] [address]- 2541 18 May, 2014 [facility] [place] [facility] [address] [id number] [place] 3252 15 May, 2014 [facility] [place] [facility] [address] [id number] [place] 1135 15 May, 2014 [facility] [place] [facility] [address] [facility] [id number] [place] 4160 May, [facility] [place] [facility] [address] [id number] [place] [address]- 5586 May, [facility] [place] [facility] [address] [id number] [place] [address]- 4013 Mar, [facility] [place] [facility] [address] [id number] [place] [address]- 9633 Mar, [facility] [address] [facility] [id number] Mar, [facility] [place] [facility] [address] [id number] [place] [address]- 2488 Mar, [facility] [place] [facility] [address] [id number] [place] [address]- 3467 Mar, [facility] [place] [facility] [address] [id number] [place] [address]- 5186 Mar, [facility] [place] [facility] [address] [id number] [place] [address]- 4792 Mar, [facility] [place] [facility] [address] [id number] [place] [address]- 1555 Mar, [facility] [place] [facility] [address] [id number] [place] [address]- 8564 Mar, [facility] [place] [facility] [address] [id number] [place] [address]- 3688 Mar, [facility] [place] [facility] [address] [id number] [place] [address]- 1880 Mar, [facility] [place] [facility] [address] [id number] [place] [address]- 2033 Mar, [facility] [place] [facility] [address] [id number] [place] [address]- 1112 Mar, [facility] [place] [facility] [address] [id number] [place] [address]- 9084 Jan, [facility] [place] [facility] [address] [id number] [address]- 5762 Jan, [facility] [address] [facility] [id number] [address]- 3793 Jan, [facility] [address] [facility] [id number] [address]- 6316 Jan, [facility] [address] [place] [id number] Jan, [facility] [address] [facility] [id number] [address]- 1510 Jan, [facility] [address] [facility] [id number] [address]- 9728 Jan, [facility] [address] [facility] [id number] [address]- 9937 Dec, [facility] [address] [facility] [id number] [address]- 0221 Dec, [facility] [address] [facility] [id number] [address]- 6814 Dec, [facility] [address] [facility] [id number] [place] [address]- 2545 Dec, [facility] [address] [facility] [id number] [place] [address]- 3495 Dec, [facility] [address] [facility] [id number] [place] [address]- 5415 Dec, [facility] [address] [facility] [id number] [address]- 6923 Nov, [facility] [address] [facility] [id number] [address]- 0335 Nov, IMMUNIZATIONS No Known Immunizations SOCIAL HISTORY Never Assessed REASON FOR VISIT Controlled Med Refill PLAN OF CARE VITAL SIGNS MEDICATIONS Medication Instructions Dosage Frequency Start Date End Date Duration Status Hydrocodone-Acetaminophen 5-325 MG Orally 3 times a day-,Assisted living facility 1 tablet Jul, 28 days Active Ativan 0.5 Orally, each fill must last 28 days Once a day 1 tablet 24h 21 days Active RESULTS No Results PROCEDURES No [...]
--- OUTSIDE RECORDS SUMMARY | 2018-03-10 15:50 | XMS REPORT ---
Author Author ELIEL SMITH Organization [facility] Address [address] [place] [address] Care Team Providers Care Death Claim Clerk Name Role Phone ELIEL SMITH Unavailable PROBLEMS Type Condition ICD9-CM Code JGP46-DT Code Onset Dates Condition Status SNOMED Code Problem Routine health maintenance Z00.00 Active 172409880 Problem Chronic pain G89.29 Active 31071550 Problem Type 2 diabetes mellitus without complications E11.9 Active 540870086 Problem Diverticulitis K57.92 Active 856382539 Problem Anxiety F41.9 Active 83059956 Problem Chronic fatigue R53.82 Active 10530636 Problem Hepatitis C B19.20 Active 12571575 Problem History of solitary pulmonary nodule Z87.898 Active 982599224 Problem Depression F32.9 Active 702221402 Problem Constipation K59.00 Active 88912643 Problem Chronic kidney disease (CKD) stage G3a/A1, moderately decreased glomerular filtration rate (GFR) between 45-59 mL/min/1.73 square meter and albuminuria creatinine ratio less than 30 mg/g N18.3 Active 009956425 Problem 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 35524196 Problem History of alcoholism F10.21 Active 347894107 Problem History of TIA (transient ischemic attack) Z86.73 Active 052755219 Problem Vitamin D deficiency E55.9 Active 24254623 Problem Hyperlipidemia E78.5 Active 97771224 Problem Arthritis M19.90 Active 5295675 Problem Coronary artery disease I25.10 Active 23450537 Problem DJD (degenerative joint disease) M19.90 Active 095724581 Problem Cervical stenosis of spinal canal M48.02 Active 85614498 Problem Hypertension I10 Active 18587660 Problem Abnormal CBC R79.89 Active 668362320 Problem Vascular dementia F01.50 Active 479585328 Problem Morbid obesity with BMI of 45.0-49.9, adult Z68.42 Active 877095744 ALLERGIES No Information ENCOUNTERS Encounter Location Date Diagnosis [place] [id number] [place] [address] 96532- 7616 Nov, Anxiety F41.9 and Chronic pain G89.29 [place] [address] [address]- [address] October, Chronic pain G89.29 and Anxiety F41.9 [place] [address] 7[address]60- 3139 October, Type 2 diabetes mellitus without complications [...] than 30 mg/g N18.3 and Anxiety F41.9 [place] [id number] [place] [address] 62131- 9639 Sep, Chronic pain G89.29 and Anxiety F41.9 [place] [address] [place] [address] 83543- 5900 Aug, Anxiety F41.9 and Chronic pain G89.29 [place] [address] [place] [address] 67736- 8477 Aug, Anxiety F41.9 [place] [address] [place] [address] 45851- 2158 Aug, Chronic pain G89.29 and Anxiety F41.9 [place] [address] [place] [address] 34257- 1106 Aug, Chronic kidney disease (CKD) stage G3a/A1, moderately decreased glomerular filtration rate (GFR) between 45-59 mL/min/1.73 square meter and albuminuria creatinine ratio less than 30 mg/g N18.3 [facility] [id number] [place] [address] 60680- 2016 Aug, [facility] [id number] [place] [address] [id number] Jul, Dental examination Z01.20 [facility] [address] [place] [address] 00743- 6985 Jul, Chronic pain G89.29 and Anxiety F41.9 [place] [address] 08321- 5493 Jul, Other specified abnormal findings of blood chemistry R79.89 [place] [address] [place] [address] 49322- 2296 Jul, Type 2 diabetes mellitus without complications E11.9 ; Chronic kidney disease (CKD) stage G3a/A1, moderately decreased glomerular filtration rate (GFR) between 45-59 mL/min/1.73 square meter and albuminuria creatinine ratio less than 30 mg/g N18.3 ; BMI 45.0-49.9, adult Z68.42 ; Chronic fatigue R53.82 ; Hair loss L65.9 ; Generalized abdominal pain R10.84 and Diverticulitis K57.92 [place] [address] [place] [address] 67766- 2118 Jul, [facility] [id number] [place] [address] [id number] Jul, Dental examination Z01.20 [facility] [id number] [place] [address] 61980- 0984 Jul, Anxiety F41.9 [place] [address] [place] [address] 73265- 8049 Jul, Anxiety F41.9 [place] [id number] [place] [address] [id number] Jul, Chronic pain G89.29 [place] [id number] [place] [id number] 07 May, 2017 Chronic pain G89.29 [facility] [id number] [place] [address] 96764- 3906 May, [facility] [id number] [place] [address] [id number] 30 May, 2017 Dental examination Z01.20 [facility] [address] 26095869- 7980 13 May, 2017 Anxiety F41.9 [facility] [address] [id number] 06 May, 2017 Chronic pain G89.29 [facility] [address] [place] [address] 471146- 7087 18 Mar, 2017 Depression F32.9 [facility] [address] [place] [address] 24107- 7228 12 Mar, 2017 Anxiety F41.9 [facility] [address] [id number] 11 Mar, 2017 Chronic pain G89.29 [facility] [address] [place] [address] 44826415- 6924 19 Mar, 2017 Abnormal CBC R79.89 [facility] [address] [id number] 18 Mar, 2017 Anxiety F41.9 [facility] [address] [place] [address] 12005832- 3286 14 Mar, 2017 Hypertension I10 ; Routine health maintenance Z00.00 ; Type 2 diabetes mellitus without complications E11.9 and Hyperlipidemia E78.5 [facility] [address] [id number] 13 Mar, 2017 Chronic pain G89.29 and Anxiety F41.9 [facility] [address] [place] [address] [id number] 13 Mar, 2017 Dental examination Z01.20 [facility] [address] [address] Mar, Hypertension I10 ; Routine health maintenance Z00.00 ; Type 2 diabetes mellitus without complications E11.9 and Hyperlipidemia E78.5 [place] [address] [place] [address] 66136- 1462 Jan, Type 2 diabetes mellitus without complications E11.9 ; Hypertension I10 ; Vascular dementia F01.50 ; Morbid obesity with BMI of 45.0- 49.9, adult Z68.42 ; Hyperlipidemia E78.5 ; Chronic pain G89.29 ; Anxiety F41.9 ; Depression F32.9 ; Coronary artery disease I25.10 ; 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 and Constipation K59.00 [place] [address] [place] [address] 53992- 8224 Jan, Chronic pain G89.29 [place] [address] [place] [address] 23306- 0526 Jan, [place] [address] [place] [address] 56167- 5289 Dec, [place] [address] [place] [address] 69944- 3754 Dec, Chronic pain G89.29 [place] [address] [place] [address] 40277- 7665 Nov, Chronic pain G89.29 [place] [address] [place] [address] 92033- 2228 October, Chronic pain G89.29 [place] [address] [place] [address] 28658- 6793 Sep, Chronic pain G89.29 [place] [address] [place] [address] 96522- 2758 Sep, Type 2 diabetes mellitus without complications E11.9 ; Chronic pain G89.29 ; Hypertension I10 ; Coronary artery disease I25.10 ; Morbid obesity with BMI of 45.0-49.9, adult Z68.42 ; Hyperlipidemia E78.5 ; 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 and Depression F32.9 [place] [address] [place] [address] 41769- 7426 Aug, Chronic pain G89.29 [place] [address] [place] [address] 71691- 1056 Aug, Chronic pain G89.29 and Constipation K59.00 [place] [address] 63306- 0087 Aug, Abnormal lung sounds R09.89 [place] [address] 02762- 2553 Aug, Depression F32.9 [place] [address] [place] [address] 78181- 5021 Jul, Chronic pain G89.29 [place] [address] [place] [address] 28452- 2641 May, Chronic pain G89.29 [place] [address] [place] [address] 81751- 7251 May, Medicare annual wellness visit, subsequent Z00.00 [place] [address] [place] [address] 93985- 4635 May, [place] [address] [place] [address] 23756- 2761 May, Type 2 diabetes mellitus without complications [...] to renal impairment without tophus M1A.3710 [facility] [id number] [place] [address]- 7837 May, [facility] [id number] [address]- 6467 Mar, [facility] [address] [place] [address]- 4760 Mar, [facility] [id number] [address]- 9213 Mar, [facility] [id number] [place] [address]- 1192 Mar, [facility] [address], [place] [address]- 9810 Mar, [facility] [address], [place] [address]- 5352 Jan, [facility] [address], [place] [address]- 9936 Jan, [facility] [address], [place] [address]- 5585 Dec, Type 2 diabetes mellitus without complications E11.9 ; Hypertension I10 ; Coronary artery disease I25.10 and Renal insufficiency N28.9 [facility] [address], [place] [address]- 2744 Dec, [facility] [address], [place] [address]- 1430 Dec, [facility] [id number] [address]- 2434 Nov, [facility] [address], [place] [address]- 9347 Nov, [facility] [address], [place] [address]- 4369 Nov, [facility] [address] [address]- 0542 Nov, [facility] [address], [place] [address]- 7420 Nov, [facility] [address] [place] [address] 05363- 0249 October, [facility] [address] [place] [address] 16751- 7697 October, [facility] [address] [place] [address] 02466- 7372 October, [facility] [address] [place] [address] 28040- 1781 Sep, Type 2 diabetes mellitus without complications E11.9 and Constipation K59.00 [facility] [address] [place] [address] 23744- 8020 Sep, [facility] [address] [place] [address] 18773- 5549 Sep, Diabetes E11.9 [facility] [address] [place] [address] 98944- 0624 Sep, [facility] [address] [place] [address] 85666- 3928 Sep, Routine health maintenance Z00.00 ; Hypertension I10 ; Type 2 diabetes mellitus without complications E11.9 ; Morbid obesity with BMI of 45.0-49.9, adult Z68.42 ; Chronic pain G89.29 ; H/O carotid endarterectomy Z98.89 ; Vascular dementia F01.50 ; Arthritis M19.90 ; Coronary artery disease I25.10 ; Abnormal lung sounds R09.89 and Diabetes E11.9 [facility] [address] [place] [address] 12642- 3073 Aug, Anxiety F41.9 [facility] [address], [place] [address]- 3068 Aug, Arthritis M19.90 [place] [address], [place] [address]- 9406 Jul, Arthritis M19.90 [facility] [address] [place] [address] 349338- 5954 Jul, [facility] [address] 3367 May, [facility] [address] [place] [address] 484569- 1371 May, Arthritis M19.90 ; Hypertension I10 ; Depression F32.9 ; Vascular dementia F01.50 and Coronary artery disease I25.10 [facility] [address] [place] [address] 55208- 7366 May, [facility] [address] [place] [address] 50766- 9284 May, [facility] [id number] [place] [address] 86399- 7893 Mar, [facility] [address] [place] [address] 363699- 4822 Mar, [facility] [address] [place] [address] 66899- 3889 Mar, [facility] [address] [place] [address] 29506- 0283 Mar, [facility] [address] [place] [address] 881533- 9075 Mar, Essential hypertension, benign 401.1 ; Unspecified arthropathy, site unspecified 716.90 and Other and unspecified hyperlipidemia 272.4 [facility] [address] [place] [address] 54939- 9676 Mar, [facility] [address] [place] [address] 74774- 8456 Jan, [facility] [address] [place] [address] 90547- 0588 Dec, [facility] [place] [facility] [address] [id number] [place] [address]- 3528 Dec, [facility] [place] [facility] [address] [id number] [place] [address]- 1069 Dec, [facility] [place] [facility] [address] [id number] [place] [address]- 9308 Dec, [facility] [place] [facility] [address] [id number] [place] [address]- 1175 Dec, [facility] [place] [facility] [address] [id number] [place] [address]- 1133 Dec, [facility] [place] [facility] [address] [id number] [place] [address]- 0202 Dec, [facility] [place] [facility] [address] [id number] [place] [address]- 1207 Dec, [facility] [place] [facility] [address] [id number] [place] [address]- 1337 Nov, [facility] [place] [facility] [address] [id number] [place] [address]- 9320 Nov, [facility] [place] [facility] [address] [id number] [place] [address]- 7784 Nov, [facility] [place] [facility] [address] [id number] [place] [address]- 1446 October, [facility] [place] [facility] [address] [id number] [place] [address]- 7367 October, [facility] [place] [facility] [address] [id number] [place] [address]- 1625 Sep, [facility] [place] [facility] [address] [id number] [place] [address]- 3658 Sep, [facility] [place] [facility] [address] [id number] [place] [address]- 5408 Sep, [facility] [place] [facility] [address] [id number] [place] [address]- 8996 19 Aug, 2014 [facility] [place] [facility] [address] [id number] [place] [address]- 6692 19 Aug, 2014 [facility] [place] [facility] [address] [id number] [place] [address]- 2802 12 Aug, 2014 [facility] [place] [facility] [address] [id number] [place] [address]- 7525 12 Aug, 2014 [facility] [place] [facility] [address] [id number] [place] [address]- 8743 13 Aug, 2014 [facility] [place] [facility] [address] [id number] [place] [address]- 0955 13 Aug, 2014 [facility] [place] [facility] [address] [facility] [id number] [place] [address]- 1369 11 Aug, 2014 [facility] [place] [facility] [address] [facility] [id number] [place] [address]- 9094 11 Aug, 2014 [facility] [place] [facility] [address] [id number] [place] [address]- 8701 10 Aug, 2014 [facility] [place] [facility] [address] [facility] [id number] [place] [address]- 7869 May, [facility] [place] [facility] [address] [facility] [id number] [place] [address]- 1214 29 May, 2014 [facility] [place] [facility] [address] [id number] [place] [address]- 4362 18 May, 2014 [facility] [place] [facility] [address] [id number] [place] [address]- 2544 18 May, 2014 [facility] [place] [facility] [address] [id number] [place]- 1344 15 May, 2014 [facility] [place] [facility] [address] [id number] [place] 2483 15 May, 2014 [facility] [place] [facility] [address] [facility] [id number] [place] 4714 May, [facility] [place] [facility] [address] [id number] [place] [address]- 1001 May, [facility] [place] [facility] [address] [id number] [place] [address]- 7253 Mar, [facility] [place] [facility] [address] [id number] [place] [address]- 4244 Mar, [facility] [address] [facility] [place] [id number] Mar, [facility] [place] [facility] [address] [id number] [place] [address]- 5365 Mar, [facility] [place] [facility] [address] [id number] [place] [address]- 3537 Mar, [facility] [place] [facility] [address] [id number] [place] [address]- 2614 Mar, [facility] [place] [facility] [address] [id number] [place] [address]- 9740 Mar, [facility] [place] [facility] [address] [id number] [place] [address]- 9726 Mar, [facility] [place] [facility] [address] [id number] [place] [address]- 3504 Mar, [facility] [place] [facility] [address] [id number] [place] [address]- 1222 Mar, [facility] [place] [facility] [address] [id number] [place] [address]- 2226 Mar, [facility] [place] [facility] [address] [id number] [place] [address]- 5632 Mar, [facility] [place] [facility] [address] [id number] [place] [address]- 8617 Mar, [facility] [place] [facility] [address] [id number] [place] [address]- 1074 Jan, [facility] [place] [facility] [address] [id number], [place] [address]- 8029 Jan, [facility] [address] [facility] [id number], [place] [address]- 9841 Jan, [facility] [address] [facility] [id number], [place] [address]- 7363 Jan, [facility] [address] [place] [address] Jan, [facility] [address] [facility] [id number], [place] [address]- 3751 Jan, [facility] [address] [facility] [id number], [place] [address]- 6545 Jan, [facility] [address] [facility] [id number], [place] [address]- 6734 Dec, [facility] [address] [facility] [id number], [place] [address]- 3830 Dec, [facility] [address] [facility] [id number], [place] [address]- 7247 Dec, [facility] [address] [facility] [id number], [place] [address]- 3613 Dec, [facility] [address] [facility] [id number], [place] [address]- 3953 Dec, [facility] [address] [facility] [id number], [place] [address]- 2633 Dec, [facility] [id number], [place] [address]- 5353 Nov, [facility] [address] [facility] [id number], [place] [address]- 4621 Nov, IMMUNIZATIONS No Known Immunizations SOCIAL HISTORY Never Assessed REASON FOR VISIT PLAN OF CARE VITAL SIGNS MEDICATIONS Medication Instructions Dosage Frequency Start Date End Date Duration Status Ergocalciferol 2000 UNIT Orally Once a day 1 tablet 24h Jul, Aug, 30 day(s) Active Carafate 1 GM Orally 4 times a day 1 tablet at bedtime on an empty stomach before meals 6h Jul, Aug, 14 days Active Ergocalciferol 19042 UNIT Orally once weekly 1 capsule Jul, Aug, 12 Weeks Active RESULTS No Results PROCEDURES No Known [...]
--- OUTSIDE RECORDS SUMMARY | 2018-03-10 15:50 | XMS REPORT ---
Author Author PETE FALCON Organization [employer] Address Unknown Phone Unavailable Care Team Providers Care Control Chemist Name Role Phone PETE FALCON CP Unavailable [...] Problem Essential hypertension, benign 401.1 Active Medications No Known Medications Results No Known Results Summary Purpose [employer] Submission
--- OUTSIDE RECORDS SUMMARY | 2018-03-10 15:50 | XMS REPORT ---
Author Author ELIEL SMITH Organization [employer] Address Unknown Phone Unavailable Care Team Providers Care Draw Hand Name Role Phone ELIEL SMITH CP Unavailable [...] Start Date End Date Status Dosage Hydrocodone-Acetaminophen [facility] [address]-40 5-325 MG Orally 3 times a day-, Assisted living facility Mar 23, 2014 1 tablet Results No Known Results Summary Purpose [employer] Submission
--- OUTSIDE RECORDS SUMMARY | 2018-03-10 15:51 | XMS REPORT ---
Author Author ELIEL SMITH Organization [facility] Address [address] [place] [address] Care Team Providers Care Remote Control Assembler Name Role Phone ELIEL SMITH Unavailable PROBLEMS Type Condition ICD9-CM Code MEW83-HQ Code Onset Dates Condition Status SNOMED Code Problem Routine health maintenance Z00.00 Active 291892080 Problem Chronic pain G89.29 Active 77413219 Problem Type 2 diabetes mellitus without complications E11.9 Active 522441905 Problem Diverticulitis K57.92 Active 784735218 Problem Anxiety F41.9 Active 73112498 Problem Chronic fatigue R53.82 Active 63015348 Problem Hepatitis C B19.20 Active 30596051 Problem History of solitary pulmonary nodule Z87.898 Active 964893758 Problem Depression F32.9 Active 185171911 Problem Constipation K59.00 Active 51924623 Problem Chronic kidney disease (CKD) stage G3a/A1, moderately decreased glomerular filtration rate (GFR) between 45-59 mL/min/1.73 square meter and albuminuria creatinine ratio less than 30 mg/g N18.3 Active 929317828 Problem 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 07473820 Problem History of alcoholism F10.21 Active 054633590 Problem History of TIA (transient ischemic attack) Z86.73 Active 082034576 Problem Vitamin D deficiency E55.9 Active 59575923 Problem Hyperlipidemia E78.5 Active 53195699 Problem Arthritis M19.90 Active 6094935 Problem Coronary artery disease I25.10 Active 05998208 Problem DJD (degenerative joint disease) M19.90 Active 532654715 Problem Cervical stenosis of spinal canal M48.02 Active 35648023 Problem Hypertension I10 Active 78202989 Problem Abnormal CBC R79.89 Active 728278049 Problem Vascular dementia F01.50 Active 948962875 Problem Morbid obesity with BMI of 45.0-49.9, adult Z68.42 Active 825066487 ALLERGIES No Information ENCOUNTERS Encounter Location Date Diagnosis [place] [address] [address] October, Chronic pain G89.29 and Anxiety F41.9 [place] [address] [address] October, Type 2 diabetes mellitus without complications [...] than 30 mg/g N18.3 and Anxiety F41.9 [place] [address] [address] Sep, Chronic pain G89.29 and Anxiety F41.9 [place] [address] [address] Aug, Anxiety F41.9 and Chronic pain G89.29 [place] [address] [address] Aug, Anxiety F41.9 [place] [address] [address]- [address] Aug, Chronic pain G89.29 and Anxiety F41.9 [place] [address] [address] Aug, Chronic kidney disease (CKD) stage G3a/A1, moderately decreased glomerular filtration rate (GFR) between 45-59 mL/min/1.73 square meter and albuminuria creatinine ratio less than 30 mg/g N18.3 [place] [address] [address] Aug, [facility] [address] [id number] Jul, Dental examination Z01.20 [facility] [address] [place] [id number] [place] [address]- 0875 Jul, Chronic pain G89.29 and Anxiety F41.9 [facility] [address] [place] [id number] [place] [address]36- 0259 Jul, Other specified abnormal findings of blood chemistry R79.89 [facility] [address] [place] [id number] [place] [address] 9[address]- 1059 Jul, Type 2 diabetes mellitus without complications E11.9 ; Chronic kidney disease (CKD) stage G3a/A1, moderately decreased glomerular filtration rate (GFR) between 45-59 mL/min/1.73 square meter and albuminuria creatinine ratio less than 30 mg/g N18.3 ; BMI 45.0-49.9, adult Z68.42 ; Chronic fatigue R53.82 ; Hair loss L65.9 ; Generalized abdominal pain R10.84 and Diverticulitis K57.92 [facility] [address] [place] [address] 7[address]11- 7249 Jul, [facility] [address] [place] [id number] [place] [id number] Jul, Dental examination Z01.20 [facility] [address] [place] [id number] [place] [address] 03367- 1162 Jul, Anxiety F41.9 [facility] [address] [place] [id number] [place] [address]56- 6833 Jul, Anxiety F41.9 [facility] [address] [id number] Jul, Chronic pain G89.29 [facility] [address] [place] [id number] [place] [id number] May, Chronic pain G89.29 [facility] [address] [place] [id number] [place] [address] 13163- 4216 May, [facility] [address] [place] [address] [phone] May, Dental examination Z01.20 [facility] [address] [place] [address] 284061- 5645 May, Anxiety F41.9 [facility] [address] [place] [id number] [place] [address] [phone] May, 2017 Chronic pain G89.29 [facility] [address] [place] [address] 86341- 8545 Mar, Depression F32.9 [facility] [address] [address]- [address] 12 Mar, 2017 Anxiety F41.9 [facility] [address] [place] [id number] [place] [address] [phone] Mar, Chronic pain G89.29 [facility] [address] [place] [address] 12754- 4956 19 Mar, 2017 Abnormal CBC R79.89 [facility] [address] [id number] 18 Mar, 2017 Anxiety F41.9 [facility] [address] [place] [id number] [place] [address] 65337- 0849 14 Mar, 2017 Hypertension I10 ; Routine health maintenance Z00.00 ; Type 2 diabetes mellitus without complications E11.9 and Hyperlipidemia E78.5 [facility] [address] [place] [id number] [place] [address] [id number] 13 Mar, 2017 Chronic pain G89.29 and Anxiety F41.9 [facility] [address] [place] [address] [id number] 13 Mar, 2017 Dental examination Z01.20 [facility] [address] [place] [address] 82262- 6166 06 Mar, 2017 Hypertension I10 ; Routine health maintenance Z00.00 ; Type 2 diabetes mellitus without complications E11.9 and Hyperlipidemia E78.5 [place] [address] [address] Jan, Type 2 diabetes mellitus without complications E11.9 ; Hypertension I10 ; Vascular dementia F01.50 ; Morbid obesity with BMI of 45.0- 49.9, adult Z68.42 ; Hyperlipidemia E78.5 ; Chronic pain G89.29 ; Anxiety F41.9 ; Depression F32.9 ; Coronary artery disease I25.10 ; 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 and Constipation K59.00 [place] [address] [place] [id number] [place] [address] 85946- 3012 Jan, Chronic pain G89.29 [place] [address] [place] [id number] [place] [address] 36845- 8661 Jan, [place] [address] [place] [id number] [place] [address] 54656- 8492 Dec, [place] [address] [place] [id number] [place] [address] 48723- 3253 Dec, Chronic pain G89.29 [place] [address] [place] [id number] [place] [address] 82423- 7005 Nov, Chronic pain G89.29 [facility] [address] [place] [id number] [place] [address] 06239- 6102 October, Chronic pain G89.29 [place] [address] [place] [id number] [place] [address] 31046- 3814 Sep, Chronic pain G89.29 [facility] [address] [address] Sep, Type 2 diabetes mellitus without complications E11.9 ; Chronic pain G89.29 ; Hypertension I10 ; Coronary artery disease I25.10 ; Morbid obesity with BMI of 45.0-49.9, adult Z68.42 ; Hyperlipidemia E78.5 ; 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 and Depression F32.9 [place] [address] [place] [id number] [place] [address] 48714- 8210 Aug, Chronic pain G89.29 [place] [address] [address]- 6[address] Aug, Chronic pain G89.29 and Constipation K59.[address] [address]- [address] Aug, Abnormal lung sounds R09.89 [place] [address] [address]13- [address] Aug, Depression F32.[address] [address]- [address] Jul, Chronic pain G89.29 [place] [address] 606[address]- 5273 May, Chronic pain G89.29 [place] [address] 28567- 7[address] May, Medicare annual wellness visit, subsequent Z00.[address] [address]- [address] May, [place] [id number] [place] [address]95- [address]66 02 May, 2016 Type 2 diabetes mellitus [...] due to renal impairment without tophus M1A.3710 [place] [id number] [place] [address] 30766- 0588 May, [facility] [address] [id number] [place] [address]- 7812 Mar, [facility] [address] [address]- 8[address] Mar, [facility] [address] [facility] [id number] [place] [address]- 1348 Mar, [facility] [address] [place] [id number] [place] [address], [place] [address]- 9011 Mar, [facility] [address] [address]- 0249 Mar, [facility] [address] [place] [id number] [place] [address], [place] [address]- 9590 Jan, [facility] [address] [address]- 0049 Jan, [facility] [address] [address]- 5108 Dec, Type 2 diabetes mellitus without complications E11.9 ; Hypertension I10 ; Coronary artery disease I25.10 and Renal insufficiency N28.9 [facility] [address] [address]- 4217 Dec, [facility] [address] [address]- 2583 Dec, [facility] [address] [address]- 4[address] Nov, [facility] [address] [address]- 8795 Nov, [facility] [address] [address]- 1595 Nov, [facility] [address] [address]- 9596 Nov, [facility] [address] [address]- 9769 Nov, [facility] [address] [address]- 9545 October, [facility] [address] [place] [id number] [place] [address] 76147- 3483 October, [facility] [address] [place] [id number] [place] [address] 57413- 2664 October, [facility] [address] [place] [id number] [place] [address] 14613- 7367 Sep, Type 2 diabetes mellitus without complications E11.9 and Constipation K59.00 [facility] [address] [place] [id number] [place] [address] 53275- 0844 Sep, [facility] [address] [place] [id number] [place] [address] 06206- 7184 Sep, Diabetes E11.9 [facility] [address] [place] [id number] [place] [address] 17653- 6209 Sep, [facility] [address] [place] [address] 18466- 6442 Sep, Routine health maintenance Z00.00 ; Hypertension I10 ; Type 2 diabetes mellitus without complications E11.9 ; Morbid obesity with BMI of 45.0-49.9, adult Z68.42 ; Chronic pain G89.29 ; H/O carotid endarterectomy Z98.89 ; Vascular dementia F01.50 ; Arthritis M19.90 ; Coronary artery disease I25.10 ; Abnormal lung sounds R09.89 and Diabetes E11.9 [facility] [address] [address]- 7753 Aug, Anxiety F41.9 [facility] [address] [place] [address] [address]- 2968 Aug, Arthritis M19.90 [facility] [address] [address]- 6798 Jul, Arthritis M19.90 [facility] [address] [place] [address] [address]- 6136 Jul, [facility] [address] [address]- 6851 May, [facility] [address] [address]- 7676 May, Arthritis M19.90 ; Hypertension I10 ; Depression F32.9 ; Vascular dementia F01.50 and Coronary artery disease I25.10 [facility] [address] [address] May, [facility] [address] [address]- 9864 May, [facility] [address] [address]- 1412 Mar, [facility] [address] [place] [address] [address]- 2981 Mar, [facility] [address] [address]- 8515 Mar, [facility] [address] [address]- 0348 Mar, [facility] [address] [place] [id number] [address]- 3101 Mar, Essential hypertension, benign 401.1 ; Unspecified arthropathy, site unspecified 716.90 and Other and unspecified hyperlipidemia 272.4 [facility] [address] [place] [id number] [address]- 5124 Mar, [facility] [address] [address]- 9906 Jan, [facility] [address] [address]- 9850 Dec, [facility] [address] [place] [id number] [address]- 1647 Dec, [facility] [place] [facility] [address] [id number] [place] [address]- 4562 Dec, 2014 [facility] [place] [facility] [address] [id number] [place] [address]- 4745 Dec, [facility] [place] [facility] [address] [id number] [place] [address]- 7646 Dec, 2014 [facility] [place] [facility] [address] [id number] [place] [address]- 6761 Dec, [facility] [place] [facility] [address] [id number] [place] [address]- 8057 Dec, [facility] [place] [facility] [address] [id number] [place] [address]- 6129 Dec, [facility] [place] [facility] [address] [id number] [place] [address]- 5951 Nov, [facility] [place] [facility] [address] [id number] [place] [address]- 2333 Nov, [facility] [place] [facility] [address] [id number] [place] [address]- 6612 Nov, [facility] [place] [facility] [address] [id number] [place] [address]- 8696 October, [facility] [place] [facility] [address] [id number] [place] [address]- 1644 October, [facility] [place] [facility] [address] [id number] [place] [address]- 5704 Sep, [facility] [place] [facility] [address] [id number] [place] [address]- 2396 Sep, [facility] [place] [facility] [address] [id number] [place] [address]- 0311 Sep, [facility] [place] [facility] [address] [id number] [place] [address]- 2607 Aug, [facility] [place] [facility] [address] [id number] [place] [address]- 2482 Aug, [facility] [place] [facility] [address] [id number] [place] [address]- 3923 Aug, [facility] [place] [facility] [address] [id number] [place] [address]- 7504 Aug, [facility] [place] [facility] [address] [id number] [place] [address]- 1199 Aug, [facility] [place] [facility] [address] [id number] [place] [address]- 5694 Aug, 2014 [facility] [place] [facility] [address] [id number] [place] [address]- 1142 Aug, [facility] [place] [facility] [address] [facility] [id number] [place] [address]- 7480 Aug, [facility] [place] [facility] [address] [id number] [place] [address]- 5187 Aug, [facility] [place] [facility] [address] [id number] [place] [address]- 6408 May, [facility] [place] [facility] [address] [id number] [place] [address]- 6758 May, [facility] [place] [facility] [address] [facility] [id number] [place] [address]- 1738 May, [facility] [place] [facility] [address] [id number] [place] [address]- 2714 May, [facility] [place] [facility] [address] [id number] [place] [address]- 7645 May, [facility] [place] [facility] [address] [id number] [place] [address]- 0395 May, [facility] [place] [facility] [address] [facility] [id number] [place] [address]- 2810 May, [facility] [place] [facility] [address] [facility] [id number] [place] [address]- 0759 May, [facility] [place] [facility] [address] [id number] [place] [address]- 2229 Mar, [facility] [facility] [address] [id number] [place] [address]- 4873 Mar, [facility] [address] [place] [address] Mar, [facility] [address] [id number] [place] [address]- 3187 Mar, [facility] [place] [facility] [address] [id number] [place] [address]- 5243 Mar, [facility] [place] [facility] [address] [id number] [place] [address]- 7944 Mar, [facility] [place] [facility] [address] [id number] [place] [address]- 0386 Mar, [facility] [place] [facility] [address] [id number] [place] [address]- 3239 Mar, [facility] [place] [facility] [address] [id number] [place] [address]- 5744 Mar, [facility] [place] [facility] [address] [id number] [place] [address]- 2545 Mar, [facility] [place] [facility] [address] [id number] [place] [address]- 8083 Mar, [facility] [place] [facility] [address] [id number] [place] [address]- 5140 Mar, [facility] [place] [facility] [address] [id number] [place] [address]- 4245 Mar, [facility] [place] [facility] [address] [id number] [place] [address]- 3511 Jan, [facility] [place] [facility] [address] [id number] [place] [address]- 9825 Jan, [facility] [place] [facility] [address] [id number] [place] [address]- 6647 Jan, [facility] [address] [facility] [id number] [address]- 5603 Jan, [facility] [address] [place] [id number] Jan, [facility] [address] [facility] [id number] [address]- 7260 Jan, [facility] [address] [facility] [id number] [address]- 3540 Jan, [facility] [address] [facility] [id number] [address]- 9250 Dec, [facility] [address] [facility] [id number] [place] [address]- 9971 Dec, [facility] [address] [facility] [id number] [address]- 7872 Dec, [facility] [address] [address]- 0345 Dec, [facility] [address] [place] [id number] [address]- 2433 Dec, [facility] [address] [place] [id number] [address]- 9642 Dec, [facility] [address] [place] [id number] [address]- 5991 Nov, [facility] [address] [place] [address] [id number] [address]- 0807 Nov, IMMUNIZATIONS No Known Immunizations SOCIAL HISTORY Never Assessed REASON FOR VISIT Controlled Med Refill PLAN OF CARE VITAL SIGNS MEDICATIONS Medication Instructions Dosage Frequency Start Date End Date Duration Status Hydrocodone-Acetaminophen 5-325 MG Orally 3 times a day-,Assisted living facility 1 tablet May, 28 days Active RESULTS No Results PROCEDURES [...]
--- OUTSIDE RECORDS SUMMARY | 2018-03-10 15:51 | XMS REPORT ---
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 80151324 Problem Chronic pain G89.29 Active 06431492 Problem Type 2 diabetes mellitus without complications E11.9 Active 007494747 Problem Constipation K59.00 Active 19068375 Problem Routine health maintenance Z00.00 Active 739446659 Problem Hepatitis C B19.20 Active 76713780 Problem Anxiety F41.9 Active 03971503 Problem Cervical stenosis of spinal canal M48.02 Active 67039678 Problem History of alcoholism F10.21 Active 460368942 Problem History of solitary pulmonary nodule Z87.898 Active 954802041 Problem Hyperlipidemia E78.5 Active 25037326 Problem DJD (degenerative joint disease) M19.90 Active 086929638 Problem Vascular dementia F01.50 Active 971297901 Problem Abnormal CBC R79.89 Active 578766341 Problem Arthritis M19.90 Active 4960104 ALLERGIES No Information SOCIAL HISTORY Never Assessed PLAN OF CARE VITAL SIGNS MEDICATIONS Medication Instructions Dosage Frequency Start Date End Date Duration Status ProAir HFA 108 (90 Base) MCG/ACT Inhalation every 4 hrs 2 puffs as needed 4h Sep, 30 days Active RESULTS No Results PROCEDURES [...]
--- OUTSIDE RECORDS SUMMARY | 2018-03-10 15:51 | XMS REPORT ---
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 Name Role Phone ELIEL SMITH Unavailable PROBLEMS Type Condition ICD9-CM Code VRI26-UN Code Onset Dates Condition Status SNOMED Code Problem Routine health maintenance Z00.00 Active 340831515 Problem Chronic pain G89.29 Active 24446998 Problem Type 2 diabetes mellitus without complications E11.9 Active 582303838 Problem Diverticulitis K57.92 Active 807202504 Problem Anxiety F41.9 Active 80463762 Problem Chronic fatigue R53.82 Active 21266117 Problem Hepatitis C B19.20 Active 92807100 Problem History of solitary pulmonary nodule Z87.898 Active 407354165 Problem Depression F32.9 Active 905815500 Problem Constipation K59.00 Active 16215416 Problem Chronic kidney disease (CKD) stage G3a/A1, moderately decreased glomerular filtration rate (GFR) between 45-59 mL/min/1.73 square meter and albuminuria creatinine ratio less than 30 mg/g N18.3 Active 334704803 Problem 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 79799574 Problem History of alcoholism F10.21 Active 605567760 Problem History of TIA (transient ischemic attack) Z86.73 Active 293792904 Problem Vitamin D deficiency E55.9 Active 32824189 Problem Hyperlipidemia E78.5 Active 35244499 Problem Arthritis M19.90 Active 2788273 Problem Coronary artery disease I25.10 Active 30096767 Problem DJD (degenerative joint disease) M19.90 Active 548608628 Problem Cervical stenosis of spinal canal M48.02 Active 01273220 Problem Hypertension I10 Active 16583161 Problem Abnormal CBC R79.89 Active 232839033 Problem Vascular dementia F01.50 Active 311054669 Problem Morbid obesity with BMI of 45.0-49.9, adult Z68.42 Active 979134511 ALLERGIES No Information ENCOUNTERS Encounter Location Date Diagnosis [place] [address] [address] October, Chronic pain G89.29 and Anxiety F41.9 [place] [address] [address] October, Type 2 diabetes mellitus without complications [...] than 30 mg/g N18.3 and Anxiety F41.9 [place] [address] [address] Sep, Chronic pain G89.29 and Anxiety F41.9 [place] [address] [address]- [address] Aug, Anxiety F41.9 and Chronic pain G89.29 [place] [address] [address] Aug, Anxiety F41.9 [place] [address] [address]- 6516 Aug, Chronic pain G89.29 and Anxiety F41.9 [place] [address] [address] Aug, Chronic kidney disease (CKD) stage G3a/A1, moderately decreased glomerular filtration rate (GFR) between 45-59 mL/min/1.73 square meter and albuminuria creatinine ratio less than 30 mg/g N18.3 [place] [address] [address]- [address] Aug, [facility] [address] [id number] Jul, Dental examination Z01.20 [facility] [address] [place] [id number] [place] [address] 13511- 0285 Jul, Chronic pain G89.29 and Anxiety F41.9 [facility] [address] [place] [id number] [place] [address] 39565- 4437 Jul, Other specified abnormal findings of blood chemistry R79.89 [facility] [address] [place] [id number] [place] [address] 25880- 2200 Jul, Type 2 diabetes mellitus without complications E11.9 ; Chronic kidney disease (CKD) stage G3a/A1, moderately decreased glomerular filtration rate (GFR) between 45-59 mL/min/1.73 square meter and albuminuria creatinine ratio less than 30 mg/g N18.3 ; BMI 45.0-49.9, adult Z68.42 ; Chronic fatigue R53.82 ; Hair loss L65.9 ; Generalized abdominal pain R10.84 and Diverticulitis K57.92 [facility] [address] [place] [address] 47149- [address] Jul, [facility] [address] [place] [id number] [place] [id number] Jul, Dental examination Z01.20 [facility] [address] [place] [id number] [place] [address] 52993- 3692 Jul, Anxiety F41.9 [facility] [address] [place] [id number] [place] [address] 18359- 4825 Jul, Anxiety F41.9 [facility] [address] [id number] Jul, Chronic pain G89.29 [facility] [address] [place] [id number] [place] [address] [id number] May, Chronic pain G89.29 [facility] [address] [place] [id number] [place] [address] 29555- 5566 May, [facility] [address] [place] [address] [id number] May, Dental examination Z01.20 [facility] [address] [place] [address] 773357- 4794 May, Anxiety F41.9 [facility] [address] [place] [id number] [place] [address] [id number] 06 May, 2017 Chronic pain G89.29 [facility] [address] [place] [address] 53921- 2851 Mar, Depression F32.9 [facility] [address] 42197- [address] 12 Mar, 2017 Anxiety F41.9 [facility] [address] [place] [id number] [place] [address] [id number] Mar, Chronic pain G89.29 [facility] [address] [place] [address] 84591- 3359 19 Mar, 2017 Abnormal CBC R79.89 [facility] [address] [id number] 18 Mar, 2017 Anxiety F41.9 [facility] [address] [place] [id number] [place] [address] 57004- 0626 14 Mar, 2017 Hypertension I10 ; Routine health maintenance Z00.00 ; Type 2 diabetes mellitus without complications E11.9 and Hyperlipidemia E78.5 [facility] [address] [place] [id number] [place] [address] [id number] 13 Mar, 2017 Chronic pain G89.29 and Anxiety F41.9 [facility] [address] [place] [address] [id number] 13 Mar, 2017 Dental examination Z01.20 [facility] [address] [place] [address] 72924- 1606 06 Mar, 2017 Hypertension I10 ; Routine health maintenance Z00.00 ; Type 2 diabetes mellitus without complications E11.9 and Hyperlipidemia E78.5 [place] [address], [place] [address] Jan, Type 2 diabetes mellitus without complications E11.9 ; Hypertension I10 ; Vascular dementia F01.50 ; Morbid obesity with BMI of 45.0- 49.9, adult Z68.42 ; Hyperlipidemia E78.5 ; Chronic pain G89.29 ; Anxiety F41.9 ; Depression F32.9 ; Coronary artery disease I25.10 ; 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 and Constipation K59.00 [place] [address] [place] [id number] [place] [address] 40703- 3299 Jan, Chronic pain G89.29 [place] [address] [place] [id number] [place] [address] 36212- 0353 Jan, [place] [address] [place] [id number] [place] [address] 68533- 7180 Dec, [place] [address] [place] [id number] [place] [address] 69619- 4930 Dec, Chronic pain G89.29 [place] [address] [place] [id number] [place] [address] 40609- 4523 Nov, Chronic pain G89.29 [facility] [address] [place] [id number] [place] [address] 20557- 2771 October, Chronic pain G89.29 [place] [address] [place] [id number] [place] [address] 65499- 2020 Sep, Chronic pain G89.29 [facility] [address], [place] [address]- 9609 Sep, Type 2 diabetes mellitus without complications E11.9 ; Chronic pain G89.29 ; Hypertension I10 ; Coronary artery disease I25.10 ; Morbid obesity with BMI of 45.0-49.9, adult Z68.42 ; Hyperlipidemia E78.5 ; 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[address] 14[address]- 3915 May, [place] [id number] [place] [address] 49512- 0878 02 May, 2016 Type 2 diabetes mellitus [...] due to renal impairment without tophus M1A.3710 [place] [id number] [place] [address] 17936- 2273 May, [facility] [address] [id number] [place] [address]- 3830 Mar, [facility] [address] [place] [address] Mar, [facility] [address] [facility] [id number] [place] [address]- 1606 Mar, [facility] [address] [place] [id number] [place] [address], [place] [address]- 7977 Mar, [facility] [address] [place] [address]- 6226 Mar, [facility] [address] [place] [id number] [place] [address], [place] [address]- 7824 Jan, [facility] [address] [place] [address]- 3190 Jan, [facility] [address] [place] [address]- 9725 Dec, Type 2 diabetes mellitus without complications E11.9 ; Hypertension I10 ; Coronary artery disease I25.10 and Renal insufficiency N28.9 [facility] [address] [place] [address]- 5461 Dec, [facility] [address], [place] [address]- 3848 Dec, [facility] [address], [place] [address]- 2164 Nov, [facility] [address], [place] [address]- 3037 Nov, [facility] [address] [place] [address]- 9578 Nov, [facility] [address], [place] [address]- 0886 Nov, [facility] [address], [place] [address]- 0797 Nov, [facility] [address], [place] [address]- 6796 October, [facility] [address] [place] [id number] [place] [address] 09621- 2411 October, [facility] [address] [place] [id number] [place] [address] 22184- 1831 October, [facility] [address] [place] [id number] [place] [address] 71315- 9260 Sep, Type 2 diabetes mellitus without complications E11.9 and Constipation K59.00 [facility] [address] [place] [id number] [place] [address] 54818- 2573 Sep, [facility] [address] [place] [id number] [place] [address] 18249- 7133 Sep, Diabetes E11.9 [facility] [address] [place] [id number] [place] [address] 53033- 8279 Sep, [facility] [address] [place] [address] 00224- 4321 Sep, Routine health maintenance Z00.00 ; Hypertension I10 ; Type 2 diabetes mellitus without complications E11.9 ; Morbid obesity with BMI of 45.0-49.9, adult Z68.42 ; Chronic pain G89.29 ; H/O carotid endarterectomy Z98.89 ; Vascular dementia F01.50 ; Arthritis M19.90 ; Coronary artery disease I25.10 ; Abnormal lung sounds R09.89 and Diabetes E11.9 [facility] [address], [place] [address]- 2424 Aug, Anxiety F41.9 [facility] [address] [place] [address] [address]- 3528 Aug, Arthritis M19.90 [facility] [address], [place] [address]- 2839 Jul, Arthritis M19.90 [facility] [address] [place] [address] [address]- 3106 Jul, [facility] [address], [place] [address]- 7437 May, [facility] [address], [place] [address]- 2016 May, Arthritis M19.90 ; Hypertension I10 ; Depression F32.9 ; Vascular dementia F01.50 and Coronary artery disease I25.10 [facility] [address] 4[address] May, [facility] [address], [place] [address]- 0813 May, [facility] [address], [place] [address]- 7191 Mar, [facility] [address] [place] [address] [address]- 2670 Mar, [facility] [address], [place] [address]- 9776 Mar, [facility] [address], [place] [address]- 1826 Mar, [facility] [address] [place] [id number] [address]- 9343 Mar, Essential hypertension, benign 401.1 ; Unspecified arthropathy, site unspecified 716.90 and Other and unspecified hyperlipidemia 272.4 [facility] [address] [place] [id number], [place] [address]- 4426 Mar, [facility] [address], [place] [address]- 2835 Jan, [facility] [address], [place] [address]- 1751 Dec, [facility] [address] [place] [id number], [place] [address]- 9602 Dec, [facility] [place] [facility] [address] [id number] [place] [address]- 4127 Dec, 2014 [facility] [place] [facility] [address] [id number] [place] [address]- 5124 Dec, [facility] [place] [facility] [address] [id number] [place] [address]- 9686 Dec, 2014 [facility] [place] [facility] [address] [id number] [place] [address]- 1637 Dec, [facility] [place] [facility] [address] [id number] [place] [address]- 3036 Dec, [facility] [place] [facility] [address] [id number] [place] [address]- 0638 Dec, [facility] [place] [facility] [address] [id number] [place] [address]- 3826 Nov, [facility] [place] [facility] [address] [id number] [place] [address]- 0399 Nov, [facility] [place] [facility] [address] [id number] [place] [address]- 8048 Nov, [facility] [place] [facility] [address] [id number] [place] [address]- 4099 October, [facility] [place] [facility] [address] [id number] [place] [address]- 5472 October, [facility] [place] [facility] [address] [id number] [place] [address]- 5599 Sep, [facility] [place] [facility] [address] [id number] [place] [address]- 9923 Sep, [facility] [place] [facility] [address] [id number] [place] [address]- 3429 Sep, [facility] [place] [facility] [address] [id number] [place] [address]- 1379 Aug, [facility] [place] [facility] [address] [id number] [place] [address]- 7999 Aug, [facility] [place] [facility] [address] [id number] [place] [address]- 5911 Aug, [facility] [place] [facility] [address] [id number] [place] [address]- 7448 Aug, [facility] [place] [facility] [address] [id number] [place] [address]- 4305 Aug, [facility] [place] [facility] [address] [id number] [place] [address]- 8444 Aug, 2014 [facility] [place] [facility] [address] [id number] [place] [address]- 4833 Aug, [facility] [place] [facility] [address] [facility] [id number] [place] [address]- 9025 Aug, [facility] [place] [facility] [address] [id number] [place] [address]- 7021 Aug, [facility] [place] [facility] [address] [id number] [place] [address]- 1603 May, [facility] [place] [facility] [address] [id number] [place] [address]- 1484 May, [facility] [place] [facility] [address] [facility] [id number] [place] [address]- 5284 May, [facility] [place] [facility] [address] [id number] [place] [address]- 1062 May, [facility] [place] [facility] [address] [id number] [place] [address]- 6424 May, [facility] [place] [facility] [address] [id number] [place] [address]- 7672 May, [facility] [place] [facility] [address] [facility] [id number] [place] [address]- 5681 May, [facility] [place] [facility] [address] [facility] [id number] [place] [address]- 5264 May, [facility] [place] [facility] [address] [id number] [place] [address]- 8231 Mar, [facility] [address] [id number] [place] [address]- 1870 Mar, [facility] [address] [place] [id number] Mar, [facility] [address] [id number] [place] [address]- 6481 Mar, [facility] [place] [facility] [address] [id number] [place] [address]- 9308 Mar, [facility] [place] [facility] [address] [id number] [place] [address]- 5763 Mar, [facility] [place] [facility] [address] [id number] [place] [address]- 4815 Mar, [facility] [place] [facility] [address] [id number] [place] [address]- 0531 Mar, [facility] [place] [facility] [address] [id number] [place] [address]- 5808 Mar, [facility] [place] [facility] [address] [id number] [place] [address]- 9166 Mar, [facility] [place] [facility] [address] [id number] [place] [address]- 6465 Mar, [facility] [place] [facility] [address] [id number] [place] [address]- 1723 Mar, [facility] [place] [facility] [address] [id number] [place] [address]- 3056 Mar, [facility] [place] [facility] [address] [id number] [place] [address]- 5574 Jan, [facility] [place] [facility] [address] [id number] [place] [address]- 3642 Jan, [facility] [place] [facility] [address] [id number] [place] [address]- 7603 Jan, [facility] [address] [facility] [id number], [place] [address]- 4642 Jan, [facility] [address] [place] [id number] Jan, [facility] [address] [facility] [id number], [place] [address]- 4973 Jan, [facility] [address] [facility] [id number], [place] [address]- 8625 Jan, [facility] [address] [facility] [id number], [place] [address]- 9554 Dec, [facility] [address] [facility] [id number], [place] [address]- 6687 Dec, [facility] [address] [facility] [id number], [place] [address]- 1668 Dec, [facility] [address], [place] [address]- 5207 Dec, [facility] [address] [place] [id number] [address]- 0107 Dec, [facility] [address] [place] [id number], [place] [address]- 7459 Dec, [facility] [address] [place] [id number], [place] [address]- 7412 Nov, [facility] [address] [place] [id number], [place] [address]- 0213 Nov, IMMUNIZATIONS No Known Immunizations SOCIAL HISTORY [...]
--- OUTSIDE RECORDS SUMMARY | 2018-03-10 15:52 | XMS REPORT ---
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
--- OUTSIDE RECORDS SUMMARY | 2018-03-10 15:52 | XMS REPORT ---
Author Author ELIEL SMITH Organization [facility] Address [address] [place] [address] Care Team Providers Care Inspector [employer] Name Role Phone ELIEL SMITH Unavailable PROBLEMS Type Condition ICD9-CM Code [id number] Code Onset Dates Condition Status SNOMED Code Problem Routine health maintenance Z00.00 Active 652877130 Problem Chronic pain G89.29 Active 28168495 Problem Type 2 diabetes mellitus without complications E11.9 Active 731325464 Problem Diverticulitis K57.92 Active 686446556 Problem Anxiety F41.9 Active 17230319 Problem Chronic fatigue R53.82 Active 48427373 Problem Hepatitis C B19.20 Active 74090238 Problem History of solitary pulmonary nodule Z87.898 Active 669294312 Problem Depression F32.9 Active 430973459 Problem Constipation K59.00 Active 28597510 Problem Chronic kidney disease (CKD) stage G3a/A1, moderately decreased glomerular filtration rate (GFR) between 45-59 mL/min/1.73 square meter and albuminuria creatinine ratio less than 30 mg/g N18.3 Active 737192364 Problem 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 11931929 Problem History of alcoholism F10.21 Active 226286749 Problem History of TIA (transient ischemic attack) Z86.73 Active 368877031 Problem Vitamin D deficiency E55.9 Active 68236273 Problem Hyperlipidemia E78.5 Active 67846838 Problem Arthritis M19.90 Active 4970428 Problem Coronary artery disease I25.10 Active 45164415 Problem DJD (degenerative joint disease) M19.90 Active 535114238 Problem Cervical stenosis of spinal canal M48.02 Active 89368985 Problem Hypertension I10 Active 76541487 Problem Abnormal CBC R79.89 Active 419870269 Problem Vascular dementia F01.50 Active 683540138 Problem Morbid obesity with BMI of 45.0-49.9, adult Z68.42 Active 844005666 ALLERGIES No Information ENCOUNTERS Encounter Location Date Diagnosis [place] [id number] [place] [address] 25966- 2634 October, [place] [address] [address] Aug, Anxiety F41.9 and Chronic pain G89.29 [place] [address] 80044- 3747 Aug, Anxiety F41.9 [place] [address] 58768- 8344 Aug, Chronic pain G89.29 and Anxiety F41.9 [place] [address] 21576- 2409 Aug, Chronic kidney disease (CKD) stage G3a/A1, moderately decreased glomerular filtration rate (GFR) between 45-59 mL/min/1.73 square meter and albuminuria creatinine ratio less than 30 mg/g N18.3 [place] [address] 74[address]- [address] Aug, [facility] [address] [id number] Jul, Dental examination Z01.20 [place] [address] 34359- 3014 Jul, Chronic pain G89.29 and Anxiety F41.9 [place] [id number] [place] [address] 56080- 6627 Jul, Other specified abnormal findings of blood chemistry R79.89 [place] [address] 60945- 5769 Jul, Type 2 diabetes mellitus without complications E11.9 ; Chronic kidney disease (CKD) stage G3a/A1, moderately decreased glomerular filtration rate (GFR) between 45-59 mL/min/1.73 square meter and albuminuria creatinine ratio less than 30 mg/g N18.3 ; BMI 45.0-49.9, adult Z68.42 ; Chronic fatigue R53.82 ; Hair loss L65.9 ; Generalized abdominal pain R10.84 and Diverticulitis K57.92 [facility] [id number] [place] [address] 15181- 2806 Jul, [facility] [address] [place] [address] [id number] Jul, Dental examination Z01.20 [facility] [address] 93410- 0726 Jul, Anxiety F41.9 [facility] [address] 72380- 2943 Jul, Anxiety F41.9 [facility] [address] [id number] Jul, Chronic pain G89.29 [facility] [address] [id number] May, Chronic pain G89.29 [facility] [id number] [place] [address] 19963- 4806 May, [facility] [id number] [place] [address] [id number] May, Dental examination Z01.20 [facility] [id number] [place] [address] 62167- 9116 May, Anxiety F41.9 [facility] [id number] [place] [address] [id number] May, Chronic pain G89.29 [facility] [id number] [place] [address] 45149- 0656 Mar, Depression F32.9 [facility] [id number] [place] [address] 17854- 1326 Mar, Anxiety F41.9 [facility] [id number] [place] [address] [id number] Mar, Chronic pain G89.29 [facility] [id number] [address] 19 Mar, 2017 Abnormal CBC R79.89 [facility] [id number] [place] [address] [id number] 18 Mar, 2017 Anxiety F41.9 [facility] [id number] [place] [address] 29139- 7190 14 Mar, 2017 Hypertension I10 ; Routine health maintenance Z00.00 ; Type 2 diabetes mellitus without complications E11.9 and Hyperlipidemia E78.5 [facility] [id number] [place] [address] [id number] 13 Mar, 2017 Chronic pain G89.29 and Anxiety F41.9 [facility] [address] [place] [address] [id number] 13 Mar, 2017 Dental examination Z01.20 [facility] [address] [place] [address] 08202- 3402 06 Mar, 2017 Hypertension I10 ; Routine health maintenance Z00.00 ; Type 2 diabetes mellitus without complications E11.9 and Hyperlipidemia E78.5 [facility] [address] [place] [address] 36656- 2683 22 Jan, 2017 Type 2 diabetes mellitus without complications E11.9 ; Hypertension I10 ; Vascular dementia F01.50 ; Morbid obesity with BMI of 45.0- 49.9, adult Z68.42 ; Hyperlipidemia E78.5 ; Chronic pain G89.29 ; Anxiety F41.9 ; Depression F32.9 ; Coronary artery disease I25.10 ; 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 and Constipation K59.00 [facility] [address] [place] [address] 73902- 0157 16 Jan, 2017 Chronic pain G89.29 [facility] [address] [place] [address] 14346- 3368 Jan, [facility] [address] [place] [address] 64341- 9628 Dec, [place] [id number] [place] [address] 56344- 2788 Dec, Chronic pain G89.29 [place] [id number] [place] [address] 08066- 5424 Nov, Chronic pain G89.29 [place] [id number] [place] [address] 01744- 4854 October, Chronic pain G89.29 [place] [address] 31932- 3747 Sep, Chronic pain G89.29 [place] [address] 13414- 6201 Sep, Type 2 diabetes mellitus without complications E11.9 ; Chronic pain G89.29 ; Hypertension I10 ; Coronary artery disease I25.10 ; Morbid obesity with BMI of 45.0-49.9, adult Z68.42 ; Hyperlipidemia E78.5 ; 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 and Depression F32.9 [place] [id number] [place] [address] 83030- 0722 Aug, Chronic pain G89.29 [place] [id number] [place] [address] 70099- 5273 Aug, Chronic pain G89.29 and Constipation K59.00 [place] [id number] [place] [address] 47352- 2745 Aug, Abnormal lung sounds R09.89 [place] [id number] [place] [address] 46897- 2392 Aug, Depression F32.9 [place] [id number] [place] [address] 81641- 7376 Jul, Chronic pain G89.29 [place] [id number] [place] [address] 12898- 0251 May, Chronic pain G89.29 [facility] [address] [address]- 4909 May, Medicare annual wellness visit, subsequent Z00.00 [facility] [id number] [place] [address] 86086- 0292 May, [facility] [id number] [place] [address] 49626- 9498 May, Type 2 diabetes mellitus without complications [...] due to renal impairment without tophus M1A.3710 [facility] [id number] [place] [address] 23190- 7875 May, [facility] [id number] [place] [address] 12783- 9442 Mar, [facility] [id number] [place] [address] 67495- 6806 Mar, [facility] [id number] [place] [address] 91926- 3292 Mar, [facility] [id number] [place] [address] 57809- 3970 Mar, [facility] [id number] [place] [address] 83457- 8193 Mar, [facility] [id number] [place] [address] 86730- 8921 Jan, [facility] [id number] [place] [address] 74879- 1897 Jan, [facility] [address] [facility] [id number] [place] [address]- 7366 Dec, Type 2 diabetes mellitus without complications E11.9 ; Hypertension I10 ; Coronary artery disease I25.10 and Renal insufficiency N28.9 [facility] [address] [facility] [id number] [place] [address]- 7116 Dec, [facility] [address] [facility] [id number] [place] [address]- 9237 Dec, [facility] [address] [facility] [id number] [place] [address]- 1954 Nov, [facility] [address] [facility] [id number] [place] [address]- 5166 Nov, [facility] [address] [place] [address]- 4150 Nov, [facility] [id number] [place] [address]- 9489 Nov, [facility] [id number] [place] [address]- 7672 Nov, [facility] [address] [place] [address]- 2675 October, [facility] [id number] [place] [address]- 9100 October, [facility] [id number] [place] [address]- 9006 October, [facility] [id number] [place] [address]- 9439 Sep, Type 2 diabetes mellitus without complications E11.9 and Constipation K59.00 [facility] [id number] [place] [address]- 4325 Sep, [facility] [id number] [place] [address]- 9248 Sep, Diabetes E11.9 [facility] [id number] [place] [address] 69991- 3392 Sep, [facility] [address] 38232- 7117 Sep, Routine health maintenance Z00.00 ; Hypertension I10 ; Type 2 diabetes mellitus without complications E11.9 ; Morbid obesity with BMI of 45.0-49.9, adult Z68.42 ; Chronic pain G89.29 ; H/O carotid endarterectomy Z98.89 ; Vascular dementia F01.50 ; Arthritis M19.90 ; Coronary artery disease I25.10 ; Abnormal lung sounds R09.89 and Diabetes E11.9 [facility] [address] 66825- 1958 Aug, Anxiety F41.9 [facility] [address] 95091- 5688 Aug, Arthritis M19.90 [facility] [address] 34710- 2610 Jul, Arthritis M19.90 [facility] [address] 31895- 6584 Jul, [facility] [id number] [place] [address] 05974- 0439 May, [facility] [id number] [place] [address] 75127- 0396 May, Arthritis M19.90 ; Hypertension I10 ; Depression F32.9 ; Vascular dementia F01.50 and Coronary artery disease I25.10 [facility] [id number] [place] [address] 65691- 2075 May, [facility] [address] 83851- 2204 May, [facility] [id number] [place] [address] 84700- 2409 Mar, [facility] [address] [place] [address]- 0532 Mar, [facility] [address] [facility] [id number] [place] [address]- 5537 Mar, [facility] [id number] [address]- 0889 Mar, [facility] [address], [place] [address]- 0883 Mar, Essential hypertension, benign 401.1 ; Unspecified arthropathy, site unspecified 716.90 and Other and unspecified hyperlipidemia 272.4 [facility] [address] [place] [address]- 9228 Mar, [facility] [id number], [place] [address]- 2506 Jan, [facility] [address], [place] [address]- 8780 Dec, [facility] [address], [place] [address]- 1193 Dec, [facility] [address], [place] [address]- 9689 Dec, [facility] [address] [place] [address]- 2292 Dec, [facility] [address], [place] [address]- 6367 Dec, [facility] [id number], [place] [address]- 7366 Dec, [facility] [id number] [address]- 9236 Dec, [facility] [place] [facility] [address] [facility] [id number] [place] [address]- 2966 Dec, [facility] [id number] [place] [address]- 2900 Nov, [facility] [place] [facility] [address] [id number] [place] [address]- 3456 Nov, [facility] [place] [facility] [address] [id number] [place] [address]- 2140 Nov, [facility] [place] [facility] [address] [id number] [place] [address]- 4680 October, [facility] [place] [facility] [address] [id number] [place] [address]- 0244 October, [facility] [place] [facility] [address] [id number] [place] [address]- 2578 Sep, [facility] [place] [facility] [address] [id number] [place] [address]- 9788 Sep, [facility] [place] [facility] [address] [id number] [place] [address]- 3628 Sep, [facility] [place] [facility] [address] [id number] [place] [address]- 2718 Aug, [facility] [place] [facility] [address] [id number] [place] [address]- 8244 Aug, [facility] [place] [facility] [address] [id number] [place] [address]- 5824 Aug, [facility] [place] [facility] [address] [facility] [id number] [place] [address]- 6937 Aug, [facility] [place] [facility] [address] [id number] [place] [address]- 8215 Aug, [facility] [place] [facility] [address] [id number] [place] [address]- 1004 Aug, [facility] [place] [facility] [address] [id number] [place] [address]- 9233 Aug, [facility] [place] [facility] [address] [id number] [place] [address]- 6759 Aug, [facility] [place] [facility] [address] [id number] [address]- 1493 Aug, [facility] [address] [id number] [place] [address]- 0849 May, [facility] [address] [id number] [place] [address]- 2180 May, [facility] [address] [id number] [place] [address]- 9041 May, [facility] [address] [id number] [place] [address]- 8038 May, [facility] [address] [id number] [place] [address]- 3722 May, [facility] [address] [id number] [place] [address]- 4726 May, [facility] [address] [id number] [place] [address]- 9755 May, [facility] [address] [id number] [place] [address]- 4707 May, [facility] [address] [id number], [place] [address]- 4365 Mar, [facility] [address] [id number], [place] [address]- 0299 Mar, [facility] [address] [place] [id number] Mar, [facility] [address] [id number], [place] [address]- 0022 Mar, [facility] [place] [facility] [address] [id number] [place] [address]- 3606 Mar, [facility] [place] [facility] [address] [id number], [place] [address]- 8212 Mar, [facility] [place] [facility] [address] [id number], [place] [address]- 7879 Mar, [facility] [place] [facility] [address] [id number] [place] [address]- 9409 24 Mar, 2014 [facility] [place] [facility] [address] [id number] [place] [address]- 3823 24 Mar, 2014 [facility] [place] [facility] [address] [id number] [place] [address]- 4854 Mar, [facility] [place] [facility] [address] [id number] [place] [address]- 2141 Mar, [facility] [place] [facility] [address] [id number] [place] [address]- 1075 Mar, [facility] [place] [facility] [address] [id number] [place] [address]- 1235 Mar, [facility] [place] [facility] [address] [id number] [place] [address]- 7980 Jan, [facility] [place] [facility] [address] [id number] [place] [address]- 3741 Jan, [facility] [place] [facility] [address] [id number] [place] [address]- 6663 Jan, [facility] [place] [facility] [address] [id number] [place] [address]- 2740 Jan, [facility] [address] [id number] Jan, [facility] [place] [facility] [address] [id number] [place] [address]- 8389 Jan, [facility] [place] [facility] [address] [id number] [place] [address]- 6812 Jan, [facility] [place] [facility] [address] [id number] [place] [address]- 8720 Dec, [facility] [place] [facility] [address] [id number] [place] [address]- 1620 Dec, [facility] [place] [facility] [address] [id number] [place] [address]- 5213 Dec, [facility] [place] [facility] [address] [id number] [place] [address]- 9926 Dec, [facility] [address] [facility] [id number], [place] [address]- 3023 Dec, [facility] [address] [facility] [id number], [place] [address]- 4395 Dec, [facility] [address] [facility] [id number], [place] [address]- 9431 Nov, [facility] [address] [facility] [id number], [place] [address]- 6476 Nov, IMMUNIZATIONS No Known Immunizations SOCIAL HISTORY Never Assessed REASON FOR VISIT Lab (walk-in) PLAN OF CARE VITAL SIGNS MEDICATIONS Unknown Medications RESULTS Name Result Date Reference Range THYROID ANALYZER 2017-03-14 TSH 4.340 0.450-4.500 CBC 2017-03-14 WBC 7.9 3.4-10.8 RBC 4.58 3.77-5.28 Hemoglobin 9.5 11.1-15.9 Hematocrit 32.1 34.0-46.6 MCV 70 79-97 MCH 20.7 26.6-33.0 MCHC 29.6 31.5-35.7 RDW 16.8 12.3-15.4 Platelets 275 150-379 Neutrophils 50 Lymphs 39 Monocytes 9 Eos 2 Basos 0 Neutrophils (Absolute) 4.0 1.4-7.0 Lymphs (Absolute) 3.1 0.7-3.1 Monocytes(Absolute) 0.7 0.1-0.9 Eos (Absolute) 0.2 0.0-0.4 Baso (Absolute) 0.0 0.0-0.2 Immature Granulocytes 0 Immature Grans (Abs) 0.0 0.0-0.1 LIPID PANEL 2017-03-14 Cholesterol, Total 154 100-199 Triglycerides 122 0-149 HDL Cholesterol 66 >39 VLDL Cholesterol [place] 24 5-40 LDL Cholesterol Calc 64 0-99 PROCEDURES Procedure Date Ordered Result Body Site LAB NOT BILLED BY [facility] Mar 14, 2017 VENIPUNCT, ROUTINE* Mar 14, 2017 INSTRUCTIONS MEDICATIONS ADMINISTERED No Known Medications [...]
--- OUTSIDE RECORDS SUMMARY | 2018-03-10 15:52 | XMS REPORT ---
Author JORDY Alejandro Organization [employer] Address Unknown Phone Unavailable Care Team Providers Care Applications Systems Analyst Name Role Phone JORDY WRIGHT CP Unavailable Allergies No Known Allergies Problems [...] Start Date End Date Status Dosage Hydrocodone-Acetaminophen [facility] [address]-81 5-325 MG Orally 3 times a day-, Assisted living facility Mar 23, 2014 Jun 01, 2016 1 tablet Results No Known Results Summary Purpose [employer] Submission
--- OUTSIDE RECORDS SUMMARY | 2018-03-10 15:53 | XMS REPORT ---
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 14485695 Problem Chronic pain G89.29 Active 19144774 Problem Type 2 diabetes mellitus without complications E11.9 Active 983274334 Problem Constipation K59.00 Active 51169745 Problem Routine health maintenance Z00.00 Active 887857975 Problem Hepatitis C B19.20 Active 87588915 Problem Anxiety F41.9 Active 19092118 Problem Cervical stenosis of spinal canal M48.02 Active 64820368 Problem History of alcoholism F10.21 Active 143396489 Problem History of solitary pulmonary nodule Z87.898 Active 957134042 Problem Hyperlipidemia E78.5 Active 51800889 Problem DJD (degenerative joint disease) M19.90 Active 471228027 Problem Vascular dementia F01.50 Active 116658414 Problem Abnormal CBC R79.89 Active 786613710 Problem Arthritis M19.90 Active 4680615 ALLERGIES No Information SOCIAL HISTORY Never Assessed PLAN OF CARE VITAL SIGNS MEDICATIONS Medication Instructions Dosage Frequency Start Date End Date Duration Status Hydrocodone-Acetaminophen 5-325 MG Orally 3 times a day-,Assisted living facility 1 tablet Mar, 28 Active Ativan 0.5 Orally, each fill must [...] Cervical spine surgery performed by Dr Jenni Bnuch Surgical History Bilateral foot surgery Surgical History ovarian cyst removal Surgical History Heart Catheterizations- 3 stents- sees Dr. Tosha Bunch Hospitalization History Hyperkalemia, Dehydration, kidney concerns 08/2014 Hospitalization History past surgery
--- OUTSIDE RECORDS SUMMARY | 2018-03-10 15:54 | XMS REPORT ---
Author Author ELIEL SMITH Organization [facility] Address [address] [place] [address] Care Team Providers Care Marble Mason Name Role Phone ELIEL SMITH Unavailable PROBLEMS Type Condition ICD9-CM Code KGU09-EE Code Onset Dates Condition Status SNOMED Code Problem Routine health maintenance Z00.00 Active 150444484 Problem Chronic pain G89.29 Active 92191660 Problem Type 2 diabetes mellitus without complications E11.9 Active 713291328 Problem Diverticulitis K57.92 Active 143860852 Problem Anxiety F41.9 Active 01290776 Problem Chronic fatigue R53.82 Active 71977137 Problem Hepatitis C B19.20 Active 72139069 Problem History of solitary pulmonary nodule Z87.898 Active 920046881 Problem Depression F32.9 Active 787131995 Problem Constipation K59.00 Active 42571513 Problem Chronic kidney disease (CKD) stage G3a/A1, moderately decreased glomerular filtration rate (GFR) between 45-59 mL/min/1.73 square meter and albuminuria creatinine ratio less than 30 mg/g N18.3 Active 060950830 Problem 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 43224782 Problem History of alcoholism F10.21 Active 388397300 Problem History of TIA (transient ischemic attack) Z86.73 Active 830870538 Problem Vitamin D deficiency E55.9 Active 98053449 Problem Hyperlipidemia E78.5 Active 72211901 Problem Arthritis M19.90 Active 5577660 Problem Coronary artery disease I25.10 Active 03368792 Problem DJD (degenerative joint disease) M19.90 Active 122476624 Problem Cervical stenosis of spinal canal M48.02 Active 51774033 Problem Hypertension I10 Active 76985685 Problem Abnormal CBC R79.89 Active 882830906 Problem Vascular dementia F01.50 Active 032986766 Problem Morbid obesity with BMI of 45.0-49.9, adult Z68.42 Active 506605577 ALLERGIES No Information ENCOUNTERS Encounter Location Date Diagnosis [place] [id number] [place] [address] 75993- 8606 October, [facility] [address] [address] Aug, Anxiety F41.9 and Chronic pain G89.29 [place] [address] 23309- 2625 Aug, Anxiety F41.9 [facility] [address] 53212- 5349 Aug, Chronic pain G89.29 and Anxiety F41.9 [place] [address] 06546- 3954 Aug, Chronic kidney disease (CKD) stage G3a/A1, moderately decreased glomerular filtration rate (GFR) between 45-59 mL/min/1.73 square meter and albuminuria creatinine ratio less than 30 mg/g N18.3 [place] [address] [address]- [address] Aug, [facility] [address] [id number] Jul, Dental examination Z01.20 [place] [address] [address]6770- 9499 Jul, Chronic pain G89.29 and Anxiety F41.9 [place] [id number] [place] [address] 73683- 3509 Jul, Other specified abnormal findings of blood chemistry R79.89 [facility] [address] 47095- 0295 Jul, Type 2 diabetes mellitus without complications E11.9 ; Chronic kidney disease (CKD) stage G3a/A1, moderately decreased glomerular filtration rate (GFR) between 45-59 mL/min/1.73 square meter and albuminuria creatinine ratio less than 30 mg/g N18.3 ; BMI 45.0-49.9, adult Z68.42 ; Chronic fatigue R53.82 ; Hair loss L65.9 ; Generalized abdominal pain R10.84 and Diverticulitis K57.92 [facility] [id number] [place] [address] 20813- 9776 Jul, [facility] [id number] [place] [address] [id number] Jul, Dental examination Z01.20 [facility] [address] 02865- 2626 Jul, Anxiety F41.9 [facility] [address] 41953- 9363 Jul, Anxiety F41.9 [facility] [address] [id number] Jul, Chronic pain G89.29 [facility] [address] [id number] May, Chronic pain G89.29 [facility] [id number] [place] [address] 42757- 3926 May, [facility] [id number] [place] [address] [id number] May, Dental examination Z01.20 [facility] [id number] [place] [address] 53894- 4376 May, Anxiety F41.9 [facility] [id number] [place] [address] [id number] May, Chronic pain G89.29 [facility] [id number] [place] [address] 18869- 0726 Mar, Depression F32.9 [facility] [id number] [place] [address] 53752- 0126 Mar, Anxiety F41.9 [facility] [id number] [place] [address] [id number] Mar, Chronic pain G89.29 [facility] [id number] [address] 8[address] 19 Mar, 2017 Abnormal CBC R79.89 [facility] [id number] [place] [address] [id number] 18 Mar, 2017 Anxiety F41.9 [facility] [id number] [place] [address] 23560- 3569 14 Mar, 2017 Hypertension I10 ; Routine health maintenance Z00.00 ; Type 2 diabetes mellitus without complications E11.9 and Hyperlipidemia E78.5 [facility] [id number] [place] [address] [id number] 13 Mar, 2017 Chronic pain G89.29 and Anxiety F41.9 [facility] [address] [place] [address] [id number] 13 Mar, 2017 Dental examination Z01.20 [facility] [address] [place] [address] 39879- 7661 06 Mar, 2017 Hypertension I10 ; Routine health maintenance Z00.00 ; Type 2 diabetes mellitus without complications E11.9 and Hyperlipidemia E78.5 [facility] [address] [place] [address] 71870- 6322 22 Jan, 2017 Type 2 diabetes mellitus without complications E11.9 ; Hypertension I10 ; Vascular dementia F01.50 ; Morbid obesity with BMI of 45.0- 49.9, adult Z68.42 ; Hyperlipidemia E78.5 ; Chronic pain G89.29 ; Anxiety F41.9 ; Depression F32.9 ; Coronary artery disease I25.10 ; 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 and Constipation K59.00 [facility] [address] [place] [address] 30763- 1307 16 Jan, 2017 Chronic pain G89.29 [facility] [address] [place] [address] 68504- 9669 Jan, [facility] [address] [place] [address] 39594- 5195 Dec, [place] [id number] [place] [address] 76226- 1745 Dec, Chronic pain G89.29 [place] [id number] [place] [address] 73058- 3016 Nov, Chronic pain G89.29 [place] [id number] [place] [address] 05983- 6665 October, Chronic pain G89.29 [place] [address] 44347- 0695 Sep, Chronic pain G89.29 [place] [address] 06462- 3471 Sep, Type 2 diabetes mellitus without complications E11.9 ; Chronic pain G89.29 ; Hypertension I10 ; Coronary artery disease I25.10 ; Morbid obesity with BMI of 45.0-49.9, adult Z68.42 ; Hyperlipidemia E78.5 ; 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 and Depression F32.9 [place] [id number] [place] [address] 25535- 5767 Aug, Chronic pain G89.29 [place] [id number] [place] [address] 19900- 4777 Aug, Chronic pain G89.29 and Constipation K59.00 [place] [id number] [place] [address] 83508- 3075 Aug, Abnormal lung sounds R09.89 [place] [id number] [place] [address] 84193- 2101 Aug, Depression F32.9 [place] [id number] [place] [address] 43330- 7713 Jul, Chronic pain G89.29 [place] [id number] [place] [address] 01087- 0015 May, Chronic pain G89.29 [facility] [address] [address]- 57[address] May, Medicare annual wellness visit, subsequent Z00.00 [facility] [id number] [place] [address] 97645- 9785 May, [facility] [id number] [place] [address] 88532- 7475 May, Type 2 diabetes mellitus without complications [...] due to renal impairment without tophus M1A.3710 [facility] [id number] [place] [address] 80505- 8713 May, [facility] [id number] [place] [address] 37935- 6594 Mar, [facility] [id number] [place] [address] 28961- 2725 Mar, [facility] [id number] [place] [address] 27364- 5379 Mar, [facility] [id number] [place] [address] 88039- 7392 Mar, [facility] [id number] [place] [address] 76923- 2046 Mar, [facility] [id number] [place] [address] 81764- 3038 Jan, [facility] [id number] [place] [address] 77525- 3865 Jan, [facility] [address] [facility] [id number] [place] [address]- 4713 Dec, Type 2 diabetes mellitus without complications E11.9 ; Hypertension I10 ; Coronary artery disease I25.10 and Renal insufficiency N28.9 [facility] [address] [facility] [id number] [place] [address]- 3264 Dec, [facility] [address] [facility] [id number] [place] [address]- 5004 Dec, [facility] [address] [facility] [id number] [place] [address]- 0920 Nov, [facility] [address] [facility] [id number] [place] [address]- 7952 Nov, [facility] [address] [place] [address]- 5023 Nov, [facility] [address] [place] [address]- 1565 Nov, [facility] [id number] [place] [address]- 6268 Nov, [facility] [address] [place] [address]- 3916 October, [facility] [id number] [place] [address]- 8120 October, [facility] [address] [place] [address]- 4270 October, [facility] [id number] [place] [address]- 9075 Sep, Type 2 diabetes mellitus without complications E11.9 and Constipation K59.00 [facility] [id number] [place] [address]- 1637 Sep, [facility] [id number] [place] [address]- 5352 Sep, Diabetes E11.9 [facility] [id number] [place] [address] 10061- 8617 Sep, [facility] [address] 05891- 9804 Sep, Routine health maintenance Z00.00 ; Hypertension I10 ; Type 2 diabetes mellitus without complications E11.9 ; Morbid obesity with BMI of 45.0-49.9, adult Z68.42 ; Chronic pain G89.29 ; H/O carotid endarterectomy Z98.89 ; Vascular dementia F01.50 ; Arthritis M19.90 ; Coronary artery disease I25.10 ; Abnormal lung sounds R09.89 and Diabetes E11.9 [facility] [address] 01376- 0867 Aug, Anxiety F41.9 [facility] [address] 42149- 6320 Aug, Arthritis M19.90 [facility] [address] 89544- 8869 Jul, Arthritis M19.90 [facility] [address] 92047- 5378 Jul, [facility] [id number] [place] [address] 84595- 9684 May, [facility] [id number] [place] [address] 72814- 9810 May, Arthritis M19.90 ; Hypertension I10 ; Depression F32.9 ; Vascular dementia F01.50 and Coronary artery disease I25.10 [facility] [id number] [place] [address] 46399- 5548 May, [facility] [address] 43791- 7693 May, [facility] [id number] [place] [address] 34920- 0122 Mar, [facility] [address] [place] [address]- 1687 Mar, [facility] [address] [facility] [id number] [place] [address]- 2070 Mar, [facility] [id number] [address]- 0809 Mar, [facility] [address] [address]- 8200 Mar, Essential hypertension, benign 401.1 ; Unspecified arthropathy, site unspecified 716.90 and Other and unspecified hyperlipidemia 272.4 [facility] [address] [place] [address]- 1247 Mar, [facility] [id number] [address]- 5632 Jan, [facility] [address] [address]- 7194 Dec, [facility] [address], [place] [address]- 3743 Dec, [facility] [address] [address]- 3267 Dec, [facility] [address] [place] [address]- 5071 Dec, [facility] [address] [address]- 4148 Dec, [facility] [id number] [address]- 1103 Dec, [facility] [id number] [address]- 4088 Dec, [facility] [place] [facility] [address] [facility] [id number] [place] [address]- 8401 Dec, [facility] [id number] [place] [address]- 2402 Nov, [facility] [place] [facility] [address] [id number] [place] [address]- 3427 Nov, [facility] [place] [facility] [address] [id number] [place] [address]- 3617 Nov, [facility] [place] [facility] [address] [id number] [place] [address]- 2302 October, [facility] [place] [facility] [address] [id number] [place] [address]- 1738 October, [facility] [place] [facility] [address] [id number] [place] [address]- 1947 Sep, [facility] [place] [facility] [address] [id number] [place] [address]- 2730 Sep, [facility] [place] [facility] [address] [id number] [place] [address]- 1416 Sep, [facility] [place] [facility] [address] [id number] [place] [address]- 6657 Aug, [facility] [place] [facility] [address] [id number] [place] [address]- 3166 Aug, [facility] [place] [facility] [address] [id number] [place] [address]- 6467 Aug, [facility] [place] [facility] [address] [facility] [id number] [place] [address]- 2634 Aug, [facility] [place] [facility] [address] [id number] [place] [address]- 8766 Aug, [facility] [place] [facility] [address] [id number] [place] [address]- 0623 Aug, [facility] [place] [facility] [address] [id number] [place] [address]- 0230 Aug, [facility] [place] [facility] [address] [id number] [place] [address]- 8195 Aug, [facility] [place] [facility] [address] [id number] [address]- 8064 Aug, [facility] [address] [id number] [place] [address]- 8936 May, [facility] [address] [id number] [place] [address]- 4946 May, [facility] [address] [id number] [place] [address]- 9991 May, [facility] [address] [id number] [place] [address]- 5704 May, [facility] [address] [id number] [place] [address]- 4295 May, [facility] [address] [id number] [place] [address]- 2486 May, [facility] [address] [id number] [place] [address]- 0699 May, [facility] [address] [id number] [place] [address]- 6468 May, [facility] [address] [id number] [address]- 4610 Mar, [facility] [address] [id number], [place] [address]- 1582 Mar, [facility] [address] [id number] Mar, [facility] [address] [id number], [place] [address]- 8232 Mar, [facility] [place] [facility] [address] [id number] [place] [address]- 6571 Mar, [facility] [place] [facility] [address] [id number], [place] [address]- 1273 Mar, [facility] [place] [facility] [address] [id number][place] [address]- 4382 Mar, [facility] [place] [facility] [address] [id number] [place] [address]- 8928 24 Mar, 2014 [facility] [place] [facility] [address] [id number] [place] [address]- 0333 24 Mar, 2014 [facility] [place] [facility] [address] [id number] [place] [address]- 7806 Mar, [facility] [place] [facility] [address] [id number] [place] [address]- 6712 Mar, [facility] [place] [facility] [address] [id number] [place] [address]- 7267 Mar, [facility] [place] [facility] [address] [id number] [place] [address]- 1793 Mar, [facility] [place] [facility] [address] [id number] [place] [address]- 9968 Jan, [facility] [place] [facility] [address] [id number] [place] [address]- 0921 Jan, [facility] [place] [facility] [address] [id number] [place] [address]- 1979 Jan, [facility] [place] [facility] [address] [id number] [place] [address]- 5511 Jan, [facility] [address] [id number] Jan, [facility] [place] [facility] [address] [id number] [place] [address]- 0211 Jan, [facility] [place] [facility] [address] [id number] [place] [address]- 0242 Jan, [facility] [place] [facility] [address] [id number] [place] [address]- 5803 Dec, [facility] [place] [facility] [address] [id number] [place] [address]- 4801 Dec, [facility] [place] [facility] [address] [id number] [place] [address]- 3599 Dec, [facility] [place] [facility] [address] [id number] [place] [address]673 Dec, [facility] [address] [facility] [id number] [place] [address]- 9013 Dec, [facility] [address] [facility] [id number] [place] [address]- 7204 Dec, [facility] [address] [facility] [id number], [place] [address] Nov, [facility] [address] [facility] [id number] [place] [address] Nov, IMMUNIZATIONS No Known Immunizations SOCIAL HISTORY Never Assessed REASON FOR VISIT lab orders PLAN OF CARE VITAL SIGNS MEDICATIONS Unknown [...]
--- OUTSIDE RECORDS SUMMARY | 2018-03-10 15:55 | XMS REPORT ---
Author Author PETE FALCON Organization [employer] Address Unknown Phone Unavailable Care Team Providers Care Director Of Clinical Applications Name Role Phone PETE FALCON CP Unavailable [...]
--- OUTSIDE RECORDS SUMMARY | 2018-03-10 15:56 | XMS REPORT ---
Author Author ELIEL SMITH Organization [facility], [place] Address [address] [place] [address] Care Team Providers Care Business Machine Operator Name Role Phone ELIEL SMITH Unavailable PROBLEMS Type Condition ICD9-CM Code [id number] Code Onset Dates Condition Status SNOMED Code Problem Routine health maintenance Z00.00 Active 354803767 Problem Chronic pain G89.29 Active 60012196 Problem Type 2 diabetes mellitus without complications E11.9 Active 383944079 Problem Diverticulitis K57.92 Active 426864793 Problem Anxiety F41.9 Active 07968306 Problem Chronic fatigue R53.82 Active 20127433 Problem Hepatitis C B19.20 Active 17581245 Problem History of solitary pulmonary nodule Z87.898 Active 019027475 Problem Depression F32.9 Active 399616929 Problem Constipation K59.00 Active 23354746 Problem Chronic kidney disease (CKD) stage G3a/A1, moderately decreased glomerular filtration rate (GFR) between 45-59 mL/min/1.73 square meter and albuminuria creatinine ratio less than 30 mg/g N18.3 Active 243389841 Problem 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 68858277 Problem History of alcoholism F10.21 Active 714981422 Problem History of TIA (transient ischemic attack) Z86.73 Active 492737141 Problem Vitamin D deficiency E55.9 Active 79607829 Problem Hyperlipidemia E78.5 Active 51776059 Problem Arthritis M19.90 Active 8242867 Problem Coronary artery disease I25.10 Active 20063220 Problem DJD (degenerative joint disease) M19.90 Active 535286366 Problem Cervical stenosis of spinal canal M48.02 Active 05434642 Problem Hypertension I10 Active 74331959 Problem Abnormal CBC R79.89 Active 966350821 Problem Vascular dementia F01.50 Active 443448957 Problem Morbid obesity with BMI of 45.0-49.9, adult Z68.42 Active 344866576 ALLERGIES No Information ENCOUNTERS Encounter Location Date Diagnosis [place] [id number] [place] [address]01- 3830 October, [place] [address] [address]- 8611 Sep, Chronic pain G89.29 and Anxiety F41.9 [place] [address] 94201- 9162 Aug, Anxiety F41.9 and Chronic pain G89.29 [place] [address] 19872- 9033 Aug, Anxiety F41.9 [place] [address] 91658- 2290 Aug, Chronic pain G89.29 and Anxiety F41.9 [place] [address] 72572- 7632 Aug, Chronic kidney disease (CKD) stage G3a/A1, moderately decreased glomerular filtration rate (GFR) between 45-59 mL/min/1.73 square meter and albuminuria creatinine ratio less than 30 mg/g N18.3 [place] [id number] [place] [address] 40221- 2233 09 Aug, 2017 [facility] [address] [id number] Jul, Dental examination Z01.20 [place] [id number] [place] [address] 98234- 8396 Jul, Chronic pain G89.29 and Anxiety F41.9 [place] [address] 91333- 4123 Jul, Other specified abnormal findings of blood chemistry R79.89 [place] [id number] [place] [address] 59537- 2107 Jul, Type 2 diabetes mellitus without complications E11.9 ; Chronic kidney disease (CKD) stage G3a/A1, moderately decreased glomerular filtration rate (GFR) between 45-59 mL/min/1.73 square meter and albuminuria creatinine ratio less than 30 mg/g N18.3 ; BMI 45.0-49.9, adult Z68.42 ; Chronic fatigue R53.82 ; Hair loss L65.9 ; Generalized abdominal pain R10.84 and Diverticulitis K57.92 [facility] [place] [address] 88142- 1488 Jul, [facility] [address] [id number] Jul, Dental examination Z01.20 [facility] [place] [address] [id number]- 0480 Jul, Anxiety F41.9 [facility] [place] [address] 79023- 4469 Jul, Anxiety F41.9 [facility] [address] [id number] Jul, Chronic pain G89.29 [facility] [address] [id number] May, Chronic pain G89.29 [facility] [place] [address] 40439112- 0376 May, [facility] [address] [place] [id number] [place] [address] [id number] May, Dental examination Z01.20 [facility] [place] [address] 06745- 6435 May, Anxiety F41.9 [facility] [address] [id number] May, Chronic pain G89.29 [facility] [place] [address] 65329- 3656 Mar, Depression F32.9 [facility] [place] [address] 28091- 2172 Mar, Anxiety F41.9 [facility] [id number] [id number] 11 Mar, 2017 Chronic pain G89.29 [facility] [place] [address] [address] 19 Mar, 2017 Abnormal CBC R79.89 [place] [address] [place] [id number] [place] [address] [id number] 18 Mar, 2017 Anxiety F41.9 [place] [address] [place] [address] 85566- 4817 14 Mar, 2017 Hypertension I10 ; Routine health maintenance Z00.00 ; Type 2 diabetes mellitus without complications E11.9 and Hyperlipidemia E78.5 [place] [address] [place] [id number] [place] [address] [id number] 13 Mar, 2017 Chronic pain G89.29 and Anxiety F41.9 [facility] [address] [place] [address] [id number] 13 Mar, 2017 Dental examination Z01.20 [place] [address] [place] [address] 52345- 8376 06 Mar, 2017 Hypertension I10 ; Routine health maintenance Z00.00 ; Type 2 diabetes mellitus without complications E11.9 and Hyperlipidemia E78.5 [place] [address] [id number] [address] 9784 22 Jan, 2017 Type 2 diabetes mellitus without complications E11.9 ; Hypertension I10 ; Vascular dementia F01.50 ; Morbid obesity with BMI of 45.0- 49.9, adult Z68.42 ; Hyperlipidemia E78.5 ; Chronic pain G89.29 ; Anxiety F41.9 ; Depression F32.9 ; Coronary artery disease I25.10 ; 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 and Constipation K59.00 [facility] [place] [address] [id number] [address] 4696 16 Jan, 2017 Chronic pain G89.29 [place] [id number] [place] [address] 47754- 1398 14 Jan, 2017 [facility] [place] [address] [id number] [place] [address] 10798- 7031 Dec, [facility] [place] [address] [id number] [place] [address] 51992- 8440 Dec, Chronic pain G89.29 [facility] [place] [address] [address] [id number] [place] [address] 59439- 0124 Nov, Chronic pain G89.29 [place] [address] 94954- 8022 October, Chronic pain G89.29 [place] [address] 19522- 5436 Sep, Chronic pain G89.29 [place] [address] [address] [id number] [place] [address] 66528- 7769 Sep, Type 2 diabetes mellitus without complications E11.9 ; Chronic pain G89.29 ; Hypertension I10 ; Coronary artery disease I25.10 ; Morbid obesity with BMI of 45.0-49.9, adult Z68.42 ; Hyperlipidemia E78.5 ; 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 and Depression F32.9 [place] [address] [id number] [place] [address] 91732- 9007 Aug, Chronic pain G89.29 [place] [address] [id number] [place] [address] 05937- 5434 Aug, Chronic pain G89.29 and Constipation K59.00 [place] [id number] [place] [address] 14915- 2998 Aug, Abnormal lung sounds R09.89 [facility] [place] [address] [id number] [place] [address] 70207- 8690 Aug, Depression F32.9 [place] [id number] [place] [address] 34538- 0221 Jul, Chronic pain G89.29 [facility] [place] [id number] [place] [address] 98471- 1545 May, Chronic pain G89.29 [facility] [place] [id number] [place] [address] 66113- 3957 May, Medicare annual wellness visit, subsequent Z00.00 [facility] [place] [address] 40935- 6587 May, [facility] [place] [address] [id number] [place] [address] 04150- 5722 May, Type 2 diabetes mellitus without complications [...] due to renal impairment without tophus M1A.3710 [facility] [place] [address] [place] [address] [id number] [place] [address] 83252- 3932 May, [facility] [place] [address] [id number] [place] [address] 17690- 6711 Mar, [facility] [place] [address] [address] [id number] [place] [address] 92379- 5667 Mar, [facility] [place] [address] [place] [address] [id number] [place] [address] 80249- 3265 Mar, [facility] [place] [address] [address] [id number] [place] [address] 22751- 4447 Mar, [facility] [place] [address] [place] [address] [id number] [place] [address] 69139- 1768 Mar, [facility] [place] [address] [id number] [place] [address] 25485- 2925 Jan, [facility] [place] [address], [place] [address]- 5871 Jan, [facility] [place] [address] [id number] [place] [address] 07793- 2596 Dec, Type 2 diabetes mellitus without complications E11.9 ; Hypertension I10 ; Coronary artery disease I25.10 and Renal insufficiency N28.9 [facility] [place] [id number] [place] [address] 23866- 3727 Dec, [facility] [place] [address] [id number] [place] [address] 28871- 1357 Dec, [facility] [place] [id number] [place] [address] 60358- 3836 Nov, [facility] [place] [id number] [place] [address] 59164- 5225 Nov, [facility] [place] [id number] [place] [address] 62158- 3381 Nov, [facility] [place] [address] [place] [address] 05801- 1732 Nov, [facility] [place] [address] [id number] [place] [address] 30606- 9378 Nov, [facility] [place] [address] [place] [address] 77626- 6618 October, [facility] [place] [address] [place] [address] 79822- 2133 October, [facility] [place] [address], [place] [address]- 9421 October, [facility] [place] [address] [id number] [place] [address] 52893- 5309 Sep, Type 2 diabetes mellitus without complications E11.9 and Constipation K59.00 [facility] [place] [address] [address]- 1110 Sep, [facility] [place] [address] [place] [address] 49978- 6533 Sep, Diabetes E11.9 [facility] [place] [address] [address] [id number] [place] [address] 63194- 7295 Sep, [facility] [place] [id number] [place] [address] 45285- 3025 Sep, Routine health maintenance Z00.00 ; Hypertension I10 ; Type 2 diabetes mellitus without complications E11.9 ; Morbid obesity with BMI of 45.0-49.9, adult Z68.42 ; Chronic pain G89.29 ; H/O carotid endarterectomy Z98.89 ; Vascular dementia F01.50 ; Arthritis M19.90 ; Coronary artery disease I25.10 ; Abnormal lung sounds R09.89 and Diabetes E11.9 [facility] [place] [id number] [place] [address] 12370- 1620 Aug, Anxiety F41.9 [facility] [place] [id number] [place] [address] 34884- 3930 Aug, Arthritis M19.90 [facility] [place] [id number] [place] [address] 42026- 9485 Jul, Arthritis M19.90 [facility] [place] [id number] [place] [address] 68172- 6041 Jul, [facility] [place] [address] [id number] [place] [address] 43247- 7795 May, [facility] [place] [address] [address] [id number] [place] [address] 17752- 1468 May, Arthritis M19.90 ; Hypertension I10 ; Depression F32.9 ; Vascular dementia F01.50 and Coronary artery disease I25.10 [facility] [place] [address] [place] [address] 27710- 3161 May, [facility] [place] [address] [id number] [place] [address] 32597- 7128 May, [place] [address] [facility] [id number] [place] [address]- 2546 Mar, [facility] [address] [facility] [id number] [place] [address]- 2546 Mar, [facility] [address] [facility] [id number] [place] [address]- 2546 Mar, [facility] [address] [facility] [id number] [place] [address]- 2546 Mar, [facility] [address] [facility] [id number] [place] [address]- 2546 Mar, Essential hypertension, benign 401.1 ; Unspecified arthropathy, site unspecified 716.90 and Other and unspecified hyperlipidemia 272.4 [facility] [place] [address] [place] [address] [id number] [place] [address]- 2546 Mar, [facility] [address] [id number] [place] [address]- 8886 Jan, [facility] [address] [address] [id number] [place] [address]- 5376 Dec, [facility] [address] [address] [id number] [place] [address]- 2706 Dec, [facility] [address] [place] [address] [id number] [place] [address]- 2546 Dec, [facility] [address] [place] [address] [id number] [place] [address]- 2546 Dec, [facility] [address] [facility] [id number] [place] [address]- 2546 Dec, [facility] [address] [place] [address] [id number] [place] [address]- 2546 Dec, [facility] [address] [facility] [id number] [place] [address]- 2546 Dec, [facility] [address] [place] [id number] [place] [address]- 3063 Dec, [facility] [place] [facility] [address] [id number] [place] [address]- 9088 Nov, [facility] [place] [facility] [address] [id number] [place] [address]- 2785 Nov, [facility] [place] [facility] [address] [id number] [place] [address]- 1969 Nov, [facility] [place] [facility] [address] [id number] [place] [address]- 7376 October, [facility] [place] [facility] [address] [id number] [place] [address]- 3536 October, [facility] [place] [facility] [address] [id number] [place] [address]- 8690 Sep, [facility] [place] [facility] [address] [id number] [place] [address]- 6623 Sep, [facility] [place] [facility] [address] [id number] [place] [address]- 5141 Sep, [facility] [place] [facility] [address] [id number] [place] [address]- 7135 Aug, [facility] [place] [facility] [address] [id number] [place] [address]- 7843 Aug, [facility] [place] [facility] [address] [id number] [place] [address]- 1140 Aug, [facility] [place] [facility] [address] [id number], [place] [address]- 3425 Aug, [facility] [place] [facility] [address] [id number] [place] [address]- 7021 Aug, [facility] [place] [facility] [address] [id number] [place] [address]- 2789 Aug, [facility] [place] [facility] [address] [id number] [place] [address]- 7478 Aug, [facility] [place] [facility] [address] [id number] [place] [address]- 7272 11 Aug, 2014 [facility] [address] [id number] [place] [address]- 9946 Aug, [facility] [address] [id number] [place] [address]- 6574 May, [facility] [address] [id number] [place] [address]- 1194 May, [facility] [address] [id number] [place] [address]- 9261 May, [facility] [address] [id number] [place] [address]- 3699 May, [facility] [address] [id number] [place] [address]- 0508 May, [facility] [address] [id number] [place] [address]- 1813 May, [facility] [address] [id number] [place] [address]- 4392 May, [facility] [address] [id number] [place] [address]- 4247 May, [facility] [address] [id number] [place] [address]- 7629 Mar, [facility] [address] [id number] [place] [address]- 2438 Mar, [facility] [address] [place] [id number] Mar, [facility] [address] [id number] [place] [address]- 4919 Mar, [facility] [address] [id number] [place] [address]- 5830 Mar, [facility] [address] [id number] [place] [address]- 6594 Mar, [facility] [address] [id number] [place] [address]- 8152 Mar, [facility] [place] [facility] [address] [id number] [place] [address]- 3270 Mar, [facility] [place] [facility] [address] [id number] [place] [address]- 1006 Mar, [facility] [place] [facility] [address] [id number] [place] [address]- 7540 Mar, [facility] [place] [facility] [address] [id number] [place] [address]- 5777 Mar, [facility] [place] [facility] [address] [id number] [place] [address]- 9612 Mar, [facility] [place] [facility] [address] [id number] [place] [address]- 7327 Mar, [facility] [place] [facility] [address] [id number] [place] [address]- 2530 Jan, [facility] [place] [facility] [address] [id number] [place] [address]- 3175 Jan, [facility] [place] [facility] [address] [id number] [place] [address]- 9932 Jan, [facility] [place] [facility] [address] [id number] [place] [address]- 4880 Jan, [facility] [address] [place] [id number] Jan, [facility] [place] [facility] [address] [id number] [place] [address]- 5080 Jan, [facility] [place] [facility] [address] [id number] [place] [address]- 4759 Jan, [facility] [place] [facility] [address] [id number] [place] [address]- 4941 Dec, [facility] [place] [facility] [address] [id number] [place] [address]- 9763 Dec, [facility] [place] [address] [facility] [id number], [place] [address]- 7994 Dec, [facility] [place] [address] [facility] [id number], [place] [address]- 6904 Dec, [facility] [place] [address] [facility] [id number], [place] [address]- 4839 Dec, [facility] [place] [address] [facility] [id number], [place] [address]- 4154 Dec, [facility] [place] [address] [facility] [id number], [place] [address]- 9594 Nov, [facility] [place] [address] [facility] [id number], [place] [address]- 5174 Nov, IMMUNIZATIONS No Known Immunizations SOCIAL HISTORY [...]
--- OUTSIDE RECORDS SUMMARY | 2018-03-10 15:56 | XMS REPORT ---
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 81900441 Problem Chronic pain G89.29 Active 48213107 Problem Type 2 diabetes mellitus without complications E11.9 Active 260940831 Problem Constipation K59.00 Active 54156804 Problem Routine health maintenance Z00.00 Active 759625465 Problem Hepatitis C B19.20 Active 68002332 Problem Anxiety F41.9 Active 33124453 Problem Cervical stenosis of spinal canal M48.02 Active 79654248 Problem History of alcoholism F10.21 Active 909393122 Problem History of solitary pulmonary nodule Z87.898 Active 735580903 Problem Hyperlipidemia E78.5 Active 88835122 Problem DJD (degenerative joint disease) M19.90 Active 562019285 Problem Vascular dementia F01.50 Active 714668769 Problem Abnormal CBC R79.89 Active 486047919 Problem Arthritis M19.90 Active 6494514 ALLERGIES No Information SOCIAL HISTORY Never Assessed PLAN OF CARE VITAL SIGNS MEDICATIONS Medication Instructions Dosage Frequency Start Date End Date Duration Status Hydrocodone-Acetaminophen 5-325 MG Orally 3 times a day-,Assisted living facility 1 tablet October, 28 Active RESULTS No Results PROCEDURES No [...]
--- OUTSIDE RECORDS SUMMARY | 2018-03-10 15:57 | XMS REPORT ---
Author Author ELIEL SMITH Organization [facility] Address [address] [place] [address] Care Team Providers Care Supervisor Wool Shearing Name Role Phone ELIEL SMITH Unavailable PROBLEMS Type Condition ICD9-CM Code WTU56-JH Code Onset Dates Condition Status SNOMED Code Problem Routine health maintenance Z00.00 Active 256502395 Problem Chronic pain G89.29 Active 71007140 Problem Type 2 diabetes mellitus without complications E11.9 Active 808167715 Problem Diverticulitis K57.92 Active 140080495 Problem Anxiety F41.9 Active 81725281 Problem Chronic fatigue R53.82 Active 73298821 Problem Hepatitis C B19.20 Active 56067298 Problem History of solitary pulmonary nodule Z87.898 Active 637142504 Problem Depression F32.9 Active 114241402 Problem Constipation K59.00 Active 11720375 Problem Chronic kidney disease (CKD) stage G3a/A1, moderately decreased glomerular filtration rate (GFR) between 45-59 mL/min/1.73 square meter and albuminuria creatinine ratio less than 30 mg/g N18.3 Active 796819775 Problem 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 68378411 Problem History of alcoholism F10.21 Active 232836783 Problem History of TIA (transient ischemic attack) Z86.73 Active 423233370 Problem Vitamin D deficiency E55.9 Active 99906302 Problem Hyperlipidemia E78.5 Active 64794869 Problem Arthritis M19.90 Active 6705387 Problem Coronary artery disease I25.10 Active 20510208 Problem DJD (degenerative joint disease) M19.90 Active 589218910 Problem Cervical stenosis of spinal canal M48.02 Active 74683265 Problem Hypertension I10 Active 90382052 Problem Abnormal CBC R79.89 Active 561905254 Problem Vascular dementia F01.50 Active 219688131 Problem Morbid obesity with BMI of 45.0-49.9, adult Z68.42 Active 116432450 ALLERGIES No Information ENCOUNTERS Encounter Location Date Diagnosis [place] [id number] [place] [address]23- 1806 October, [place] [address] 18466- [address]777 Aug, Anxiety F41.9 and Chronic pain G89.29 [place] [address] 88299- 7165 Aug, Anxiety F41.9 [place] [address] 17720- 2616 Aug, Chronic pain G89.29 and Anxiety F41.9 [place] [address] 31263- 4092 Aug, Chronic kidney disease (CKD) stage G3a/A1, moderately decreased glomerular filtration rate (GFR) between 45-59 mL/min/1.73 square meter and albuminuria creatinine ratio less than 30 mg/g N18.3 [place] [address] 16738- 9329 Aug, [facility] [address] [id number] Jul, Dental examination Z01.20 [place] [address] 93169- 5888 Jul, Chronic pain G89.29 and Anxiety F41.9 [place] [id number] [place] [address] 43247- 3421 Jul, Other specified abnormal findings of blood chemistry R79.89 [place] [address] [address]- 1944 Jul, Type 2 diabetes mellitus without complications E11.9 ; Chronic kidney disease (CKD) stage G3a/A1, moderately decreased glomerular filtration rate (GFR) between 45-59 mL/min/1.73 square meter and albuminuria creatinine ratio less than 30 mg/g N18.3 ; BMI 45.0-49.9, adult Z68.42 ; Chronic fatigue R53.82 ; Hair loss L65.9 ; Generalized abdominal pain R10.84 and Diverticulitis K57.92 [facility] [id number] [place] [address] 03734- 6206 Jul, [facility] [address] [place] [address] [id number] Jul, Dental examination Z01.20 [facility] [address] 31106- 3636 Jul, Anxiety F41.9 [facility] [address] 01446- 1946 Jul, Anxiety F41.9 [facility] [address] [id number] Jul, Chronic pain G89.29 [facility] [address] [id number] May, Chronic pain G89.29 [facility] [id number] [place] [address] 22143- 9166 May, [facility] [id number] [place] [address] [id number] May, Dental examination Z01.20 [facility] [id number] [place] [address] 53615- 8846 May, Anxiety F41.9 [facility] [id number] [place] [address] [id number] May, Chronic pain G89.29 [facility] [id number] [place] [address] 93176- 4206 Mar, Depression F32.9 [facility] [id number] [place] [address] 85873- 4926 Mar, Anxiety F41.9 [facility] [id number] [place] [address] [id number] Mar, Chronic pain G89.29 [facility] [address] [id number] [address] 8484 19 Mar, [address] [facility] [id number] [place] [address] [id number] 18 Mar, 2017 Anxiety F41.9 [facility] [id number] [place] [address] 09404- 1702 14 Mar, 2017 Hypertension I10 ; Routine health maintenance Z00.00 ; Type 2 diabetes mellitus without complications E11.[address] [facility] [id number] [place] [address] [id number] 13 Mar, 2017 Chronic pain G89.29 and Anxiety F41.9 [facility] [address] [place] [address] [id number] 13 Mar, 2017 Dental examination Z01.20 [facility] [address] [place] [address] 48477- 7537 06 Mar, 2017 Hypertension I10 ; Routine health maintenance Z00.00 ; Type 2 diabetes mellitus without complications E11.9 and Hyperlipidemia E78.5 [facility] [address] [place] [address] 90214- 8586 22 Jan, 2017 Type 2 diabetes mellitus [...] M1A.3710 and Constipation K59.00 [facility] [id number] [place] [address] 02567- 6482 16 Jan, 2017 Chronic pain G89.29 [facility] [id number] [place] [address] 51381- 5429 Jan, [facility] [id number] [place] [address] 54242- 1664 Dec, [place] [id number] [place] [address] 61810- 9865 Dec, Chronic pain G89.29 [place] [id number] [place] [address] 53411- 8008 Nov, Chronic pain G89.29 [place] [id number] [place] [address] 39792- 0576 October, Chronic pain G89.29 [place] [address] 48985- 3105 Sep, Chronic pain G89.29 [place] [address] 79676- 6352 Sep, Type 2 diabetes mellitus without complications E11.9 ; Chronic pain G89.29 ; Hypertension I10 ; Coronary artery disease I25.10 ; Morbid obesity with BMI of 45.0-49.9, adult Z68.42 ; Hyperlipidemia E78.5 ; 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 and Depression F32.9 [place] [id number] [place] [address] 52280- 9980 Aug, Chronic pain G89.29 [place] [id number] [place] [address] 49380- 5837 Aug, Chronic pain G89.29 and Constipation K59.00 [place] [id number] [place] [address] 26644- 1134 Aug, Abnormal lung sounds R09.89 [place] [id number] [place] [address] 84987- 0221 Aug, Depression F32.9 [place] [id number] [place] [address] 89415- 2783 Jul, Chronic pain G89.29 [place] [id number] [place] [address] 95140- 8018 May, Chronic pain G89.29 [facility] [address] [address]- 7797 May, Medicare annual wellness visit, subsequent Z00.00 [facility] [id number] [place] [address] 18434- 6496 May, [facility] [id number] [place] [address] 99906- 8339 May, Type 2 diabetes mellitus without complications [...] impairment without tophus M1A.3710 [facility] [id number] [place] [address] 41098- 5211 May, [facility] [id number] [place] [address] 27994- 0366 Mar, [facility] [id number] [place] [address] 18958- 7022 Mar, [facility] [id number] [place] [address] 53451- 7596 Mar, [facility] [id number] [place] [address] 18420- 1576 Mar, [facility] [id number] [place] [address] 20081- 3428 Mar, [facility] [id number] [place] [address] 39231- 3598 Jan, [facility] [id number] [place] [address] 07568- 4964 Jan, [facility] [address] [facility] [facility] [id number] [place] [address]- 3799 Dec, Type 2 diabetes mellitus without complications E11.9 ; Hypertension I10 ; Coronary artery disease I25.10 and Renal insufficiency N28.9 [facility] [address] [facility] [id number] [place] [address]- 6625 Dec, [facility] [address] [facility] [id number] [place] [address]- 9330 Dec, [facility] [address] [facility] [id number] [place] [address]- 7829 Nov, [facility] [address] [address] [facility] [id number] [place] [address]- 1674 Nov, [facility] [id number] [place] [address]- 0217 Nov, [facility] [id number] [place] [address]- 7300 Nov, [facility] [id number] [place] [address]- 4170 Nov, [facility] [id number] [place] [address]- 7287 October, [facility] [id number] [place] [address]- 4715 October, [facility] [id number] [place] [address]- 7915 October, [facility] [id number] [place] [address]- 0836 Sep, Type 2 diabetes mellitus without complications E11.9 and Constipation K59.00 [facility] [id number] [address]- 6433 Sep, [facility] [id number] [place] [address]- 3693 Sep, Diabetes E11.9 [facility] [id number] [place] [address] 36877- 8311 Sep, [facility] [address] 97748- 4723 Sep, Routine health maintenance Z00.00 ; Hypertension I10 ; Type 2 diabetes mellitus without complications E11.9 ; Morbid obesity with BMI of 45.0-49.9, adult Z68.42 ; Chronic pain G89.29 ; H/O carotid endarterectomy Z98.89 ; Vascular dementia F01.50 ; Arthritis M19.90 ; Coronary artery disease I25.10 ; Abnormal lung sounds R09.89 and Diabetes E11.9 [facility] [address] 67418- 1561 Aug, Anxiety F41.9 [facility] [address] 23945- 1790 Aug, Arthritis M19.90 [facility] [address] 97292- 7018 Jul, Arthritis M19.90 [facility] [address] 77026- 5476 Jul, [facility] [id number] [place] [address] 85985- 2886 May, [facility] [id number] [place] [address] 09377- 6697 May, Arthritis M19.90 ; Hypertension I10 ; Depression F32.9 ; Vascular dementia F01.50 and Coronary artery disease I25.10 [facility] [id number] [place] [address] 95412- 1835 May, [facility] [address] 72108- 3103 May, [facility] [id number] [place] [address] 06929- 6531 Mar, [facility] [address] [place] [address]- 2857 Mar, [facility] [address] [facility] [address] [facility] [id number] [place] [address]- 1191 Mar, [facility] [id number] [address]- 4545 Mar, [facility] [address], [place] [address]- 3636 Mar, Essential hypertension, benign 401.1 ; Unspecified arthropathy, site unspecified 716.90 and Other and unspecified hyperlipidemia 272.4 [facility] [id number] [place] [address]- 6405 Mar, [facility] [id number] [address]- 5459 Jan, [facility] [address], [place] [address]- 9829 Dec, [facility] [address], [place] [address]- 0958 Dec, [facility] [id number], [place] [address]- 6156 Dec, [facility] [id number] [place] [address]- 4399 Dec, [facility] [address], [place] [address]- 4701 Dec, [facility] [id number], [place] [address]- 2899 Dec, [facility] [id number] [address]- 4054 Dec, [facility] [place] [facility] [address] [facility] [id number] [place] [address]- 6826 Dec, [facility] [id number] [place] [address]- 4963 Nov, [facility] [place] [facility] [address] [id number] [place] [address]- 3977 Nov, [facility] [place] [facility] [address] [id number] [place] [address]- 0887 Nov, [facility] [place] [facility] [address] [id number] [place] [address]- 7068 October, [facility] [place] [facility] [address] [id number] [place] [address]- 7455 October, [facility] [place] [facility] [address] [id number] [place] [address]- 6556 Sep, [facility] [place] [facility] [address] [id number] [place] [address]- 3704 Sep, [facility] [place] [facility] [address] [id number] [place] [address]- 7267 Sep, [facility] [place] [facility] [address] [id number] [place] [address]- 7498 Aug, [facility] [place] [facility] [address] [id number] [place] [address]- 4052 Aug, [facility] [place] [facility] [address] [id number] [place] [address]- 0621 Aug, [facility] [place] [facility] [address] [facility] [address] [facility] [id number] [place] [address]- 5290 Aug, [facility] [place] [facility] [address] [id number] [place] [address]- 3489 Aug, [facility] [place] [facility] [address] [id number] [place] [address]- 5062 Aug, [facility] [place] [facility] [address] [id number] [place] [address]- 8700 Aug, [facility] [place] [facility] [address] [id number] [place] [address]- 7302 Aug, [facility] [place] [facility] [address] [id number], [place] [address]- 2359 Aug, [facility] [address] [id number] [place] [address]- 8503 May, [facility] [address] [id number] [place] [address]- 7830 May, [facility] [address] [id number] [place] [address]- 0235 May, [facility] [address] [id number] [place] [address]- 5402 May, [facility] [address] [id number] [place] [address]- 2502 May, [facility] [address] [id number] [place] [address]- 6794 May, [facility] [address] [id number] [place] [address]- 4425 May, [facility] [address] [id number] [place] [address]- 0777 May, [facility] [address] [id number], [place] [address]- 4769 Mar, [facility] [address] [id number], [place] [address]- 7659 Mar, [facility] [address] [id number] Mar, [facility] [address] [id number], [place] [address]- 1712 Mar, [facility] [place] [facility] [address] [id number] [place] [address]- 2564 Mar, [facility] [place] [facility] [address] [id number], [place] [address]- 4517 Mar, [facility] [place] [facility] [address] [id number], [place] [address]- 2271 Mar, [facility] [place] [facility] [address] [id number] [place] [address]- 2313 24 Mar, 2014 [facility] [place] [facility] [address] [id number] [place] [address]- 0758 24 Mar, 2014 [facility] [place] [facility] [address] [id number] [place] [address]- 0661 Mar, [facility] [place] [facility] [address] [id number] [place] [address]- 0848 Mar, [facility] [place] [facility] [address] [id number] [place] [address]- 2221 Mar, [facility] [place] [facility] [address] [id number] [place] [address]- 9109 Mar, [facility] [place] [facility] [address] [id number] [place] [address]- 4440 Jan, [facility] [place] [facility] [address] [id number] [place] [address]- 3021 Jan, [facility] [place] [facility] [address] [id number] [place] [address]- 7165 Jan, [facility] [place] [facility] [address] [id number] [place] [address]- 0403 Jan, [facility] [address] [id number] Jan, [facility] [place] [facility] [address] [id number] [place] [address]- 5349 Jan, [facility] [place] [facility] [address] [id number] [place] [address]- 3641 Jan, [facility] [place] [facility] [address] [id number] [place] [address]- 7200 Dec, [facility] [place] [facility] [address] [id number] [place] [address]- 0278 Dec, [facility] [place] [facility] [address] [id number] [place] [address]- 7248 Dec, [facility] [place] [facility] [address] [id number] [place] [address]- 7431 Dec, [facility] [address] [facility] [id number] [place] [address]- 5503 Dec, [facility] [address] [facility] [id number] [place] [address]- 8416 Dec, [facility] [address] [facility] [id number], [place] [address]- 8256 Nov, [facility] [address] [facility] [id number], [place] [address]- 1857 Nov, IMMUNIZATIONS No Known Immunizations SOCIAL HISTORY Never Assessed REASON FOR VISIT Controlled Med Refill 03/14 PLAN OF CARE VITAL SIGNS MEDICATIONS Medication Instructions Dosage Frequency Start Date End Date Duration Status Ativan 0.5 Orally, each fill must last 28 days Once a day 1 tablet 24h 28 days Active Hydrocodone-Acetaminophen 5-325 MG Orally 3 times a day-,Assisted living facility 1 tablet Mar, 28 days Active RESULTS No Results PROCEDURES [...]
--- OUTSIDE RECORDS SUMMARY | 2018-03-10 15:57 | XMS REPORT ---
Author Author PETE FALCON Organization [employer] Address Unknown Phone Unavailable Care Team Providers Care Small Order Cutter Name Role Phone PETE FALCON CP Unavailable Allergies No Known Allergies Problems Problem Type Condition ICD-9 Code Onset Dates Condition Status Problem Unspecified arthropathy, site unspecified 716.90 Active Problem Other screening mammogram V76.12 Active Problem Abdominal pain, unspecified site 789.00 Active Problem Chronic airway obstruction, not elsewhere classified 496 Active Problem Unspecified constipation 564.00 Active Problem Essential hypertension, benign 401.1 Active Problem 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
--- OUTSIDE RECORDS SUMMARY | 2018-03-10 15:57 | XMS REPORT ---
Author Author ELIEL SMITH Organization [employer] Address Unknown Phone Unavailable Care Team Providers Care Personal Support Worker Name Role Phone ELIEL SMITH CP [...] Instructions Start Date End Date Status Dosage Losartan Potassium [facility] [address]-96 100 MG Orally Once a day Apr 20, 2016 1 tablet Results No Known Results Summary Purpose [employer] Submission
--- OUTSIDE RECORDS SUMMARY | 2018-03-10 15:57 | XMS REPORT | Clinical Summary ---
Author Author User, FRANCOISE Page [address] Address Unknown Phone Allergies, Adverse Reactions, Alerts Allergy Name Reaction Description Start Date Severity Status Provider Allergies Unknown Conditions or Problems Problem Name Problem Code Onset Date Status Entry Date Provider Comment Standard Description Annotate Problems Unknown Active Medication List Medication Instructions Start Date Stop Date Generic Name NDC Status Provider Patient Instruction Drug Treatment Unknown - unknown
--- OUTSIDE RECORDS SUMMARY | 2018-03-10 15:59 | XMS REPORT | Continuity of Care Document ---
Author Author [facility] Address Unknown Phone Unavailable Allergies Active Description Code Type Severity Reaction Onset Reported/Identified Relationship to Patient Clinical Status Yes No Known Drug Allergies [id number] Drug Allergy Unknown N/A 07/04/2007 Medications There is no data. Problems Date Dx Coded Attending Type Code Diagnosis Diagnosed By 06/26/2010 Ot 401.9 06/26/2010 Ot 414.01 06/26/2010 Ot 553.21 06/26/2010 Ot 786.59 06/26/2010 Ot V45.82 06/26/2010 Ot V58.69 12/05/2010 Ot 244.9 12/05/2010 Ot 401.9 12/05/2010 Ot 553.21 12/05/2010 Ot V58.69 05/21/2012 Ot 250.00 DIAB JUDY WO COMPL, TYPE II OR UNSPEC TY 05/21/2012 Ot 272.4 HYPERLIPIDEMIA NEC/NOS 05/21/2012 Ot 274.9 GOUT NOS 05/21/2012 Ot 278.00 OBESITY, NOS 05/21/2012 Ot 311 DEPRESSIVE DISORDER NEC 05/21/2012 Ot 349.82 TOXIC ENCEPHALOPATHY 05/21/2012 Ot 403.90 HYPTNSV CHR KID DIS, UNSPEC, W CHR KD ST 05/21/2012 Ot 493.90 ASTHMA, UNSPECIFIED 05/21/2012 Ot 585.9 CHRONIC KIDNEY DISEASE, UNSPECIFIED 05/21/2012 Ot 965.00 POISONING- OPIUM NOS 05/21/2012 Ot 969.4 POIS- BENZODIAZEPINE CASAS 05/21/2012 Ot E850.2 ACC POISON- OPIATES NEC 05/21/2012 Ot E853.2 ACC POISN- BENZDIAZ TRANQ 05/21/2012 Ot V04.81 ND FOR PROPHYLACTIC VACCIN AND INOCULATI 05/21/2012 Ot V85.42 BODY MASS INDEX 45.0-49.9, ADULT 11/07/2012 KALPESH MEDINA FACC, DUANE DORSEY CCDS Ot 250.00 DIAB JUDY WO COMPL, TYPE II OR UNSPEC TY 11/07/2012 KALPESH MEDINA FACC, ALI FACP CCDS Ot 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 11/07/2012 KALPESH MEDINA FACC, DUANE FACP CCDS Ot 275.2 DIS MAGNESIUM METABOLISM 11/07/2012 KALPESH MEDINA FACC, ALI FACP CCDS Ot 276.7 HYPERPOTASSEMIA 11/07/2012 KALPESH MEDINA FACC, ALI FACP CCDS Ot 285.9 ANEMIA NOS 11/07/2012 KALPESH MEDINA FACC, DUANE FACP CCDS Ot 401.9 HYPERTENSION NOS 11/07/2012 KALPESH MEDINA FACC, ALI FACP CCDS Ot 412 OLD MYOCARDIAL INFARCT 11/07/2012 KALPESH MEDINA FACC, DUANE FACP CCDS Ot 414.01 CORONARY ATHEROSCLEROSIS OF [place] CORON 11/07/2012 DUANE POSEY MD, FACC FACP CCDS Ot 426.4 RT BUNDLE BRANCH BLOCK 11/07/2012 DUANE POSEY MD, FACC FACP CCDS Ot 530.11 REFLUX ESOPHAGITIS 11/07/2012 DUANE POSEY MD, FACC FACP CCDS Ot 530.81 ESOPHAGEAL REFLUX 11/07/2012 DUANE POSEY MD, FACC FACP CCDS Ot 535.40 OTH SPECIFIED GASTRITIS,W/O MENTION OF H 11/07/2012 DUANE POSEY MD, FACC FACP CCDS Ot 553.3 DIAPHRAGMATIC HERNIA 11/07/2012 KALPESH MEDINA FACC, DUANE FACP CCDS Ot 593.9 RENAL URETERAL DIS NOS 11/07/2012 KALPESH MEDINA FACC, ALI FACP CCDS Ot 716.90 ARTHROPATHY NOS-UNSPEC 11/07/2012 DUANE POSEY MD, FACC FACP CCDS Ot 724.5 BACKACHE NOS 11/07/2012 KALPESH MEDINA FACC, ALI FACP CCDS Ot 729.1 MYALGIA AND MYOSITIS NOS 11/07/2012 KALPESH MEDINA FACC, ALI FACP CCDS Ot 780.57 UNSPECIFIED SLEEP APNEA 11/07/2012 DUANE POSEY MD, FACC FACP CCDS Ot E947.8 ADV EFF MEDICINAL NEC 11/07/2012 DUANE POSEY MD, FACC FACP CCDS Ot V12.54 PERSONAL HX OF TIA, CEREBRAL INFARCTION 11/07/2012 DUANE POSEY MD, FACC FACP CCDS Ot V12.79 PERSONAL HISTORY OTH SPEC DIGESTIVE SYST 11/07/2012 KALPESH MEDINA FACC, DUANE DORSEY CCDS Ot V15.82 HISTORY OF TOBACCO USE 11/07/2012 KALPESH MEDINA FACC, DUANE REYESS Ot V45.82 PERCUTANEOUS TRANSLUM CORON ANGIOPLASTY 01/29/2013 JORDY PATEL DO Ot 041.3 KLEBSIELLA PNEUMONIAE 01/29/2013 JORDY PATEL DO Ot 274.9 GOUT NOS 01/29/2013 JORDY PATEL DO Ot 275.2 DIS MAGNESIUM METABOLISM 01/29/2013 JORDY PATEL DO Ot 276.51 DEHYDRATION 01/29/2013 JORDY PATEL DO Ot 278.01 MORBID OBESITY 01/29/2013 JORDY PATEL DO Ot 285.9 ANEMIA NOS 01/29/2013 JORDY PATEL DO Ot 292.0 DRUG WITHDRAWAL 01/29/2013 JORDY PATEL DO, Ot 292.81 DRUG-INDUCED DELIRIUM 01/29/2013 JORDY PATEL DO Ot 293.0 DELIRIUM DUE TO CONDITIONS CLASSIFIED EL 01/29/2013 JORDY PATEL DO Ot 327.23 OBSTRUCTIVE SLEEP APNEA (ADULT) (PEDIATR 01/29/2013 JORDY PATEL DO, Ot 338.4 CHRONIC PAIN SYNDROME 01/29/2013 JORDY PATEL DO Ot 414.01 CORONARY ATHEROSCLEROSIS OF [place] CORON 01/29/2013 JORDY PATEL DO Ot 426.4 RT BUNDLE BRANCH BLOCK 01/29/2013 JORDY PATEL DO Ot 530.81 ESOPHAGEAL REFLUX 01/29/2013 JORDY PATEL DO Ot 585.9 CHRONIC KIDNEY DISEASE, UNSPECIFIED 01/29/2013 JORDY PATEL DO Ot 599.0 URIN TRACT INFECTION NOS 01/29/2013 JORDY PATEL DO Ot 722.52 LUMB/LUMBOSAC DISC DEGEN 01/29/2013 JORDY PATEL DO Ot 790.6 ABN BLOOD CHEMISTRY NEC 01/29/2013 JORDY PATEL DO Ot 794.5 ABN THYROID FUNCT STUDY 01/29/2013 JORDY PATEL DO, Ot V45.82 PERCUTANEOUS TRANSLUM CORON ANGIOPLASTY 01/29/2013 JORDY PATEL DO Ot V69.4 LACK OF ADEQUATE SLEEP 01/29/2013 JORDY PATEL DO Ot V85.41 BODY MASS INDEX 40.0-44.9, ADULT 07/31/2013 MELANY ABBOTT MD Ot 724.2 LUMBAGO 07/31/2013 MELANY ABBOTT MD Ot V57.1 PHYSICAL THERAPY NEC 10/10/2013 JUNIE MILAN MD Ot 070.54 CHRONIC HEPATITIS C W/O HEPATIC COMA 10/10/2013 JUNIE MILAN MD Ot 241.0 NONTOX UNINODULAR GOITER 10/10/2013 JUNIE MILAN MD Ot 276.7 HYPERPOTASSEMIA 10/10/2013 JUNIE MILAN MD Ot 278.00 OBESITY, NOS 10/10/2013 JUNIE MILAN MD Ot 280.9 IRON DEFIC ANEMIA NOS 10/10/2013 JUNIE MILNA MD Ot 403.90 HYPTNSV CHR KID DIS, UNSPEC, W CHR KD ST 10/10/2013 JUNIE MILAN MD Ot 412 OLD MYOCARDIAL INFARCT 10/10/2013 JUNIE MILAN MD Ot 414.01 CORONARY ATHEROSCLEROSIS OF [place] CORON 10/10/2013 JUNIE MILAN MD Ot 426.4 RT BUNDLE BRANCH BLOCK 10/10/2013 JUNIE MILAN MD Ot 493.90 ASTHMA, UNSPECIFIED 10/10/2013 JUNIE MILAN MD Ot 530.11 REFLUX ESOPHAGITIS 10/10/2013 JUNIE MILAN MD Ot 535.50 UNSP GASTRITIS GASTRODUODENITIS W/O ME 10/10/2013 JUNIE MILAN MD Ot 553.3 DIAPHRAGMATIC HERNIA 10/10/2013 JUNIE MILAN MD Ot 585.9 CHRONIC KIDNEY DISEASE, UNSPECIFIED 10/10/2013 JUNIE MILAN MD Ot 593.9 RENAL URETERAL DIS NOS 10/10/2013 JUNIE MILAN MD Ot 716.90 ARTHROPATHY NOS-UNSPEC 10/10/2013 JUNIE MILAN MD Ot 729.1 MYALGIA AND MYOSITIS NOS 10/10/2013 JUNIE MILAN MD Ot 786.6 CHEST SWELLING/MASS/LUMP 10/10/2013 JUNIE MILAN MD Ot 788.30 UNSPECIFIED URINARY INCONTINENCE 10/10/2013 JUNIE MILAN MD Ot V12.54 PERSONAL HX OF TIA, CEREBRAL INFARCTION 10/10/2013 JUNIE MILAN MD Ot V12.79 PERSONAL HISTORY OTH SPEC DIGESTIVE SYST 10/10/2013 JUNIE MILAN MD Ot V15.82 HISTORY OF TOBACCO USE 10/10/2013 JUNIE MILAN MD Ot V15.88 HISTORY OF FALL 10/10/2013 JUNIE MILAN MD Ot V45.82 PERCUTANEOUS TRANSLUM CORON ANGIOPLASTY 10/10/2013 JUNIE MILAN MD Ot V85.41 BODY MASS INDEX 40.0-44.9, ADULT 11/06/2013 LAKIA LOPEZ MD Ot 244.9 HYPOTHYROIDISM NOS 11/06/2013 LAKIA LOPEZ MD Ot 250.00 DIAB JUDY WO COMPL, TYPE II OR UNSPEC TY 11/06/2013 LAKIA LOPEZ MD Ot 276.51 DEHYDRATION 11/06/2013 LAKIA LOPEZ MD Ot 300.00 ANXIETY STATE NOS 11/06/2013 LAKIA LOPEZ MD Ot 311 DEPRESSIVE DISORDER NEC 11/06/2013 LAKIA LOPEZ MD Ot 327.23 OBSTRUCTIVE SLEEP APNEA (ADULT) (PEDIATR 11/06/2013 LAKIA LOPEZ MD Ot 401.9 HYPERTENSION NOS 11/06/2013 LAKAI LOPEZ MD Ot 412 OLD MYOCARDIAL INFARCT 11/06/2013 LAKIA LOPEZ MD Ot 414.01 CORONARY ATHEROSCLEROSIS OF [place] CORON 11/06/2013 LAKIA LOPEZ MD Ot 493.90 ASTHMA, UNSPECIFIED 11/06/2013 LAKIA LOPEZ MD Ot 578.9 GASTROINTEST HEMORR NOS 11/06/2013 LAKIA LOPEZ MD Ot 593.9 RENAL URETERAL DIS NOS 11/06/2013 LAKIA LOPEZ MD Ot 724.2 LUMBAGO 11/06/2013 LAKIA LOPEZ MD Ot 729.1 MYALGIA AND MYOSITIS NOS 11/06/2013 LAKIA LOPEZ MD Ot 780.79 OTH MALAISE FATIGUE 11/06/2013 LAKIA LOPEZ MD Ot V12.54 PERSONAL HX OF TIA, CEREBRAL INFARCTION 11/06/2013 LAKIA LOPEZ MD Ot V15.82 HISTORY OF TOBACCO USE 11/06/2013 LAKIA LOPEZ MD Ot V45.82 PERCUTANEOUS TRANSLUM CORON ANGIOPLASTY 11/29/2013 JORDY PATEL DO Ot 242.90 THYROTOX NOS NO CRISIS 11/29/2013 JORDY PATEL DO Ot 244.9 HYPOTHYROIDISM NOS 11/29/2013 JORDY PATEL DO Ot 250.00 DIAB JUDY WO COMPL, TYPE II OR UNSPEC TY 11/29/2013 JORDY PATEL DO Ot 276.51 DEHYDRATION 11/29/2013 JORDY PATEL DO Ot 278.01 MORBID OBESITY 11/29/2013 JORDY PATEL DO Ot 280.9 IRON DEFIC ANEMIA NOS 11/29/2013 JORDY PATEL DO Ot 300.00 ANXIETY STATE NOS 11/29/2013 JORDY PATEL DO Ot 305.1 TOBACCO USE DISORDER 11/29/2013 JORDY PATEL DO, Ot 311 DEPRESSIVE DISORDER NEC 11/29/2013 JORDY PATEL DO, Ot 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, MALIGN, W CHR KD ST 11/29/2013 JORDY PATEL DO, Ot 412 OLD MYOCARDIAL INFARCT 11/29/2013 JORDY PATEL DO, Ot 414.00 CORON ATHEROSCLER NOS TYPE VESSEL, NATIV 11/29/2013 JORDY PATEL DO Ot 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, NOS 11/29/2013 JORDY PATEL DO Ot 562.10 DIVERTICULOSIS COLON (W/O MENT OF HEMORR 11/29/2013 JORDY PATEL DO, Ot 584.9 ACUTE RENAL FAILURE, UNSPECIFIED 11/29/2013 JORDY PATEL DO Ot 585.4 CHRONIC KIDNEY DISEASE, STAGE IV (SEVERE 11/29/2013 JORDY PATEL DO, Ot 714.0 RHEUMATOID ARTHRITIS 11/29/2013 JORDY PATEL DO, Ot 722.4 CERVICAL DISC DEGEN 11/29/2013 JORDY PATEL DO, Ot 729.1 MYALGIA AND MYOSITIS NOS 11/29/2013 JORDY PATEL DO Ot 780.97 ALTERED MENTAL STATUS 11/29/2013 JORDY PATEL DO, Ot 784.0 HEADACHE 11/29/2013 JORDY PATEL DO, Ot 790.99 BLOOD EXAM - OTH NONSPECIFIC FINDINGS 11/29/2013 JORDY PATEL DO, Ot 793.11 SOLITARY PULMONARY NODULE 11/29/2013 JORDY PATEL DO, Ot E947.9 ADV EFF MEDICINAL NOS 11/29/2013 JORDY PATEL DO Ot V07.4 HORMONE REPLACEMENT THERAPY (POSTMENOPAU 11/29/2013 JORDY PATEL DO Ot V11.3 HX OF ALCOHOLISM 11/29/2013 JORDY PATEL DO Ot V12.54 PERSONAL HX OF TIA, CEREBRAL INFARCTION 11/29/2013 JORDY PATEL DO Ot V43.64 HIP JOINT REPLACEMENT STATUS 11/29/2013 JORDY PATEL DO Ot V45.81 AORTOCORONARY BYPASS 11/29/2013 JORDY PATEL DO Ot V85.41 BODY MASS INDEX 40.0-44.9, ADULT 12/04/2013 LETICIA CONWAY MD E Ot 242.90 THYROTOX NOS NO CRISIS 12/04/2013 LETICIA CONWAY MD E Ot 250.60 DIAB W NEURO MANIFEST, TYPE II OR UNSPEC 12/04/2013 LETICIA CONWAY MD E Ot 274.01 ACUTE GOUTY ARTHROPATHY 12/04/2013 LETICIA CONWAY MD E Ot 280.9 IRON DEFIC ANEMIA NOS 12/04/2013 LETICIA CONWAY MD E Ot 311 DEPRESSIVE DISORDER NEC 12/04/2013 LETICIA CONWAY MD E Ot 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 12/04/2013 LETICIA CONWAY MD E Ot 401.9 HYPERTENSION NOS 12/04/2013 HALLIE CONWAY MDIC E Ot 412 OLD MYOCARDIAL INFARCT 12/04/2013 LETICIA CONWAY MD E Ot 414.01 CORONARY ATHEROSCLEROSIS OF [place] CORON 12/04/2013 LETICIA CONWAY MD E Ot 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, NOS 12/04/2013 LETICIA CONWAY MD E Ot 562.10 DIVERTICULOSIS COLON (W/O MENT OF HEMORR 12/04/2013 LETICIA CONWAY MD E Ot 584.9 ACUTE RENAL FAILURE, UNSPECIFIED 12/04/2013 LETICIA CONWAY MD E Ot 722.4 CERVICAL DISC DEGEN 12/04/2013 LETICIA CONWAY MD E Ot 729.1 MYALGIA AND MYOSITIS NOS 12/04/2013 LETICIA CONWAY MD E Ot 780.97 ALTERED MENTAL STATUS 12/04/2013 LETICIA CONWAY MD E Ot 782.3 EDEMA 12/04/2013 LETICIA CONWAY MD E Ot 793.11 SOLITARY PULMONARY NODULE 12/04/2013 LETICIA CONWAY MD E Ot V12.54 PERSONAL HX OF TIA, CEREBRAL INFARCTION 12/04/2013 LETICIA CONWAY MD E Ot V45.82 PERCUTANEOUS TRANSLUM CORON ANGIOPLASTY 12/04/2013 LETICIA CONWAY MD E Ot V57.89 REHABILITATION PROC NEC 12/30/2013 NIDHI RODRIGUEZ MD Ot 285.9 ANEMIA NOS 12/30/2013 NIDHI RODRIGUEZ MD Ot 455.0 INT HEMORRHOID W/O COMPL 12/30/2013 NIDHI RODRIGUEZ MD Ot 562.10 DIVERTICULOSIS COLON (W/O MENT OF HEMORR 12/30/2013 NIDHI RODRGIUEZ MD Ot 569.3 RECTAL ANAL HEMORRHAGE 01/05/2014 JUNIE MILAN MD Ot 246.9 DISORDER OF THYROID NOS 01/05/2014 JUNIE MILAN MD Ot 285.9 ANEMIA NOS 01/05/2014 JUNIE MILAN MD Ot 573.3 HEPATITIS NOS 01/05/2014 BJORN MEDINA, JUNIE Ann Ot 780.4 DIZZINESS AND GIDDINESS 01/05/2014 BJORN MEDINA, JUNIE Ann Ot V58.69 OTH MED,LT,CURRENT USE 01/28/2014 PETE FALCON MD CHRONIC AIRWAY OBSTRUCTION NOT ELSEWHERE CLASSIFIED 01/28/2014 PETE FALCON MD 564.00 UNSPECIFIED CONSTIPATION 01/28/2014 PETE FALCON MD CHRONIC AIRWAY OBSTRUCTION NOT ELSEWHERE CLASSIFIED 01/28/2014 PETE FALCON MD 564.00 UNSPECIFIED CONSTIPATION 01/28/2014 PETE FALCON MD CHRONIC AIRWAY OBSTRUCTION NOT ELSEWHERE CLASSIFIED 01/28/2014 PETE FALCON MD4.00 UNSPECIFIED CONSTIPATION 01/28/2014 PETE FALCON MD CHRONIC AIRWAY OBSTRUCTION NOT ELSEWHERE CLASSIFIED 01/28/2014 PETE FALCON MD4.00 UNSPECIFIED CONSTIPATION 01/28/2014 PETE FALCON MD CHRONIC AIRWAY OBSTRUCTION NOT ELSEWHERE CLASSIFIED 01/28/2014 PETE FALCON MD 564.00 UNSPECIFIED CONSTIPATION 02/10/2014 PETE FALCON MD.Jovanny UNSPECIFIED ARTHROPATHY SITE UNSPECIFIED 02/10/2014 PETE FALCON MD 789.00 ABDOMINAL PAIN UNSPECIFIED SITE 02/10/2014 PETE FALCON MD.90 UNSPECIFIED ARTHROPATHY SITE UNSPECIFIED 02/10/2014 PETE FALCON MD9.00 ABDOMINAL PAIN UNSPECIFIED SITE 02/10/2014 PETE FALCON MD.90 UNSPECIFIED ARTHROPATHY SITE UNSPECIFIED 02/10/2014 PETE FALCON MD9.00 ABDOMINAL PAIN UNSPECIFIED SITE 02/10/2014 PETE FALCON MD.90 UNSPECIFIED ARTHROPATHY SITE UNSPECIFIED 02/10/2014 PETE FALCON MD 789.00 ABDOMINAL PAIN UNSPECIFIED SITE 04/21/2014 PETE FALCON MD 401.1 BENIGN ESSENTIAL HYPERTENSION 04/21/2014 PETE FALCON MD 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 04/21/2014 PETE FALCON MD 401.1 BENIGN ESSENTIAL HYPERTENSION 04/21/2014 PETE FALCON MD 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00 06/17/2014 Ot 786.09 06/17/2014 Ot 784.0 06/17/2014 Ot 789.00 06/17/2014 MOHINDER POLK DO Ot 722.52 06/17/2014 COLIN SILVER DO Ot 793.11 06/17/2014 NIDHI RODRIGUEZ MD Ot V72.84 06/17/2014 NIDHI RODRIGUEZ MD Ot V72.84 06/17/2014 Ot 246.9 06/17/2014 Ot 285.9 06/17/2014 Ot 573.3 06/17/2014 Ot 780.4 06/17/2014 Ot V58.69 06/18/2014 Ot 715.36 06/18/2014 Ot 611.72 06/18/2014 Ot 553.1 06/18/2014 Ot V72.63 06/18/2014 Ot V72.81 06/18/2014 Ot V74.8 06/18/2014 Ot 553.20 06/18/2014 Ot 553.21 06/18/2014 Ot V72.63 06/18/2014 Ot V74.8 06/18/2014 Ot 789.03 06/18/2014 Ot 789.35 06/18/2014 Ot 553.21 06/18/2014 Ot V72.63 06/18/2014 Ot V74.8 06/18/2014 Ot 786.2 06/18/2014 Ot 793.1 06/18/2014 Ot 562.10 06/18/2014 Ot 625.9 06/18/2014 Ot 786.05 06/18/2014 Ot 786.9 06/18/2014 Ot 789.00 06/18/2014 Ot 564.00 06/18/2014 Ot 789.00 06/18/2014 Ot 786.09 06/18/2014 Ot 784.0 06/18/2014 Ot 789.00 06/18/2014 MOHINDER POLK DO Ot 722.52 06/18/2014 COLIN SILVER DO Ot 793.11 06/18/2014 NIDHI RODRIGUEZ MD Ot V72.84 06/18/2014 NIDHI RODRIGUEZ MD Ot V72.84 06/18/2014 Ot 246.9 06/18/2014 Ot 285.9 06/18/2014 Ot 573.3 06/18/2014 Ot 780.4 06/18/2014 Ot V58.69 07/09/2014 PETE FALCON MD Ot V76.12 07/09/2014 COLIN SILVER DO Ot 793.11 07/12/2014 Ot 715.36 07/12/2014 Ot 611.72 07/12/2014 Ot 553.1 07/12/2014 Ot V72.63 07/12/2014 Ot V72.81 07/12/2014 Ot V74.8 07/12/2014 Ot 553.20 07/12/2014 Ot 553.21 07/12/2014 Ot V72.63 07/12/2014 Ot V74.8 07/12/2014 Ot 789.03 07/12/2014 Ot 789.35 07/12/2014 Ot 553.21 07/12/2014 Ot V72.63 07/12/2014 Ot V74.8 07/12/2014 Ot 786.2 07/12/2014 Ot 793.1 07/12/2014 Ot 562.10 07/12/2014 Ot 625.9 07/12/2014 Ot 786.05 07/12/2014 Ot 786.9 07/12/2014 Ot 789.00 07/12/2014 Ot 564.00 07/12/2014 Ot 789.00 07/12/2014 Ot 786.09 07/12/2014 Ot 784.0 07/12/2014 Ot 789.00 07/12/2014 MOHINDER POLK DO Ot 722.52 07/12/2014 COLIN SILVER DO Ot 793.11 07/12/2014 JENNIFER MEDINA, NIDHI Ot V72.84 07/12/2014 NIDHI RODRIGUEZ MD Ot V72.84 07/12/2014 Ot 246.9 07/12/2014 Ot 285.9 07/12/2014 Ot 573.3 07/12/2014 Ot 780.4 07/12/2014 Ot V58.69 07/12/2014 COLIN SILVER DO Ot 276.51 07/12/2014 COLIN SILVER DO Ot 278.00 07/12/2014 COLIN SILVER DO Ot 496 07/12/2014 COLIN SILVER DO Ot 793.11 07/12/2014 EZEKIEL MEDINA, PETE Garza Ot V76.12 07/12/2014 EZEKIEL MEDINA, PETE Garza Ot 793.80 08/09/2014 COLIN SILVER DO Ot 276.51 08/09/2014 COLIN SILVER DO Ot 278.00 08/09/2014 COLIN SILVER DO Ot 496 08/09/2014 COLIN SILVER DO Ot 793.11 08/09/2014 EZEKIEL MEDINA, PETE Garza Ot 793.80 08/10/2014 COLIN SILVER DO Ot 276.51 08/10/2014 COLIN SILVER DO Ot 278.00 08/10/2014 COLIN SILVER DO Ot 496 08/10/2014 COLIN SILVER DO Ot 793.11 08/10/2014 EZEKIEL MEDINA PETE Garza Ot 793.80 08/16/2014 COLIN SILVER DO Ot 493.20 08/16/2014 COLIN SILVER DO Ot 786.05 08/16/2014 COLIN SILVER DO Ot 793.11 12/08/2014 COLIN SILVER DO Ot 493.20 12/08/2014 COLIN SILVER DO Ot 786.05 12/08/2014 COLIN SILVER DO Ot 793.11 06/17/2015 Ot 553.21 06/17/2015 Ot V72.63 06/17/2015 Ot V74.8 06/17/2015 Ot 789.03 06/17/2015 Ot 789.35 06/17/2015 Ot 553.21 06/17/2015 Ot V72.63 06/17/2015 Ot V74.8 06/17/2015 Ot 786.2 06/17/2015 Ot 793.1 06/17/2015 Ot 562.10 06/17/2015 Ot 625.9 06/17/2015 Ot 786.05 06/17/2015 Ot 786.9 06/17/2015 Ot 789.00 06/17/2015 Ot 564.00 06/17/2015 Ot 789.00 06/17/2015 Ot 786.09 06/17/2015 Ot 784.0 06/17/2015 Ot 789.00 06/17/2015 FELICITAS PINEDA MOHINDER Garza Ot 722.52 06/17/2015 NADEEM COLIN PINEDA Ot 793.11 06/17/2015 NIDHI RODRIGUEZ MD Ot V72.84 06/17/2015 NIDHI RODRIGUEZ MD Ot V72.84 06/17/2015 Ot 246.9 06/17/2015 Ot 285.9 06/17/2015 Ot 573.3 06/17/2015 Ot 780.4 06/17/2015 Ot V58.69 06/17/2015 NADEEM COLIN PINEDA Ot 276.51 06/17/2015 NADEEM COLIN PINEDA Ot 278.00 06/17/2015 NADEEM PINEDACOLIN Ot 496 06/17/2015 NADEEM PINEDACOLIN Ot 793.11 06/17/2015 EZEKIEL MEDINA, PETE Garza Ot V76.12 06/17/2015 EZEKIEL MEDINA, PETE Garza Ot 793.80 06/17/2015 NADEEM PINEDACOLIN Ot 493.20 06/17/2015 NADEEM PINEDA COLIN Sánchez Ot 786.05 06/17/2015 NADEEM PINEDACOLIN Ot 793.11 07/07/2015 EZEKIEL MEDINA, PETE Garza Ot R06.00 07/13/2015 EZEKIEL MEDINA, PETE Garza Ot R06.00 09/26/2015 Ot 553.21 09/26/2015 Ot V72.63 09/26/2015 Ot V74.8 09/26/2015 Ot 789.03 09/26/2015 Ot 789.35 09/26/2015 Ot 553.21 09/26/2015 Ot V72.63 09/26/2015 Ot V74.8 09/26/2015 Ot 786.2 09/26/2015 Ot 793.1 09/26/2015 Ot 562.10 09/26/2015 Ot 625.9 09/26/2015 Ot 786.05 09/26/2015 Ot 786.9 09/26/2015 Ot 789.00 09/26/2015 Ot 564.00 09/26/2015 Ot 789.00 09/26/2015 Ot 786.09 09/26/2015 Ot 784.0 09/26/2015 Ot 789.00 09/26/2015 FELICITAS PINEDAMOHINDER Ot 722.52 09/26/2015 NADEEM PINEDA COLIN Sánchez Ot 793.11 09/26/2015 NIDHI RODRIGUEZ MD Ot V72.84 09/26/2015 NIDHI RODRIGUEZ MD Ot V72.84 09/26/2015 Ot 246.9 09/26/2015 Ot 285.9 09/26/2015 Ot 573.3 09/26/2015 Ot 780.4 09/26/2015 Ot V58.69 09/26/2015 COLIN SILVER DO Ot 276.51 09/26/2015 COLIN SILVER DO Ot 278.00 09/26/2015 NADEEM IPNEDA COLIN Sánchez Ot 496 09/26/2015 NADEEM PINEDA COLIN Sánchez Ot 793.11 09/26/2015 EZEKIEL MEDINA PETE Garza Ot V76.12 09/26/2015 EZEKIEL MEDINA PETE Garza Ot 793.80 09/26/2015 NADEEM PINEDA COLIN Sánchez Ot 493.20 09/26/2015 NADEEM PINEAD COLIN Sánchez Ot 786.05 09/26/2015 NADEEM PINEDA COLIN Sánchez Ot 793.11 09/26/2015 PETE FALCON MD Kayla Ot R06.00 09/28/2015 FER LEIJA MD Ot B18.2 CHRONIC VIRAL HEPATITIS C 09/28/2015 FER LEIJA MD, Ot D63.8 ANEMIA IN OTHER CHRONIC DISEASES CLASSIF 09/28/2015 FER LEIJA MD Ot E11.9 TYPE 2 DIABETES MELLITUS WITHOUT COMPLIC 09/28/2015 FER LEIJA MD Ot E66.9 OBESITY, UNSPECIFIED 09/28/2015 FER LEIJA MD Ot E87.70 FLUID OVERLOAD, UNSPECIFIED 09/28/2015 FER LEIJA MD Ot 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909 UNSPECIFIED ASTHMA, UNCOMPLICATED 09/28/2015 FER LEIJA MD Ot M06.9 RHEUMATOID ARTHRITIS, UNSPECIFIED 09/28/2015 FER LEIJA MD Ot N17.9 ACUTE KIDNEY FAILURE, UNSPECIFIED 09/28/2015 FER LEIJA MD, Ot N18.3 CHRONIC KIDNEY DISEASE, STAGE 3 (MODERAT 09/28/2015 FER LEIJA MD Ot R07.89 OTHER CHEST PAIN 09/28/2015 FER LEIJA MD, Ot Z23 ENCOUNTER FOR IMMUNIZATION 09/28/2015 FER LEIJA MD, Ot Z68.42 BODY MASS INDEX (BMI) 45.0-49.9, ADULT 09/28/2015 FER LEIJA MD Ot Z86.19 PERSONAL HISTORY OF OTHER INFECTIOUS AND 09/28/2015 FER LEIJA MD, Ot Z87.891 PERSONAL HISTORY OF NICOTINE DEPENDENCE 01/30/2016 JUNIE MILAN MD Ot 246.9 DISORDER OF THYROID NOS 01/30/2016 JUNIE MILAN MD Ot 285.9 ANEMIA NOS 01/30/2016 JUNIE MILAN MD Ot 573.3 HEPATITIS NOS 01/30/2016 JUNIE MILAN MD Ot 780.4 DIZZINESS AND GIDDINESS 01/30/2016 JUNIE MILAN MD Ot V58.69 OTH MED,LT,CURRENT USE 08/01/2016 JUNIE MILAN MD Ot 246.9 DISORDER OF THYROID NOS 08/01/2016 JUNIE MILAN MD Ot 285.9 ANEMIA NOS 08/01/2016 JUNIE MILAN MD Ot 573.3 HEPATITIS NOS 08/01/2016 JUNIE MILAN MD Ot 780.4 DIZZINESS AND GIDDINESS 08/01/2016 JUNIE MILAN MD Ot V58.69 OTH MED,LT,CURRENT USE 12/29/2016 JUNIE MILAN MD Ot 246.9 DISORDER OF THYROID NOS 12/29/2016 JUNIE MILAN MD Ot 285.9 ANEMIA NOS 12/29/2016 JUNIE MILAN MD Ot 573.3 HEPATITIS NOS 12/29/2016 JUNIE MLIAN MD Ot 780.4 DIZZINESS AND GIDDINESS 12/29/2016 JUNIE MILAN MD Ot V58.69 OTH MED,LT,CURRENT USE 10/25/2017 Ot 789.00 ABDOMINAL PAIN, UNSPECIFIED SITE 10/25/2017 MOHINDER POLK DO Ot 722.52 LUMB/LUMBOSAC DISC DEGEN 10/25/2017 COLIN SILVER DO Ot 793.11 SOLITARY PULMONARY NODULE 10/25/2017 NIDHI RODRIGUEZ MD Ot V72.84 EXAM PRE-OPERATIVE NOS 10/25/2017 NIDHI RODRIGUEZ MD Ot V72.84 EXAM PRE-OPERATIVE NOS 10/25/2017 Ot 246.9 DISORDER OF THYROID NOS 10/25/2017 Ot 285.9 ANEMIA NOS 10/25/2017 Ot 573.3 HEPATITIS NOS 10/25/2017 Ot 780.4 DIZZINESS AND GIDDINESS 10/25/2017 Ot V58.69 OTH MED,LT, CURRENT USE 10/25/2017 COLIN SILVER DO Ot 276.51 DEHYDRATION 10/25/2017 COLIN SILVER DO Ot 278.00 OBESITY, NOS 10/25/2017 COLIN SILVER DO Ot 496 CHR AIRWAY OBSTRUCT NEC 10/25/2017 COLIN SILVER DO Ot 793.11 SOLITARY PULMONARY NODULE 10/25/2017 PETE FALCON MD Ot V76.12 OTH SCREEN MAMMO-MALIGN NEOPLASM OF [place] 10/25/2017 PETE FALCON MD Ot 793.80 UNSPEC ABNORMAL MAMMOGRAM 10/25/2017 COLIN SILVER DO Ot 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, NOS 10/25/2017 COLIN SILVER DO Ot 786.05 SHORTNESS OF BREATH 10/25/2017 COLIN SILVER DO Ot 793.11 SOLITARY PULMONARY NODULE 10/25/2017 PETE FALCON MD Ot R06.00 DYSPNEA, UNSPECIFIED 10/29/2017 Ot 789.00 ABDOMINAL PAIN, UNSPECIFIED SITE 10/29/2017 MOHINDER POLK DO Ot 722.52 LUMB/LUMBOSAC DISC DEGEN 10/29/2017 COLIN SILVER DO Ot 793.11 SOLITARY PULMONARY NODULE 10/29/2017 NIDHI RODRIGUEZ MD Ot V72.84 EXAM PRE-OPERATIVE NOS 10/29/2017 NIDHI RODRIGUEZ MD Ot V72.84 EXAM PRE-OPERATIVE NOS 10/29/2017 Ot 246.9 DISORDER OF THYROID NOS 10/29/2017 Ot 285.9 ANEMIA NOS 10/29/2017 Ot 573.3 HEPATITIS NOS 10/29/2017 Ot 780.4 DIZZINESS AND GIDDINESS 10/29/2017 Ot V58.69 OTH MED,LT, CURRENT USE 10/29/2017 COLIN SILVER DO Ot 276.51 DEHYDRATION 10/29/2017 COLIN SILVER DO Ot 278.00 OBESITY, NOS 10/29/2017 COLIN SILVER DO Ot 496 CHR AIRWAY OBSTRUCT NEC 10/29/2017 COLIN SILVER DO Ot 793.11 SOLITARY PULMONARY NODULE 10/29/2017 EZEKIEL MEDINA, PETE Garza Ot V76.12 OTH SCREEN MAMMO-MALIGN NEOPLASM OF [place] 10/29/2017 EZEKIEL MEDINA, PETE Garza Ot 793.80 UNSPEC ABNORMAL MAMMOGRAM 10/29/2017 COLIN SILVER DO Ot 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, NOS 10/29/2017 COLIN SILVER DO Ot 786.05 SHORTNESS OF BREATH 10/29/2017 COLIN SILVER DO Ot 793.11 SOLITARY PULMONARY NODULE 10/29/2017 EZEKIEL MEDINA, PETE Garza Ot R06.00 DYSPNEA, UNSPECIFIED 10/30/2017 NEW, PEBBLES Gómez [employer]IDENCE H[employer] DIRECTOR-C Ot E11.9 TYPE 2 DIABETES MELLITUS WITHOUT COMPLIC 10/30/2017 NEW, PEBBLES Gómez [employer]IDENCE H[employer] DIRECTOR-C Ot E55.9 VITAMIN D DEFICIENCY, UNSPECIFIED 10/30/2017 NEW, PEBBLES Gómez [employer]IDENCE HALL DIRECTOR-C Ot E78.5 HYPERLIPIDEMIA, UNSPECIFIED 10/30/2017 NEW, PEBBLES GOle RESIDENCE HALL DIRECTOR-C Ot E87.5 HYPERKALEMIA 10/30/2017 NEW, PEBBLES Gómez [employer]IDENCE H[employer] DIRECTOR-C Ot F03.90 UNSPECIFIED DEMENTIA WITHOUT BEHAVIORAL 10/30/2017 NEWPEBBLES GOle RESIDENCE HALL DIRECTOR-C Ot I12.9 HYPERTENSIVE CHRONIC KIDNEY DISEASE W ST 10/30/2017 NEWPEBBLES RESIDENCE HALL DIRECTOR-C Ot I25.10 ATHSCL HEART DISEASE OF [place] CORONARY 10/30/2017 NEW, PEBBLES Gómez RESIDENCE HALL DIRECTOR-C Ot M79.7 FIBROMYALGIA 10/30/2017 NEW, PEBBLES G. RESIDENCE HALL DIRECTOR-C Ot N18.3 CHRONIC KIDNEY DISEASE, STAGE 3 (MODERAT 10/30/2017 NEW, PEBBLES GOle RESIDENCE HALL DIRECTOR-C Ot R60.9 EDEMA, UNSPECIFIED 11/19/2017 NEW, PEBBLES G. RESIDENCE HALL DIRECTOR-C Ot E11.9 TYPE 2 DIABETES MELLITUS WITHOUT COMPLIC 11/19/2017 NEW, PEBBLES G. RESIDENCE HALL DIRECTOR-C Ot E55.9 VITAMIN D DEFICIENCY, UNSPECIFIED 11/19/2017 NEWPEBBLES GOle RESIDENCE HALL DIRECTOR-C Ot E78.5 HYPERLIPIDEMIA, UNSPECIFIED 11/19/2017 NEW, PEBBLES Gómez RESIDENCE HALL DIRECTOR-C Ot E87.5 HYPERKALEMIA 11/19/2017 NEW, PEBBLES Gómez RESIDENCE HALL DIRECTOR-C Ot F03.90 UNSPECIFIED DEMENTIA WITHOUT BEHAVIORAL 11/19/2017 NEW, PEBBLES Gómez RESIDENCE HALL DIRECTOR-C Ot I12.9 HYPERTENSIVE CHRONIC KIDNEY DISEASE W ST 11/19/2017 NEW, PEBBLES MccoyOle RESIDENCE HALL DIRECTOR-C Ot I25.10 ATHSCL HEART DISEASE OF [place] CORONARY 11/19/2017 NEW, PEBBLES MccoyOle RESIDENCE HALL DIRECTOR-C Ot M79.7 FIBROMYALGIA 11/19/2017 NEW, PEBBLES MccoyOle RESIDENCE HALL DIRECTOR-C Ot N18.3 CHRONIC KIDNEY DISEASE, STAGE 3 (MODERAT 11/19/2017 NEW, PEBBLES MccoyOle RESIDENCE HALL DIRECTOR-C Ot R60.9 EDEMA, UNSPECIFIED 12/02/2017 NEW, PEBBLES MccoyOle RESIDENCE HALL DIRECTOR-C Ot E11.9 TYPE 2 DIABETES MELLITUS WITHOUT COMPLIC 12/02/2017 NEW, PEBBLES MccoyOle RESIDENCE HALL DIRECTOR-C Ot E55.9 VITAMIN D DEFICIENCY, UNSPECIFIED 12/02/2017 NEW, PEBBLES MccoyOle RESIDENCE HALL DIRECTOR-C Ot E78.5 HYPERLIPIDEMIA, UNSPECIFIED 12/02/2017 NEW, PEBBLES MccoyOle RESIDENCE HALL DIRECTOR-C Ot E87.5 HYPERKALEMIA 12/02/2017 NEW, PEBBLES Gómez RESIDENCE HALL DIRECTOR-C Ot F03.90 UNSPECIFIED DEMENTIA WITHOUT BEHAVIORAL 12/02/2017 NEW, PEBBLES MccoyOle RESIDENCE HALL DIRECTOR-C Ot I12.9 HYPERTENSIVE CHRONIC KIDNEY DISEASE W ST 12/02/2017 NEW, PEBBLES MccoyOle RESIDENCE HALL DIRECTOR-C Ot I25.10 ATHSCL HEART DISEASE OF [place] CORONARY 12/02/2017 NEW, PEBBLES GOle RESIDENCE HALL DIRECTOR-C Ot M79.7 FIBROMYALGIA 12/02/2017 NEW, PEBBLES MccoyOle RESIDENCE HALL DIRECTOR-C Ot N18.3 CHRONIC KIDNEY DISEASE, STAGE 3 (MODERAT 12/02/2017 NEW, PEBBLES MccoyOle RESIDENCE HALL DIRECTOR-C Ot R60.9 EDEMA, UNSPECIFIED Procedures Code Description Performed By Performed On 53.41 OTHER OPEN REPAIR UMBILICAL HERNIA W G 07/28/2009 53.61 OTHER OPEN INCISIONAL HERNIA REPAIR WITH 07/28/2009 45.16 ESOPHAGOGASTRODUODENOSCOPY [ EGD] W/CLOSE 11/07/2012 45.16 ESOPHAGOGASTRODUODENOSCOPY [ EGD] W/CLOSE 10/09/2013 96.04 INSERT ENDOTRACHEAL TUBE 11/25/2013 96.71 CONTINUOUS INVASIVE MECHANICAL VENTILATI 11/25/2013 16804 ROUTINE VENIPUNCTURE 03/23/2014 59272 CMP 03/23/2014 7414993 GFR CALC (RESULT ONLY) 03/23/2014 33716 CBC 03/23/2014 14914 CRP 03/23/2014 51470 MAMMOGRAM DX, RIGHT 04/29/2014 53199 MAMMOGRAM, SCREENING 04/29/2014 Results Test Result Range LIPID PANEL - 03/14/17 08:08 Cholesterol, Total 154 mg/dL 100-199 Triglycerides 122 mg/dL 0-149 HDL Cholesterol 66 mg/dL >39 VLDL Cholesterol Nikolay 24 mg/dL 5-40 LDL Cholesterol Calc 64 mg/dL 0-99 LIPASE - 07/25/17 17:47 LIPASE 8 U/L 7-60 AMYLASE - 07/25/17 17:47 AMYLASE 108 U/L 21-101 THYROID ANALYZER - 07/25/17 17:47 TSH 3.73 mIU/L 0.40-4.50 VITAMIN D, 25-H - 07/25/17 17:47 VITAMIN D,25-OH,TOTAL,IA 5 ng/mL 30-100 PDM - 09 PANEL (PROFILE 1) - 02/07/18 14:56 Prescribed Drug 1 Hydrocodone NRG Creatinine 132.5 mg/dL > or=20.0 pH 5.88 4.5 - 9.0 Oxidant NEGATIVE mcg/mL <200 Amphetamines NEGATIVE ng/mL <500 medMATCH Amphetamines CONSISTENT NRG Benzodiazepines POSITIVE ng/mL <100 Marijuana Metabolite NEGATIVE ng/mL <20 medMATCH Marijuana Metab CONSISTENT NRG Cocaine Metabolite NEGATIVE ng/mL <150 medMATCH Cocaine Metab CONSISTENT NRG Opiates NEGATIVE ng/mL <100 medMATCH Opiates INCONSISTENT NRG Oxycodone NEGATIVE ng/mL <100 medMATCH Oxycodone CONSISTENT NRG COMMENT NRG Alphahydroxyalprazolam NEGATIVE ng/mL <25 medMATCH aOH alprazolam CONSISTENT NRG Alphahydroxymidazolam NEGATIVE ng/mL <50 medMATCH aOH midazolam CONSISTENT NRG Alphahydroxytriazolam NEGATIVE ng/mL <50 medMATCH aOH triazolam CONSISTENT NRG Aminoclonazepam NEGATIVE ng/mL <25 medMATCH Aminoclonazepam CONSISTENT NRG Hydroxyethylflurazepam NEGATIVE ng/mL <50 medMATCH OH,Et flurazepam CONSISTENT NRG Lorazepam 623 ng/mL <50 medMATCH Lorazepam CONSISTENT NRG Nordiazepam NEGATIVE ng/mL <50 medMATCH Nordiazepam CONSISTENT NRG Oxazepam NEGATIVE ng/mL <50 medMATCH Oxazepam CONSISTENT NRG Temazepam NEGATIVE ng/mL <50 medMATCH Temazepam CONSISTENT NRG Prescribed Drug 2 Ativan(TM) NRG Barbiturates NEGATIVE ng/mL <300 medMATCH Barbiturates CONSISTENT NRG Methadone Metabolite NEGATIVE ng/mL <100 medMATCH Methadone Metab CONSISTENT NRG Phencyclidine NEGATIVE ng/mL <25 medMATCH Phencyclidine CONSISTENT NRG Encounters ACCT No. Visit Date/Time Discharge Status Pt. Type Provider Facility Loc./Unit Complaint [id number] 09/16/2014 16:35:00 09/16/2014 23:59:59 CLS Outpatient PETE FALCON MD [id number] 04/21/2014 14:48:00 04/21/2014 23:59:59 CLS Outpatient PETE FALCON MD [id number] 03/23/2014 10:35:00 03/23/2014 23:59:59 CLS Outpatient PETE FALCON MD [id number] 02/10/2014 13:01:00 02/10/2014 23:59:59 CLS Outpatient PETE FALCON MD [id number] 01/28/2014 12:18:00 01/28/2014 23:59:59 CLS Outpatient PETE FALCON MD [id number] 07/12/2014 14:07:00 ACT Document Registration [id number] 10/31/2017 13:20:00 10/31/2017 23:59:59 CLS Outpatient [facility] [id number] 02/07/2018 14:20:00 Document Registration [id number] 07/25/2017 15:20:00 Document Registration [id number] 03/14/2017 08:00:00 Document Registration [id number] 10/29/2017 08:49:00 10/29/2017 23:59:59 CLS Outpatient PEBBLES SEGAL Via [facility] RAD HTN,CHRONIC KIDNEY DISEASE STAGE 3 [id number] 09/26/2015 11:40:00 09/28/2015 15:30:00 DIS Inpatient FER LEIJA MD [facility] 4TH ACUTE ON CHRONIC RENAL FAILURE ACUTE BRONCHITIS [id number] 06/17/2015 16:57:00 06/17/2015 23:59:59 CLS Outpatient PETE FALCON MD [facility] RAD INCREASED DYSPNEA [id number] 07/12/2014 14:06:00 07/12/2014 23:59:59 CLS Outpatient COLIN SILVER DO [facility] RT COPD ASTHMA [id number] 07/06/2014 13:25:00 07/06/2014 23:59:59 CLS Outpatient PETE FALCON MD [facility] RAD ABN MAMMO [id number] 07/02/2014 10:08:00 07/02/2014 23:59:59 CLS Outpatient COILN SILVER DO [facility] RAD COPD,LUNG NODULE [id number] 06/18/2014 11:26:00 06/18/2014 23:59:59 CLS Outpatient PETE FALCON MD [facility] RAD SCREENING [id number] 10/07/2013 13:40:00 01/05/2014 00:01:00 DIS Outpatient JUNIE MILAN MD [facility] ONC [id number] 01/04/2014 11:49:00 01/04/2014 23:59:59 CLS Outpatient COLIN SILVER DO [facility] RAD LUNG NODULE [id number] 12/30/2013 08:32:00 12/30/2013 10:27:00 DIS Outpatient NIDHI RODRIGUEZ MD [facility] SDC ANEMIA [id number] 12/23/2013 07:22:00 12/23/2013 23:59:59 CLS Outpatient NIDHI RODRIGUEZ MD [facility] PREOP ANEMIA [id number] 11/29/2013 12:38:00 12/04/2013 14:50:00 DIS Inpatient LETICIA CONWAY MD [facility] IRF AMS;ARF;THYROID DYSFUNCTION [id number] 12/02/2013 07:13:00 12/02/2013 23:59:59 CLS Outpatient NIDHI RODRIGUEZ MD [facility] PREOP ANEMIA [id number] 11/25/2013 18:04:00 11/25/2013 23:59:59 CLS Inpatient JORDY PATEL DO [facility] 4TH AMS;ARF;THYROID DYSFUNCTION [id number] 11/04/2013 22:10:00 11/06/2013 12:48:00 DIS Inpatient JESSICA MEDINA, LAKIA Sánchez [facility] 4TH DEHYDRATION; GENERALIZED WEAKNESS [id number] 10/07/2013 15:25:00 10/10/2013 17:15:00 DIS Inpatient JUNIE MILAN MD [facility] 4TH ANEMIA,SOA [id number] 07/08/2013 13:03:00 07/31/2013 12:02:00 DIS Outpatient MELANY ABBOTT MD [facility] REHAB LUMBAGO [id number] 04/24/2013 08:39:00 04/24/2013 23:59:59 [facility] Outpatient MOHINDER POLK DO [facility] RAD LUMBAR RADICULOPATHY [id number] 01/26/2013 17:29:00 01/29/2013 18:30:00 DIS Inpatient JORDY PATEL DO [facility] 4TH DELIRIUM,UTI,SLEEP DEPRIVATION,CHRONIC PAIN SYNDRO [id number] 11/04/2012 14:00:00 11/07/2012 16:40:00 DIS Inpatient KALPESH MEDINA FACC, DUANE DORSEY CCDS [facility] CSD SOA [id number] 06/17/2014 09:58:00 Document Registration [id number] 06/17/2014 09:58:00 Document Registration [id number] 06/17/2014 09:58:00 Document Registration [id number] 06/17/2014 09:58:00 Document Registration [id number] 01/06/2014 00:00:00 Document Registration [id number] 09/29/2012 13:11:00 Document Registration [id number] 05/20/2012 19:00:00 Document Registration [id number] 01/14/2012 10:41:00 Document Registration [id number] 12/13/2011 15:33:00 Document Registration [id number] 08/23/2011 16:56:00 Document Registration [id number] 07/30/2011 08:52:00 Document Registration [id number] 04/30/2011 11:56:00 Document Registration [id number] 01/29/2011 11:32:00 Document Registration [id number] 12/01/2010 05:50:00 Document Registration [id number] 11/23/2010 14:03:00 Document Registration [id number] 11/23/2010 14:01:00 Document Registration [id number] 11/07/2010 09:37:00 Document Registration [id number] 06/22/2010 05:44:00 Document Registration [id number] 06/16/2010 13:10:00 Document Registration [id number] 08/31/2009 08:32:00 Document Registration [id number] 07/25/2009 08:32:00 Document Registration [id number] 05/24/2009 15:21:00 Document Registration [id number] 03/28/2009 15:30:00 Document Registration
[2018-03-10] MEDS ORDERED: PATIENT MAY USE OWN MEDS, ALL PO SCH (16:00)
--- NOTE | 2018-03-10 16:00 | Cardiac Procedure Note-CS/ASA ---
Pre-Procedure Note Pre-Op Procedure Note H&P Reviewed The H&P was reviewed, patient examined and no changes noted. Date H&P Reviewed: Mar 10, 2018 Time H&P Reviewed: 14:50 Conscious Sedation Pre-Proced Time Reviewed: 14:50 ASA Class: 3 Airway Mallampati Classification: (cachil dehe appropriate class) I. II. III, IV Lungs Heart ASA score ASA 1: a normal healthy patient ASA 2: a patient with a mild systemic disease (mid diabetes, controlled hypertension, obesity ASA 3: a patient with a severe systemic disease that limits activity (angina , COPD, prior Myocardial infarction) ASA 4: a patient with an incapacitating disease that is a constant threat to life (CHF, renal failure) ASA 5: a moribund patient not expected to survive 24 hrs. (ruptured aneurysm) ASA 6: a declared brain patient whose organs are being harvested. For emergent operations, add the letter E after the classification Grade 1 Sedation Plan: Analgesia, Amnesia, Plan communicated to team members, Discussed options with patient/fam, Discussed risks with patient/fam Note The patient is an appropriate candidate to undergo the planned procedure, sedation, and anesthesia. The patient immediately re-assessed prior to indication. Gonzalo ROR MD Mar 10, 2018 16:00
--- NOTE | 2018-03-10 16:12 | Coronary Angiography Report ---
Coronary Angiography Report DATE OF PROCEDURE: 03/10/18 INDICATION: Severe bradycardia with chest pain, syncope and shock. PREOPERATIVE DIAGNOSIS: Severe bradycardia with chest pain, syncope and shock. POSTOPERATIVE DIAGNOSIS: Patent epicardial coronary vessels, status post temporary pacemaker placement HISTORY: This is a 77-year-old lady who has history of CAD, PCI in [facility]. She presented with syncope, severe bradycardia with heart rates in the 20s and 30s, no discernible P waves, systolic blood pressure 60 mmHg and moderate to severe chest pain which gradually resolved with 6 mg of morphine. Therefore, the patient was scheduled for coronary angiography and temporary pacemaker implantation. PROCEDURES PERFORMED: 1.Coronary angiography. 2.Left heart catheterization. 3. Aortic arch angiogram. 4. Temporary pacemaker implantation. COMPLICATIONS: None. SPECIMENS: None. ESTIMATED BLOOD LOSS: 10 mL ANESTHESIA: Conscious sedation ANTICOAGULATION: none. CONTRAST: 56 cc. FLUOROSCOPY: 4.8 minutes. FLOUROSCOPY DOSE: 792 mgy. PROCEDURE DETAILS: The patient is a 77 female and was brought to the chemical lab supervisor after informed consent was taken. All the risks and complications were explained in detail; this included the risk of bleeding, vascular damage, stroke , PR, cardiac tamponade and even . The patient was draped and prepped in the usual sterile fashion. Access was gained in the right femoral artery with a 5 [place] sheath and right femoral vein with a 7 [place] sheath. Coronary angiography was performed with a JR4 and JL4 catheter. Left heart catheterization and aortic arch and a gram was performed with the JR4 catheter. A balloon tipped temporary pacemaker was implanted in the RV apex. Capture threshold 0.1 mV, sensitivity 0.5 mV, backup heart rate 50 BPM. FINDINGS: 1.Left main: Patent. 2.LAD: Patent mid LAD stent. No significant mid or distal disease. 3.Left circumflex artery: Patent stent in the proximal left circumflex artery. Mild diffuse disease noted. 4.RCA: Nondominant RCA with no significant disease. 5.Left heart catheterization: Aortic pressure 129/54 mmHg. LV pressure 122/3 mmHg. LVEDP 10 mmHg. Normal LV function with no wall motion abnormalities. No gradient across the aortic valve. 6. Aortic arch angiogram: No evidence of dissection or aneurysm. Patent proximal segments of the great arteries including brachycephalic artery, common carotid artery, and left subclavian artery. CONCLUSIONS: No significant CAD with patent stents in the left circumflex artery and LAD. Normal LV function with normal LVEDP. Temporary pacemaker placed and RV apex. Capture threshold was confirmed and then can be pacemaker was secured. Patient will be admitted for ICU on low-dose dopamine. Blanca Link MD, FACP, FACC, [facility] Interventional Cardiology Gonzalo LINK MD Mar 10, 2018 16:12
[2018-03-10] MEDS: NS IV 1000 ML 1,000 ML IV SCH ×2 (17:09→23:56)
[2018-03-11] VITALS (23 sets, daily range): BP systolic 89–167; BP diastolic 45–93
[2018-03-11 03:54] LABS: HEMOGLOBIN 9.9 G/DL (11.5-16.0); MEAN PLATELET VOLUME 10.3 FL (7.4-10.4); RED BLOOD COUNT 4.2 10^6/uL (4.35-5.85); RED CELL DISTRIBUTION WIDTH 17.5 % (10.0-14.5); WHITE BLOOD COUNT 9.5 10^3/uL (4.3-11.0)
[2018-03-11 04:07] LABS: CALCIUM 9.8 MG/DL (8.5-10.1); CREATININE SERUM 1.12 MG/DL (0.60-1.30); POTASSIUM 4.4 MMOL/L (3.6-5.0)
[2018-03-11 05:01] LABS: MAGNESIUM 1.7 MG/DL (1.8-2.4); PHOSPHORUS 3.5 MG/DL (2.3-4.7)
[2018-03-11] MEDS: POTASSIUM CL 10MEQ/50ML IVPB 50 ML IV SCH (06:12)
[2018-03-11] MEDS: MAGNESIUM 1 GM/100 ML IVPB 100 ML IV SCH ×3 (06:12→08:40)
[2018-03-11] MEDS: KCL 20 MEQ TAB (K-DUR) PO SCH (06:13)
[2018-03-11] MEDS ORDERED: ACETAMINOPHEN 325 MG TABLET PO NR (09:00)
[2018-03-11] MEDS ORDERED: lisINopril 10 MG (PRINIVIL) TABLET PO NR (09:00)
[2018-03-11] MEDS ORDERED: ZIPR20CA23 PO (10:06)
[2018-03-11] MEDS ORDERED: CHOL20003 PO (10:06)
[2018-03-11] MEDS ORDERED: POLY17PO6 PO (10:06)
[2018-03-11] MEDS ORDERED: LOSA100T8 PO (10:06)
[2018-03-11] MEDS ORDERED: ASPI-983 PO (10:06)
[2018-03-11] MEDS ORDERED: RT-ALBUINH IH (10:06)
[2018-03-11] MEDS ORDERED: ALLO100T PO (10:06)
[2018-03-11] MEDS ORDERED: RIVA6CAP5 PO (10:06)
[2018-03-11] MEDS ORDERED: METO50TA15 PO (10:06)
[2018-03-11] MEDS: NS IV 1000 ML 1,000 ML IV SCH ×2 (10:28→22:43)
--- OUTSIDE RECORDS SUMMARY | 2018-03-11 10:37 | XMS REPORT | Clinical Summary ---
Author Author [facility] Organization [facility] Address Unknown Phone Unavailable Care Team Providers Care Lime Hide Inspector Name Role Phone Lex Greene MD PCP Lex Souza MD Unavailable Unavailable Source Comments Some departments are not documenting in the electronic medical record. If you do not see the information that you expected, contact Release of Information in the Health Information Management department at [phone] for further assistance in locating additional records.[facility] Allergies No Known Allergies Current Medications Prescription [...] Taken Blood Pressure 124/67 05/19/2011 7:37 AM REBRANDER Pulse 63 05/19/2011 7:37 AM REBRANDER Temperature 36.9 C (98.4 F) 05/19/2011 7:37 AM REBRANDER Respiratory Rate - - Oxygen Saturation 94% 05/19/2011 7:37 AM REBRANDER Inhaled Oxygen - - Concentration Weight 120.7 kg (266 lb 1.5 oz) 05/15/2011 6:00 AM REBRANDER Height 162.6 cm (5' 4") 05/04/2011 2:03 PM CDT Body Mass Index 45.68 05/15/2011 6:00 AM REBRANDER Plan of Treatment Health Maintenance Due Date Last Done Comments PHYSICAL (COMPREHENSIVE) 1947 EXAM PERTUSSIS VACCINE 1952 TETANUS VACCINE 1958 SHINGLES RECOMBINANT 11/27/1991 VACCINE (1 of 2) OSTEOPOROSIS SCREENING 2006 PNEUMONIA (PCV13/PPSV23) 2006 VACCINES (1 of 2 - PCV13) INFLUENZA VACCINE 03/31/2018 05/15/2011 Results Not on filefrom Last 3 Months
--- NOTE | 2018-03-11 10:41 | History & Physicial (CHS) ---
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 In the ER she was found to have heart rate drop into the 20s with marked hypotension requiring external pacing. She was taken to laborer cutting tool and for temporary pacemaker placement yesterday per Cardiology. Today she states she is feeling okay, just tired of lying still. She denies sickness prior to this, but was feeling "not right" and somewhat fatigued. She also has been having more frequent headaches than usual for her over the last few months. She has stabbing diffuse headache with some visual flashing, no photophobia or phonophobia. Sometimes associated nausea. Sometimes worsened by movement. Occurring every day from a few minutes to an hour, acetaminophen does seem to help. These are similar to headaches she has had her entire life, but much more frequent. She also notes she had bowel impaction about a month ago and has stopped hydrocodone due to that which she was on for about 30 years prior. She follows with Dr. Anne for her heart and has had 4 stents in the past. She denies chest pain or shortness of breath. Source: patient Date seen by provider: Mar 11, 2018 Time Seen by Provider: 09:40 Attending Physician Krish Webber MD PCP Miguel Angel Mcclendon MD Consult Gonzalo ORR MD Date of Admission Mar 10, 2018 at 5:30 pm Home Medications Home Medications Reviewed patient Home Medication Reconciliation performed by pharmacy medication reconciliations biomass technician and/or nursing. Patients Allergies have been reviewed. Allergies Coded Allergies: carvedilol (Verified Allergy, Unknown, 03/10/18) [id number] Hx Patient Social History Alcohol Use: Rarely Uses Recreational Drug Use: No Smoking Status: Former Smoker Former smoker/When Quit: Mar 24, 2011 Type Used: Cigarettes Recent Foreign Travel: No Contact w/other who traveled: No Recent Hopitalizations: Yes Recent Infectious Disease Expo: No Physical Abuse Screen: No Sexual Abuse: No Immunizations Up To Date Tetanus Booster (TDap): Unknown Date of Pneumonia Vaccine: Mar 26, 2016 Date of Influenza Vaccine: May 21, 2012 Past Medical History Past medical History 1. History of pulmonary nodule 12mm RUL- followed by Dr. Spencer and Previously Dr. Orantes 2013 2. Anemia- history of anemia of chronic disease with Iron deficiency anemia 3. Hypothyroidism 4. Diabetes Mellitus-type 2 5. Hypertension 6. Hyperlipidemia 7. Coronary Artery Disease with stenting x 4 8. Vascular Dementia with behavioral disturbances 9. COPD 10. History of TIA 11. History of Alcoholism- reported none since 2010 12. Fibromyalgia 13. Anxiety 14. Degenerative joint Disease 15. Gout 16. Chronic Kidney Disease 17. Diverticulosis with mild internal hemorrhoids 18. Chronic Hepatitis C 19. Multiple thyroid nodules 20. Cervical Stenosis 21. Moderate Hiatal Hernia with history of gastritis EGD YANN 22. Chronic Right Bundle Branch Block Past Surgical History 1. Bilateral Total Hip replacements 2. Cardiac cath with PTCA and stent 3. Colonoscopy with Dr. Chairez 01/11 4. Cataract Surgery 5. History of back pain stimulator implant with subsequent removal 6. Multiple intra-abdominal surgeries by Dr. Snell for herniorrhaphy 7. History of Cervical Laminectomy and "neck surgery" 8. Cholecystectomy 9. Hysterectomy- unknown if complete or partial 10. Tonsillectomy Family Medical History Significant Family History: Heart Disease, Hypertension Family History: Cancer 03 FATHER 03 MOTHER Family history: Cardiovascular disease 03 MOTHER Family history: Hypertension 03 FATHER Review of Systems (CHC) Constitutional: see HPI EENTM: see HPI Respiratory: No cough, No short of breath Cardiovascular: No chest pain Gastrointestinal: No abdominal pain, No constipation, No diarrhea, No nausea, No vomiting Genitourinary: no symptoms reported Musculoskeletal: back pain Skin: No rash Psychiatric/Neurological: No Symptoms Reported Reviewed Test Results Reviewed Test Results Lab Laboratory Tests 03/10/18 13:00: Glucometer 244H 03/10/18 13:20: White Blood Count 13.3H, Red Blood Count 4.49, Hemoglobin 10.7L, Hematocrit 34L , Mean Corpuscular Volume 76L, Mean Corpuscular Hemoglobin 24L, Mean Corpuscular Hemoglobin Concent 31L, Red Cell Distribution Width 17.7H, Platelet Count 321, Mean Platelet Volume 10.1, Neutrophils (%) (Auto) 61, Lymphocytes (% ) (Auto) 29, Monocytes (%) (Auto) 8, Eosinophils (%) (Auto) 1, Basophils (%) ( Auto) 0, Neutrophils # (Auto) 8.1H, Lymphocytes # (Auto) 3.9, Monocytes # (Auto ) 1.1H, Eosinophils # (Auto) 0.2, Basophils # (Auto) 0.0, Prothrombin Time 13.4 , INR Comment 1.0, Activated Partial Thromboplast Time 24, D-Dimer 1.48H, Sodium Level 136, Potassium Level 4.4, Chloride Level 102, Carbon Dioxide Level 25, Anion Gap 9, Blood Urea Nitrogen 34H, Creatinine 1.63H, Estimat Glomerular Filtration Rate 37, BUN/Creatinine Ratio 21, Glucose Level 265H, Calcium Level 10.3H, Corrected Calcium 10.3H, Magnesium Level 1.8, Total Bilirubin 0.5, Aspartate Amino Transf (AST/SGOT) 18, Alanine Aminotransferase (ALT/SGPT) 14, Alkaline Phosphatase 89, Myoglobin 40.4, Troponin I < 0.30, Total Protein 6.9, Albumin 4.0 03/10/18 14:25: Urine Color YELLOW, Urine Clarity CLEAR, Urine pH 5, Urine Specific [place] 1.015L, Urine Protein 2+H, Urine Glucose (UA) NEGATIVE, Urine Ketones NEGATIVE, Urine Nitrite NEGATIVE, Urine Bilirubin NEGATIVE, Urine Urobilinogen 1, Urine Leukocyte Esterase 1+H, Urine RBC (Auto) NEGATIVE, Urine RBC 0-2, Urine WBC NONE , Urine Squamous Epithelial Cells 5-10, Urine Crystals NONE, Urine Amorphous Sediment FEW JAZZ URATESH, Urine Bacteria TRACE, Urine Casts PRESENT, Urine Hyaline Casts 10-25H, Urine Mucus NEGATIVE, Urine Culture Indicated NO 03/11/18 03:08: White Blood Count 9.5, Red Blood Count 4.20L, Hemoglobin 9.9L, Hematocrit 32L, Mean Corpuscular Volume 77L, Mean Corpuscular Hemoglobin 24L, Mean Corpuscular Hemoglobin Concent 31L, Red Cell Distribution Width 17.5H, Platelet Count 280, Mean Platelet Volume 10.3, Sodium Level 137, Potassium Level 4.4, Chloride Level 108H, Carbon Dioxide Level 18L, Anion Gap 11, Blood Urea Nitrogen 32H, Creatinine 1.12, Estimat Glomerular Filtration Rate 57, BUN/Creatinine Ratio 29 , Glucose Level 194H, Calcium Level 9.8, Magnesium Level 1.7L, Phosphorus Level 3.5 Radiology CXR 03/10 Unremarkable 03/10 Cardiac catheterization, temporary pacemaker placement Physical Exam-(CHC) Physical Exam Vital Signs VS - Last 72 Hours, by Label 9/10/18 03/10/18 03/10/18 03/10/18 12:52 14:00 14:33 15:04 Temp 97.5 97.6 Pulse 64 60 60 Resp 14 12 18 B/P (MAP) 100/59 (73) 120/68 132/65 Pulse Ox 100 98 100 100 O2 Delivery OxyMask OxyMask O2 Flow Rate 8.00 8.00 03/10/18 03/10/18 03/10/18 03/10/18 16:40 16:45 17:00 17:00 Temp 97.4 Pulse 54 63 60 Resp 14 17 20 B/P (MAP) 133/96 (108) 127/55 (79) 133/74 (93) Pulse Ox 100 100 100 100 O2 Delivery OxyMask OxyMask OxyMask OxyMask O2 Flow Rate 5.00 5.00 5.00 5.00 03/10/18 03/10/18 03/10/18 03/10/18 17:15 17:30 17:45 18:00 Pulse 61 63 62 67 Resp 14 9 10 35 B/P (MAP) 135/59 (84) 117/64 (81) 127/75 (92) 106/53 (70) Pulse Ox 100 100 100 100 O2 Delivery OxyMask OxyMask OxyMask OxyMask O2 Flow Rate 5.00 5.00 5.00 5.00 03/10/18 03/10/18 03/10/18 03/10/18 18:15 18:30 18:45 19:00 Pulse 70 68 66 66 Resp 28 13 9 10 B/P (MAP) 120/59 (79) 114/69 (84) 123/85 (98) 144/68 (93) Pulse Ox 100 99 100 100 O2 Delivery OxyMask OxyMask OxyMask OxyMask O2 Flow Rate 5.00 5.00 5.00 5.00 03/10/18 03/10/18 03/10/18 03/10/18 19:00 19:15 20:00 20:00 Temp 97.3 Pulse 66 60 55 Resp 7 18 B/P (MAP) 130/84 (99) 123/66 (85) Pulse Ox 100 100 100 O2 Delivery OxyMask OxyMask OxyMask O2 Flow Rate 5.00 5.00 5.00 03/10/18 03/10/18 03/10/1810/18 21:00 21:15 21:18 21:30 Pulse 70 69 66 Resp 17 15 11 B/P (MAP) 147/83 (104) 157/71 (99) 126/69 (88) Pulse Ox 100 100 100 O2 Delivery OxyMask OxyMask Nasal Cannula OxyMask O2 Flow Rate 5.00 5.00 5.00 5.00 03/10/18 03/10/18 03/10/18 03/10/18 21:45 22:00 22:20 22:30 Pulse 67 57 60 73 Resp 11 11 15 19 B/P (MAP) 100/50 (67) 91/51 (64) 82/59 (67) 128/70 (89) Pulse Ox 100 100 100 100 O2 Delivery OxyMask OxyMask OxyMask OxyMask O2 Flow Rate 5.00 5.00 2.00 2.00 03/10/18 03/10/18 03/10/18 03/10/18 22:45 23:00 23:15 23:30 Pulse 52 63 68 70 Resp 11 13 11 21 B/P (MAP) 133/78 (96) 124/64 (84) 133/57 (82) 142/119 (127) Pulse Ox 100 100 100 100 O2 Delivery OxyMask OxyMask OxyMask OxyMask O2 Flow Rate 2.00 2.00 2.00 2.00 03/10/18 03/10/18 03/11/18 03/11/18 23:45 23:55 00:00 00:00 Temp 97.4 Pulse 64 67 66 Resp 17 27 14 B/P (MAP) 137/73 (94) 95/53 (67) Pulse Ox 100 100 100 100 O2 Delivery OxyMask Room Air Room Air Room Air O2 Flow Rate 2.00 03/11/18 03/11/18 03/11/18 03/11/18 01:00 01:00 02:00 03:00 Pulse 64 64 59 64 Resp 9 23 17 B/P (MAP) 129/68 (88) 130/59 (82) 150/80 (103) Pulse Ox 99 100 98 O2 Delivery Room Air Room Air Room Air 03/11/18 03/11/18 03/11/18 03/11/18 04:00 04:00 04:00 05:00 Temp 98.4 Pulse 57 60 Resp 11 35 B/P (MAP) 140/68 (92) 156/74 (101) Pulse Ox 100 100 99 O2 Delivery Room Air Room Air Room Air 03/11/18 03/11/18 03/11/18 03/11/18 06:00 07:00 07:00 08:00 Temp 98.0 Pulse 79 66 66 69 Resp 25 17 14 B/P (MAP) 165/93 (117) 160/85 (110) 158/72 (100) Pulse Ox 98 98 100 O2 Delivery Room Air Room Air Room Air 03/11/18 03/11/18 03/11/18 08:00 09:00 10:00 Pulse 80 66 Resp 18 17 B/P (MAP) 163/92 (115) 162/86 (111) Pulse Ox 100 100 97 O2 Delivery Room Air Room Air Room Air Capillary Refill : Less Than 3 Seconds General Appearance: WD/WN, no apparent distress Respiratory: lungs clear, normal breath sounds Cardiovascular: regular rate, rhythm, no murmur Gastrointestinal: normal bowel sounds, non tender, soft Extremities: no pedal edema Neurologic/Psychiatric: alert, normal mood/affect Skin: normal color, warm/dry Assessment/Plan Assessment/Plan Admission Dx Severe bradycardia Severe hypotension Coronary artery disease Admission Status: Inpatient Order (span 2 midnights) Reason for Inpatient Admission: Patient with severe symptomatic bradycardia requiring emergent intervention, anticipate 2 overnights to stabilize. (1) Severe sinus bradycardia Status: Acute Assessment & Plan: Cardiology consulted, s/p temporary pacemaker placement, holding beta gail to determine next steps. Echocardiogram with EF 50-55%, grade 1 diastolic dysfunction. BP stable this am after pacemaker placement. (2) Coronary artery disease Status: Chronic Assessment & Plan: With history of stenting x 4. Cardiac cath done yesterday with no significant CAD and patent stents in left circumflex and LAD. Normal LV function and LVEDP. Continue asa. Qualifiers: (3) Vascular dementia Status: Chronic Assessment & Plan: On rivastigmine and Geodon at home. Holding rivastigmine due to possibility of bradycardia. No behavioral concerns since admission. Qualifiers: Qualified Codes: F01.51 - Vascular dementia with behavioral disturbance (4) Hypertension Status: Chronic Assessment & Plan: Holding metoprolol and losartan. Lisinopril ordered per Cardiology. Qualifiers: Qualified Codes: I10 - Essential (primary) hypertension (5) Diabetes mellitus, type 2 Status: Chronic Assessment & Plan: Diet- controlled, will check when last A1c done. ACHS glucose checks. Qualifiers: (6) Hyperlipidemia Status: Chronic Assessment & Plan: On pravastatin at home. Held and will start more potent statin given her CAD and DMII (7) Anemia Status: Chronic Assessment & Plan: Mixed anemia of chronic disease and iron deficiency. Work up in 2013 included EGD and colonoscopy which showed esophagitis, diverticulosis. Stable. Qualifiers: Qualified Codes: N18.3 - Chronic kidney disease, stage 3 (moderate); D63.1 - Anemia in chronic kidney disease (8) Acute kidney injury superimposed on chronic kidney disease Status: Acute Assessment & Plan: Chronic stage 3 CKD, follows with Nephrology. Creatinine improved today. (9) Chronic neck pain Status: Chronic Assessment & Plan: Per patient has been off of hydrocodone for about a month, will hold. (10) Elevated d-dimer Status: Acute Assessment & Plan: Suspect secondary to CKD and heart disease, no clinical evidence of clot. (11) DVT prophylaxis Status: Acute Assessment & Plan: Unknown if further procedures will be done, will defer to Cardiology for now. Clinical Quality Measures DVT/VTE Risk/Contraindication: Risk Factor Score Per Nursin RFS Level Per Nursing on Admit: 4+=Very High KRISH WEBBER MD Mar 11, 2018 10:41 am
[2018-03-11] MEDS ORDERED: POLYETHYLENE GLYCOL 17 GM (MIRALAX) PACK PO PRN (10:45)
--- OUTSIDE RECORDS SUMMARY | 2018-03-11 10:56 | XMS REPORT | Continuity of Care Document ---
Author Author Formerly [facility] Address Unknown Phone Unavailable Allergies Active Description Code Type Severity Reaction Onset Reported/Identified Relationship to Patient Clinical Status Yes No Known Drug Allergies [id number] Drug Allergy Unknown N/A 07/04/2007 Medications There [...] FACP CCDS Ot 414.01 CORONARY ATHEROSCLEROSIS OF [place] CORON 11/07/2012 DUANE POSEY MD, FACC FACP [...] PATEL DO Ot 414.01 CORONARY ATHEROSCLEROSIS OF [place] CORON 01/29/2013 JORDY PATEL DO Ot 426.4 [...] 280.9 IRON DEFIC ANEMIA NOS 10/10/2013 JUNIE MILAN MD Ot 403.90 HYPTNSV CHR KID DIS, UNSPEC, W CHR KD ST 10/10/2013 JUNIE MILAN MD Ot 412 OLD MYOCARDIAL INFARCT 10/10/2013 JUNIE MILAN MD Ot 414.01 CORONARY ATHEROSCLEROSIS OF [place] CORON 10/10/2013 JUNIE MILAN MD Ot 426.4 [...] LOPEZ MD Ot 401.9 HYPERTENSION NOS 11/06/2013 LAKIA LOPEZ MD Ot 412 OLD MYOCARDIAL INFARCT 11/06/2013 LAKIA LOPEZ MD Ot 414.01 CORONARY ATHEROSCLEROSIS OF [place] CORON 11/06/2013 LAKIA LOPEZ MD Ot 493.90 [...] MD E Ot 414.01 CORONARY ATHEROSCLEROSIS OF [place] CORON 12/04/2013 LETICIA CONWAY MD E Ot [...] COLON (W/O MENT OF HEMORR 12/30/2013 NIDHI RODRIGUEZ MD Ot 569.3 RECTAL ANAL HEMORRHAGE 01/05/2014 [...] COLIN SILVER DO Ot 278.00 09/26/2015 NADEEM PINEDA COLIN Sánchez Ot 496 09/26/2015 NADEEM PINEDA COLIN Sánchez Ot 793.11 09/26/2015 EZEKIEL MEDINA PETE Garza Ot V76.12 09/26/2015 EZEKIEL MEDINA PETE Garza Ot 793.80 09/26/2015 NADEEM PINEDA COLIN Sánchez Ot 493.20 09/26/2015 NADEEM PINEDA COLIN Sánchez Ot 786.05 09/26/2015 NADEEM PINEDA [...] MD, Ot I25.10 ATHSCL HEART DISEASE OF [place] CORONARY 09/28/2015 FER LEIJA MD, Ot I27.2 [...] MD Ot 573.3 HEPATITIS NOS 12/29/2016 JUNIE MILAN MD Ot 780.4 DIZZINESS AND GIDDINESS 12/29/2016 [...] R06.00 DYSPNEA, UNSPECIFIED 10/30/2017 NEW, PEBBLES Gómez PHOTOGRAPHER PORTRAIT-C Ot E11.9 TYPE 2 DIABETES MELLITUS WITHOUT COMPLIC 10/30/2017 NEW, PEBBLES Gómez PHOTOGRAPHER PORTRAIT-C Ot E55.9 VITAMIN D DEFICIENCY, UNSPECIFIED 10/30/2017 NEW, PEBBLES Gómez PHOTOGRAPHER PORTRAIT-C Ot E78.5 HYPERLIPIDEMIA, UNSPECIFIED 10/30/2017 NEW, PEBBLES GlOe PHOTOGRAPHER PORTRAIT-C Ot E87.5 HYPERKALEMIA 10/30/2017 NEW, PEBBLES Gómez PHOTOGRAPHER PORTRAIT-C Ot F03.90 UNSPECIFIED DEMENTIA WITHOUT BEHAVIORAL 10/30/2017 NEWPEBBLES GOle PHOTOGRAPHER PORTRAIT-C Ot I12.9 HYPERTENSIVE CHRONIC KIDNEY DISEASE W ST 10/30/2017 NEWPEBBLES PHOTOGRAPHER PORTRAIT-C Ot I25.10 ATHSCL HEART DISEASE OF [place] CORONARY 10/30/2017 NEW, PEBBLES Gómez PHOTOGRAPHER PORTRAIT-C Ot M79.7 FIBROMYALGIA 10/30/2017 NEW, PEBBLES G. PHOTOGRAPHER PORTRAIT-C Ot N18.3 CHRONIC KIDNEY DISEASE, STAGE 3 (MODERAT 10/30/2017 NEW, PEBBLES GOle PHOTOGRAPHER PORTRAIT-C Ot R60.9 EDEMA, UNSPECIFIED 11/19/2017 NEW, PEBBLES G. PHOTOGRAPHER PORTRAIT-C Ot E11.9 TYPE 2 DIABETES MELLITUS WITHOUT COMPLIC 11/19/2017 NEW, PEBBLES G. PHOTOGRAPHER PORTRAIT-C Ot E55.9 VITAMIN D DEFICIENCY, UNSPECIFIED 11/19/2017 NEWPEBBLES GOle PHOTOGRAPHER PORTRAIT-C Ot E78.5 HYPERLIPIDEMIA, UNSPECIFIED 11/19/2017 NEW, PEBBLES Gómez PHOTOGRAPHER PORTRAIT-C Ot E87.5 HYPERKALEMIA 11/19/2017 NEW, PEBBLES Gómez PHOTOGRAPHER PORTRAIT-C Ot F03.90 UNSPECIFIED DEMENTIA WITHOUT BEHAVIORAL 11/19/2017 NEW, PEBBLES Gómez PHOTOGRAPHER PORTRAIT-C Ot I12.9 HYPERTENSIVE CHRONIC KIDNEY DISEASE W ST 11/19/2017 NEW, PEBBLES MccoyOle PHOTOGRAPHER PORTRAIT-C Ot I25.10 ATHSCL HEART DISEASE OF [place] CORONARY 11/19/2017 NEW, PEBBLES MccoyOle PHOTOGRAPHER PORTRAIT-C Ot M79.7 FIBROMYALGIA 11/19/2017 NEW, PEBBLES MccoyOle PHOTOGRAPHER PORTRAIT-C Ot N18.3 CHRONIC KIDNEY DISEASE, STAGE 3 (MODERAT 11/19/2017 NEW, PEBBLES MccoyOle PHOTOGRAPHER PORTRAIT-C Ot R60.9 EDEMA, UNSPECIFIED 12/02/2017 NEW, PEBBLES MccoyOle PHOTOGRAPHER PORTRAIT-C Ot E11.9 TYPE 2 DIABETES MELLITUS WITHOUT COMPLIC 12/02/2017 NEW, PEBBLES MccoyOle PHOTOGRAPHER PORTRAIT-C Ot E55.9 VITAMIN D DEFICIENCY, UNSPECIFIED 12/02/2017 NEW, PEBBLES MccoyOle PHOTOGRAPHER PORTRAIT-C Ot E78.5 HYPERLIPIDEMIA, UNSPECIFIED 12/02/2017 NEW, PEBBLES MccoyOle PHOTOGRAPHER PORTRAIT-C Ot E87.5 HYPERKALEMIA 12/02/2017 NEW, PEBBLES Gómez PHOTOGRAPHER PORTRAIT-C Ot F03.90 UNSPECIFIED DEMENTIA WITHOUT BEHAVIORAL 12/02/2017 NEW, PEBBLES MccoyOle PHOTOGRAPHER PORTRAIT-C Ot I12.9 HYPERTENSIVE CHRONIC KIDNEY DISEASE W ST 12/02/2017 NEW, PEBBLES MccoyOle PHOTOGRAPHER PORTRAIT-C Ot I25.10 ATHSCL HEART DISEASE OF [place] CORONARY 12/02/2017 NEW, PEBBLES GOle PHOTOGRAPHER PORTRAIT-C Ot M79.7 FIBROMYALGIA 12/02/2017 NEW, PEBBLES MccoyOle PHOTOGRAPHER PORTRAIT-C Ot N18.3 CHRONIC KIDNEY DISEASE, STAGE 3 (MODERAT 12/02/2017 NEW, PEBBLES MccoyOle PHOTOGRAPHER PORTRAIT-C Ot R60.9 EDEMA, UNSPECIFIED Procedures Code Description Performed By Performed On 53.41 OTHER OPEN REPAIR UMBILICAL HERNIA W G 07/28/2009 53.61 OTHER OPEN INCISIONAL HERNIA REPAIR WITH 07/28/2009 45.16 ESOPHAGOGASTRODUODENOSCOPY [ EGD] W/CLOSE 11/07/2012 45.16 ESOPHAGOGASTRODUODENOSCOPY [ EGD] W/CLOSE 10/09/2013 96.04 INSERT ENDOTRACHEAL TUBE 11/25/2013 96.71 CONTINUOUS INVASIVE MECHANICAL VENTILATI 11/25/2013 85481 ROUTINE VENIPUNCTURE 03/23/2014 60132 CMP 03/23/2014 [id number] GFR CALC (RESULT ONLY) 03/23/2014 09058 CBC 03/23/2014 63712 CRP 03/23/2014 93537 MAMMOGRAM DX, RIGHT 04/29/2014 82551 MAMMOGRAM, SCREENING 04/29/2014 Results Test Result Range [...] Status Pt. Type Provider Facility Loc./Unit Complaint [id number] 09/16/2014 16:35:00 09/16/2014 23:59:59 CLS Outpatient PETE FALCON MD [id number] 04/21/2014 14:48:00 04/21/2014 23:59:59 CLS Outpatient PETE FALCON MD [id number] 03/23/2014 10:35:00 03/23/2014 23:59:59 CLS Outpatient PETE FALCON MD [id number] 02/10/2014 13:01:00 02/10/2014 23:59:59 CLS Outpatient PETE FALCON MD [id number] 01/28/2014 12:18:00 01/28/2014 23:59:59 CLS Outpatient PETE FALCON MD [id number] 07/12/2014 14:07:00 ACT Document Registration [id number] 10/31/2017 13:20:00 10/31/2017 23:59:59 CLS Outpatient ELIEL SMITH [facility] [id number] 02/07/2018 14:20:00 Document Registration [id number] 07/25/2017 15:20:00 Document Registration [id number] 03/14/2017 08:00:00 Document Registration [id number] 10/29/2017 08:49:00 10/29/2017 23:59:59 CLS Outpatient PEBBLES SEGAL [facility] RAD HTN,CHRONIC KIDNEY DISEASE STAGE 3 [id number] 09/26/2015 11:40:00 09/28/2015 15:30:00 DIS Inpatient FER LEIJA MD [facility] 4TH ACUTE ON CHRONIC RENAL FAILURE ACUTE BRONCHITIS [id number] 06/17/2015 16:57:00 06/17/2015 23:59:59 CLS Outpatient PETE FALCON MD [facility] RAD INCREASED DYSPNEA [id number] 07/12/2014 14:06:00 07/12/2014 23:59:59 CLS Outpatient COLIN SILVER DO [facility] RT COPD ASTHMA [id number] 07/06/2014 13:25:00 07/06/2014 23:59:59 CLS Outpatient PETE FALCON MD [facility] RAD ABN MAMMO [id number] 07/02/2014 10:08:00 07/02/2014 23:59:59 CLS Outpatient COLIN SILVER DO [facility] RAD COPD,LUNG NODULE [id number] 06/18/2014 11:26:00 06/18/2014 23:59:59 CLS Outpatient PETE FALCON MD [facility] RAD SCREENING [id number] 10/07/2013 13:40:00 01/05/2014 00:01:00 DIS Outpatient JUNIE MILAN MD [facility] ONC [id number] 01/04/2014 11:49:00 01/04/2014 23:59:59 CLS Outpatient COLIN SILVER DO [facility] RAD LUNG NODULE [id number] 12/30/2013 08:32:00 12/30/2013 10:27:00 DIS Outpatient NIDHI RODRIGUEZ MD [facility] SDC ANEMIA [id number] 12/23/2013 07:22:00 12/23/2013 23:59:59 CLS Outpatient NIDHI RODRIGUEZ MD [facility] PREOP ANEMIA [id number] 11/29/2013 12:38:00 12/04/2013 14:50:00 DIS Inpatient LETICIA CONWAY MD [facility] IRF AMS;ARF;THYROID DYSFUNCTION [id number] 12/02/2013 07:13:00 12/02/2013 23:59:59 CLS Outpatient NIDHI RODRIGUEZ MD [facility] PREOP ANEMIA [id number] 11/25/2013 18:04:00 11/25/2013 23:59:59 CLS Inpatient JORDY PATEL DO [facility] 4TH AMS;ARF;THYROID DYSFUNCTION [id number] 11/04/2013 22:10:00 11/06/2013 12:48:00 DIS Inpatient JESSICA MEDINA, LAKIA Sánchez [facility] 4TH DEHYDRATION; GENERALIZED WEAKNESS [id number] 10/07/2013 15:25:00 10/10/2013 17:15:00 DIS Inpatient JUNIE MILAN MD [facility] 4TH ANEMIA,SOA [id number] 07/08/2013 13:03:00 07/31/2013 12:02:00 DIS Outpatient MELANY ABBOTT MD [facility] REHAB LUMBAGO [id number] 04/24/2013 08:39:00 04/24/2013 23:59:59 [facility] Outpatient MOHINDER POLK DO [facility] RAD LUMBAR RADICULOPATHY [id number] 01/26/2013 17:29:00 01/29/2013 18:30:00 DIS Inpatient JORDY PATEL DO [facility] 4TH DELIRIUM,UTI,SLEEP DEPRIVATION,CHRONIC PAIN SYNDRO [id number] 11/04/2012 14:00:00 11/07/2012 16:40:00 DIS Inpatient KALPESH MEDINA FACC, DUANE DORSEY CCDS [facility] CSD SOA [id number] 06/17/2014 09:58:00 Document Registration [id number] 06/17/2014 09:58:00 Document Registration [id number] 06/17/2014 09:58:00 Document Registration [id number] 06/17/2014 09:58:00 Document Registration [id number] 01/06/2014 00:00:00 Document Registration [id number] 09/29/2012 13:11:00 Document Registration [id number] 05/20/2012 19:00:00 Document Registration [id number] 01/14/2012 10:41:00 Document Registration [id number] 12/13/2011 15:33:00 Document Registration [id number] 08/23/2011 16:56:00 Document Registration [id number] 07/30/2011 08:52:00 Document Registration [id number] 04/30/2011 11:56:00 Document Registration [id number] 01/29/2011 11:32:00 Document Registration [id number] 12/01/2010 05:50:00 Document Registration [id number] 11/23/2010 14:03:00 Document Registration [id number] 11/23/2010 14:01:00 Document Registration [id number] 11/07/2010 09:37:00 Document Registration [id number] 06/22/2010 05:44:00 Document Registration [id number] 06/16/2010 13:10:00 Document Registration [id number] 08/31/2009 08:32:00 Document Registration [id number] 07/25/2009 08:32:00 Document Registration [id number] 05/24/2009 15:21:00 Document Registration [id number] 03/28/2009 15:30:00 Document Registration
[2018-03-11] MEDS ORDERED: NS IV 1000 ML 1,000 ML IV ONE (14:17)
[2018-03-11] MEDS ORDERED: fentaNYL INJECTION 100 MCG/2 ML AMP ONE ×2 (14:23→15:21)
[2018-03-11] MEDS ORDERED: MIDAZOLAM 5 MG/5 ML (VERSED) VIAL ONE ×2 (14:23→15:21)
[2018-03-11] MEDS ORDERED: NS IV 1000 ML 0 ML ONE (14:23)
[2018-03-11] MEDS ORDERED: NS (IVPB) 50 ML ONE (14:27)
[2018-03-11] MEDS ORDERED: NS IV 1000 ML 1,000 ML ONE (14:28)
[2018-03-11] MEDS ORDERED: LIDOCAINE 1% INJ 20 ML 20 ML VIAL ONE (14:28)
[2018-03-11] MEDS ORDERED: HEParin 1000 UNIT/ML (10ML VIAL) FOR BOLUS ONE (14:28)
[2018-03-11] MEDS ORDERED: ceFAZolin 1,000 MG/10 ML (ANCEF) VIAL IV ONE (14:30)
[2018-03-11] MEDS ORDERED: BACITRACIN 50000 UNITS/500 ML NS IR ONE ×2 (14:30)
[2018-03-11] MEDS ORDERED: BACITRACIN INJECTION 50,000 UNIT, SODIUM CHLORIDE 0.9% IRRIGATIO 500 ML IR ONE ×2 (14:30)
--- NOTE | 2018-03-11 14:34 | Cardiology Progress Note ---
Cardiology SOAP Progress Note Subjective: No further chest pain. No other cardiac complaints. Bed rest since yesterday due to temporary pm from right femoral vein. Objective: I&O/Vital Signs 03/11/18 03/11/18 03/11/18 03/11/18 03:00 04:00 04:00 04:00 Temp 98.4 Pulse 64 57 Resp 17 11 B/P (MAP) 150/80 (103) 140/68 (92) Pulse Ox 98 100 100 O2 Delivery Room Air Room Air Room Air 03/11/18 03/11/18 03/11/18 03/11/18 05:00 06:00 07:00 07:00 Pulse 60 79 66 66 Resp 35 25 17 B/P (MAP) 156/74 (101) 165/93 (117) 160/85 (110) Pulse Ox 99 98 98 O2 Delivery Room Air Room Air Room Air 03/11/18 03/11/18 03/11/18 03/11/18 08:00 08:00 09:00 10:00 Temp 98.0 Pulse 69 80 66 Resp 14 18 17 B/P (MAP) 158/72 (100) 163/92 (115) 162/86 (111) Pulse Ox 100 100 100 97 O2 Delivery Room Air Room Air Room Air Room Air 03/11/18 03/11/18 03/11/18 03/11/18 11:00 12:00 12:00 13:00 Pulse 65 78 68 Resp 14 13 B/P (MAP) 162/79 (106) 134/78 (96) Pulse Ox 98 100 100 O2 Delivery Room Air Room Air Room Air 03/11/18 13:00 Pulse 83 Resp 13 B/P (MAP) 146/87 (106) Pulse Ox 100 O2 Delivery Room Air 03/11/18 00:00 Intake Total 2440 ml Output Total 450 ml Balance 1990 ml Weight (Pounds): 284 Weight (Ounces): 0.0 Weight (Calculated Kilograms): 128.308071 Constitutional: appears stated age, AAO x 3, well-developed, well-nourished Respiratory: No accessory muscle use, No respiratory distress, No chest tender , No chest expansion is symmetric; chest is bilaterally symmetric; No lungs clear to percussion; lungs clear to auscultation; No crackles, No rhonchi, No rales, No stridor, No wheezing, No pleural rub, No other Cardiovascular: regular rate-rhythm; No irregularly irregular, No extra beats, No parasternal heave is noted, No JVD, No edema, No bradycardia, No tachycardia , No point of maximal impulse, No cardiac thrills are palpable; S1 and S2; No gallop/S3, No gallop/S4, No diastolic murmur, No systolic murmur, No friction rub, No click, No other Gastrointestional: No tender, No soft, No round, No distended, No pulsatile mass, No organomegaly, No guarding, No rebound, No tenderness, No hernia, No mass, No audible bowel sounds, No abnormal bowel sounds, No abdominal bruits, No spleenomegaly, No other Extremities: No normal range of motion, No non-tender, No normal inspection, No pedal edema, No calf tenderness, No normal capillary refill, No pelvis stable , No calf tenderness, No inflammation, No pedal edema, No slow capillary refill , No swelling, No other, No abrasion, No clubbing, No cyanosis, No ecchymosis, No laceration, No no lower extremity edema bilateral, No significant edema, No tenderness, No wound Neurologic/Psychiatric: no motor/sensory deficits, alert, normal mood/affect, oriented x 3, power is 5/5 both on sides Skin: No normal color, No warm/dry, No cyanosis, No cool, No diaphoresis, No damp, No ecchymosis, No jaundice, No mottled, No pallor, No rash, No tattoos/ piercings, No ulcerations, No rash on exposed areas, No ulcerations on exposed areas, No other Results/Procedures: Labs Laboratory Tests 03/11/18 03:08: White Blood Count 9.5, Red Blood Count 4.20L, Hemoglobin 9.9L, Hematocrit 32L, Mean Corpuscular Volume 77L, Mean Corpuscular Hemoglobin 24L, Mean Corpuscular Hemoglobin Concent 31L, Red Cell Distribution Width 17.5H, Platelet Count 280, Mean Platelet Volume 10.3, Sodium Level 137, Potassium Level 4.4, Chloride Level 108H, Carbon Dioxide Level 18L, Anion Gap 11, Blood Urea Nitrogen 32H, Creatinine 1.12, Estimat Glomerular Filtration Rate 57, BUN/Creatinine Ratio 29 , Glucose Level 194H, Calcium Level 9.8, Phosphorus Level 3.5, Magnesium Level 1.7L A/P: Assessment/Dx: Chest pain, previous history of significant CAD and PCI, Near syncope with severe bradycardia and hypotension, Acute kidney injury Plan: Chest pain, previous history of significant CAD and PCI, coronary angiography was done yesterday which did not reveal any significant CAD. Patent stent in the circumflex artery as well as mid LAD. Patient was restarted on aspirin and statin. SHILPA inhibitor was also started. No further beta blockers were given. However beta blockers are recommended due to history of CAD. Near syncope with severe bradycardia and hypotension: Temporary pacemaker was placed yesterday. Overnight patient was bradycardic and paced rhythm was noted. Temporary pacemaker was set up to pace below 50 BPM heart rate. Patient has been off metoprolol for almost 24 hours. Stable blood pressure. Patient will require beta blockers due to coronary artery disease and multiple PCI. Therefore permanent pacemaker is recommended. On patient's request I discussed with patient's hr recruiter in [place] Dr. Anne. He agreed with a permanent pacemaker as well. We will go ahead and schedule it today. Echocardiogram showed normal EF. Dual-chamber permanent pacemaker will be implanted. Hypertension: Systolic blood pressure 170 mmHg. Will start lisinopril 10 mg. Acute kidney injury, on IV fluids. Improved creatinine. Dual-chamber permanent pacemaker were discussed at length with the patient. All risk and complications were discussed at length with the patient including infection, pneumothorax, cardiac tamponade, vascular damage, bleeding. Patient understood all risks and gave informed consent. Thank you for your consultation. Please call me if you have any questions. Blanca Link MD, FACP, FACC, FSCAI, FHRS, CCDS Interventional Cardiology Cardiac Electrophysiology Vascular Medicine and Endovascular Interventions Gonzalo LINK MD Mar 11, 2018 2:34 pm
--- NOTE | 2018-03-11 14:35 | Cardiac Procedure Note-CS/ASA ---
Pre-Procedure Note Pre-Op Procedure Note H&P Reviewed The H&P was reviewed, patient examined and no changes noted. Date H&P Reviewed: Mar 11, 2018 Time H&P Reviewed: 14:34 Conscious Sedation Pre-Proced Time Reviewed: 14:34 ASA Class: 3 Airway Mallampati Classification: ([place] appropriate class) I. II. III, IV Lungs Heart ASA score ASA 1: a normal healthy patient ASA 2: a patient with a mild systemic disease (mid diabetes, controlled hypertension, obesity ASA 3: a patient with a severe systemic disease that limits activity (angina , COPD, prior Myocardial infarction) ASA 4: a patient with an incapacitating disease that is a constant threat to life (CHF, renal failure) ASA 5: a moribund patient not expected to survive 24 hrs. (ruptured aneurysm) ASA 6: a declared brain patient whose organs are being harvested. For emergent operations, add the letter E after the classification Grade 1 Sedation Plan: Analgesia, Amnesia, Plan communicated to team members, Discussed options with patient/fam, Discussed risks with patient/fam Note The patient is an appropriate candidate to undergo the planned procedure, sedation, and anesthesia. The patient immediately re-assessed prior to indication. Gonzalo ORR MD Mar 11, 2018 2:35 pm
[2018-03-11] MEDS ORDERED: KETAMINE HCL 100 MG/ML 5 ML VIAL ONE (16:45)
--- NOTE | 2018-03-11 16:57 | Progress Note-Standard ---
Standard Progress Note Progress Notes/Assess & Plan Date Seen by Provider: Mar 11, 2018 Time Seen by Provider: 16:20 Progress/Assessment & Plan consulted for rescue sedation. start time 1625 end time 1645. 20mg ketamine iv given. ASA 3. sedation Mac. pt tolerated procedure well.. IGGY QUINTERO CRNA Mar 11, 2018 16:57
[2018-03-11] MEDS ORDERED: NEO/POLY/BAC (NEOSPORIN) OINT 15 GM TUBE ONE (17:02)
[2018-03-11] MEDS ORDERED: NS IV 1000 ML 1,000 ML IV SCH (17:11)
[2018-03-11] MEDS ORDERED: PATIENT MAY USE OWN MEDS, ALL PO SCH (17:15)
--- NOTE | 2018-03-11 17:24 | Permanent Pacemaker Implant ---
Dual Chamber Pacemaker Implant PROCEDURE PHYSICIAN: Blanca Link MD DUAL CHAMBER PACEMAKER IMPLANTATION: DATE OF PROCEDURE: 03/11/18 REFERRING PHYSICIAN: Dr. Holman ATTENDING PHYSICIAN: Dr. Link INDICATION: Severe bradycardia, Hypotension, Syncope, CAD. PREOPERATIVE DIAGNOSIS: Severe bradycardia, Hypotension, Syncope, CAD. POSTOPERATIVE DIAGNOSIS: Dual chamber permanent pacemaker implantation. HISTORY: This is a 77-year-old lady who presented yesterday with severe bradycardia, syncope and hypotension with systolic blood pressure of 60 mmHg. She has history of coronary artery disease with multiple PCI and is on metoprolol. She also complained of chest pain with no significant ST-T wave abnormalities. Coronary angiography was done which showed no significant CAD with patent stents in the left circumflex artery and mid LAD. Normal LV function. A temporary pacemaker was placed. The right femoral vein access. Patient was observed overnight in the ICU. No further metoprolol was given. However patient continued to intermittently RV pace, even almost 24 hours after the metoprolol was already discontinued. I discussed at length with the patient. Permanent pacemaker is recommended for severe symptomatic bradycardia and because she requires metoprolol for coronary artery disease and PCI. Dual- chamber permanent pacemaker was recommended. PROCEDURE PERFORMED: 1. Dual-chamber permanent pacemaker implantation. 2. Fluoroscopy. 3. Central venous access. 4. Left subclavian/axillary venogram. 5. Removal of temporary pacemaker from right femoral vein access. ANESTHESIA: Local anesthesia, conscious sedation. COMPLICATIONS: None. ESTIMATED BLOOD LOSS:20 mL. SPECIMENS: None. ORAL ANTICOAGULATION: None. FLUOROSCOPY TIME: 13.4 minutes. FLUOROSCOPY DOSE: 206 mgy. CONTRAST DOSE: 20 mL. PROCEDURE DETAILS: The patient is a 77 female and after all of the patients questions were answered, the patient was brought to the EP Lab. The patient's left chest was prepped and draped in sterile fashion. A 2 inch horizontal incision was made 1 cm below the clavicle and dissection carried down to the pectoralis fascia. Left upper extremity venogram was done. It showed left subclavian vein moderate stenosis. Using the modified Seldinger technique and under fluoroscopy guidance, the anterior aspect of the left axillary vein was accessed 2 times. The J wires were secured to the drapes with a mosquito clamp. A 7-Yoruba long sheath was introduced over one of the J-wires. The RV lead was then inserted. The RV lead was directed across the tricuspid valve to the apical septal portion of the right ventricle. The position was checked in TIMOTHY and VICENTE views. The screw was deployed and the lead connected to the android programmer. Close sensing and pacing thresholds were obtained. Diaphragmatic pacing was ruled out. The lead was secured with 2-0 silk ties to the underlying muscle and fascia. Next, a 7-Yoruba long sheath was introduced through the remaining J-wire. An atrial lead was then introduced and guided to the level of the right appendage. The screw was deployed and the lead was connected to the interrogator. Good sensing and pacing thresholds were obtained. Diaphragmatic pacing was ruled out. The leads were secured with 2-0 silk ties to the underlying muscle and fascia. The leads were connected to the device in a hermetic fashion. The device and leads were placed in the pocket. Aggressive irrigation with saline solution was done. The device was secured to the underlying muscle and fascia with a 2-0 silk tie. interrogation of the device revealed good integrity of all the leads and good connections. Once excellent parameters were confirmed for the right atrial and right ventricular pacemaker lead, the temporary pacemaker was taken out under first copy guidance. The wound was then closed using 2 layers. The first layer was interrupted 2-0 absorbable Vicryl suture. The last layer was a single subcuticular layer with 4-0 Vicryl suture. Half inch Steri-Strips and a small dressing were then applied to the wound. The patient tolerated the procedure well and was returned to the recovery room in stable condition with stable vital signs. DEVICE INFORMATION: Model [id number], Serial RN [id number]. [employer]. RA LEAD: Model number [id number]. Length 45. Serial number [id number]. [employer]. RV LEAD: Model number [id number]. Length 52. Serial number [id number]. [employer]. DEVICE INTERROGATION: Right atrial capture 0.6 mV at 0.5 ms. Impedance 440 ohms. P wave 2.8 mV. Right ventricular capture 0.6 V at 0.5 ms. Impedance 640 ohms. R-wave 6 mV. PLAN: The patient transferred to the ICU. We will continue with two more doses of IV antibiotics. We will check a chest x-ray and interrogate the device in the morning. The patient will continue on oral antibiotics for 5 days. Blanca Link MD, FHRS, CCDS Cardiac Electrophysiology Gonzalo LINK MD Mar 11, 2018 5:24 pm
--- NOTE | 2018-03-11 18:07 | Diagnostic Imaging Report ---
INDICATION: Pacemaker placement. TIME OF EXAM: 6:41 PM COMPARISON: Correlation is made with prior study 03/10/2018. FINDINGS: A dual lead left subclavian cardiac pacer has been placed since prior study. Lead tips appear to be in the region of the right atrium and right ventricle. No pneumothorax is identified. Chronic elevation of right hemidiaphragm is seen. The lungs are clear. IMPRESSION: Pacemaker placement, as described. Dictated by: Dictated on workstation # [id number]
[2018-03-11] MEDS: inSUlin ASPART (NovoLOG) 1 UNIT/0.01 ML (CHARGE PER UNIT) SC SCH ×2 (19:14→20:51)
[2018-03-11] MEDS: ZIPRASIDONE 20 MG (GEODON) CAP PO SCH (20:51)
[2018-03-11] MEDS ORDERED: LORazepam 0.5 MG (ATIVAN) TABLET PO SCH (21:00)
[2018-03-11] MEDS ORDERED: RIVASTIGMINE TARTRATE 6 MG PO SCH (21:00)
[2018-03-11] MEDS: HYDROcodone/APAP 5 MG/325 MG (LORTAB) TAB PO PRN (22:38)
[2018-03-11] MEDS: ceFAZolin INJECTION 1,000 MG in NS (IVPB) 50 ML IV SCH (22:41)
[2018-03-12] VITALS (12 sets, daily range): BP systolic 85–133; BP diastolic 54–97
[2018-03-12 03:36] LABS: BASOPHILS % (AUTO) 0 % (0-10); EOSINOPHILS # (AUTO) 0.2 10^3/uL (0.0-0.3); EOSINOPHILS % (AUTO) 2 % (0-10); HEMATOCRIT 29 % (35-52); HEMOGLOBIN 9.1 G/DL (11.5-16.0); LYMPHOCYTES # (AUTO) 2.3 X 10^3 (1.0-4.0); LYMPHOCYTES % (AUTO) 26 % (12-44); MEAN CORPUSCULAR HEMOGLOBIN 24 PG (25-34); MEAN CORPUSCULAR HGB CONC 31 G/DL (32-36); MEAN CORPUSCULAR VOLUME 77 FL (80-99); MEAN PLATELET VOLUME 10.1 FL (7.4-10.4); MONOCYTES # (AUTO) 1.1 X 10^3 (0.0-1.0); MONOCYTES % (AUTO) 13 % (0-12); NEUTROPHILS # (AUTO) 5.4 X 10^3 (1.8-7.8); NEUTROPHILS % (AUTO) 59 % (42-75); PLATELET COUNT 248 10^3/uL (130-400); RED CELL DISTRIBUTION WIDTH 17.6 % (10.0-14.5)
[2018-03-12 03:50] LABS: ALANINE AMINOTRANSFERASE 12 U/L (0-55); ALBUMIN 3.3 GM/DL (3.2-4.5); ALKALINE PHOSPHATASE 73 U/L (40-136); BILIRUBIN,TOTAL 0.3 MG/DL (0.1-1.0); BUN/CREATININE RATIO 23; CALCIUM 9.4 MG/DL (8.5-10.1); CARBON DIOXIDE 21 MMOL/L (21-32); CHLORIDE 110 MMOL/L (98-107); CREATININE SERUM 0.86 MG/DL (0.60-1.30); GFR ESTIMATED > 60; GLUCOSE 162 MG/DL (70-105); MAGNESIUM 1.9 MG/DL (1.8-2.4); PHOSPHORUS 2.7 MG/DL (2.3-4.7); POTASSIUM 4.4 MMOL/L (3.6-5.0); SODIUM 137 MMOL/L (135-145); TOTAL PROTEIN 5.7 GM/DL (6.4-8.2)
[2018-03-12] MEDS: KCL 20 MEQ TAB (K-DUR) PO SCH (04:57)
[2018-03-12] MEDS: MAGNESIUM 1 GM/100 ML IVPB 100 ML IV SCH (04:57)
[2018-03-12] MEDS: POTASSIUM CL 10MEQ/50ML IVPB 50 ML IV SCH (04:57)
[2018-03-12] MEDS: inSUlin ASPART (NovoLOG) 1 UNIT/0.01 ML (CHARGE PER UNIT) SC SCH ×2 (05:01→12:15)
[2018-03-12] MEDS: ceFAZolin INJECTION 1,000 MG in NS (IVPB) 50 ML IV SCH ×2 (05:33→13:58)
[2018-03-12] MEDS ORDERED: PANTOPRAZOLE 40 MG (PROTONIX) TAB PO SCH (07:00)
--- NOTE | 2018-03-12 07:31 | Diagnostic Imaging Report ---
INDICATION: Dyspnea. COMPARISON: 03/11/2018 FINDINGS: Single frontal radiographic view of the chest was obtained and demonstrates low inspiratory volumes with crowding of central hilar structures. Lungs are otherwise grossly clear. There is no focal consolidation, large effusion, nor pneumothorax. Cardiac silhouette and pulmonary vasculature are within normal limits. Left-sided dual-lead pacemaker is noted. Bony structures show no gross acute abnormalities. IMPRESSION: 1. Low lung volumes with crowding of central hilar structures. Otherwise, no gross acute cardiopulmonary process. Dictated by: Dictated on workstation # [id number]
[2018-03-12] MEDS: HYDROcodone/APAP 5 MG/325 MG (LORTAB) TAB PO PRN ×2 (08:31→16:12)
[2018-03-12] MEDS ORDERED: ALLOPURINOL 100 MG (ZYLOPRIM) TAB PO SCH (09:00)
[2018-03-12] MEDS ORDERED: ASPIRIN E.C. 81 MG (ECOTRIN) TAB PO SCH (09:00)
[2018-03-12] MEDS ORDERED: meTOprolol TARTRATE 25 MG (LOPRESSOR) TABLET ONE (09:11)
[2018-03-12] MEDS ORDERED: meTOprolol TARTRATE 25 MG (LOPRESSOR) TABLET PO NR (09:15)
[2018-03-12] MEDS: ZIPRASIDONE 20 MG (GEODON) CAP PO SCH (09:35)
[2018-03-12] MEDS: NS IV 1000 ML 1,000 ML IV SCH (09:38)
--- NOTE | 2018-03-12 10:04 | Cardiology Progress Note ---
Cardiology SOAP Progress Note Subjective: No Cardiac symptoms. Objective: I&O/Vital Signs 03/11/18 03/12/18 03/12/18 03/12/18 23:00 00:00 00:00 00:00 Temp 97.8 Pulse 76 73 Resp 22 14 B/P (MAP) 137/59 (85) 99/55 (70) Pulse Ox 100 100 100 O2 Delivery Room Air Room Air Room Air 03/12/18 03/12/18 03/12/18 03/12/18 01:00 01:00 02:00 03:00 Pulse 88 66 68 76 Resp 11 22 14 B/P (MAP) 85/54 (64) 119/59 (79) 126/66 (86) Pulse Ox 100 99 100 O2 Delivery Room Air Room Air Room Air 03/12/18 03/12/18 03/12/18 03/12/18 04:00 04:00 04:00 05:00 Temp 98.1 Pulse 74 76 Resp 16 16 B/P (MAP) 133/70 (91) 126/69 (88) Pulse Ox 98 98 99 O2 Delivery Room Air Room Air Room Air 03/12/18 03/12/18 03/12/18 03/12/18 06:00 07:00 08:00 08:00 Temp 99.1 Pulse 68 74 68 Resp 24 24 B/P (MAP) 129/58 (81) 129/58 (81) Pulse Ox 98 98 100 O2 Delivery Room Air Room Air Room Air 03/12/18 00:00 Intake Total 210 ml Output Total 1000 ml Balance -790 ml Weight (Pounds): 290 Weight (Ounces): 4.0 Weight (Calculated Kilograms): 131.109255 Constitutional: appears stated age, AAO x 3, well-developed, well-nourished Respiratory: No accessory muscle use, No respiratory distress, No chest tender , No chest expansion is symmetric; chest is bilaterally symmetric; No lungs clear to percussion; lungs clear to auscultation; No crackles, No rhonchi, No rales, No stridor, No wheezing, No pleural rub, No other Cardiovascular: regular rate-rhythm; No irregularly irregular, No extra beats, No parasternal heave is noted, No JVD, No edema, No bradycardia, No tachycardia , No point of maximal impulse, No cardiac thrills are palpable; S1 and S2; No gallop/S3, No gallop/S4, No diastolic murmur, No systolic murmur, No friction rub, No click, No other Gastrointestional: No tender, No soft, No round, No distended, No pulsatile mass, No organomegaly, No guarding, No rebound, No tenderness, No hernia, No mass, No audible bowel sounds, No abnormal bowel sounds, No abdominal bruits, No spleenomegaly, No other Extremities: No normal range of motion, No non-tender, No normal inspection, No pedal edema, No calf tenderness, No normal capillary refill, No pelvis stable , No calf tenderness, No inflammation, No pedal edema, No slow capillary refill , No swelling, No other, No abrasion, No clubbing, No cyanosis, No ecchymosis, No laceration, No no lower extremity edema bilateral, No significant edema, No tenderness, No wound Neurologic/Psychiatric: no motor/sensory deficits, alert, normal mood/affect, oriented x 3, power is 5/5 both on sides Skin: No normal color, No warm/dry, No cyanosis, No cool, No diaphoresis, No damp, No ecchymosis, No jaundice, No mottled, No pallor, No rash, No tattoos/ piercings, No ulcerations, No rash on exposed areas, No ulcerations on exposed areas, No other Results/Procedures: Labs Laboratory Tests 03/11/18 18:23: Glucometer 206H 03/11/18 20:42: Glucometer 260H 03/12/18 02:55: White Blood Count 9.0, Red Blood Count 3.80L, Hemoglobin 9.1L, Hematocrit 29L, Mean Corpuscular Volume 77L, Mean Corpuscular Hemoglobin 24L, Mean Corpuscular Hemoglobin Concent 31L, Red Cell Distribution Width 17.6H, Platelet Count 248, Mean Platelet Volume 10.1, Neutrophils (%) (Auto) 59, Lymphocytes (%) (Auto) 26 , Monocytes (%) (Auto) 13H, Eosinophils (%) (Auto) 2, Basophils (%) (Auto) 0, Neutrophils # (Auto) 5.4, Lymphocytes # (Auto) 2.3, Monocytes # (Auto) 1.1H, Eosinophils # (Auto) 0.2, Basophils # (Auto) 0.0, Sodium Level 137, Potassium Level 4.4, Chloride Level 110H, Carbon Dioxide Level 21, Anion Gap 6, Blood Urea Nitrogen 20H, Creatinine 0.86, Estimat Glomerular Filtration Rate > 60, BUN /Creatinine Ratio 23, Glucose Level 162H, Calcium Level 9.4, Corrected Calcium 10.0, Phosphorus Level 2.7, Magnesium Level 1.9, Total Bilirubin 0.3, Aspartate Amino Transf (AST/SGOT) 18, Alanine Aminotransferase (ALT/SGPT) 12, Alkaline Phosphatase 73, Total Protein 5.7L, Albumin 3.3 Microbiology 03/10/18 MRSA Screen - Final, Complete MRSA not isolated A/P: Assessment/Dx: Chest pain, previous history of significant CAD and PCI, Near syncope with severe bradycardia and hypotension, Acute kidney injury Plan: Chest pain, previous history of significant CAD and PCI, coronary angiography was done yesterday which did not reveal any significant CAD. Patent stent in the circumflex artery as well as mid LAD. Patient was restarted on aspirin and statin. SHILPA inhibitor was also started. No further beta blockers were given. However beta blockers are recommended due to history of CAD. Near syncope with severe bradycardia and hypotension: Status post dual chamber permanent pacemaker. Atrial sensed ventricular Paced rhythm overnight. Chest x -ray shows no evidence of pneumothorax. Normal device interrogation. Patient can be discharged once 3 IV antibiotics are done. She will be on Keflex 500 mg 3 times a day for the next 5 days. She'll follow-up with us in the office for a wound check in one week. We will start metoprolol 12.5 mg twice a day. Hypertension: Blood pressure better controlled with lisinopril 10 mg daily. Acute kidney injury, on IV fluids. Improved creatinine. Patient will like to follow us for electrophysiology and with Dr. Anne in [place] for CAD. Will defer to the patient to make a decision on EP follow-up as well. Thank you for your consultation. Please call me if you have any questions. Blanca Link MD, FACP, FACC, FSCAI, FHRS, CCDS Interventional Cardiology Cardiac Electrophysiology Vascular Medicine and Endovascular Interventions Gonzalo LINK MD Mar 12, 2018 10:04 am
[2018-03-12] MEDS ORDERED: METO50TA15 PO (10:06)
[2018-03-12] MEDS ORDERED: CEPH-507 PO (10:07)
--- NOTE | 2018-03-12 10:07 | Discharge Inst-Post Device ---
Discharge Inst-Post Device Follow up/Plan Dr Link in one week. Heart Healthy Diet Do not lift arm on side of device placement above head for 4 weeks. Do not push and pull heavy objects for 4 weeks. Activity as tolerated. Leave dressing on until follow up at the office. Gonzalo LINK MD Mar 12, 2018 10:07 am
--- NOTE | 2018-03-12 10:25 | Diagnostic Imaging Report ---
INDICATION: Post heart catheterization. Time of exam 10:31 AM Correlation is made with prior study from earlier the same day. Dual-lead left subclavian cardiac pacemaker remains in place. Heart size is stable. The lungs are clear. No infiltrate or failure is detected. There is slight blunting of the left costophrenic angle suggestive of minimal pleural fluid or pleural thickening. No pneumothorax is seen. IMPRESSION: Minimal left pleural fluid or pleural thickening. The study is otherwise unremarkable. Dictated by: Dictated on workstation # [id number]
--- NOTE | 2018-03-12 11:48 | Discharge Instructions ---
Discharge [facility] Discharge Medications New, Converted or Re-Newed RX: Other (Meds done per Dr. Lnik) New Medications: Cephalexin (Keflex) 500 Mg Capsule 500 MG PO TID for 5 Days, #15 CAP 0 Refills Changed Medications: Metoprolol Tartrate (Metoprolol Tartrate) 50 Mg Tablet 12.5 MG PO BID, #60 TAB 11 Refills (Changed from: 50 MG; DAILY; Refills: ) Continued Medications: Albuterol Sulfate (Proair Hfa) 1 Puff Puff 2 PUFF IH Q4H PRN for SHORTNESS OF BREATH, PUFF 1 PUFF = 90 MCG Allopurinol (Allopurinol) 100 Mg Tablet 200 MG PO DAILY, TAB TAKES 2 (100MG) TABLETS Aspirin (Aspirin EC) 81 Mg Tablet.dr 81 MG PO DAILY, TAB Cholecalciferol (Vitamin D3) (Vitamin D3) 2,000 Unit Capsule 2000 UNIT PO DAILY, CAP Hydrocodone Bit/Acetaminophen (Hydrocodone/Acetaminophen 5/325mg Tablet) 1 Each Tablet 1 TAB PO TID, TAB Lorazepam (Lorazepam) 0.5 Mg Tablet 0.5 MG PO HS, TAB Losartan Potassium (Losartan Potassium) 100 Mg Tablet 100 MG PO DAILY, TAB Pantoprazole Sodium (Pantoprazole Sodium) 40 Mg Tablet.dr 40 MG PO DAILY, TAB Polyethylene Glycol 3350 (Miralax) 17 Gm Powd.pack 17 GM PO DAILY PRN for CONSTIPATION-2ND LINE, EACH Pravastatin Sodium (Pravastatin Sodium) 40 Mg Tablet 40 MG PO HS Rivastigmine Tartrate (Rivastigmine) 6 Mg Capsule 6 MG PO BID, CAP Ziprasidone HCl (Geodon) 20 Mg Capsule 20 MG PO BID, CAP Discontinued Medications: Furosemide (Furosemide) 40 Mg Tablet 40 MG PO DAILY, TAB Patient Instructions Goal/Follow Up Appt: Follow up with Dr. Link as noted in cardiac d/c inst. Follow up with Jake English as previously scheduled on 03/24 at 2 pm. Activity & Diet Discharge Diet: ADA Diet, Cardiac Diet Activity as Tolerated: No (per Cardiology d/c instructions) Copy Copies To 1: [place] Pretty BETHANY N MD Mar 12, 2018 11:48
--- NOTE | 2018-03-12 11:54 | Discharge Summary ---
Diagnosis/Chief Complaint Date of Admission Mar 10, 2018 at 17:30 Date of Discharge Mar 12, 2018 Admission Diagnosis Admission Diagnosis Severe bradycardia Severe hypotension Coronary artery disease Discharge Diagnosis (1) Severe sinus bradycardia Status: Acute Assessment & Plan: Cardiology consulted, s/p temporary pacemaker placement, holding beta gail to determine next steps. Echocardiogram with EF 50-55%, grade 1 diastolic dysfunction. BP stable this am after pacemaker placement. 03/12- permanent pacemaker placed yesterday (2) Coronary artery disease Status: Chronic Assessment & Plan: With history of stenting x 4. Cardiac cath done yesterday with no significant CAD and patent stents in left circumflex and LAD. Normal LV function and LVEDP. Continue asa. (3) Vascular dementia Status: Chronic Assessment & Plan: On rivastigmine and Geodon at home. Held rivastigmine due to possibility of bradycardia. No behavioral concerns since admission. Qualifiers: Qualified Codes: F01.51 - Vascular dementia with behavioral disturbance (4) Hypertension Status: Chronic Assessment & Plan: Holding metoprolol and losartan. Lisinopril ordered per Cardiology. Decreased metoprolol dose and resumed losartan on d/c. Qualifiers: Qualified Codes: I10 - Essential (primary) hypertension (5) Diabetes mellitus, type 2 Status: Chronic Assessment & Plan: Diet- controlled. ACHS glucose checks. Qualifiers: (6) Hyperlipidemia Status: Chronic Assessment & Plan: On pravastatin at home. Resumed on d/c- recommend considering more potent statin given her CAD and DMII (7) Anemia Status: Chronic Assessment & Plan: Mixed anemia of chronic disease and iron deficiency. Work up in 2013 included EGD and colonoscopy which showed esophagitis, diverticulosis. Stable. Qualifiers: Qualified Codes: N18.3 - Chronic kidney disease, stage 3 (moderate); D63.1 - Anemia in chronic kidney disease (8) Acute kidney injury superimposed on chronic kidney disease Status: Acute Assessment & Plan: Chronic stage 3 CKD, follows with Nephrology. Creatinine improved today. (9) Chronic neck pain Status: Chronic Assessment & Plan: Per patient has been off of hydrocodone for about a month, held initially, but patient requested and having normal BM, so home hydrocodone was restarted. (10) Elevated d-dimer Status: Acute Assessment & Plan: Suspect secondary to CKD and heart disease, no clinical evidence of clot. 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 In the ER she was found to have heart rate drop into the 20s with marked hypotension requiring external pacing. She was taken to chemical laboratory tester and for temporary pacemaker placement yesterday per Cardiology. Today she states she is feeling okay, just tired of lying still. She denies sickness prior to this, but was feeling "not right" and somewhat fatigued. She also has been having more frequent headaches than usual for her over the last few months. She has stabbing diffuse headache with some visual flashing, no photophobia or phonophobia. Sometimes associated nausea. Sometimes worsened by movement. Occurring every day from a few minutes to an hour, acetaminophen does seem to help. These are similar to headaches she has had her entire life, but much more frequent. She also notes she had bowel impaction about a month ago and has stopped hydrocodone due to that which she was on for about 30 years prior. She follows with Dr. Anne for her heart and has had 4 stents in the past. She denies chest pain or shortness of breath. Discharge Summary-Simple/Stand Procedures 03/10 Cardiac catheterization, temporary pacemaker placement 03/11- Permanent pacemaker placement by Dr. Link Consultations Gonzalo LINK MD Discharge Physical Examination Allergies: Coded Allergies: carvedilol (Verified Allergy, Unknown, 03/10/18) Vitals & I&Os Vital Sign - Last 12Hours Date Time Temp Pulse Resp B/P (MAP) Pulse Ox O2 Delivery O2 Flow Rate FiO2 03/12/18 10:00 98 24 117/62 (80) 100 Room Air 03/12/18 08:00 99.1 03/10/18 23:45 2.00 Intake and Output 03/12/18 00:00 Intake Total 210 ml Output Total 1000 ml Balance -790 ml General Appearance: Alert, No Acute Distress Respiratory: Clear to Auscultation, Normal Air Movement Cardiovascular: Regular Rate, No Murmurs Neuro: Normal Speech Psych/Mental Status: Mental Status NL Hospital Course See final discharge diagnosis. Radiology Reviewed CXR 03/10 Unremarkable Discharge Instructions to patient/family Please see electronic discharge instructions given to patient. Discharge Medications Reviewed and agree with Discharge Medication list on patient's Discharge Instruction sheet Clinical Quality Measures DVT/VTE Risk/Contraindication: Risk Factor Score Per Nursin RFS Level Per Nursing on Admit: 4+=Very High Copy Copies To 1: VIR[place] Pretty BETHANY N MD Mar 12, 2018 11:54
--- NOTE | 2018-03-12 13:59 | Anesthesia-General Post-Op ---
MAC Patient Condition Mental Status/LOC: Same as Preop Cardiovascular: Satisfactory Nausea/Vomiting: Absent Respiratory: Satisfactory Pain: Controlled Complications: Absent Post Op Complications Complications None Follow Up Care/Instructions Patient Instructions None needed. Anesthesiology Discharge Order Discharge Order Patient is doing well, no complaints, stable vital signs, no apparent adverse anesthesia problems. No complications reported per nursing. BRYAN REIS CRNA Mar 12, 2018 13:59
--- OUTSIDE RECORDS SUMMARY | 2018-03-13 14:15 | XMS REPORT ---
Author Author ELIEL SMITH Organization [facility] Address [address] [place] [address] Care Team Providers Care Development And Planning Engineer Name Role Phone ELIEL SMITH Unavailable PROBLEMS Type Condition ICD9-CM Code FQB97-MY Code Onset Dates Condition Status SNOMED Code Problem Chronic pain G89.29 Active 87320849 Problem Depression F32.9 Active 253365003 Problem Constipation K59.00 Active 30267171 Problem Type 2 diabetes mellitus with diabetic chronic kidney disease E11.22 Active 48201272 Problem Anxiety F41.9 Active 39480231 Problem Chronic kidney disease, stage III (moderate) N18.3 Active 067552554 Problem Hepatitis C B19.20 Active 62692321 Problem History of solitary pulmonary nodule Z87.898 Active 177592748 Problem Chronic kidney disease (CKD) stage G3a/A1, moderately decreased glomerular filtration rate (GFR) between 45-59 mL/min/1.73 square meter and albuminuria creatinine ratio less than 30 mg/g N18.3 Active 985914042 Problem 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 80139757 Problem Chronic fatigue R53.82 Active 23193633 Problem Diverticulitis K57.92 Active 279467155 Problem History of alcoholism F10.21 Active 425940362 Problem History of TIA (transient ischemic attack) Z86.73 Active 172072135 Problem Vitamin D deficiency E55.9 Active 86176676 Problem Hyperlipidemia E78.5 Active 25556734 Problem Coronary artery disease I25.10 Active 39193896 Problem Hypertension I10 Active 89732822 Problem DJD (degenerative joint disease) M19.90 Active 195129263 Problem Cervical stenosis of spinal canal M48.02 Active 38622964 Problem Vascular dementia F01.50 Active 126491805 Problem Abnormal CBC R79.89 Active 235863208 Problem Arthritis M19.90 Active 0066641 Problem Morbid obesity with BMI of 45.0-49.9, adult Z68.42 Active [id number] ALLERGIES No Information ENCOUNTERS Encounter Location Date Diagnosis [facility] [id number] [place] [address] 55386- 3939 Mar, [facility] [facility] [id number] [place] [address] 81844- 2735 Jan, [place] [address] [address] Jan, Type 2 diabetes mellitus with diabetic chronic kidney disease E11.22 ; Chronic kidney disease, stage III (moderate) N18.3 ; Hypertension I10 ; DJD (degenerative joint disease) M19.90 and Anxiety F41.9 [place] [address] [address]- 3808 Dec, Anxiety F41.9 and Chronic pain G89.[address] [address]- [address]27 Dec, [place] [address] 23756- 1097 Nov, Anxiety F41.9 and Chronic pain G89.29 [place] [address] 63346- 1018 October, Chronic pain G89.29 and Anxiety F41.[address] 39424- 6303 October, Type 2 diabetes mellitus without complications [...] than 30 mg/g N18.3 and Anxiety F41.9 [facility] [id number] [place] [address] 51318- 3615 Sep, Chronic pain G89.29 and Anxiety F41.9 [place] [address] 23552- 5639 Aug, Anxiety F41.9 and Chronic pain G89.29 [place] [address] 70536- 7240 Aug, Anxiety F41.9 [place] [address] 22659- 0920 Aug, Chronic pain G89.29 and Anxiety F41.9 [place] [address] 50426- 9374 Aug, Chronic kidney disease (CKD) stage G3a/A1, moderately decreased glomerular filtration rate (GFR) between 45-59 mL/min/1.73 square meter and albuminuria creatinine ratio less than 30 mg/g N18.3 [facility] [place] [id number] [place] [address] 58950- 5233 Aug, [facility] [address] [id number] Jul, Dental examination Z01.[address] 57361- 2617 Jul, Chronic pain G89.29 and Anxiety F41.9 [place] [address] 95283- 8839 Jul, Other specified abnormal findings of blood chemistry R79.89 [place] [address] 14454- 2310 Jul, Type 2 diabetes mellitus without complications E11.9 ; Chronic kidney disease (CKD) stage G3a/A1, moderately decreased glomerular filtration rate (GFR) between 45-59 mL/min/1.73 square meter and albuminuria creatinine ratio less than 30 mg/g N18.3 ; BMI 45.0-49.9, adult Z68.42 ; Chronic fatigue R53.82 ; Hair loss L65.9 ; Generalized abdominal pain R10.84 and Diverticulitis K57.92 [facility] [id number] [place] [address] 59934- 3816 Jul, [facility] [id number] [place] [address] [id number] Jul, Dental examination Z01.20 [facility] [id number] [place] [address] 06183- 6396 Jul, Anxiety F41.9 [facility] [id number] [place] [address] 81893- 6318 Jul, Anxiety F41.9 [facility] [address] [id number] Jul, Chronic pain G89.29 [facility] [address] [id number] May, Chronic pain G89.29 [facility] [id number] [place] [address] [id number]- 1141 May, [facility] [id number] [place] [address] [id number] May, Dental examination Z01.20 [facility] [id number] [place] [address] 92261- 9813 May, Anxiety F41.9 [facility] [id number] [place] [address] [id number] May, Chronic pain G89.29 [facility] [id number] [place] [address] 28891- 9716 Mar, Depression F32.9 [facility] [id number] [place] [address] [id number]- 4702 Mar, Anxiety F41.9 [facility] [id number] [place] [address] [id number] Mar, Chronic pain G89.29 [facility] [id number] [address] 4[address] 19 Mar, 2017 Abnormal CBC R79.89 [facility] [id number] [place] [address] [id number] 18 Mar, 2017 Anxiety F41.9 [facility] [id number] [place] [address] 05354- 1081 14 Mar, 2017 Hypertension I10 ; Routine health maintenance Z00.00 ; Type 2 diabetes mellitus without complications E11.9 and Hyperlipidemia E78.5 [facility] [id number] [place] [address] [id number] 13 Mar, 2017 Chronic pain G89.29 and Anxiety F41.9 [facility] [address] [place] [address] [id number] 13 Mar, 2017 Dental examination Z01.20 [facility] [address] [place] [address] 68912- 5894 06 Mar, 2017 Hypertension I10 ; Routine health maintenance Z00.00 ; Type 2 diabetes mellitus without complications E11.9 and Hyperlipidemia E78.5 [facility] [id number] [place] [address] 65516- 3051 22 Jan, 2017 Type 2 diabetes mellitus without complications E11.9 ; Hypertension I10 ; Vascular dementia F01.50 ; Morbid obesity with BMI of 45.0- 49.9, adult Z68.42 ; Hyperlipidemia E78.5 ; Chronic pain G89.29 ; Anxiety F41.9 ; Depression F32.9 ; Coronary artery disease I25.10 ; 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 and Constipation K59.00 [facility] [address] [address]- 8203 16 Jan, 2017 Chronic pain G89.29 [facility] [address] [address]- 8930 Jan, [facility] [id number] [place] [address] 92641- 3427 Dec, [place] [address] [place] [address] 40946- 7907 Dec, Chronic pain G89.29 [facility] [id number] [place] [address] 97288- 3310 Nov, Chronic pain G89.29 [facility] [id number] [place] [address] 93486- 6290 October, Chronic pain G89.29 [facility] [id number] [place] [address] 83240- 2667 Sep, Chronic pain G89.29 [facility] [address] 74880- 0277 Sep, Type 2 diabetes mellitus without complications E11.9 ; Chronic pain G89.29 ; Hypertension I10 ; Coronary artery disease I25.10 ; Morbid obesity with BMI of 45.0-49.9, adult Z68.42 ; Hyperlipidemia E78.5 ; 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 and Depression F32.9 [facility] [id number] [place] [address] 18041- 3298 Aug, Chronic pain G89.29 [facility] [id number] [place] [address] 08452- 1849 Aug, Chronic pain G89.29 and Constipation K59.00 [facility] [id number] [place] [address] 82486- 0075 Aug, Abnormal lung sounds R09.89 [facility] [id number] [place] [address] 08074- 8004 Aug, Depression F32.9 [facility] [id number] [place] [address] 36359- 9848 Jul, Chronic pain G89.29 [place] [id number] [place] [address] 99095- 1058 May, Chronic pain G89.29 [facility] [address] [address]- 0459 May, Medicare annual wellness visit, subsequent Z00.00 [facility] [id number] [place] [address] 08153- 9977 May, [facility] [id number] [place] [address] 14442- 8998 May, Type 2 diabetes mellitus without complications [...] due to renal impairment without tophus M1A.3710 [facility] [id number] [place] [address] 86983- 4529 May, [facility] [id number] [place] [address] 60892- 0932 Mar, [facility] [id number] [place] [address] 77741- 2112 Mar, [facility] [id number] [place] [address] 72018- 5666 Mar, [facility] [id number] [place] [address] 40046- 7066 Mar, [facility] [id number] [place] [address] 50376- 9240 Mar, [facility] [id number] [place] [address] 82606- 1886 Jan, [facility] [id number] [place] [address] 43767- 2712 Jan, [facility] [address] [place] [address]- 9611 Dec, Type 2 diabetes mellitus without complications E11.9 ; Hypertension I10 ; Coronary artery disease I25.10 and Renal insufficiency N28.9 [facility] [address] [facility] [id number] [place] [address]- 3497 14 Dec, 2015 [facility] [address] [place] [address]- 9179 Dec, [facility] [address] [facility] [id number] [place] [address]- 1993 Nov, [facility] [address] [place] [address]- 8691 Nov, [facility] [address] [place] [address]- 4448 Nov, [facility] [address] [place] [address]- 6085 Nov, [facility] [address] [place] [address]- 3699 Nov, [facility] [address] [place] [address]- 5555 October, [facility] [address] [address]- 3155 October, [facility] [address] [address]- 3572 October, [facility] [id number] [address]- 7973 Sep, Type 2 diabetes mellitus without complications E11.9 and Constipation K59.00 [facility] [address] [place] [address]- 1282 Sep, [facility] [address] [place] [address]- 8960 Sep, Diabetes E11.9 [facility] [address] [address]- 9198 Sep, [facility] [id number] [place] [address] 64099- 3626 Sep, Routine health maintenance Z00.00 ; Hypertension I10 ; Type 2 diabetes mellitus without complications E11.9 ; Morbid obesity with BMI of 45.0-49.9, adult Z68.42 ; Chronic pain G89.29 ; H/O carotid endarterectomy Z98.89 ; Vascular dementia F01.50 ; Arthritis M19.90 ; Coronary artery disease I25.10 ; Abnormal lung sounds R09.89 and Diabetes E11.9 [facility] [id number] [place] [address] 11497- 5627 Aug, Anxiety F41.9 [facility] [id number] [place] [address] 66122- 5906 Aug, Arthritis M19.90 [facility] [id number] [place] [address] 33035- 1257 Jul, Arthritis M19.90 [facility] [id number] [place] [address] 15807- 3743 Jul, [facility] [id number] [place] [address] 52602- 7509 May, [facility] [id number] [place] [address] 17221- 0738 May, Arthritis M19.90 ; Hypertension I10 ; Depression F32.9 ; Vascular dementia F01.50 and Coronary artery disease I25.10 [facility] [address] [address]- 9983 May, [facility] [id number] [place] [address] 69523- 0544 May, [facility] [id number] [place] [address] 80252- 3562 Mar, [facility] [id number] [place] [address] 99544- 3403 Mar, [facility] [address] [id number] [place] [address]- 5899 Mar, [facility] [address] [id number], [place] [address]- 4903 Mar, [facility] [address] [id number] [place] [address]- 0433 Mar, Essential hypertension, benign 401.1 ; Unspecified arthropathy, site unspecified 716.90 and Other and unspecified hyperlipidemia 272.4 [facility] [address] [id number] [place] [address]- 5454 Mar, [facility] [address] [id number] [place] [address]- 6827 Jan, [facility] [address] [facility] [id number] [address]- 0726 Dec, [facility] [address] [id number] [place] [address]- 4926 Dec, [facility] [address] [id number] [place] [address]- 9070 Dec, [facility] [address] [id number] [place] [address]- 6556 Dec, [facility] [address] [id number], [place] [address]- 6092 Dec, [facility] [place] [facility] [address] [id number], [place] [address]- 1794 Dec, [facility] [place] [facility] [address] [id number] [place] [address]- 9216 Dec, [facility] [place] [facility] [address] [id number] [place] [address]- 2911 Dec, [facility] [place] [facility] [address] [id number] [place] [address]- 5495 Nov, [facility] [place] [facility] [address] [id number] [place] [address]- 6776 Nov, [facility] [place] [facility] [address] [id number] [place] [address]- 5306 Nov, [facility] [place] [facility] [address] [id number] [place] [address]- 3818 October, [facility] [place] [facility] [address] [id number] [place] [address]- 4001 October, [facility] [place] [facility] [address] [id number] [place] [address]- 7455 Sep, [facility] [place] [facility] [address] [id number] [place] [address]- 5222 Sep, [facility] [place] [facility] [address] [id number] [place] [address]- 5619 Sep, [facility] [place] [facility] [address] [id number] [place] [address]- 9803 Aug, [facility] [place] [facility] [address] [id number] [place] [address]- 8798 Aug, [facility] [place] [facility] [address] [id number] [place] [address]- 8892 Aug, [facility] [place] [facility] [address] [id number] [place] [address]- 3934 Aug, [facility] [place] [facility] [address] [id number] [place] [address]- 2232 Aug, [facility] [place] [facility] [address] [id number] [place] [address]- 8744 Aug, [facility] [place] [facility] [address] [id number] [place] [address]- 3948 Aug, [facility] [place] [facility] [address] [id number] [place] [address]- 0676 Aug, [facility] [place] [facility] [address] [id number] [place] [address]- 4155 Aug, [facility] [address] [id number] [place] [address]- 6299 May, [facility] [address] [id number] [place] [address]- 5015 May, [facility] [address] [id number] [place] [address]- 9093 May, [facility] [place] [facility] [address] [id number] [place] [address]- 0472 May, [facility] [address] [id number] [place] [address]- 1422 May, [facility] [address] [id number] [place] [address]- 3293 May, [facility] [address] [id number] [place] [address]- 7731 May, [facility] [place] [facility] [address] [id number] [place] [address]- 8848 May, [facility] [address] [id number], [place] [address]- 4078 Mar, [facility] [place] [facility] [address] [facility] [id number], [place] [address]- 1043 Mar, [place] [address] [id number] Mar, [facility] [place] [facility] [address] [id number], [place] [address]- 9466 Mar, [facility] [place] [facility] [address] [id number], [place] [address]- 6768 Mar, [facility] [place] [facility] [address] [id number], [place] [address]- 6683 Mar, [facility] [place] [facility] [address] [id number], [place] [address]- 6741 Mar, [facility] [place] [facility] [address] [id number], [place] [address]- 9135 Mar, [facility] [address] [id number] [place] [address]- 7965 Mar, [facility] [place] [facility] [address] [id number] [place] [address]- 9354 Mar, [facility] [place] [facility] [address] [id number] [place] [address]- 5925 Mar, [facility] [place] [facility] [address] [id number] [place] [address]- 3339 Mar, [facility] [place] [facility] [address] [id number] [place] [address]- 3447 Mar, [facility] [place] [facility] [address] [id number] [place] [address]- 1496 Jan, [facility] [place] [facility] [address] [id number] [place] [address]- 1919 Jan, [facility] [place] [facility] [address] [id number] [place] [address]- 7555 Jan, [facility] [address] [id number] [place] [address]- 9893 Jan, [facility] [address] [id number] Jan, [facility] [place] [facility] [address] [id number], [place] [address]- 1895 Jan, [facility] [place] [facility] [address] [id number], [place] [address]- 8040 Jan, [facility] [place] [facility] [address] [id number] [place] [address]- 4482 Dec, [facility] [place] [facility] [address] [id number] [place] [address]- 5493 Dec, [facility] [place] [facility] [address] [id number] [place] [address]- 3869 Dec, [facility] [place] [facility] [address] [id number] [place] [address]- 1617 Dec, [facility] [address] [facility] [id number] [place] [address]- 1531 Dec, [facility] [address] [facility] [id number], [place] [address]- 6207 Dec, [facility] [address] [facility] [id number], [place] [address]- 9850 Nov, [facility] [address] [facility] [id number], [place] [address]- 6411 Nov, IMMUNIZATIONS No Known Immunizations SOCIAL HISTORY Never Assessed REASON FOR VISIT Controlled Med Refill PLAN OF CARE VITAL SIGNS MEDICATIONS Medication Instructions Dosage Frequency Start Date End Date Duration Status Ativan 0.5 Orally, each fill must last 28 days Once a day 1 tablet 24h 28 days Active Hydrocodone-Acetaminophen 5-325 MG Orally 3 times a day-,Assisted living facility 1 tablet Nov, 28 days Active RESULTS No Results PROCEDURES [...]
--- OUTSIDE RECORDS SUMMARY | 2018-03-13 14:33 | XMS REPORT | Continuity of Care Document ---
Author Author [facility] Ctr of [facility] Ctr of [facility] Address Unknown Phone Unavailable Allergies Active Description Code Type Severity Reaction Onset Reported/Identified Relationship to Patient Clinical Status Yes No Known Drug Allergies [id number] Drug Allergy Unknown N/A 07/04/2007 Medications There [...] Ot 275.2 DIS MAGNESIUM METABOLISM 11/07/2012 KALPESH MEIDNA FACC, ALI FACP CCDS Ot 276.7 HYPERPOTASSEMIA 11/07/2012 KALPESH MEDINA FACC, ALI FACP CCDS Ot 285.9 ANEMIA NOS 11/07/2012 KALPESH MEDINA FACC, DUANE FACP CCDS Ot 401.9 HYPERTENSION NOS 11/07/2012 KALPESH MEDINA FACC, ALI FACP CCDS Ot 412 OLD MYOCARDIAL INFARCT 11/07/2012 KALPESH MEDINA FACC, DUANE FACP CCDS Ot 414.01 CORONARY ATHEROSCLEROSIS OF [place] CORON 11/07/2012 DUANE POSEY MD, FACC FACP [...] V45.82 PERCUTANEOUS TRANSLUM CORON ANGIOPLASTY 01/29/2013 JORDY PTAEL DO Ot 041.3 KLEBSIELLA PNEUMONIAE 01/29/2013 JORDY [...] PATEL DO Ot 414.01 CORONARY ATHEROSCLEROSIS OF [place] CORON 01/29/2013 JORDY PATEL DO Ot 426.4 [...] MILAN MD Ot 414.01 CORONARY ATHEROSCLEROSIS OF [place] CORON 10/10/2013 JUNIE MILAN MD Ot 426.4 [...] LOPEZ MD Ot 414.01 CORONARY ATHEROSCLEROSIS OF [place] CORON 11/06/2013 LAKIA LOPEZ MD Ot 493.90 [...] 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, NOS 11/29/2013 JORDY PAETL DO Ot 562.10 DIVERTICULOSIS COLON (W/O MENT [...] MD E Ot 414.01 CORONARY ATHEROSCLEROSIS OF [place] CORON 12/04/2013 LETICIA COWNAY MD E Ot 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, [...] FALCON MD.90 UNSPECIFIED ARTHROPATHY SITE UNSPECIFIED 02/10/2014 PTEE FALCON MD9.00 ABDOMINAL PAIN UNSPECIFIED SITE 02/10/2014 [...] Ot 784.0 06/17/2014 Ot 789.00 06/17/2014 MOHINDER OPLK DO Ot 722.52 06/17/2014 COLIN SILVER DO [...] MD, Ot I25.10 ATHSCL HEART DISEASE OF [place] CORONARY 09/28/2015 FER LEIJA MD, Ot I27.2 [...] R06.00 DYSPNEA, UNSPECIFIED 10/30/2017 NEW, PEBBLES Gómez POWER SYSTEM DISPATCHER-C Ot E11.9 TYPE 2 DIABETES MELLITUS WITHOUT COMPLIC 10/30/2017 NEW, PEBBLES Gómez POWER SYSTEM DISPATCHER-C Ot E55.9 VITAMIN D DEFICIENCY, UNSPECIFIED 10/30/2017 NEW, PEBBLES Gómez POWER SYSTEM DISPATCHER-C Ot E78.5 HYPERLIPIDEMIA, UNSPECIFIED 10/30/2017 NEW, PEBBLES GOle POWER SYSTEM DISPATCHER-C Ot E87.5 HYPERKALEMIA 10/30/2017 NEW, PEBBLES Gómez POWER SYSTEM DISPATCHER-C Ot F03.90 UNSPECIFIED DEMENTIA WITHOUT BEHAVIORAL 10/30/2017 NEWPEBBLES GOle POWER SYSTEM DISPATCHER-C Ot I12.9 HYPERTENSIVE CHRONIC KIDNEY DISEASE W ST 10/30/2017 NEWPEBBLES POWER SYSTEM DISPATCHER-C Ot I25.10 ATHSCL HEART DISEASE OF [place] CORONARY 10/30/2017 NEW, PEBBLES Gómez POWER SYSTEM DISPATCHER-C Ot M79.7 FIBROMYALGIA 10/30/2017 NEW, PEBBLES G. POWER SYSTEM DISPATCHER-C Ot N18.3 CHRONIC KIDNEY DISEASE, STAGE 3 (MODERAT 10/30/2017 NEW, PEBBLES GOle POWER SYSTEM DISPATCHER-C Ot R60.9 EDEMA, UNSPECIFIED 11/19/2017 NEW, PEBBLES G. POWER SYSTEM DISPATCHER-C Ot E11.9 TYPE 2 DIABETES MELLITUS WITHOUT COMPLIC 11/19/2017 NEW, PEBBLES G. POWER SYSTEM DISPATCHER-C Ot E55.9 VITAMIN D DEFICIENCY, UNSPECIFIED 11/19/2017 NEWPEBBLES GOle POWER SYSTEM DISPATCHER-C Ot E78.5 HYPERLIPIDEMIA, UNSPECIFIED 11/19/2017 NEW, PEBBLES Gómez POWER SYSTEM DISPATCHER-C Ot E87.5 HYPERKALEMIA 11/19/2017 NEW, PEBBLES Gómez POWER SYSTEM DISPATCHER-C Ot F03.90 UNSPECIFIED DEMENTIA WITHOUT BEHAVIORAL 11/19/2017 NEW, PEBBLES Gómez POWER SYSTEM DISPATCHER-C Ot I12.9 HYPERTENSIVE CHRONIC KIDNEY DISEASE W ST 11/19/2017 NEW, PEBBLES MccoyOle POWER SYSTEM DISPATCHER-C Ot I25.10 ATHSCL HEART DISEASE OF [place] CORONARY 11/19/2017 NEW, PEBBLES MccoyOle POWER SYSTEM DISPATCHER-C Ot M79.7 FIBROMYALGIA 11/19/2017 NEW, PEBBLES MccoyOle POWER SYSTEM DISPATCHER-C Ot N18.3 CHRONIC KIDNEY DISEASE, STAGE 3 (MODERAT 11/19/2017 NEW, PEBBLES MccoyOle POWER SYSTEM DISPATCHER-C Ot R60.9 EDEMA, UNSPECIFIED 12/02/2017 NEW, PEBBLES MccoyOle POWER SYSTEM DISPATCHER-C Ot E11.9 TYPE 2 DIABETES MELLITUS WITHOUT COMPLIC 12/02/2017 NEW, PEBBLES MccoyOle POWER SYSTEM DISPATCHER-C Ot E55.9 VITAMIN D DEFICIENCY, UNSPECIFIED 12/02/2017 NEW, PEBBLES MccoyOle POWER SYSTEM DISPATCHER-C Ot E78.5 HYPERLIPIDEMIA, UNSPECIFIED 12/02/2017 NEW, PEBBLES MccoyOle POWER SYSTEM DISPATCHER-C Ot E87.5 HYPERKALEMIA 12/02/2017 NEW, PEBBLES Gómez POWER SYSTEM DISPATCHER-C Ot F03.90 UNSPECIFIED DEMENTIA WITHOUT BEHAVIORAL 12/02/2017 NEW, PEBBLES MccoyOle POWER SYSTEM DISPATCHER-C Ot I12.9 HYPERTENSIVE CHRONIC KIDNEY DISEASE W ST 12/02/2017 NEW, PEBBLES MccoyOle POWER SYSTEM DISPATCHER-C Ot I25.10 ATHSCL HEART DISEASE OF [place] CORONARY 12/02/2017 NEW, PEBBLES GOle POWER SYSTEM DISPATCHER-C Ot M79.7 FIBROMYALGIA 12/02/2017 NEW, PEBBLES MccoyOle POWER SYSTEM DISPATCHER-C Ot N18.3 CHRONIC KIDNEY DISEASE, STAGE 3 (MODERAT 12/02/2017 NEW, PEBBLES MccoyOle POWER SYSTEM DISPATCHER-C Ot R60.9 EDEMA, UNSPECIFIED Procedures Code Description Performed By Performed On 53.41 OTHER OPEN REPAIR UMBILICAL HERNIA W G 07/28/2009 53.61 OTHER OPEN INCISIONAL HERNIA REPAIR WITH 07/28/2009 45.16 ESOPHAGOGASTRODUODENOSCOPY [ EGD] W/CLOSE 11/07/2012 45.16 ESOPHAGOGASTRODUODENOSCOPY [ EGD] W/CLOSE 10/09/2013 96.04 INSERT ENDOTRACHEAL TUBE 11/25/2013 96.71 CONTINUOUS INVASIVE MECHANICAL VENTILATI 11/25/2013 77757 ROUTINE VENIPUNCTURE 03/23/2014 63305 CMP 03/23/2014 [id number] GFR CALC (RESULT ONLY) 03/23/2014 95823 CBC 03/23/2014 47146 CRP 03/23/2014 17788 MAMMOGRAM DX, RIGHT 04/29/2014 98842 MAMMOGRAM, SCREENING 04/29/2014 Results Test Result Range [...] NEGATIVE ng/mL <25 medMATCH Phencyclidine CONSISTENT NRG Capillary blood glucose measurement by glucometer (mass/volume) - 03/10/18 13: 00 Capillary blood glucose measurement by glucometer (mass/volume) 244 mg/dL 70-110 Complete blood count (CBC) with automated white blood cell (WBC) differential - 03/10/18 13:20 Blood leukocytes automated count (number/volume) 13.3 10*3/uL 4.3-11.0 Blood erythrocytes automated count (number/volume) 4.49 10*6/uL 4.35-5.85 Venous blood hemoglobin measurement (mass/volume) 10.7 g/dL 11.5-16.0 Blood hematocrit (volume fraction) 34 % 35-52 Automated erythrocyte mean corpuscular volume 76 [foz_us] 80-99 Automated erythrocyte mean corpuscular hemoglobin (mass per erythrocyte) 24 pg 25-34 Automated erythrocyte mean corpuscular hemoglobin concentration measurement ( mass/volume) 31 g/dL 32-36 Automated erythrocyte distribution width ratio 17.7 % 10.0-14.5 Automated blood platelet count (count/volume) 321 10*3/uL 130-400 Automated blood platelet mean volume measurement 10.1 [foz_us] 7.4-10.4 Automated blood neutrophils/100 leukocytes 61 % 42-75 Automated blood lymphocytes/100 leukocytes 29 % 12-44 Blood monocytes/100 leukocytes 8 % 0-12 Automated blood eosinophils/100 leukocytes 1 % 0-10 Automated blood basophils/100 leukocytes 0 % 0-10 Blood neutrophils automated count (number/volume) 8.1 10*3 1.8-7.8 Blood lymphocytes automated count (number/volume) 3.9 10*3 1.0-4.0 Blood monocytes automated count (number/volume) 1.1 10*3 0.0-1.0 Automated eosinophil count 0.2 10*3/uL 0.0-0.3 Automated blood basophil count (count/volume) 0.0 10*3/uL 0.0-0.1 Comprehensive metabolic panel - 03/10/18 13:20 Serum or plasma sodium measurement (moles/volume) 136 mmol/L 135-145 Serum or plasma potassium measurement (moles/volume) 4.4 mmol/L 3.6-5.0 Serum or plasma chloride measurement (moles/volume) 102 mmol/L 98-107 Carbon dioxide 25 mmol/L 21-32 Serum or plasma anion gap determination (moles/volume) 9 mmol/L 5-14 Serum or plasma urea nitrogen measurement (mass/volume) 34 mg/dL 7-18 Serum or plasma creatinine measurement (mass/volume) 1.63 mg/dL 0.60-1.30 Serum or plasma urea nitrogen/creatinine mass ratio 21 NRG Serum or plasma creatinine measurement with calculation of estimated glomerular filtration rate 37 NRG Serum or plasma glucose measurement (mass/volume) 265 mg/dL 70-105 Serum or plasma calcium measurement (mass/volume) 10.3 mg/dL 8.5-10.1 Serum or plasma total bilirubin measurement (mass/volume) 0.5 mg/dL 0.1-1.0 Serum or plasma alkaline phosphatase measurement (enzymatic activity/volume) 89 U/L 40-136 Serum or plasma aspartate aminotransferase measurement (enzymatic activity/ volume) 18 U/L 5-34 Serum or plasma alanine aminotransferase measurement (enzymatic activity/volume ) 14 U/L 0-55 Serum or plasma protein measurement (mass/volume) 6.9 g/dL 6.4-8.2 Serum or plasma albumin measurement (mass/volume) 4.0 g/dL 3.2-4.5 CALCIUM CORRECTED 10.3 mg/dL 8.5-10.1 Magnesium - 03/10/18 13:20 Magnesium 1.8 mg/dL 1.8-2.4 Serum or plasma troponin i.cardiac measurement (mass/volume) - 03/10/18 13:20 Serum or plasma troponin i.cardiac measurement (mass/volume) < ng/ mL <0.30 Myoglobin, serum - 03/10/18 13:20 Myoglobin, serum 40.4 ng/mL 10.0-92.0 Complete urinalysis with reflex to culture - 03/10/18 14:25 Urine color determination YELLOW NRG Urine clarity determination CLEAR NRG Urine pH measurement by test strip 5 5-9 Specific gravity of urine by test strip 1.015 1.016- 1.022 Urine protein assay by test strip, semi-quantitative 2+ NEGATIVE Urine glucose detection by automated test strip NEGATIVE NEGATIVE Erythrocytes detection in urine sediment by light microscopy NEGATIVE NEGATIVE Urine ketones detection by automated test strip NEGATIVE NEGATIVE Urine nitrite detection by test strip NEGATIVE NEGATIVE Urine total bilirubin detection by test strip NEGATIVE NEGATIVE Urine urobilinogen measurement by automated test strip (mass/volume) 1 mg/dL NORMAL Urine leukocyte esterase detection by dipstick 1+ NEGATIVE Automated urine sediment erythrocyte count by microscopy (number/high power field) [HPF] NRG Automated urine sediment leukocyte count by microscopy (number/high power field ) NONE NRG Bacteria detection in urine sediment by light microscopy TRACE NRG Squamous epithelial cells detection in urine sediment by light microscopy 5-10 NRG Crystals detection in urine sediment by light microscopy NONE NRG Casts detection in urine sediment by light microscopy PRESENT NRG Mucus detection in urine sediment by light microscopy NEGATIVE NRG Complete urinalysis with reflex to culture NO NRG Amorphous sediment detection in urine sediment by light microscopy FEW JAZZ URATES NRG Hyaline casts detection in urine sediment by light microscopy 10-25 NRG Capillary blood glucose measurement by glucometer (mass/volume) - 03/11/18 18: 23 Capillary blood glucose measurement by glucometer (mass/volume) 206 mg/dL 70-110 Capillary blood glucose measurement by glucometer (mass/volume) - 03/11/18 20: 42 Capillary blood glucose measurement by glucometer (mass/volume) 260 mg/dL 70-110 Encounters ACCT No. Visit Date/Time Discharge Status Pt. Type Provider Facility Loc./Unit Complaint [id number] 09/16/2014 16:35:00 09/16/2014 23:59:59 CLS Outpatient PETE FALCON MD [id number] 04/21/2014 14:48:00 04/21/2014 23:59:59 CLS Outpatient PETE FALCON MD [id number] 03/23/2014 10:35:00 03/23/2014 23:59:59 CLS Outpatient PETE FALCON MD [id number] 02/10/2014 13:01:00 02/10/2014 23:59:59 CLS Outpatient PETE FALCON MD [id number] 01/28/2014 12:18:00 01/28/2014 23:59:59 CLS Outpatient PETE FALCON MD [id number] 07/12/2014 14:07:00 ACT Document Registration [id number] 10/31/2017 13:20:00 10/31/2017 23:59:59 CLS Outpatient LEIEL SMITHSeth [facility] [id number] 02/07/2018 14:20:00 Document Registration [id number] 07/25/2017 15:20:00 Document Registration [id number] 03/14/2017 08:00:00 Document Registration [id number] 03/10/2018 12:42:00 03/10/2018 12:42:00 FATUMA Salinas MD [facility] ER HEART CATH [id number] 10/29/2017 08:49:00 10/29/2017 23:59:59 CLS Outpatient PEBBLES SEGAL [facility] RAD HTN,CHRONIC KIDNEY DISEASE STAGE 3 [id number] 09/26/2015 11:40:00 09/28/2015 15:30:00 DIS Inpatient FER LEIJA MD [facility] 4TH ACUTE ON CHRONIC RENAL FAILURE ACUTE BRONCHITIS [id number] 06/17/2015 16:57:00 06/17/2015 23:59:59 CLS Outpatient PETE FALCON MD [facility] RAD INCREASED DYSPNEA [id number] 07/12/2014 14:06:00 07/12/2014 23:59:59 CLS Outpatient COLIN SILVER DO [facility] RT COPD ASTHMA [id number] 07/06/2014 13:25:00 07/06/2014 23:59:59 CLS Outpatient PETE FALCON MD [facility] RAD ABN MAMMO [id number] 07/02/2014 10:08:00 07/02/2014 23:59:59 CLS Outpatient COLIN SILVER DO [facility] RAD COPD,LUNG NODULE [id number] 06/18/2014 11:26:00 06/18/2014 23:59:59 CLS Outpatient PETE FALCON MD [facility] RAD SCREENING [id number] 10/07/2013 13:40:00 01/05/2014 00:01:00 DIS Outpatient JUNIE MILAN MD [facility] ONC [id number] 01/04/2014 11:49:00 01/04/2014 23:59:59 CLS Outpatient COLIN SILVER DO [facility] RAD LUNG NODULE [id number] 12/30/2013 08:32:00 12/30/2013 10:27:00 DIS Outpatient NIDHI RODRIGUEZ MD [facility] SDC ANEMIA [id number] 12/23/2013 07:22:00 12/23/2013 23:59:59 CLS Outpatient NIDHI RODRIGUEZ MD [facility] PREOP ANEMIA [id number] 11/29/2013 12:38:00 12/04/2013 14:50:00 DIS Inpatient LETICIA CONWAY MD [facility] IRF AMS;ARF;THYROID DYSFUNCTION [id number] 12/02/2013 07:13:00 12/02/2013 23:59:59 CLS Outpatient NIDHI RODRIGUEZ MD [facility] PREOP ANEMIA [id number] 11/25/2013 18:04:00 11/25/2013 23:59:59 CLS Inpatient JORDY PATEL DO [facility] 4TH AMS;ARF;THYROID DYSFUNCTION [id number] 11/04/2013 22:10:00 11/06/2013 12:48:00 DIS Inpatient LAKIA LOPEZ MD [facility] 4TH DEHYDRATION; GENERALIZED WEAKNESS [id number] 10/07/2013 15:25:00 10/10/2013 17:15:00 DIS Inpatient JUNIE MILAN MD [facility] 4TH ANEMIA,SOA [id number] 07/08/2013 13:03:00 07/31/2013 12:02:00 DIS Outpatient MELANY ABBOTT MD [facility] REHAB LUMBAGO [id number] 04/24/2013 08:39:00 04/24/2013 23:59:59 CLS Outpatient MOHINDER POLK DO [facility] RAD LUMBAR RADICULOPATHY [id number] 01/26/2013 17:29:00 01/29/2013 18:30:00 DIS Inpatient JORDY PATEL DO [facility] 4TH DELIRIUM,UTI,SLEEP DEPRIVATION,CHRONIC PAIN SYNDRO [id number] 11/04/2012 14:00:00 11/07/2012 16:40:00 DIS Inpatient KALPESH MEDINA FACC, DUANE DORSEY CCDS [facility] CSD SOA [id number] 06/17/2014 09:58:00 Document Registration [id number] 06/17/2014 09:58:00 Document Registration [id number] 06/17/2014 09:58:00 Document Registration [id number] 06/17/2014 09:58:00 Document Registration [id number] 01/06/2014 00:00:00 Document Registration [id number] 09/29/2012 13:11:00 Document Registration [id number] 05/20/2012 19:00:00 Document Registration [id number] 01/14/2012 10:41:00 Document Registration [id number] 12/13/2011 15:33:00 Document Registration [id number] 08/23/2011 16:56:00 Document Registration [id number] 07/30/2011 08:52:00 Document Registration [id number] 04/30/2011 11:56:00 Document Registration [id number] 01/29/2011 11:32:00 Document Registration [id number] 12/01/2010 05:50:00 Document Registration [id number] 11/23/2010 14:03:00 Document Registration [id number] 11/23/2010 14:01:00 Document Registration [id number] 11/07/2010 09:37:00 Document Registration [id number] 06/22/2010 05:44:00 Document Registration [id number] 06/16/2010 13:10:00 Document Registration [id number] 08/31/2009 08:32:00 Document Registration [id number] 07/25/2009 08:32:00 Document Registration [id number] 05/24/2009 15:21:00 Document Registration [id number] 03/28/2009 15:30:00 Document Registration
== END 2018-03-12 16:18 | disposition home or self-care (01) | DRG 229 ==
LOC: EDUNIT# 12:41 → ER 12:42 → CATH 14:48 → ICU 14:48 → CATH 16:17 → ICU 16:17 → CATH 17:30 → ICU 17:30 → UNDOADMIN 17:30 → ICU 03-12 13:38 → UNDODISIN 03-12 16:18
PROVIDERS: ADMIT Family Medicine; ATTEND Family Medicine
PROC: 4A023N7 Measurement of Cardiac Sampling and Pressure, Left Heart, Percutaneous Approach (ICD-10-PCS; 2018-03-10)
PROC: B2151ZZ Fluoroscopy of Left Heart using Low Osmolar Contrast (ICD-10-PCS; 2018-03-10)
PROC: B2111ZZ Fluoroscopy of Multiple Coronary Arteries using Low Osmolar Contrast (ICD-10-PCS; 2018-03-10)
PROC: B3101ZZ Fluoroscopy of Thoracic Aorta using Low Osmolar Contrast (ICD-10-PCS; 2018-03-10)
PROC: 02HK3JZ Insertion of Pacemaker Lead into Right Ventricle, Percutaneous Approach (ICD-10-PCS; 2018-03-10)
PROC: 0JH606Z Insertion of Pacemaker, Dual Chamber into Chest Subcutaneous Tissue and Fascia, Open Approach (ICD-10-PCS; principal; 2018-03-11)
PROC: 02H63JZ Insertion of Pacemaker Lead into Right Atrium, Percutaneous Approach (ICD-10-PCS; 2018-03-11)
PROC: 02HK3JZ Insertion of Pacemaker Lead into Right Ventricle, Percutaneous Approach (ICD-10-PCS; 2018-03-11)
PROC: 02PA3NZ Removal of Intracardiac Pacemaker from Heart, Percutaneous Approach (ICD-10-PCS; 2018-03-11)
PROC: B5171ZZ Fluoroscopy of Left Subclavian Vein using Low Osmolar Contrast (ICD-10-PCS; 2018-03-11)
DX: R00.1 Bradycardia, unspecified (principal); I25.10 Atherosclerotic heart disease of native coronary artery without angina pectoris; F01.51 Vascular dementia, unspecified severity, with behavioral disturbance; N17.9 Acute kidney failure, unspecified; I12.9 Hypertensive chronic kidney disease with stage 1 through stage 4 chronic kidney disease, or unspecified chronic kidney disease; E11.9 Type 2 diabetes mellitus without complications; E78.5 Hyperlipidemia, unspecified; D50.9 Iron deficiency anemia, unspecified; D63.8 Anemia in other chronic diseases classified elsewhere; N18.3 Chronic kidney disease, stage 3 (moderate); M48.02 Spinal stenosis, cervical region; I95.9 Hypotension, unspecified; R55 Syncope and collapse; Z87.891 Personal history of nicotine dependence; R91.1 Solitary pulmonary nodule; E03.9 Hypothyroidism, unspecified; J44.9 Chronic obstructive pulmonary disease, unspecified; M79.7 Fibromyalgia; F41.9 Anxiety disorder, unspecified; M10.9 Gout, unspecified; B18.2 Chronic viral hepatitis C; E04.1 Nontoxic single thyroid nodule; I45.10 Unspecified right bundle-branch block; F10.21 Alcohol dependence, in remission; Z96.643 Presence of artificial hip joint, bilateral; Z86.73 Personal history of transient ischemic attack (TIA), and cerebral infarction without residual deficits; Z95.5 Presence of coronary angioplasty implant and graft
CPT/HCPCS: 33208; 33210; 36221; 36415; 51702; 71045; 71046; 75820; 80048; 80053; 81000; 82962; 83735; 83874; 84100; 84484; 85025; 85027; 85379; 85610; 85730; 87081; 93005; 93041; 93306; 93458; 96361; 96374; 96375; 99291

== ENCOUNTER → 2018-04-16 | Outpatient (CLI) | payer MEDICARE, MEDICAID ==
[~2018-04-16] MED LIST changes: +ALLO100T PO; +CEPH-507 PO; +CHOL20003 PO; +LOSA100T8 PO; +METO50TA15 PO; +POLY17PO6 PO; +RT-ALBUINH IH; +ZIPR20CA23 PO
--- NOTE | 2018-04-16 14:02 | Diagnostic Imaging Report ---
PROCEDURE: US Renal Bilateral. TECHNIQUE: Multiple real-time grayscale images were obtained over the kidneys in various projections bilaterally. INDICATION: Chronic kidney disease, stage III. FINDINGS: Right kidney measures 9.4 x 5.4 x 4.6 cm and the left kidney measures 8.2 x 4.6 x 4.5 cm. Cortical thickness and echogenicity appear normal. No calculi are seen. There is no hydronephrosis. The bladder is decompressed. Only the right ureteral jet could be visualized. IMPRESSION: Unremarkable renal ultrasound. Dictated by: Dictated on workstation # [id number]
== END ==
LOC: RAD 12:02
PROVIDERS: ATTEND Nurse Practitioner
DX: I12.9 Hypertensive chronic kidney disease with stage 1 through stage 4 chronic kidney disease, or unspecified chronic kidney disease (principal); E11.22 Type 2 diabetes mellitus with diabetic chronic kidney disease; N18.3 Chronic kidney disease, stage 3 (moderate); E55.9 Vitamin D deficiency, unspecified; E78.5 Hyperlipidemia, unspecified; I25.10 Atherosclerotic heart disease of native coronary artery without angina pectoris; F03.90 Unspecified dementia, unspecified severity, without behavioral disturbance, psychotic disturbance, mood disturbance, and anxiety; M79.7 Fibromyalgia; E87.5 Hyperkalemia
CPT/HCPCS: 76770

== ENCOUNTER → 2019-02-26 | Outpatient (CLI) | payer MEDICARE, MEDICAID ==
[~2019-02-26] MED LIST changes: +HOLD METFORMIN - RECEIVED CONTRAST 20 ML VIAL IV SCH; +IOHEXOL 350 MG/ML 100 ML (OMNIPAQUE 350) VIAL IV ONE; +LOSA100T57 PO; -LOSA100T8 PO
[2019-02-26 09:16] LABS: BUN/CREATININE RATIO 22; CREATININE SERUM 0.87 MG/DL (0.60-1.30); GFR ESTIMATED > 60
--- NOTE | 2019-02-26 16:35 | Diagnostic Imaging Report ---
PROCEDURE: CT abdomen and pelvis with contrast. TECHNIQUE: Multiple contiguous axial images were obtained through the abdomen and pelvis after administration of intravenous contrast. Auto Exposure Controls were utilized during the CT exam to meet ALARA standards for radiation dose reduction. INDICATION: Abdominal pain. Findings: Comparison is 07/10/2013. Limited views of the lower thorax reveal pacemaker leads and coronary artery calcifications. Liver is normal. No focal liver lesions are seen. Gallbladder is absent. No biliary ductal dilation. Portal vein is patent. Pancreas, spleen and adrenal glands are normal. Kidneys enhance symmetrically. There is a cyst in the lower pole of the left kidney. No hydronephrosis. Pelvis is obscured by streak artifact from hip arthroplasties. No pelvic masses seen. There is diverticulosis. There is a mild amount of stranding adjacent to a thickened diverticula in the sigmoid colon which may represent a very mild case of acute diverticulitis. The remaining bowel is normal. No free fluid or air is seen. No abdominal or pelvic lymphadenopathy. Abdominal aorta is atherosclerotic but normal in caliber. There is a ventral abdominal hernia repair. There are bilateral total hip arthroplasties. No suspicious osseous lesions are seen. Impression: 1. Possible mild acute diverticulitis of the sigmoid colon without complication. Dictated by: Dictated on workstation # [id number]
== END ==
LOC: RAD 08:40
PROVIDERS: ATTEND Nurse Practitioner Family
DX: R10.9 Unspecified abdominal pain (principal); Z90.49 Acquired absence of other specified parts of digestive tract; Z96.643 Presence of artificial hip joint, bilateral; Z98.890 Other specified postprocedural states
CPT/HCPCS: 36415; 74177; 82565; 84520

== ENCOUNTER 2019-03-18 20:46 | Outpatient (CLI) | payer MEDICARE, MEDICAID ==
[~2019-03-18 20:46] MED LIST changes: -HOLD METFORMIN - RECEIVED CONTRAST 20 ML VIAL IV SCH; -IOHEXOL 350 MG/ML 100 ML (OMNIPAQUE 350) VIAL IV ONE
== END 2019-03-19 07:18 | disposition home or self-care (01) ==
LOC: SLEEP 20:46
PROVIDERS: ATTEND Nurse Practitioner Primary Care
DX: G47.33 Obstructive sleep apnea (adult) (pediatric) (principal); G47.10 Hypersomnia, unspecified; E11.22 Type 2 diabetes mellitus with diabetic chronic kidney disease; N18.3 Chronic kidney disease, stage 3 (moderate); E66.01 Morbid (severe) obesity due to excess calories; Z68.42 Body mass index [BMI] 45.0-49.9, adult
CPT/HCPCS: 95811

== ENCOUNTER 2019-03-23 06:37 | Day surgery (SDC) | payer MEDICARE, MEDICAID ==
[2019-03-23] VITALS (21 sets, daily range): BP systolic 112–188; BP diastolic 64–102
[~2019-03-23] VITALS: Ht 163 cm; Wt 127.0 kg
[2019-03-23] MEDS ORDERED: NS IV 1000 ML 1,000 ML ONE ×2 (06:47→09:32)
[2019-03-23] MEDS ORDERED: HEParin (CATH LAB) 1,000 ML IV ONE (06:48)
[2019-03-23] MEDS ORDERED: LIDOCAINE 1% INJ 20 ML 20 ML VIAL ONE (06:48)
[2019-03-23] MEDS ORDERED: KETAMINE HCL 100 MG/ML 5 ML VIAL ONE (06:54)
[2019-03-23] MEDS ORDERED: fentaNYL INJECTION 100 MCG/2 ML AMP ONE (06:54)
[2019-03-23] MEDS ORDERED: NS IV 1000 ML 1,000 ML IV SCH (06:54)
[2019-03-23] MEDS ORDERED: MIDAZOLAM 2 MG/2 ML (VERSED) VIAL ONE (06:54)
[2019-03-23] MEDS ORDERED: PROPOFOL DRIP (ICU) 100 ML IV ONE ×3 (06:54→10:53)
[2019-03-23] MEDS ORDERED: LIDOCAINE PF 1% 2 ML AMP ONE (07:00)
[2019-03-23] MEDS ORDERED: ISOPROTERENOL 0.2 MG/D5W 50 ML IV ONE (07:00)
[2019-03-23] MEDS ORDERED: SUCCINYLCHOLINE INJ 100 MG/5 ML SYR ONE (07:06)
[2019-03-23] MEDS ORDERED: ROCURONIUM 10 MG/ML 5 ML SYRINGE IV ONE ×2 (07:12→09:02)
[2019-03-23] MEDS ORDERED: ONDANSETRON 4 MG/2 ML (SDV) Z0FRAN ONE (07:14)
[2019-03-23] MEDS ORDERED: GLYCOPYRROLATE 0.2 MG/ML (ROBINUL) 2 ML VIAL ONE ×2 (07:14→09:33)
[2019-03-23 07:25] LABS: HEMOGLOBIN 13.1 G/DL (11.5-16.0); RED CELL DISTRIBUTION WIDTH 13.1 % (10.0-14.5)
[2019-03-23] MEDS ORDERED: RANI-613 PO (07:30)
[2019-03-23] MEDS ORDERED: APIX5TAB PO (07:30)
[2019-03-23] MEDS ORDERED: METF-397 PO (07:30)
[2019-03-23] MEDS ORDERED: PSYL3.4P5 PO (07:30)
[2019-03-23] MEDS ORDERED: SAXA2.5T PO (07:30)
[2019-03-23] MEDS ORDERED: CHOL10007 PO (07:30)
[2019-03-23] MEDS ORDERED: METO-333 PO (07:35)
[2019-03-23 07:36] LABS: PROTHROMBIN TIME PATIENT 13.7 SEC (12.2-14.7)
--- NOTE | 2019-03-23 07:37 | NUR ---
PT IS A RESIDENT OF [facility] AND WHEN I INQUIRED IF SHE TOOK CARE OF HER MEDS OR IF THEY SET THEM UP FOR HER SHE INDICATED THE FACILITY DID. FROM THE [facility] ORDER REPORT AND SPEAKING WITH THE PT I WAS ABLE TO COMPLETE THE MED REC. OTC MEDS: ASPIRIN 81M DAILY MIRALAX: 17 GRAMS DAILY PRN METAMUCIL: 1 CAPFUL TID
[2019-03-23 07:41] LABS: ALBUMIN 4.1 GM/DL (3.2-4.5); BILIRUBIN,TOTAL 0.5 MG/DL (0.1-1.0); CALCIUM 10.4 MG/DL (8.5-10.1); CREATININE SERUM 1.07 MG/DL (0.60-1.30); POTASSIUM 4.6 MMOL/L (3.6-5.0); TOTAL PROTEIN 7.1 GM/DL (6.4-8.2)
[2019-03-23] MEDS ORDERED: PHENYLEPHRINE 100 MCG/ML 10 ML (ANESTHESIA) SYR ONE (07:52)
[2019-03-23] MEDS ORDERED: PHENYLEPHRINE INJ 10 MG/ML (FOR DRIP KITS ONLY) ONE (08:20)
[2019-03-23] MEDS ORDERED: NS (IVPB) 250 ML ONE (08:20)
[2019-03-23 08:47] LABS: BILIRUBIN,URINE NEGATIVE (NEGATIVE); CLARITY,URINE CLEAR; COLOR,URINE YELLOW; GLUCOSE, URINE (UA) 1+ (NEGATIVE); KETONES,URINE NEGATIVE (NEGATIVE); LEUKOCYTE ESTERASE ,URINE NEGATIVE (NEGATIVE); NITRITE,URINE NEGATIVE (NEGATIVE); PH,URINE 5 (5-9); PROTEIN,URINE 2+ (NEGATIVE); UROBILINOGEN,URINE NORMAL (NORMAL)
[2019-03-23 08:56] LABS: BACTERIA,URINE NEGATIVE /HPF; SQUAMOUS EPITHELIAL CELL,UR RARE /HPF; WBC,URINE RARE /HPF
[2019-03-23] MEDS ORDERED: SEVOFLURANE (ULTANE) 15 ML INHAL SOLN ONE ×3 (09:32→12:49)
[2019-03-23] MEDS ORDERED: NEOSTIGMINE 3 MG/3 ML VIAL ONE (09:33)
--- NOTE | 2019-03-23 11:47 | Cardiac Procedure Note-CS/ASA ---
Pre-Procedure Note Pre-Op Procedure Note H&P Reviewed The H&P was reviewed, patient examined and no changes noted. Date H&P Reviewed: Mar 23, 2019 Time H&P Reviewed: 08:00 Conscious Sedation Pre-Proced Time 08:00 ASA Score 3 For ASA 3 and 4: Consider anesthesia and medical clearance. Also, for patients with a history of failed moderate sedation consider anesthesia. Airway Lungs Heart ASA score ASA 1: a normal healthy patient ASA 2: a patient with a mild systemic disease (mid diabetes, controlled hypertension, obesity ASA 3: a patient with a severe systemic disease that limits activity (angina, COPD, prior Myocardial infarction) ASA 4: a patient with an incapacitating disease that is a constant threat to life (CHF, renal failure) ASA 5: a moribund patient not expected to survive 24 hrs. (ruptured aneurysm) ASA 6: a declared brain- patient whose organs are being harvested. For emergent operations, add the letter E after the classification Mallampati Classification Grade 1 Sedation Plan Analgesia, Amnesia, Plan communicated to team members, Discussed options with patient/fam, Discussed risks with patient/fam The patient is an appropriate candidate to undergo the planned procedure, sedation, and anesthesia. The patient immediately re-assessed prior to indication. Gonzalo ORR MD Mar 23, 2019 11:47
--- NOTE | 2019-03-23 11:47 | Electrophysiology Procedure ---
EP Procedure DATE OF SERVICE:03/23/19 REFERRING PHYSICIAN: CARDIAC PARAFFINER: Blanca Link MD, [facility], [facility]. INDICATION: PSVT PREOPERATIVE DIAGNOSIS: PSVT POSTOPERATIVE DIAGNOSES: Slow pathway ablation. HISTORY: This is a 78-year-old lady who has palpitations and PSVT on event monitor as well as on device interrogation. 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 The patient is planned for comprehensive EP study and ablation. PROCEDURE PERFORMED: 1. Comprehensive EP study with induction. 2. Fluoroscopy. 3.Left atrial pacing and recording. 4. Drug infusion. 5. Ablation of AVNRT (slow pathway ablation). 6. Comprehensive 3D mapping with the carto system. COMPLICATION: None. ESTIMATED BLOOD LOSS: 10 mL. CONTRAST USED: None. FLUOROSCOPY TIME: 14.1 minutes. FLUOROSCOPY DOSE: 983 mgy. SPECIMENS: None. ANESTHESIA: Done by our anesthesia colleagues. ANTICOAGULATION: None PROCEDURE IN DETAIL: After informed consent was taken, the patient was brought to the EP lab. Anesthesia was provided by our anesthesia colleagues. The patient was draped and prepped in the usual sterile fashion. The patient presented to the EP lab in sinus rhythm. Access was gained in the right femoral vein with a 6-St Lucian and an 8-St Lucian sheath. Left access in left femoral vein was gained with 5-St Lucian and 6-St Lucian sheath respectively. High right atrial catheter was a Amrit catheter, right ventricular catheter was placed, his catheter and the CS catheter were also placed. A comprehensive EP study was done. Dual AV candis physiology was demonstrated with no AV candis echoes. No tachycardia was induced with the without Isuprel and also during washout. Consistent dual AV candis physiology with clinical PSVT. Left atrial pacing and recording did not demonstrate left lateral bypass tract. RV pacing at 600 ms cycle length did not demonstrate retrograde conduction. A 3D electroanatomic mapping was donewith the carto system. Ablation was performed inferior to the His bundle and close to the CS ostium. Junctional beats were noted. Atrial pacing demonstrated consistent AV conduction during ablation.Post-ablation we could not demonstrate dual AV candis physiology with or without Isuprel. No tachycardias were induced with the without Isuprel as well as during washout period.The patienttolerated the procedurewell and did not have any complication. The patientleft the lab in sinus rhythm. Total ablation time was 4 minutes and 52 seconds. MEASUREMENTS/EP STUDY: AH interval 70 ms, HV interval 71 ms, SD interval 194 ms, QRS duration 140 ms, QT interval 388 ms, R-R interval 653 ms. AV Wenckebach when pacing at 360 ms cycle length. No retrograde conduction with RV pacing at cycle length 600 ms. Fast pathway ERP 600/310 ms, Slow pathway ERP was 600/230 ms, Fast pathway ERP was 450/350 ms, Slow pathway ERP was 450/330 ms, Isuprel infusion: AV Wenckebach when pacing at 240 ms, Fast pathway ERP 450/270 ms, Slow pathway ERP 450/250 ms, Post-ablation: Dual AV candis physiology not demonstrated. With Isuprel, Fast pathway ERP 600/430 ms, AV Wenckebach when pacing at 470 ms. PLAN: The patient will be observed overnight and will be discharged home tomorrow with precise followup instructions. Blanca Link MD, RS, CCDS Cardiac Electrophysiology Gonzalo LINK MD Mar 23, 2019 11:47
[2019-03-23] MEDS ORDERED: PATIENT MAY USE OWN MEDS, ALL PO SCH (12:00)
[2019-03-23] MEDS ORDERED: ONDANSETRON 4 MG/2 ML (SDV) Z0FRAN IVP PRN (12:15)
[2019-03-23] MEDS ORDERED: HYDROmorphone 2 MG/ML VIAL (DILAUDID) IV ONE (12:15)
[2019-03-23] MEDS ORDERED: hydrALAZINE (APESOLINE) 20 MG/ML VIAL ONE (12:38)
--- NOTE | 2019-03-23 12:43 | Anesthesia-General Post-Op ---
General Patient Condition Mental Status/LOC: Same as Preop Cardiovascular: Satisfactory Nausea/Vomiting: Absent Respiratory: Satisfactory Pain: Controlled Complications: Absent Post Op Complications Complications None Follow Up Care/Instructions Patient Instructions None needed. Anesthesia/Patient Condition Patient Condition Patient is doing well, no complaints, stable vital signs, no apparent adverse anesthesia problems. No complications reported per nursing. BRYAN REIS CRNA Mar 23, 2019 12:43
[2019-03-23] MEDS ORDERED: hydrALAZINE (APESOLINE) 20 MG/ML VIAL IV STA (12:49)
[2019-03-23] MEDS: NS IV 1000 ML 1,000 ML IV SCH ×2 (14:58→21:07)
[2019-03-23] MEDS ORDERED: NON-FORMULARY MEDICATION 1 EA EA (Polyethylene Glycol 3350 (Miralax) 17 GM) PO PRN (15:30)
[2019-03-23] MEDS ORDERED: ACETAMINOPHEN 500 MG TAB (TYLENOL) ONE (15:33)
[2019-03-23] MEDS: ACETAMINOPHEN 500 MG TAB (TYLENOL) PO PRN (15:45)
[2019-03-23] MEDS ORDERED: POLYETHYLENE GLYCOL 17 GM (MIRALAX) PACK PO PRN (15:45)
[2019-03-23] MEDS: RIVASTIGMINE 1.5 MG (EXELON) CAP PO SCH (19:08)
--- NOTE | 2019-03-23 20:24 | NUR ---
This RN contacted Dr Butler at this time to question resuming patient home Hydrocodone per patient request for CBP. Order received.
[2019-03-23] MEDS ORDERED: NON-FORMULARY MEDICATION 1 EA EA (Pravastatin Sodium 40 MG) PO SCH (21:00)
[2019-03-23] MEDS ORDERED: [UNRECOGNIZED DRUG - OTHER] PO SCH (21:00)
[2019-03-23] MEDS ORDERED: SIMvastatin 20 MG (ZOCOR) TAB PO SCH (21:00)
[2019-03-23] MEDS ORDERED: RIVASTIGMINE TARTRATE 6 MG PO SCH (21:00)
[2019-03-23] MEDS ORDERED: NON-FORMULARY MEDICATION 1 EA EA (Ranitidine HCl (Zantac) 150 MG) PO SCH (21:00)
[2019-03-23] MEDS: APIXABAN 5 MG (ELIQUIS) TABLET PO SCH (21:02)
[2019-03-23] MEDS: HYDROcodone/APAP 5 MG/325 MG (LORTAB) TAB PO PRN (21:02)
[2019-03-23] MEDS: FAMOTIDINE 20 MG (PEPCID) TABLET PO SCH (21:02)
[2019-03-23] MEDS: meTOprolol TARTRATE 25 MG (LOPRESSOR) TABLET PO SCH (21:03)
[2019-03-23] MEDS: PSYLLIUM POWDER (METAMUCIL) 5.8 GM PACKET PO SCH (21:03)
[2019-03-24 03:20] VITALS: BP 120/52
[2019-03-24 03:51] LABS: HEMOGLOBIN 11.6 G/DL (11.5-16.0); MEAN PLATELET VOLUME 10.2 FL (7.4-10.4); RED CELL DISTRIBUTION WIDTH 13.4 % (10.0-14.5); WHITE BLOOD COUNT 7.6 10^3/uL (4.3-11.0)
[2019-03-24 04:01] LABS: BUN/CREATININE RATIO 15; CALCIUM 9.3 MG/DL (8.5-10.1); CARBON DIOXIDE 24 MMOL/L (21-32); CHLORIDE 106 MMOL/L (98-107); CREATININE SERUM 0.89 MG/DL (0.60-1.30); GFR ESTIMATED > 60; GLUCOSE 232 MG/DL (70-105); POTASSIUM 5.1 MMOL/L (3.6-5.0); SODIUM 136 MMOL/L (135-145)
[2019-03-24] MEDS ORDERED: metFORMIN 500 MG (GLUCOPHAGE) TAB PO SCH (07:00)
[2019-03-24] MEDS ORDERED: LINAGLIPTIN (TRADJENTA) 5 MG TABLET PO SCH (07:00)
[2019-03-24] MEDS ORDERED: PANTOPRAZOLE 40 MG (PROTONIX) TAB PO SCH (07:00)
--- NOTE | 2019-03-24 07:13 | Anesthesia-General Post-Op ---
MAC Patient Condition Mental Status/LOC: Same as Preop Cardiovascular: Satisfactory Nausea/Vomiting: Absent Respiratory: Satisfactory Pain: Controlled Complications: Absent Post Op Complications Complications None Follow Up Care/Instructions Patient Instructions None needed. Anesthesiology Discharge Order Discharge Order Patient is doing well, no complaints, stable vital signs, no apparent adverse anesthesia problems. No complications reported per nursing. GINETTE ALMANZA CRNA Mar 24, 2019 07:13
[2019-03-24] MEDS: RIVASTIGMINE 1.5 MG (EXELON) CAP PO SCH (08:52)
[2019-03-24] MEDS: PSYLLIUM POWDER (METAMUCIL) 5.8 GM PACKET PO SCH ×2 (08:53→13:11)
[2019-03-24] MEDS: APIXABAN 5 MG (ELIQUIS) TABLET PO SCH (08:53)
[2019-03-24] MEDS: meTOprolol TARTRATE 25 MG (LOPRESSOR) TABLET PO SCH (08:53)
[2019-03-24] MEDS ORDERED: ASPIRIN E.C. 81 MG (ECOTRIN) TAB PO SCH (09:00)
[2019-03-24] MEDS ORDERED: ALLOPURINOL 100 MG (ZYLOPRIM) TAB PO SCH (09:00)
[2019-03-24] MEDS ORDERED: ALLOPURINOL 200 MG PO SCH (09:00)
[2019-03-24] MEDS ORDERED: SAXAGLIPTIN HCL 2.5 MG PO SCH (09:00)
[2019-03-24] MEDS ORDERED: NON-FORMULARY MEDICATION 1 EA EA (Metformin HCl 500 MG) PO SCH (09:00)
[2019-03-24] MEDS ORDERED: LOSARTAN 100 MG (COZAAR) TABLET PO SCH (09:00)
[2019-03-24] MEDS: FAMOTIDINE 20 MG (PEPCID) TABLET PO SCH (09:02)
[2019-03-24] MEDS: HYDROcodone/APAP 5 MG/325 MG (LORTAB) TAB PO PRN (09:11)
[2019-03-24 10:00] VITALS: BP 117/69
[2019-03-24] MEDS ORDERED: METF-397 PO (10:03)
[2019-03-24] MEDS: NS IV 1000 ML 1,000 ML IV SCH (10:48)
[2019-03-24] MEDS: ACETAMINOPHEN 500 MG TAB (TYLENOL) PO PRN (12:37)
[2019-03-24 13:00] VITALS: BP 108/51
--- NOTE | 2019-03-24 13:52 | NUR ---
SHIVA LESTER discharged to [facility]. Vilma notified of discharge and report given. SHIVA LESTER belongings sent with patient. Skin dry and intact; no breakdown noted. SHIVA LESTER discharged. Vital signs are stable at time of discharge. Condition isstable at time of discharge. Discharge instructions and copies of H&P, discharge summary, physician's order, lab reports, consultation reports, other dictated reports, diagnostic imaging reports, Advance Directive, eMAR, vital signs, intake and output sent with patient. Patient discharged from [facility] on 03/24/2019 at 1352 . SHIVA LESTER left floor via wheelchair, accompanied by this nurse et [facility] staff member.
[2019-03-24 14:51] VITALS: BP 108/51
--- NOTE | 2019-03-24 17:13 | Cardiology Discharge Summary ---
Diagnosis/Chief Complaint Date of Admission 03/23/2019 Date of Discharge 03/24/2019 Admission Diagnosis Palpitations, PSVT. Final/Discharge Diagnosis Slow pathway ablation. Chief Complaint/HPI Chief Complaint/HPI This is a 78-year-old lady with palpitations, narrow complex tachycardia. 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 Slow pathway ablation was performed. Discharge Physical Examination Stable cardiovascular examination. Hospital Course Was the Problem List Reviewed?: Yes Unremarkable. Discussion & Recommendations Discussion Discharge instructions were discussed at length with the patient. Patient will continue the same medications. Follow up appt.: Follow-up in a month. Dicharge Diet: Cardiac Diet Activity as Tolerated: Yes Home Medications Reviewed patient Home Medication Reconciliation performed by pharmacy medication reconciliations restoration technician and/or nursing. Patients Allergies have been reviewed. Discharge Home Medications: Reviewed and agree with Discharge Medication list on patient's Discharge Instruction sheet Condition at discharge Stable. Instructions to patient/family Discussed with the patient. Gonzalo ORR MD Mar 24, 2019 17:13
== END 2019-03-24 13:52 | disposition home or self-care (01) ==
LOC: CATH 06:37 → ICU 13:15 → CATH 03-24 13:52
PROVIDERS: ATTEND Internal Medicine Interventional Cardiology
DX: I47.1 Supraventricular tachycardia (principal); I48.0 Paroxysmal atrial fibrillation; I25.10 Atherosclerotic heart disease of native coronary artery without angina pectoris; I48.92 Unspecified atrial flutter; M19.90 Unspecified osteoarthritis, unspecified site; J44.9 Chronic obstructive pulmonary disease, unspecified; D64.9 Anemia, unspecified; G89.29 Other chronic pain; M54.9 Dorsalgia, unspecified; E66.01 Morbid (severe) obesity due to excess calories; E11.9 Type 2 diabetes mellitus without complications; M79.89 Other specified soft tissue disorders; M25.519 Pain in unspecified shoulder; F41.8 Other specified anxiety disorders; F17.210 Nicotine dependence, cigarettes, uncomplicated; Z79.899 Other long term (current) drug therapy; Z79.02 Long term (current) use of antithrombotics/antiplatelets; Z79.82 Long term (current) use of aspirin; Z99.89 Dependence on other enabling machines and devices; Z68.42 Body mass index [BMI] 45.0-49.9, adult; Z95.0 Presence of cardiac pacemaker; Z86.73 Personal history of transient ischemic attack (TIA), and cerebral infarction without residual deficits; Z79.84 Long term (current) use of oral hypoglycemic drugs; Z82.3 Family history of stroke; Z80.9 Family history of malignant neoplasm, unspecified
CPT/HCPCS: 36415; 80048; 80053; 81000; 85027; 85610; 85730; 87081; 93005; 93621; 93623; 93653

== ENCOUNTER 2019-04-20 19:43 | Outpatient (CLI) | payer MEDICARE, MEDICAID ==
[~2019-04-20 19:43] MED LIST changes: +APIX5TAB PO; +CHOL10007 PO; +METF-397 PO; +METO-333 PO; +PSYL3.4P5 PO; +RANI-613 PO; +SAXA2.5T PO
== END 2019-04-21 07:01 | disposition home or self-care (01) ==
LOC: SLEEP 19:43
PROVIDERS: ATTEND Otolaryngology Otolaryngology/Facial Plastic Surgery
DX: G47.33 Obstructive sleep apnea (adult) (pediatric) (principal); R09.02 Hypoxemia
CPT/HCPCS: 95811